=== PATIENT | male | born 1965 | race Caucasian/White ===

== ENCOUNTER 2023-01-24 20:53 | Inpatient (IN) ==
[2023-01-24] MEDS ORDERED: 0.9 % SODIUM CHLORIDE 1,000 ML IV ONE ×2 (21:06→22:03)
--- NOTE | 2023-01-24 21:21 | Emergency Department Note ---
Male Urogenital HPI General Chief complaint: Urogenital-Male Stated complaint: hematuria Time Seen by Provider: 01/24/23 21:04 Source: patient and family Mode of arrival: wheelchair Limitations: no limitations History of Present Illness HPI Narrative: Narrative: Patient is a 57-year-old male who came into the emergency department today with complaint of penile swelling and urinary retention. Patient indicates that the symptoms started 2 days ago. He thought he may have a urinary tract infection so he took [id number] Azo to help with potential UTI. He has noticed small amount of blood on the ventral side of penis today. He reports this is very small amount of blood. He has not noticed hematuria. He has abdominal aching sensation over his bladder and feels that he needs to urinate. He has been having some mild low back pain. He denies having any fevers but has felt chilled at times. He denies any melena or hematochezia. He reports having loose brown to occasional villatoro-colored stool. He has not had any cough, chest pain, shortness of breath, or difficulty breathing. Review of Systems ROS ROS Narrative: Narrative: All systems ED: reviewed and negative except as stated. [facility] Narrative Patient History Narrative: Narrative: Medical/Surgical/Family History All Active Problems (Updated 01/24/23 @ 22:00 by Geraldo Arora DNP) Acute retention of urine (Acute) BRADEN (acute kidney injury) (Acute) Social History Smoking Status: Current every day smoker Exam Narrative Narrative: Narrative: General Limitations: no limitations General appearance: Present alert and in no apparent distress Eye Eye: Present normal appearance; Absent scleral icterus ENT ENT: Present mucous membranes moist Neck Neck: Present full ROM; Absent lymphadenopathy Chest Chest: Present symmetric chest wall rise Respiratory Respiratory: Present normal lung sounds bilaterally; Absent respiratory distress, rales/crackles, wheezes or accessory muscle use Cardiovascular Cardiovascular: Present normal rhythm and tachycardia Adbominal Abdominal: Present soft and tenderness (Mild suprapubic tenderness with palpation.); Absent distention, mass or hernia : Present normal testicular lie and circumcised; Absent scrotal swelling Expanded : Present other (Very minimal penile swelling of shaft of penis. On the ventral side of penis near the meatus is a small crack in the skin with scant serous discharge.) Extremities Extremities: Present normal inspection, full ROM and normal capillary refill; Absent pedal edema, pretibial edema or cyanosis Back Back: Present normal inspection and full ROM; Absent CVA tenderness (R) or CVA tenderness (L) Neurological Neurological: Present alert and oriented X3 Psychiatric Psychiatric: Present normal affect and normal mood Skin Skin: Present warm (WNL), dry and normal color Course Vital Signs Vital signs: Vital Signs Temperature 97.5 F 01/24/23 20:56 Pulse Rate 126 H 01/24/23 20:56 Respiratory Rate 14 01/24/23 20:56 Blood Pressure 90/63 01/24/23 20:56 Pulse Oximetry (%) 98 01/24/23 20:56 Oxygen Delivery Method Room Air 01/24/23 20:56 Temperature 97.5 F 01/24/23 20:56 Pulse Rate 116 H 01/24/23 21:45 Respiratory Rate 14 01/24/23 20:56 Blood Pressure 102/77 01/24/23 21:45 Pulse Oximetry (%) 98 01/24/23 21:45 Oxygen Delivery Method Room Air 01/24/23 20:56 [facility] Narrative Medical decision making narrative: Narrative: Patient is a 57-year-old male who came into the emergency department today reporting urinary retention, penile swelling, and mild amount of blood noted at the ventral side of his penis. On examination patient has a small area that resembles an abrasion on the ventral side of penis near the meatus. Patient had mild nausea today and proceeded with 4 mg of IV ondansetron. Patient had a pulse of 126 and a blood pressure of 90/63. Proceed with 1 L of IV normal saline for hydration. Bladder scan amount was greater than 300 mL and patient unable to void. Ordered Duff catheter to be placed. 24 Maori Duff catheter was placed today. Patient had moderate amount of hematuria. Patient's [id number] Chem-8 panel shows hematocrit 48.0, creatinine 3.3 with BUN of 46. Patient currently receiving 1 L of IV normal saline for hydration and will order second liter of NS for hydration. Patient's [id number] INR 2.1. He does not take any anticoagulants and reports that he rarely takes acetaminophen. He denies any NSAID use. Ordered renal ultrasound for further evaluation of patient's acute kidney injury and hematuria. Due to shift change at 2200 Dr. Walsh will assume care. Patient still patient in the emergency department at this time. Blood pressure 102/77, pulse 116, oxygen saturation 98% on room air. Patient was ordered 0.5 mg of Dilaudid IV for pain management today. Lab Data 01/24/23 21:24 Labs: Lab Results 01/24/23 01/24/23 Range/Units 21:19 21:31 POC Hct 48.0 (41-55) POC PT 24.0 H (11.9-14.5) POC INR 2.1 H (0.8-1.2) POC Sodium 139 (133-145) POC Potassium 3.8 (3.3-5.1) POC Chloride 107 (96-108) POC Total CO2 16.0 L (22-30) POC BUN 46 H (6-20) POC Creatinine 3.3 H (0.6-1.2) POC Glucose 108 H (70-105) POC WB Ioniz Calcium 1.12 L (1.16-1.32) Discharge Plan Patient/Caregiver Discharge Instructions Pt seen by LINE CONSTRUCTION ENGINEER/PA only: No Clinical Impression: Acute retention of urine, BRADEN (acute kidney injury) Patient Disposition: Still a Patient Condition: Serious Follow up with: Chace Gonzalez ARNP [Primary Care Provider] -
[2023-01-24] MEDS ORDERED: ONDANSETRON 4 MG/2 ML VIAL IV ONE (21:22)
[2023-01-24 21:25] LABS: POC Calcium, Ionized 1.12 (1.16-1.32); POC Creatinine 3.3 (0.6-1.2); POC Potassium 3.8 (3.3-5.1)
[2023-01-24 21:36] LABS: POC INR 2.1 (0.8-1.2)
[2023-01-24] MEDS ORDERED: HYDROmorphone 0.5 MG/0.5 ML SYRINGE IV PRN (21:57)
[2023-01-24 22:27] LABS: ALT/SGPT 33 U/L (<40); AST/SGOT 51 U/L (<40); Albumin 3.7 gm/dL (3.2-5.2); Alkaline Phosphatase 65 U/L (39-117); Basophils # (Auto) 0.14 K/mcL (0.00-0.30); Basophils % (Auto) 0.4 % (0.0-2.0); Bilirubin,Direct 1.1 mg/dL (<0.3); Bilirubin,Total 2.1 mg/dL (0.1-1.0); Eosinophils # (Auto) 0.01 K/mcL (0.00-0.70); Eosinophils % (Auto) 0 % (0.0-7.0); Globulin 2.5 gm/dL (2.2-3.7); Hematocrit 47.1 % (40.1-51.0); Hemoglobin 16.1 g/dL (13.7-17.5); Lymphocytes % (Auto) 1.9 % (15.5-49.0); Mean Cell Volume 84.7 fL (80.0-100.0); Mean Corpuscular HGB Conc 34.2 g/dL (31.0-36.0); Mean Platelet Volume 11.5 fL (8.8-12.5); Monocytes # (Auto) 1.46 K/mcL (0.10-0.90); Monocytes % (Auto) 4.1 % (1.0-12.0); Neutrophils % (Auto) 89.2 % (38.0-78.0); Platelet Count 114 K/mcL (140-440); RBC 5.56 M/mcL (4.63-6.08); Red Cell Distribution Width 14.7 % (11.5-14.5); WBC 35.9 K/mcL (4.5-11.0)
[2023-01-24] MEDS ORDERED: LIDOCAINE 2% URO-JET 10 ML JEL.PF.APP UR ONE (22:55)
[2023-01-24] MEDS ORDERED: cefTRIAXone 2 GM in DEXTROSE 5% IN WATER 50 ML IV ONE (23:06)
[2023-01-24 23:15] LABS: Appearance,Urine Turbid (Clear); Bacteria,Urine 0 /hpf (0); Bilirubin,Urine Negative (Negative); Color,Urine Red; Culture Indicated,Urine yes; Glucose,Urine (UA) 100(Trace) mg/dL (Negative); Ketones,Urine 5(Trace) mg/dL (Negative); Leukocyte Esterase,Urine 2+(Moderate) /uL (Negative); Nitrate,Urine Positive (Negative); PH,Urine 7.5 (5.0-9.0); Protein,Urine >=300 mg/dL (Negative); Specific Gravity,Urine 1.015 (1.000-1.035); Urine Blood 3+(Large) ery/mcL (Negative); Urine RBC > 182 /hpf (0-1); Urine Squamous Epithelial Cell 0 /hpf (0-4); Urine WBC 15 /hpf (0-4)
[2023-01-25] MEDS ORDERED: ONDANSETRON 4 MG/2 ML VIAL IV ONE (00:35)
[2023-01-25] MEDS ORDERED: ONDANSETRON 4 MG/2 ML VIAL ONE (00:37)
--- NOTE | 2023-01-25 00:44 | Urology Consult Note ---
HPI Date of Consult Consult Date: 01/25/23 Requesting physician: Ta Walsh Primary Care Provider: JOHN Wilkins Consult Narrative Patient Information: Note initiated : 01/25/23 at 12:43 am Service Date, if different from initiated Date: [] Patient: Ventura Corral 57 y/o M admitted on for hematuria. Chief Complaint: Ventura is a 57-year-old male who presented to the emergency department earlier this evening with complaints of difficulty with urinating for the past several days. He reports for the past couple of years he has had increasing difficulty with urination with episodes that would last for several minutes to several hours after which she would be able to urinate again. Today he saw small amount of blood on his penis. He did not notice blood in his urine. He and his reports that the urine was an redd color. He has had chills, nausea and emesis for the past couple of days. Attempts at placing a Duff catheter in the emergency room were unsuccessful. A 24 Comoran catheter was placed and the balloon was inflated in the prostate. This was confirmed on ultrasound. That catheter was removed and urology consultation was obtained. CT scan in the ER was obtained and showed no evidence of hydronephrosis or stones. The bladder was moderately distended. There was some haziness in the perinephric fat bilaterally. The prostate is seen to be moderately enlarged. The patient's white blood cell count is 36. BUN and creatinine are elevated at 46 and 3.3 respectively. Chief complaint: Urinary retention, possible urosepsis Reason for consult: Urinary retention inability to place Duff cath cc:: CC: Review of Systems All systems: reviewed and no additional remarkable complaints except as stated Constitutional Constitutional: Present lethargy and weakness Gastrointestinal Gastrointestinal: Present bloating, nausea and vomiting Genitourinary Genitourinary: as per HPI, hematuria, post void dribbling, urinary frequency, urinary hesitancy and urinary urgency PFSH PFSH All Active Problems (Updated 01/25/23 @ 00:59 by Juarez Griffin MD) Urethral stricture (Acute) Acute retention of urine (Acute) BRADEN (acute kidney injury) (Acute) Sepsis (Acute) Acute pyelonephritis (Acute) Acute UTI (Acute) Social History smoking status: Current every day smoker Physical Examination Vital Signs Vital signs: Temp Pulse Resp BP Pulse Ox O2 Del Method 97.5 F 118 H 14 104/70 97 Room Air 01/24/23 20:56 01/24/23 23:45 01/24/23 20:56 01/24/23 23:45 01/24/23 23:45 01/24/23 20:56 General physical appearance General physical exam: well developed, well nourished and moderate pain ENT ENT exam: no hearing loss Head Head exam IM: Present atraumatic, normal inspection and normocephalic Neck Neck exam: trachea midline Cardiovascular Cardiovascular exam IM: Present normal rate and rhythm Respiratory Respiratory exam: normal respiratory effort and clear to auscultation Abdomen Abdomen: Present soft, tender and distended Genitourinary Genitourinary (Male): Present normal penis with no external lesions Neurologic Neurologic: Present normal sensation Psychiatric Psychiatric: Present oriented to time, oriented to person, oriented to place, speech is normal and memory intact Results Labs 01/24/23 21:24 Labs: Abnormal lab results 01/24/23 01/24/23 01/24/23 Range/Units 21:19 21:24 21:24 WBC 35.9 H* (4.5-11.0) K/mcL RDW 14.7 H (11.5-14.5) % Plt Count 114 L (140-440) K/mcL Immature Gran % (Auto) 4.4 H (0.0-0.5) % Neut % (Auto) 89.2 H (38.0-78.0) % Lymph % (Auto) 1.9 L (15.5-49.0) % Lymph # (Auto) 0.70 L (1.50-4.80) K/mcL Donley # (Auto) 1.46 H (0.10-0.90) K/mcL Immature Gran # 1.58 H (0.00-0.05) K/mcl Absolute Neutrophils 32.05 H (1.80-8.00) K/mcL POC PT (11.9-14.5) POC INR (0.8-1.2) POC VBG pCO2 at Temp (41-51) POC VBG pO2 (25-40) POC VBG HCO3 (24-28) POC VBG Total CO2 (25-29) POC Venous O2 Sat (40-70) POC VBG Base Excess (-2-2) VBG Lactic Acid (0.5-2) POC Total CO2 16.0 L (22-30) POC BUN 46 H (6-20) POC Creatinine 3.3 H (0.6-1.2) POC Glucose 108 H (70-105) POC WB Ioniz Calcium 1.12 L (1.16-1.32) Total Bilirubin 2.1 H (0.1-1.0) mg/dL Direct Bilirubin 1.1 H (<0.3) mg/dL AST 51 H (<40) U/L Procalcitonin ng/mL Urine Appearance (Clear) Urine Protein (Negative) mg/dL Urine Glucose (UA) (Negative) mg/dL Urine Ketones (Negative) mg/dL Urine Occult Blood (Negative) kalyan/mcL Urine Nitrate (Negative) Urine Urobilinogen mg/dL Ur Leukocyte Esterase (Negative) /uL Urine RBC (0-1) /hpf Urine WBC (0-4) /hpf 01/24/23 01/24/23 01/24/23 Range/Units 21:31 22:32 22:34 WBC (4.5-11.0) K/mcL RDW (11.5-14.5) % Plt Count (140-440) K/mcL Immature Gran % (Auto) (0.0-0.5) % Neut % (Auto) (38.0-78.0) % Lymph % (Auto) (15.5-49.0) % Lymph # (Auto) (1.50-4.80) K/mcL Donley # (Auto) (0.10-0.90) K/mcL Immature Gran # (0.00-0.05) K/mcl Absolute Neutrophils (1.80-8.00) K/mcL POC PT 24.0 H (11.9-14.5) POC INR 2.1 H (0.8-1.2) POC VBG pCO2 at Temp (41-51) POC VBG pO2 (25-40) POC VBG HCO3 (24-28) POC VBG Total CO2 (25-29) POC Venous O2 Sat (40-70) POC VBG Base Excess (-2-2) VBG Lactic Acid (0.5-2) POC Total CO2 (22-30) POC BUN (6-20) POC Creatinine (0.6-1.2) POC Glucose (70-105) POC WB Ioniz Calcium (1.16-1.32) Total Bilirubin (0.1-1.0) mg/dL Direct Bilirubin (<0.3) mg/dL AST (<40) U/L Procalcitonin > 100 H ng/mL Urine Appearance Turbid A (Clear) Urine Protein >=300 A (Negative) mg/dL Urine Glucose (UA) 100(trace) A (Negative) mg/dL Urine Ketones 5(trace) A (Negative) mg/dL Urine Occult Blood 3+(large) A (Negative) kalyan/mcL Urine Nitrate Positive A (Negative) Urine Urobilinogen 2.0 A mg/dL Ur Leukocyte Esterase 2+(moderate) A (Negative) /uL Urine RBC > 182 H (0-1) /hpf Urine WBC 15 H (0-4) /hpf 01/24/23 Range/Units 22:57 WBC (4.5-11.0) K/mcL RDW (11.5-14.5) % Plt Count (140-440) K/mcL Immature Gran % (Auto) (0.0-0.5) % Neut % (Auto) (38.0-78.0) % Lymph % (Auto) (15.5-49.0) % Lymph # (Auto) (1.50-4.80) K/mcL Donley # (Auto) (0.10-0.90) K/mcL Immature Gran # (0.00-0.05) K/mcl Absolute Neutrophils (1.80-8.00) K/mcL POC PT (11.9-14.5) POC INR (0.8-1.2) POC VBG pCO2 at Temp 30.8 L (41-51) POC VBG pO2 42 H (25-40) POC VBG HCO3 18.1 L (24-28) POC VBG Total CO2 19.0 L (25-29) POC Venous O2 Sat 77.0 H (40-70) POC VBG Base Excess -7.0 L (-2-2) VBG Lactic Acid 3.3 H (0.5-2) POC Total CO2 (22-30) POC BUN (6-20) POC Creatinine (0.6-1.2) POC Glucose (70-105) POC WB Ioniz Calcium (1.16-1.32) Total Bilirubin (0.1-1.0) mg/dL Direct Bilirubin (<0.3) mg/dL AST (<40) U/L Procalcitonin ng/mL Urine Appearance (Clear) Urine Protein (Negative) mg/dL Urine Glucose (UA) (Negative) mg/dL Urine Ketones (Negative) mg/dL Urine Occult Blood (Negative) kalyan/mcL Urine Nitrate (Negative) Urine Urobilinogen mg/dL Ur Leukocyte Esterase (Negative) /uL Urine RBC (0-1) /hpf Urine WBC (0-4) /hpf Diabetes panel 01/24/23 Range/Units 21:24 AST 51 H (<40) U/L ALT 33 (<40) U/L Alkaline Phosphatase 65 (39-117) U/L Total Protein 6.2 (5.9-8.4) gm/dL Albumin 3.7 (3.2-5.2) gm/dL Calcium panel 01/24/23 Range/Units 21:24 Albumin 3.7 (3.2-5.2) gm/dL Adrenal panel 01/24/23 Range/Units 21:24 Total Bilirubin 2.1 H (0.1-1.0) mg/dL AST 51 H (<40) U/L ALT 33 (<40) U/L Alkaline Phosphatase 65 (39-117) U/L Total Protein 6.2 (5.9-8.4) gm/dL Albumin 3.7 (3.2-5.2) gm/dL All other labs normal. Imaging CT scan - abdomen: image reviewed CT scan - pelvis: image reviewed A/P Assessment and plan (1) Acute retention of urine: Status: Acute (2) Sepsis: Status: Acute Qualifiers: Acute renal failure type: unspecified Sepsis acute organ dysfunction status: with acute organ dysfunction Sepsis type: sepsis due to unspecified organism Severe sepsis acute organ dysfunction type: acute renal failure Severe sepsis shock status: without septic shock Qualified Code(s): A41.9 - Sepsis, unspecified organism; R65.20 - Severe sepsis without septic shock; N17.9 - Acute kidney failure, unspecified (3) Urethral stricture: Status: Acute Plan Ventura is a 57-year-old male who presents to the emergency department today with what is likely a history of urethral stricture of unknown etiology and moderate urinary retention. It appears that he also may have a urinary tract infection with urosepsis. It appears that he is septic from some source and the urine appears to be the most likely source although not the only possible source. He has been having significant nausea and emesis. Urology consultation was obtained and at the bedside flexible cystoscopy was performed that revealed a large posterior false passage with a small true lumen anteriorly. A 0.38 Comoran sensor wire was passed through the true lumen and into the bladder. This was then dilated using S-curve dilators to 20 Com[place]. An 18 Comoran koi tip catheter was then passed over the wire and into the bladder. The wire was removed and the balloon was inflated with 10 mL. The catheter was then drained and drained approximately 300 mL of redd-colored urine. With the Duff catheter in place the patient will be admitted to the hospitalist service for further evaluation and treatment. The catheter should remain in for the length of his stay for least 1 week. I will remove the catheter in the office and determine further work-up. Time Spent With Patient Time: Total time spent is greater than 50% in coordination of care (as documented) at patient's floor/unit and/or counseling patient: Cystoscopy Details: At the bedside lidocaine jelly was placed in the urethra. Once the lidocaine had adequate time to sit the penile clamp was removed. The flexible, disposable cystoscope was then easily passed per urethra to the bulbar urethra. There was a large posterior false passage identified. A 0.38 Comoran sensor wire was passed through a tiny true lumen anteriorly. The cystoscope was removed. The urethra was then dilated using S-curve dilators to 20 Comoran. A 18 Comoran koi tip catheter was then passed over the wire and into the bladder. The wire was removed. The balloon was inflated with 10 mL. It drained clear redd urine with a strong odor. The catheter was placed to gravity drainage. He tolerated the procedure well with minimal discomfort. Informed consent given: Yes Sterilizing agent: betadine Type of anesthesia: local Type of scope: flexible Urethra appearance: strictures present Pain tolerated with: well Complications: No Visual taken: No
--- NOTE | 2023-01-25 00:55 | Emergency Department Note ---
Course Course Course Narrative: I assumed care of patient at 2200 pending remaining labs and ultrasound report. A Duff catheter was placed and balloon inflated and jim blood was returned. Renal ultrasound was obtained due to patient's acute kidney injury to assess for any obstruction. Ultrasound did not show any obstruction but it did not show that the Duff catheter was in the bladder. Balloon was deflated and Duff catheter removed. We attempted to place another smaller catheter without any success. Urology was consulted at that point and Dr. Griffin was able to successfully place a Duff catheter. He request that the Duff catheter maintain in place until patient follows up in the outpatient clinic. We were not able to obtain a UA until after Dr. Griffin placed a Duff catheter at about 00 30. Due to patient's labs revealing that his leukocytosis was severe greater than 30 his lactic acid was 3.3 and his procalcitonin was severely elevated a CTA chest abdomen pelvis without contrast was obtained and show that patient had pyelonephritis which fits the clinical picture as his UA dip showed that he had a UTI and he also has some nausea and vomiting. Blood cultures were obtained and patient was given IV Rocephin. Patient does meet sepsis criteria with tachycardia, leukocytosis and source of infection. Recommend that patient be admitted to the hospitalist service for sepsis secondary to pyelonephritis. Patient's blood pressure has also been soft at times he is hypotensive. He received IV fluids. Consultations Consultation #1: Case was discussed with urologist, Dr. Griffin, who came and evaluated patient at bedside. He was able to place a Duff catheter in the patient. He recommends the patient maintain Duff catheter until he follows up in the outpatient clinic. Time: 00:30 Consultation #2: Case discussed with hospitalist, Dr. Taylor, who has agreed to admit the patient Time: 01:45 Vital Signs Vital signs: Vital Signs Temperature 97.5 F 01/24/23 20:56 Pulse Rate 126 H 01/24/23 20:56 Respiratory Rate 14 01/24/23 20:56 Blood Pressure 90/63 01/24/23 20:56 Pulse Oximetry (%) 98 01/24/23 20:56 Oxygen Delivery Method Room Air 01/24/23 20:56 Temperature 97.5 F 01/24/23 20:56 Pulse Rate 117 H 01/25/23 00:55 Respiratory Rate 14 01/24/23 20:56 Blood Pressure 82/62 01/25/23 00:55 Pulse Oximetry (%) 95 01/25/23 00:55 Oxygen Delivery Method Room Air 01/24/23 20:56 MDM MDM Narrative Medical decision making narrative: Narrative: Sepsis Sepsis Identified: Yes Date Sepsis Identified: 01/25/23 Time Sepsis Identified: 00:40 Comments: uti sepsis Differential Diagnosis Differential Diagnosis: UTI, sepsis, pyelonephritis, urinary retention Medical Records Medical records reviewed: Yes I reviewed the patient's medical records. Lab Data Lab results reviewed: Yes I reviewed the patient's lab results. 01/24/23 21:24 Labs: Lab Results 01/24/23 01/24/23 01/24/23 Range/Units 21:19 21:24 21:24 WBC 35.9 H* (4.5-11.0) K/mcL RBC 5.56 (4.63-6.08) M/mcL Hgb 16.1 (13.7-17.5) g/dL Hct 47.1 (40.1-51.0) % POC Hct 48.0 (41-55) MCV 84.7 (80.0-100.0) fL MCH 29.0 (26.0-34.0) pg MCHC 34.2 (31.0-36.0) g/dL RDW 14.7 H (11.5-14.5) % Plt Count 114 L (140-440) K/mcL MPV 11.5 (8.8-12.5) fL Immature Gran % (Auto) 4.4 H (0.0-0.5) % Neut % (Auto) 89.2 H (38.0-78.0) % Lymph % (Auto) 1.9 L (15.5-49.0) % Nance % (Auto) 4.1 (1.0-12.0) % Eos % (Auto) 0 (0.0-7.0) % Baso % (Auto) 0.4 (0.0-2.0) % Lymph # (Auto) 0.70 L (1.50-4.80) K/mcL Nance # (Auto) 1.46 H (0.10-0.90) K/mcL Eos # (Auto) 0.01 (0.00-0.70) K/mcL Baso # (Auto) 0.14 (0.00-0.30) K/mcL Immature Gran # 1.58 H (0.00-0.05) K/mcl Absolute Neutrophils 32.05 H (1.80-8.00) K/mcL Differential Comment POC PT (11.9-14.5) POC INR (0.8-1.2) POC VBG pH (7.32-7.42) POC VBG pCO2 at Temp (41-51) POC VBG pO2 (25-40) POC VBG HCO3 (24-28) POC VBG Total CO2 (25-29) POC Venous O2 Sat (40-70) POC VBG Base Excess (-2-2) VBG Lactic Acid (0.5-2) POC Sodium 139 (133-145) POC Potassium 3.8 (3.3-5.1) POC Chloride 107 (96-108) POC Total CO2 16.0 L (22-30) POC BUN 46 H (6-20) POC Creatinine 3.3 H (0.6-1.2) POC Glucose 108 H (70-105) POC WB Ioniz Calcium 1.12 L (1.16-1.32) Total Bilirubin 2.1 H (0.1-1.0) mg/dL Direct Bilirubin 1.1 H (<0.3) mg/dL AST 51 H (<40) U/L ALT 33 (<40) U/L Alkaline Phosphatase 65 (39-117) U/L Total Protein 6.2 (5.9-8.4) gm/dL Albumin 3.7 (3.2-5.2) gm/dL Globulin 2.5 (2.2-3.7) gm/dL Procalcitonin ng/mL Urine Color Urine Appearance (Clear) Urine pH (5.0-9.0) Ur Specific [place] (1.000-1.035) Urine Protein (Negative) mg/dL Urine Glucose (UA) (Negative) mg/dL Urine Ketones (Negative) mg/dL Urine Occult Blood (Negative) kalyan/mcL Urine Nitrate (Negative) Urine Bilirubin (Negative) mg/dL Urine Urobilinogen mg/dL Ur Leukocyte Esterase (Negative) /uL Urine RBC (0-1) /hpf Urine WBC (0-4) /hpf Ur Squamous Epith Cells (0-4) /hpf Urine Bacteria (0) /hpf Ur Culture Indicated? 01/24/23 01/24/23 01/24/23 Range/Units 21:31 22:32 22:34 WBC (4.5-11.0) K/mcL RBC (4.63-6.08) M/mcL Hgb (13.7-17.5) g/dL Hct (40.1-51.0) % POC Hct (41-55) MCV (80.0-100.0) fL MCH (26.0-34.0) pg MCHC (31.0-36.0) g/dL RDW (11.5-14.5) % Plt Count (140-440) K/mcL MPV (8.8-12.5) fL Immature Gran % (Auto) (0.0-0.5) % Neut % (Auto) (38.0-78.0) % Lymph % (Auto) (15.5-49.0) % Nance % (Auto) (1.0-12.0) % Eos % (Auto) (0.0-7.0) % Baso % (Auto) (0.0-2.0) % Lymph # (Auto) (1.50-4.80) K/mcL Nance # (Auto) (0.10-0.90) K/mcL Eos # (Auto) (0.00-0.70) K/mcL Baso # (Auto) (0.00-0.30) K/mcL Immature Gran # (0.00-0.05) K/mcl Absolute Neutrophils (1.80-8.00) K/mcL Differential Comment POC PT 24.0 H (11.9-14.5) POC INR 2.1 H (0.8-1.2) POC VBG pH (7.32-7.42) POC VBG pCO2 at Temp (41-51) POC VBG pO2 (25-40) POC VBG HCO3 (24-28) POC VBG Total CO2 (25-29) POC Venous O2 Sat (40-70) POC VBG Base Excess (-2-2) VBG Lactic Acid (0.5-2) POC Sodium (133-145) POC Potassium (3.3-5.1) POC Chloride (96-108) POC Total CO2 (22-30) POC BUN (6-20) POC Creatinine (0.6-1.2) POC Glucose (70-105) POC WB Ioniz Calcium (1.16-1.32) Total Bilirubin (0.1-1.0) mg/dL Direct Bilirubin (<0.3) mg/dL AST (<40) U/L ALT (<40) U/L Alkaline Phosphatase (39-117) U/L Total Protein (5.9-8.4) gm/dL Albumin (3.2-5.2) gm/dL Globulin (2.2-3.7) gm/dL Procalcitonin > 100 H ng/mL Urine Color Red Urine Appearance Turbid A (Clear) Urine pH 7.5 (5.0-9.0) Ur Specific [place] 1.015 (1.000-1.035) Urine Protein >=300 A (Negative) mg/dL Urine Glucose (UA) 100(trace) A (Negative) mg/dL Urine Ketones 5(trace) A (Negative) mg/dL Urine Occult Blood 3+(large) A (Negative) kalyan/mcL Urine Nitrate Positive A (Negative) Urine Bilirubin Negative (Negative) mg/dL Urine Urobilinogen 2.0 A mg/dL Ur Leukocyte Esterase 2+(moderate) A (Negative) /uL Urine RBC > 182 H (0-1) /hpf Urine WBC 15 H (0-4) /hpf Ur Squamous Epith Cells 0 (0-4) /hpf Urine Bacteria 0 (0) /hpf Ur Culture Indicated? yes 01/24/23 01/25/23 01/25/23 Range/Units 22:57 01:30 01:30 WBC (4.5-11.0) K/mcL RBC (4.63-6.08) M/mcL Hgb (13.7-17.5) g/dL Hct (40.1-51.0) % POC Hct 42.0 (41-55) MCV (80.0-100.0) fL MCH (26.0-34.0) pg MCHC (31.0-36.0) g/dL RDW (11.5-14.5) % Plt Count (140-440) K/mcL MPV (8.8-12.5) fL Immature Gran % (Auto) (0.0-0.5) % Neut % (Auto) (38.0-78.0) % Lymph % (Auto) (15.5-49.0) % Nance % (Auto) (1.0-12.0) % Eos % (Auto) (0.0-7.0) % Baso % (Auto) (0.0-2.0) % Lymph # (Auto) (1.50-4.80) K/mcL Nance # (Auto) (0.10-0.90) K/mcL Eos # (Auto) (0.00-0.70) K/mcL Baso # (Auto) (0.00-0.30) K/mcL Immature Gran # (0.00-0.05) K/mcl Absolute Neutrophils (1.80-8.00) K/mcL Differential Comment POC PT (11.9-14.5) POC INR (0.8-1.2) POC VBG pH 7.38 7.43 H (7.32-7.42) POC VBG pCO2 at Temp 30.8 L 27.2 L (41-51) POC VBG pO2 42 H 57 H (25-40) POC VBG HCO3 18.1 L 17.9 L (24-28) POC VBG Total CO2 19.0 L 19.0 L (25-29) POC Venous O2 Sat 77.0 H 91.0 H (40-70) POC VBG Base Excess -7.0 L -6.0 L (-2-2) VBG Lactic Acid 3.3 H 3.0 H (0.5-2) POC Sodium 140 (133-145) POC Potassium 3.8 (3.3-5.1) POC Chloride 108 (96-108) POC Total CO2 18.0 L (22-30) POC BUN 49 H (6-20) POC Creatinine 3.1 H (0.6-1.2) POC Glucose 105 (70-105) POC WB Ioniz Calcium 1.02 L (1.16-1.32) Total Bilirubin (0.1-1.0) mg/dL Direct Bilirubin (<0.3) mg/dL AST (<40) U/L ALT (<40) U/L Alkaline Phosphatase (39-117) U/L Total Protein (5.9-8.4) gm/dL Albumin (3.2-5.2) gm/dL Globulin (2.2-3.7) gm/dL Procalcitonin ng/mL Urine Color Urine Appearance (Clear) Urine pH (5.0-9.0) Ur Specific [place] (1.000-1.035) Urine Protein (Negative) mg/dL Urine Glucose (UA) (Negative) mg/dL Urine Ketones (Negative) mg/dL Urine Occult Blood (Negative) kalyan/mcL Urine Nitrate (Negative) Urine Bilirubin (Negative) mg/dL Urine Urobilinogen mg/dL Ur Leukocyte Esterase (Negative) /uL Urine RBC (0-1) /hpf Urine WBC (0-4) /hpf Ur Squamous Epith Cells (0-4) /hpf Urine Bacteria (0) /hpf Ur Culture Indicated? Radiology Data Radiology results reviewed: Yes I reviewed the patient's radiology results. Radiology results narrative: Renal ultrasound obtained with unremarkable findings with no obstruction CT chest abdomen pelvis obtained with image reviewed myself concerning for pyelonephritis with no other acute intra-abdominal findings Core Measures AMI Core Measures Followed: Yes Discharge Plan Patient/Caregiver Discharge Instructions Pt seen by COMMERCIAL COORDINATOR/PA only: No Clinical Impression: Sepsis, Acute retention of urine, BRADEN (acute kidney injury), Acute pyelonephritis, Acute UTI Patient Disposition: Xfer As Inpt ([facility]) Condition: Fair Follow up with: Chace Gonzalez ARNP [Primary Care Provider] - Prescriptions: No Action No Known Home Meds
[2023-01-25] MEDS ORDERED: 0.9 % SODIUM CHLORIDE 1,000 ML IV SCH ×2 (01:00→01:30)
[2023-01-25 01:35] LABS: POC Calcium, Ionized 1.02 (1.16-1.32); POC Creatinine 3.1 (0.6-1.2); POC Potassium 3.8 (3.3-5.1)
[2023-01-25] MEDS ORDERED: 0.9 % SODIUM CHLORIDE 500 ML IV ONE (01:50)
--- NOTE | 2023-01-25 02:06 | Internal Med History&Physical ---
HPI History of Present Illness Patient information: Note initiated : 01/25/23 at 2:00 am Service Date, if different from initiated Date: [] Patient: Ventura Corral 57 y/o M admitted on for hematuria. Chief Complaint: [] History of present illness: Mr. Corral is a 57 year old male with no significant past medical history except elevated blood pressure for which she is currently not on antihypertensives presented to the emergency department for difficulty urinating and generally not feeling well. The patient was concerned that he might have a urinary tract infection. In the ED the patient was found to be septic, a Duff catheter was attempted but not successful therefore urology consulted and placed a Duff catheter. Patient was given IV fluid and ceftriaxone, he was hypotensive in the ED with initial lactic acid of 3.4. Additionally, the patient had a elevated creatinine likely reflecting an acute kidney injury, elevated INR and bilirubin likely reflecting liver injury secondary to sepsis. Hospital medicine was consulted for admission. Review of systems Constitutional: Positive for chills, fever, fatigue Eyes: no vision changes or pain Cardiovascular: no chest pain, no palpitations Respiratory: no cough or dyspnea Gastrointestinal: Positive for epigastric and right upper quadrant abdominal pain, positive for nausea, positive for vomiting Genitourinary: Positive for difficulty urinating. Musculoskeletal: no arthralgia or myalgia Integumentary: no skin lesion or wound Neurological: no focal weakness or numbness Psychiatric: no anxiety or depression Physical exam Head: Atraumatic, normal inspection. Eyes: normal appearance, no scleral icterus. Neck: full ROM Respiratory: no respiratory distress. Cardiovascular: normal rate and rhythm, S1, S2. GI/Abdominal: soft, mild right upper quadrant tenderness, mild epigastric tenderness, no guarding. : Indwelling Duff catheter with dark urine Extremities: full range of motion, nontender. Neurological: CN II-XII intact, intact motor, intact sensation. Psychiatric: normal mood. Skin: warm, normal color PFSH PFSH All Active Problems (Updated 01/25/23 @ 01:52 by Ta Walsh DO) Acute retention of urine (Acute) BRADEN (acute kidney injury) (Acute) Sepsis (Acute) Acute pyelonephritis (Acute) Acute UTI (Acute) Urethral stricture (Acute) Social History smoking status: Former smoker MEDS/ALLERGIES Home Medications and Allergies Home Medications Medication Instructions Recorded Confirmed Type No Known Home Meds 01/25/23 01/25/23 History Allergies Allergy/AdvReac Type Severity Reaction Status Date / Time No Known Drug Allergies Allergy Unverified 01/25/23 01:43 EXAM Constitutional Vitals: Temp Pulse Resp BP Pulse Ox O2 Del Method 97.5 F 117 H 14 82/62 95 Room Air 01/24/23 20:56 01/25/23 00:55 01/24/23 20:56 01/25/23 00:55 01/25/23 00:55 01/24/23 20:56 DATA Data Completed and Pending Labs: Labs from last 24 hours 01/25/23 01/25/23 01/25/23 01:30 01:30 01:29 WBC RBC Hgb Hct POC Hct 42.0 MCV MCH MCHC RDW Plt Count MPV Immature Gran % (Auto) Neut % (Auto) Lymph % (Auto) [place] % (Auto) Eos % (Auto) Baso % (Auto) Lymph # (Auto) [place] # (Auto) Eos # (Auto) Baso # (Auto) Immature Gran # Absolute Neutrophils Differential Comment POC PT POC INR POC VBG pH 7.43 H POC VBG pCO2 at Temp 27.2 L POC VBG pO2 57 H POC VBG HCO3 17.9 L POC VBG Total CO2 19.0 L POC Venous O2 Sat 91.0 H POC VBG Base Excess -6.0 L VBG Lactic Acid 3.0 H POC Sodium 140 POC Potassium 3.8 POC Chloride 108 POC Total CO2 18.0 L POC BUN 49 H POC Creatinine 3.1 H POC Glucose 105 POC WB Ioniz Calcium 1.02 L Total Bilirubin Direct Bilirubin AST ALT Alkaline Phosphatase Total Protein Albumin Globulin Procalcitonin Urine Color Pending Urine Appearance Pending Urine pH Pending Ur Specific [place] Pending Urine Protein Pending Urine Glucose (UA) Pending Urine Ketones Pending Urine Occult Blood Pending Urine Nitrate Pending Urine Bilirubin Pending Urine Urobilinogen Pending Ur Leukocyte Esterase Pending Urine RBC Urine WBC Ur Squamous Epith Cells Urine Bacteria Ur Culture Indicated? 01/24/23 01/24/23 01/24/23 22:57 22:34 22:32 WBC RBC Hgb Hct POC Hct MCV MCH MCHC RDW Plt Count MPV Immature Gran % (Auto) Neut % (Auto) Lymph % (Auto) [place] % (Auto) Eos % (Auto) Baso % (Auto) Lymph # (Auto) [place] # (Auto) Eos # (Auto) Baso # (Auto) Immature Gran # Absolute Neutrophils Differential Comment POC PT POC INR POC VBG pH 7.38 POC VBG pCO2 at Temp 30.8 L POC VBG pO2 42 H POC VBG HCO3 18.1 L POC VBG Total CO2 19.0 L POC Venous O2 Sat 77.0 H POC VBG Base Excess -7.0 L VBG Lactic Acid 3.3 H POC Sodium POC Potassium POC Chloride POC Total CO2 POC BUN POC Creatinine POC Glucose POC WB Ioniz Calcium Total Bilirubin Direct Bilirubin AST ALT Alkaline Phosphatase Total Protein Albumin Globulin Procalcitonin > 100 H Urine Color Red Urine Appearance Turbid A Urine pH 7.5 Ur Specific [place] 1.015 Urine Protein >=300 A Urine Glucose (UA) 100(trace) A Urine Ketones 5(trace) A Urine Occult Blood 3+(large) A Urine Nitrate Positive A Urine Bilirubin Negative Urine Urobilinogen 2.0 A Ur Leukocyte Esterase 2+(moderate) A Urine RBC > 182 H Urine WBC 15 H Ur Squamous Epith Cells 0 Urine Bacteria 0 Ur Culture Indicated? yes 01/24/23 01/24/23 01/24/23 21:31 21:24 21:24 WBC 35.9 H* RBC 5.56 Hgb 16.1 Hct 47.1 POC Hct MCV 84.7 MCH 29.0 MCHC 34.2 RDW 14.7 H Plt Count 114 L MPV 11.5 Immature Gran % (Auto) 4.4 H Neut % (Auto) 89.2 H Lymph % (Auto) 1.9 L [place] % (Auto) 4.1 Eos % (Auto) 0 Baso % (Auto) 0.4 Lymph # (Auto) 0.70 L [place] # (Auto) 1.46 H Eos # (Auto) 0.01 Baso # (Auto) 0.14 Immature Gran # 1.58 H Absolute Neutrophils 32.05 H Differential Comment POC PT 24.0 H POC INR 2.1 H POC VBG pH POC VBG pCO2 at Temp POC VBG pO2 POC VBG HCO3 POC VBG Total CO2 POC Venous O2 Sat POC VBG Base Excess VBG Lactic Acid POC Sodium POC Potassium POC Chloride POC Total CO2 POC BUN POC Creatinine POC Glucose POC WB Ioniz Calcium Total Bilirubin 2.1 H Direct Bilirubin 1.1 H AST 51 H ALT 33 Alkaline Phosphatase 65 Total Protein 6.2 Albumin 3.7 Globulin 2.5 Procalcitonin Urine Color Urine Appearance Urine pH Ur Specific [place] Urine Protein Urine Glucose (UA) Urine Ketones Urine Occult Blood Urine Nitrate Urine Bilirubin Urine Urobilinogen Ur Leukocyte Esterase Urine RBC Urine WBC Ur Squamous Epith Cells Urine Bacteria Ur Culture Indicated? 01/24/23 21:19 WBC RBC Hgb Hct POC Hct 48.0 MCV MCH MCHC RDW Plt Count MPV Immature Gran % (Auto) Neut % (Auto) Lymph % (Auto) [place] % (Auto) Eos % (Auto) Baso % (Auto) Lymph # (Auto) [place] # (Auto) Eos # (Auto) Baso # (Auto) Immature Gran # Absolute Neutrophils Differential Comment POC PT POC INR POC VBG pH POC VBG pCO2 at Temp POC VBG pO2 POC VBG HCO3 POC VBG Total CO2 POC Venous O2 Sat POC VBG Base Excess VBG Lactic Acid POC Sodium 139 POC Potassium 3.8 POC Chloride 107 POC Total CO2 16.0 L POC BUN 46 H POC Creatinine 3.3 H POC Glucose 108 H POC WB Ioniz Calcium 1.12 L Total Bilirubin Direct Bilirubin AST ALT Alkaline Phosphatase Total Protein Albumin Globulin Procalcitonin Urine Color Urine Appearance Urine pH Ur Specific [place] Urine Protein Urine Glucose (UA) Urine Ketones Urine Occult Blood Urine Nitrate Urine Bilirubin Urine Urobilinogen Ur Leukocyte Esterase Urine RBC Urine WBC Ur Squamous Epith Cells Urine Bacteria Ur Culture Indicated? A/P Narrative A/P Narrative: Assessment: 57 year old male admitted for septic shock likely secondary to pyelonephritis complicated by acute kidney injury and liver injury evidenced by hyperbilirubinemia and coagulopathy. The patient had urinary retention in the ED requiring a urology consult for a Duff catheter placement. The cause of urinary retention is a ureteral stricture. #Septic shock, likely secondary to pyelonephritis #Pyelonephritis #Acute kidney injury secondary to sepsis #Coagulopathy likely secondary to sepsis #Hyperbilirubinemia likely secondary to sepsis #Thrombocytopenia likely secondary to sepsis #Hematuria #Urinary retention secondary to ureteral stricture #History of elevated blood pressure Plan -Zosyn 4.5 mg IV Q6 hrs for now. -IV NS per sepsis protocol. -Levophed as needed to keep SBP>90. -Follow urine and blood cultures. -Follow lactic acid. -Check direct and indirect bilirubin levels. -Follow renal function and urine output. -Follow INR and bilirubin. -Follow pending CT chest/abdomen/pelvis report. -Keep Duff catheter until urology follow up. -Analgesics as needed, no NSAID. -Urology consulted in ED. -Regular diet. -DVT prophylaxis: Heparin SQ. -CODE STATUS: Full -Disposition: Inpatient PCU status until sepsis physiology resolves. Discharge disposition will likely be home when the patient is medically stable with urology follow-up. Time Spent With Patient Time: Total time spent is greater than 50% in coordination of care (as documented) at patient's floor/unit and/or counseling patient: QUALITY Stroke Symptom Onset Unknown: No
[2023-01-25 02:37] LABS: Appearance,Urine CLOUDY (Clear); Bacteria,Urine FEW /hpf (0); Bilirubin,Urine Negative (Negative); Color,Urine AMBER; Culture Indicated,Urine yes; Glucose,Urine (UA) Negative (Negative); Ketones,Urine 5 mg/dL (Negative); Leukocyte Esterase,Urine 75 /uL (Negative); Nitrate,Urine Negative (Negative); Protein,Urine 100 mg/dL (Negative); Specific Gravity,Urine 1.014 (1.000-1.035); Sperm,Urine PRESENT /hpf (Absent); Urine Amorphous Crystals MANY /hpf; Urine RBC > 182 /hpf (0-1); Urine Squamous Epithelial Cell 0 /hpf (0-4); Urine Transitional Epi Cells 1 /hpf (0-2); Urine WBC 75 /hpf (0-4)
[2023-01-25] MEDS ORDERED: PIPERACILLIN SODIUM/TAZOBACTAM 4.5 GM in DEXTROSE 5% IN WATER 50 ML IV SCH (02:51)
[2023-01-25] MEDS ORDERED: HYDROmorphone 0.5 MG/0.5 ML SYRINGE IV PRN (02:51)
[2023-01-25] MEDS ORDERED: LACTULOSE 20 GM/30 ML ORAL.SOL PO PRN (02:51)
[2023-01-25] MEDS ORDERED: SENNOSIDES 1 TABLET PO PRN (02:51)
[2023-01-25] MEDS ORDERED: 0.9 % SODIUM CHLORIDE 250 ML IV PRN (02:51)
[2023-01-25] MEDS: 0.9 % SODIUM CHLORIDE 1,000 ML IV SCH ×3 (03:09→17:13)
[2023-01-25] MEDS: ONDANSETRON 4 MG/2 ML VIAL IV PRN ×3 (04:45→21:15)
[2023-01-25] MEDS ORDERED: NOREPINEPHRINE BITARTRATE 4 MG/4 ML VIAL IV ONE (05:21)
[2023-01-25] MEDS: NOREPINEPHRINE BITARTRATE 16 MG in 0.9 % SODIUM CHLORIDE 234 ML IV SCH (05:24)
[2023-01-25] MEDS: 0.9 % SODIUM CHLORIDE 250 ML IV SCH ×2 (05:54→15:38)
[2023-01-25 06:50] LABS: ALT/SGPT 28 U/L (<40); AST/SGOT 38 U/L (<40); Albumin 2.9 gm/dL (3.2-5.2); Albumin/Globulin Ratio 1.3 (1.0-2.3); Alkaline Phosphatase 55 U/L (39-117); Bilirubin,Direct 1.4 mg/dL (<0.3); Bilirubin,Indirect 0.6 mg/dL (0.2-0.8); Blood Urea Nitrogen 54 mg/dL (6-20); Calcium 7.5 mg/dL (8.6-10.4); Carbon Dioxide 16 mmol/L (22-30); Chloride 109 mmol/L (96-108); Globulin 2.2 gm/dL (2.2-3.7); Glomerular Filtration Rate 29; Glucose 119 mg/dL (70-105); Lactate Dehydrogenase 241 U/L (135-225); Phosphorous 4.9 mg/dL (2.5-4.5); Triglycerides 141 mg/dL (<150); Uric Acid 8.3 mg/dL (2.5-8.0)
[2023-01-25] MEDS ORDERED: MAGNESIUM SULFATE 2 GM/50 ML BAG IV ONE (06:53)
[2023-01-25] MEDS: 0.9 % SODIUM CHLORIDE 10 ML SYRINGE IV SCH ×3 (06:58→20:58)
[2023-01-25 07:03] LABS: Basophils # (Auto) 0.01 K/mcL (0.00-0.30); Basophils % (Auto) 0 % (0.0-2.0); Eosinophils # (Auto) 0 K/mcL (0.00-0.70); Eosinophils % (Auto) 0 % (0.0-7.0); Hematocrit 41.2 % (40.1-51.0); Hemoglobin 13.7 g/dL (13.7-17.5); Lymphocytes # (Auto) 0.67 K/mcL (1.50-4.80); Lymphocytes % (Auto) 2.1 % (15.5-49.0); Mean Cell Volume 88.4 fL (80.0-100.0); Mean Corpuscular HGB Conc 33.3 g/dL (31.0-36.0); Mean Platelet Volume 12.2 fL (8.8-12.5); Monocytes # (Auto) 1.08 K/mcL (0.10-0.90); Monocytes % (Auto) 3.4 % (1.0-12.0); Platelet Count 84 K/mcL (140-440); RBC 4.66 M/mcL (4.63-6.08); WBC 31.3 K/mcL (4.5-11.0)
[2023-01-25] MEDS: PIPERACILLIN SODIUM/TAZOBACTAM 3.375 GM in DEXTROSE 5% IN WATER 50 ML IV SCH ×3 (08:04→17:13)
[2023-01-25] MEDS: DOCUSATE SODIUM 100 MG CAPSULE PO SCH ×3 (08:33→21:20)
[2023-01-25] MEDS: OMEPRAZOLE 20 MG CAPSULE PO SCH ×2 (08:33→15:38)
[2023-01-25] MEDS: CALCIUM CARBONATE 500 MG TAB.CHEW CHEWED PRN ×2 (08:33→15:43)
[2023-01-25] MEDS: HEPARIN 5,000 UNIT/ML VIAL SQ SCH ×3 (08:34→21:20)
[2023-01-25 09:41] LABS: Neutrophils % (Auto) 87.2 % (38.0-78.0)
[2023-01-25] MEDS: ACETAMINOPHEN 325 MG TABLET PO PRN ×2 (12:40→23:59)
--- NOTE | 2023-01-25 12:48 | Cat Scan Report ---
CLINICAL INFORMATION: Sepsis with abdomen and pelvic pain. Also penile swelling hematuria. COMPARISON: None. TECHNIQUE: Enteric contrast was utilized. 80 cc of Isovue-370 were injected intravenously, and 50 seconds later, 0.625 mm helical slices were obtained from the lung apices through the subtrochanteric regions of the femurs. Following reconstruction, 2.5 mm sagittal, coronal and axial reformatted images were processed and reviewed at multiple windows and levels. 7 mm MIP reconstructions were obtained through the lungs to optimize nodule detection.The exam was performed using radiation dose optimization techniques including, but not limited to, automated exposure control, adjustment of the mA and/or kV according to patient size and use of iterative reconstruction technique. FINDINGS: Pulmonary parenchymal windows show minimal patchy groundglass airspace disease in the periphery of both lower lobes, right middle lobe and lingula. This is likely a combination of atelectasis and fibrosis. Developing infiltrates are not excluded. A 4 mm well-circumscribed nodule in the lingular region on image 81 is adjacent to an accessory fissure and is compatible with benign subpulmonic lymph node.. Pleural spaces are unremarkable-no effusions. Mediastinal windows show the heart is grossly normal in size and configuration. The pulmonary arteries are normal diameter well-opacified without evidence of embolus. Thoracic aorta is also normal diameter and well-opacified. There is no adenopathy in the mediastinal, hilar or axillary regions. Mild concentric wall thickening of the distal esophagus with mild esophageal dilatation likely represents peptic disease.. The thyroid is unremarkable. Abdominal images show the gallbladder and bile ducts, liver, adrenal glands, spleen, pancreas and aorta, including aortic branches, are normal in size, configuration and attenuation without focal lesion. There is no free air, free fluid or adenopathy. Both kidneys show slight symmetric enlargement: The right is 12.2 cm and the left is 12.8 cm. There is moderate perinephric stranding slight inhomogeneity in renal attenuation. There are two cysts in the right kidney: 15 mm in the superior pole and 14 mm the medial right mid region. There are no stones or hydronephrosis. Upper collecting systems and ureters are normal. Pelvic images through the bladder is mildly distended with moderate asymmetric wall thickening of the urinary bladder base. This suggests cystitis or other infiltrative process. A 2.3 cm diverticulum projects from the right urinary bladder base adjacent to the UVJ. The lesion There is a 2 cm diverticulum projecting from the left bladder dome region. Prostate and seminal vesicles are normal. Multiple sigmoid diverticula appreciated, but no evidence of diverticulitis. The remaining large bowel, retrocecal appendix, small bowel and stomach are grossly normal. Bone windows show no osseous abnormality throughout the chest, abdomen or pelvis. IMPRESSION: 1. Mild bilateral renal enlargement with perinephric stranding which may indicate glomerulonephritis or other diffuse bilateral renal process. 2. Moderate asymmetric wall thickening of urinary bladder base suggesting cystitis or other infiltrative process. 3. 2.3 cm diverticula projecting from the right urinary bladder base adjacent to the ureter possibly representing [place] diverticulum. 2 cm diverticulum projecting from the left urinary bladder dome. 4. Minimal patchy groundglass airspace disease in the periphery of both lower lobes, right middle lobe and lingula. This is most compatible with scattered fibrosis and atelectasis. Developing infiltrates are not excluded. If there are respiratory symptoms suggest plain film follow-up. 5. Mild concentric wall thickening the distal esophagus suggesting peptic disease. 6. Mild diffuse subcutaneous soft tissue swelling in the penile region likely represents either edema or cellulitis venous likely either edema or inflammation Interpreted and Authenticated by: Newton Zapata 01/25/23
--- NOTE | 2023-01-25 12:49 | Ultrasound Report ---
CLINICAL INFORMATION: Acute renal disease COMPARISON: None. FINDINGS: Both kidneys are normal and symmetric in size, position, configuration and echotexture: The right is 12.1 x 5.8 cm and the left is 12.1 x 5.5 cm. 1.1 cm cyst is present in the superior pole the right kidney There are no solid lesions, stones or hydronephrosis. The arterial blood flow is grossly normal to both kidneys on color Doppler. Urinary bladder volume is 248 cc with no postvoid residual residual. No focal bladder lesions. Prostate volume is mildly elevated 36 cc. IMPRESSION: 1.1 simple cyst superior pole right kidney. No significant renal abnormality. Mild prostate enlargement Interpreted and Authenticated by: Newton Zapata 01/25/23
[2023-01-25 14:26] LABS: INR 1.7 (0.9-1.1); Prothrombin Time 20.3 sec (11.9-14.5)
--- NOTE | 2023-01-25 15:27 | Urology Progress Note ---
SUBJECTIVE Subjective Patient information: Note initiated : 01/25/23 at 3:24 pm Service Date, if different from initiated Date: [] Patient: Ventura Corral 57 y/o M admitted on 01/25/23 for hematuria. Chief Complaint: [Urinary retention, traumatic Duff catheter placement] Principal diagnosis: Urinary retention, traumatic Duff catheter placement Interval history: Ventura is a 57-year-old male with what appears to be urosepsis. He is hospital day #1 status post admission through the ER with what appeared to be urinary retention. A 24 American three-way Duff catheter was passed creating a false passage. The balloon was inflated in the prostate. This was then removed. Another attempt was made to place a catheter and then urology consultation was obtained. I performed cystoscopy with placement of a wire at the bedside. A Duff catheter was placed over the wire. His urine remains clear dark yellow today. He continues to have blood around the catheter. Constitutional Vitals: Vital Signs Temp Pulse Resp BP Pulse Ox O2 Del Method O2 Flow Rate 98.0 F 95 H 27 H 107/74 94 Room Air 1 01/25/23 08:01 01/25/23 15:01 01/25/23 15:01 01/25/23 15:01 01/25/23 15:01 01/25/23 13:31 01/25/23 10:31 Period Temp Pulse Resp BP Sys/Garcia Pulse Ox O2 Del Method O2 Flow Rate Last 24 Hr 97.5 F-98.6 F 82-126 14-34 74-119/42-94 89-98 Nasal Cannula- Room Air 1-3 Intake and Output 01/25/23 01/25/23 01/25/23 03:59 11:59 19:59 Intake Total 2049 2372 217 Output Total 800 1016 530 Balance 1250 1357 -313 Weight 93.213 kg Intake & Output: Intake & Output 01/25/23 01/25/23 01/25/23 03:59 11:59 19:59 Intake Total 2049 2372 217 Output Total 800 1016 530 Balance 1250 1357 -313 Weight 93.213 kg Intake: IV 2049 2372 217 Sodium Chloride 0.9% 1,000 ml @ 2000 1678 150 mls/hr IV .Q6H40M [facility] Rx#: [id number] Sodium Chloride 0.9% 250 ml @ 160 20 mls/hr IV .[id number] [facility] Rx#: [id number] Sodium Chloride 0.9% 500 ml @ 500 Wide Open IV [facility] Rx#: [id number] Levophed 16 mg In Sodium 45 7 Chloride 0.9% 234 ml @ 10 MCG/ MIN 9.375 mls/hr IV Q24H [facility] Rx #:[id number] Zosyn 3.375 gm In Dextrose 5% 50 50 in Water 50 ml @ 100 mls/hr IV Q6H [facility] Rx#:[id number] Zosyn 4.5 gm In Dextrose 5% in 50 Water 50 ml @ 100 mls/hr IV Q6H [facility] Rx#:[id number] Rocephin 2 gm In Dextrose 5% in 50 Water 50 ml @ 100 mls/hr IV ONCE ONE Rx#:[id number] Output: Urine Catheter Amount 616 530 Void Amount 800 400 Other: Urine Appearance Hematuria Hematuria Clear Uretheral (Duff) Hematuria Sediment Urine Color Dark Ne Dark Yellow Dark Ne Uretheral (Duff) Dark Ne Dark Yellow Urine Odor Foul Foul General appearance: average body habitus, cooperative and no acute distress Expanded Exam Urine Appearance: Clear Urine Color: Dark Yellow A/P Assessment and plan (1) Urethral stricture: Status: Acute (2) Acute retention of urine: Status: Acute (3) Sepsis: Status: Acute Qualifiers: Acute renal failure type: unspecified Sepsis acute organ dysfunction status: with acute organ dysfunction Sepsis type: sepsis due to unspecified organism Severe sepsis acute organ dysfunction type: acute renal failure Severe sepsis shock status: with septic shock Qualified Code(s): A41.9 - Sepsis, unspecified organism; R65.21 - Severe sepsis with septic shock; N17.9 - Acute kidney failure, unspecified Plan Ventura is a 57-year-old male who is status post a traumatic Duff catheter placement. I placed a Duff catheter over wire via cystoscopy in the ER yesterday. This catheter should remain in place a minimum of 1 week. He will likely be discharged with the catheter in place. I will follow-up with him as an outpatient for voiding trial. He will likely continue clot around the catheter for least several days if not longer. This will resolve. Time Spent With Patient Time: Total time spent is greater than 50% in coordination of care (as documented) at patient's floor/unit and/or counseling patient:
[2023-01-26] MEDS: 0.9 % SODIUM CHLORIDE 1,000 ML IV SCH ×3 (00:01→14:49)
[2023-01-26] MEDS: 0.9 % SODIUM CHLORIDE 250 ML IV SCH (05:10)
[2023-01-26] MEDS: PIPERACILLIN SODIUM/TAZOBACTAM 3.375 GM in DEXTROSE 5% IN WATER 50 ML IV SCH ×4 (06:01→17:21)
[2023-01-26] MEDS: OMEPRAZOLE 20 MG CAPSULE PO SCH (06:17)
[2023-01-26] MEDS: ACETAMINOPHEN 325 MG TABLET PO PRN ×2 (06:17→23:25)
[2023-01-26] MEDS: 0.9 % SODIUM CHLORIDE 10 ML SYRINGE IV SCH ×3 (06:18→20:58)
[2023-01-26] MEDS: NOREPINEPHRINE BITARTRATE 16 MG in 0.9 % SODIUM CHLORIDE 234 ML IV SCH (06:18)
[2023-01-26] MEDS: ONDANSETRON 4 MG/2 ML VIAL IV PRN ×2 (06:19→19:56)
[2023-01-26] MEDS: DOCUSATE SODIUM 100 MG CAPSULE PO SCH ×2 (07:58→20:57)
[2023-01-26 08:00] LABS: INR 1.3 (0.9-1.1); Prothrombin Time 16.7 sec (11.9-14.5)
[2023-01-26 08:08] LABS: Basophils # (Auto) 0.06 K/mcL (0.00-0.30); Basophils % (Auto) 0.3 % (0.0-2.0); Eosinophils # (Auto) 0.01 K/mcL (0.00-0.70); Eosinophils % (Auto) 0.1 % (0.0-7.0); Hematocrit 36.2 % (40.1-51.0); Hemoglobin 12.2 g/dL (13.7-17.5); Lymphocytes # (Auto) 0.96 K/mcL (1.50-4.80); Lymphocytes % (Auto) 4.9 % (15.5-49.0); Mean Cell Volume 85.2 fL (80.0-100.0); Mean Corpuscular HGB Conc 33.7 g/dL (31.0-36.0); Monocytes # (Auto) 0.41 K/mcL (0.10-0.90); Monocytes % (Auto) 2.1 % (1.0-12.0); Platelet Count 71 K/mcL (140-440); RBC 4.25 M/mcL (4.63-6.08); Red Cell Distribution Width 14.9 % (11.5-14.5); WBC 19.6 K/mcL (4.5-11.0)
[2023-01-26 08:20] LABS: ALT/SGPT 61 U/L (<40); AST/SGOT 68 U/L (<40); Albumin 2.7 gm/dL (3.2-5.2); Alkaline Phosphatase 103 U/L (39-117); Bilirubin,Direct 1.7 mg/dL (<0.3); Bilirubin,Total 2.3 mg/dL (0.1-1.0); Blood Urea Nitrogen 44 mg/dL (6-20); Calcium 7.9 mg/dL (8.6-10.4); Carbon Dioxide 18 mmol/L (22-30); Chloride 113 mmol/L (96-108); Globulin 2.6 gm/dL (2.2-3.7); Glomerular Filtration Rate 61; Glucose 107 mg/dL (70-105); Lactate Dehydrogenase 233 U/L (135-225); Phosphorous 2.3 mg/dL (2.5-4.5); Triglycerides 249 mg/dL (<150); Uric Acid 4.3 mg/dL (2.5-8.0)
[2023-01-26 09:10] LABS: Neutrophils % (Auto) 75.7 % (38.0-78.0)
[2023-01-26] MEDS: HEPARIN 5,000 UNIT/ML VIAL SQ SCH ×2 (09:19→20:57)
[2023-01-26] MEDS: CALCIUM CARBONATE 500 MG TAB.CHEW CHEWED PRN ×2 (09:28→17:23)
--- NOTE | 2023-01-26 12:03 | XRay Report ---
CLINICAL INFORMATION: R/O Ileus COMPARISON: Abdomen and pelvic CT 01/24/2022 FINDINGS: The stool gas pattern is unremarkable. Rectal catheter in place. There is no free air, soft tissue mass, organomegaly or pathologic calcification. IMPRESSION: Normal abdomen. Interval resolution of ileus Interpreted and Authenticated by: Newton Zapata 01/26/23
--- NOTE | 2023-01-26 18:29 | Internal Med Progress Note ---
SUBJECTIVE Subjective Patient information: Note initiated : 01/26/23 at 6:27 pm Service Date, if different from initiated Date: [] Patient: Ventura Corral 57 y/o M admitted on 01/25/23 for hematuria. Chief Complaint: [] Principal diagnosis: Urinary retention, traumatic Duff catheter placement Interval history: Mr. Corral is a 57 year old male with no significant past medical history except elevated blood pressure for which she is currently not on antihypertensives presented to the emergency department for difficulty urinating and generally not feeling well. The patient was concerned that he might have a urinary tract infection. In the ED the patient was found to be septic, a Duff catheter was attempted but not successful therefore urology consulted and placed a Duff catheter. Patient was given IV fluid and ceftriaxone, he was hypotensive in the ED with initial lactic acid of 3.4. Additionally, the patient had a elevated creatinine likely reflecting an acute kidney injury, elevated INR and bilirubin likely reflecting liver injury secondary to sepsis. Hospital medicine was consulted for admission. 01/26 Patient was weaned off Levophed yesterday afternoon. Leukocytosis improving, renal function improving, LFTs mildly elevated. Urine growing Aerococcus urinae, culture sensitivities pending. Blood culture showing no growth to date. Patient had abdominal pain this morning, x-ray obtained which showed normal abdomen. Abdominal pain letter improved. Discontinued Zosyn, started ceftriaxone. Discontinued IV fluid. Physical exam Head: Atraumatic, normal inspection. Eyes: normal appearance, no scleral icterus. Neck: full ROM Respiratory: no respiratory distress. Cardiovascular: normal rate and rhythm, S1, S2. GI/Abdominal: soft, mild epigastric tenderness, no guarding. : Indwelling Duff catheter with dark urine Extremities: full range of motion, nontender. Neurological: CN II-XII intact, intact motor, intact sensation. Psychiatric: normal mood. Skin: warm, normal color Constitutional Vitals: Vital Signs Temp Pulse Resp BP Pulse Ox O2 Del Method O2 Flow Rate 97.2 F 83 17 140/111 96 Room Air 1 01/26/23 16:02 01/26/23 18:02 01/26/23 18:02 01/26/23 18:02 01/26/23 18:02 01/26/23 18:02 01/25/23 10:31 Period Temp Pulse Resp BP Sys/Garcia Pulse Ox O2 Del Method O2 Flow Rate Last 24 Hr 97.2 F-98.4 F 75-99 14-35 101-140/73-111 90-99 Room Air-Room Air Intake and Output 01/26/23 01/26/23 01/26/23 03:59 11:59 19:59 Intake Total 1050 1050 1280 Output Total 920 506 605 Balance 130 544 675 Weight 96.479 kg 96.479 kg Patient Weight 01/27/23 03:59 Weight 96.479 kg Intake & Output: Intake & Output 01/26/23 01/26/23 01/26/23 03:59 11:59 19:59 Intake Total 1050 1050 1280 Output Total 920 506 605 Balance 130 544 675 Weight 96.479 kg 96.479 kg Intake: Nourishment/Supplement quantity 180 (ml) IV 1050 1050 1100 Sodium Chloride 0.9% 1,000 ml @ 1000 1000 1000 150 mls/hr IV .Q6H40M [facility] Rx#: [id number] Zosyn 3.375 gm In Dextrose 5% 50 50 100 in Water 50 ml @ 100 mls/hr IV Q6H [facility] Rx#:[id number] Output: Urine Catheter Amount 920 506 605 Other: Meal Nourishment/Supplement Percent of Meal Consumed 50% Nourishment/Supplement name ensure Urine Appearance Clear Clear Clear Sediment Urine Color Dark Ne Dark Ne Dark Ne Uretheral (Duff) Dark Ne Stool Size Small Small Stool Color Brown Brown Green Stool Consistency Formed Soft Liquid Liquid # of times incontinent of 1 1 Bowels OBJ DATA Labs 01/26/23 06:52 01/26/23 06:52 Labs: Abnormal Lab Results 01/26/23 01/26/23 01/26/23 06:52 06:52 06:52 WBC 19.6 H RBC 4.25 L Hgb 12.2 L Hct 36.2 L RDW 14.9 H Plt Count 71 L MPV 13.0 H Immature Gran % (Auto) 16.9 H Neut % (Auto) Lymph % (Auto) 4.9 L Lymph # (Auto) 0.96 L [place] # (Auto) Immature Gran # 3.31 H Absolute Neutrophils 14.88 H POC PT PT 16.7 H POC INR INR 1.3 H POC VBG pH POC VBG pCO2 at Temp POC VBG pO2 POC VBG HCO3 POC VBG Total CO2 POC Venous O2 Sat POC VBG Base Excess VBG Lactic Acid Chloride 113 H Carbon Dioxide 18 L POC Total CO2 POC BUN BUN 44 H Creatinine 1.3 H POC Creatinine Glucose 107 H POC Glucose Uric Acid Calcium 7.9 L POC WB Ioniz Calcium Phosphorus 2.3 L Magnesium Total Bilirubin 2.3 H Direct Bilirubin 1.7 H GGT 90 H AST 68 H ALT 61 H Lactate Dehydrogenase 233 H Total Protein 5.3 L Albumin 2.7 L Triglycerides 249 H Procalcitonin Urine Appearance Urine Protein Urine Glucose (UA) Urine Ketones Urine Occult Blood Urine Nitrate Urine Urobilinogen Ur Leukocyte Esterase Urine RBC Urine WBC Amorphous Crystals Urine Bacteria Urine Sperm 01/25/23 01/25/23 01/25/23 08:44 05:14 05:14 WBC RBC Hgb Hct RDW Plt Count MPV Immature Gran % (Auto) Neut % (Auto) Lymph % (Auto) Lymph # (Auto) [place] # (Auto) Immature Gran # Absolute Neutrophils POC PT PT 20.3 H POC INR INR 1.7 H POC VBG pH POC VBG pCO2 at Temp POC VBG pO2 POC VBG HCO3 POC VBG Total CO2 POC Venous O2 Sat POC VBG Base Excess VBG Lactic Acid 2.6 H 2.8 H Chloride 109 H Carbon Dioxide 16 L POC Total CO2 POC BUN BUN 54 H Creatinine 2.4 H POC Creatinine Glucose 119 H POC Glucose Uric Acid 8.3 H Calcium 7.5 L POC WB Ioniz Calcium Phosphorus 4.9 H Magnesium 1.4 L Total Bilirubin 2.0 H Direct Bilirubin 1.4 H GGT AST ALT Lactate Dehydrogenase 241 H Total Protein 5.1 L Albumin 2.9 L Triglycerides Procalcitonin Urine Appearance Urine Protein Urine Glucose (UA) Urine Ketones Urine Occult Blood Urine Nitrate Urine Urobilinogen Ur Leukocyte Esterase Urine RBC Urine WBC Amorphous Crystals Urine Bacteria Urine Sperm 01/25/23 01/25/23 01/25/23 05:14 01:30 01:30 WBC 31.3 H* RBC Hgb Hct RDW 15.0 H Plt Count 84 L MPV Immature Gran % (Auto) 7.3 H Neut % (Auto) 87.2 H Lymph % (Auto) 2.1 L Lymph # (Auto) 0.67 L [place] # (Auto) 1.08 H Immature Gran # 2.28 H Absolute Neutrophils 27.28 H POC PT PT POC INR INR POC VBG pH 7.43 H POC VBG pCO2 at Temp 27.2 L POC VBG pO2 57 H POC VBG HCO3 17.9 L POC VBG Total CO2 19.0 L POC Venous O2 Sat 91.0 H POC VBG Base Excess -6.0 L VBG Lactic Acid 3.0 H Chloride Carbon Dioxide POC Total CO2 18.0 L POC BUN 49 H BUN Creatinine POC Creatinine 3.1 H Glucose POC Glucose Uric Acid Calcium POC WB Ioniz Calcium 1.02 L Phosphorus Magnesium Total Bilirubin Direct Bilirubin GGT AST ALT Lactate Dehydrogenase Total Protein Albumin Triglycerides Procalcitonin Urine Appearance Urine Protein Urine Glucose (UA) Urine Ketones Urine Occult Blood Urine Nitrate Urine Urobilinogen Ur Leukocyte Esterase Urine RBC Urine WBC Amorphous Crystals Urine Bacteria Urine Sperm 01/25/23 01/24/23 01/24/23 01:29 22:57 22:34 WBC RBC Hgb Hct RDW Plt Count MPV Immature Gran % (Auto) Neut % (Auto) Lymph % (Auto) Lymph # (Auto) [place] # (Auto) Immature Gran # Absolute Neutrophils POC PT PT POC INR INR POC VBG pH POC VBG pCO2 at Temp 30.8 L POC VBG pO2 42 H POC VBG HCO3 18.1 L POC VBG Total CO2 19.0 L POC Venous O2 Sat 77.0 H POC VBG Base Excess -7.0 L VBG Lactic Acid 3.3 H Chloride Carbon Dioxide POC Total CO2 POC BUN BUN Creatinine POC Creatinine Glucose POC Glucose Uric Acid Calcium POC WB Ioniz Calcium Phosphorus Magnesium Total Bilirubin Direct Bilirubin GGT AST ALT Lactate Dehydrogenase Total Protein Albumin Triglycerides Procalcitonin > 100 H Urine Appearance Cloudy A Urine Protein 100 A Urine Glucose (UA) Urine Ketones 5 A Urine Occult Blood Urine Nitrate Urine Urobilinogen 2.0 A Ur Leukocyte Esterase 75 A Urine RBC > 182 H Urine WBC 75 H Amorphous Crystals Many A Urine Bacteria Few A Urine Sperm Present A 01/24/23 01/24/23 01/24/23 22:32 21:31 21:24 WBC RBC Hgb Hct RDW Plt Count MPV Immature Gran % (Auto) Neut % (Auto) Lymph % (Auto) Lymph # (Auto) [place] # (Auto) Immature Gran # Absolute Neutrophils POC PT 24.0 H PT POC INR 2.1 H INR POC VBG pH POC VBG pCO2 at Temp POC VBG pO2 POC VBG HCO3 POC VBG Total CO2 POC Venous O2 Sat POC VBG Base Excess VBG Lactic Acid Chloride Carbon Dioxide POC Total CO2 POC BUN BUN Creatinine POC Creatinine Glucose POC Glucose Uric Acid Calcium POC WB Ioniz Calcium Phosphorus Magnesium Total Bilirubin 2.1 H Direct Bilirubin 1.1 H GGT AST 51 H ALT Lactate Dehydrogenase Total Protein Albumin Triglycerides Procalcitonin Urine Appearance Turbid A Urine Protein >=300 A Urine Glucose (UA) 100(trace) A Urine Ketones 5(trace) A Urine Occult Blood 3+(large) A Urine Nitrate Positive A Urine Urobilinogen 2.0 A Ur Leukocyte Esterase 2+(moderate) A Urine RBC > 182 H Urine WBC 15 H Amorphous Crystals Urine Bacteria Urine Sperm 01/24/23 01/24/23 21:24 21:19 WBC 35.9 H* RBC Hgb Hct RDW 14.7 H Plt Count 114 L MPV Immature Gran % (Auto) 4.4 H Neut % (Auto) 89.2 H Lymph % (Auto) 1.9 L Lymph # (Auto) 0.70 L [place] # (Auto) 1.46 H Immature Gran # 1.58 H Absolute Neutrophils 32.05 H POC PT PT POC INR INR POC VBG pH POC VBG pCO2 at Temp POC VBG pO2 POC VBG HCO3 POC VBG Total CO2 POC Venous O2 Sat POC VBG Base Excess VBG Lactic Acid Chloride Carbon Dioxide POC Total CO2 16.0 L POC BUN 46 H BUN Creatinine POC Creatinine 3.3 H Glucose POC Glucose 108 H Uric Acid Calcium POC WB Ioniz Calcium 1.12 L Phosphorus Magnesium Total Bilirubin Direct Bilirubin GGT AST ALT Lactate Dehydrogenase Total Protein Albumin Triglycerides Procalcitonin Urine Appearance Urine Protein Urine Glucose (UA) Urine Ketones Urine Occult Blood Urine Nitrate Urine Urobilinogen Ur Leukocyte Esterase Urine RBC Urine WBC Amorphous Crystals Urine Bacteria Urine Sperm Meds: Medications Acetaminophen (Acetaminophen 325 Mg Tablet) 650 mg PO Q6HP PRN; Protocol PRN Reason: Per Pain Protocol/Fever > 101 Last Admin: 01/26/23 06:17 Dose: 650 mg Hydrocodone Bitart/Acetaminophen (Hydrocodone/Apap 5/325mg Tablet) 1 tab PO Q4HP PRN; Protocol PRN Reason: Per Pain Protocol Calcium Carbonate/Glycine (Calcium Carbonate 500 Mg Tab.Chew) 500 mg CHEWED Q4HP PRN PRN Reason: Dyspepsia Last Admin: 01/26/23 17:23 Dose: 500 mg Docusate Sodium (Docusate Sodium 100 Mg Capsule) 100 mg PO BID [facility] Last Admin: 01/26/23 07:58 Dose: Not Given Heparin Sodium (Porcine) (Heparin 5,000 Unit/Ml Vial) 5,000 unit SQ Q12 [facility] Last Admin: 01/26/23 09:19 Dose: 5,000 unit Hydromorphone HCl (Hydromorphone 0.5 Mg/0.5 Ml Syringe) 0.5 mg IV Q2HP PRN; Protocol PRN Reason: Per Pain Protocol Norepinephrine Bitartrate 16 (mg/ Sodium Chloride) 250 mls @ 9.375 mls/hr IV Q24H [facility]; Protocol Last Admin: 01/26/23 06:18 Dose: Not Given Piperacillin Sod/Tazobactam (Sod 3.375 gm/ Dextrose) 50 mls @ 100 mls/hr IV Q6H [facility] Last Infusion: 01/26/23 17:53 Dose: Infused Lactulose (Lactulose 20 Gm/30 Ml Oral.Gwen) 10 gm PO DAILYP PRN PRN Reason: Constipation Omeprazole (Omeprazole 20 Mg Capsule) 40 mg PO ACB [facility] Last Admin: 01/26/23 06:17 Dose: 40 mg Ondansetron HCl (Ondansetron 4 Mg/2 Ml Vial) 4 mg IV Q4HP PRN; Protocol PRN Reason: Nausea And Vomiting Last Admin: 01/26/23 06:19 Dose: 4 mg Senna (Sennosides 1 Tablet) 2 tab PO HSP PRN PRN Reason: Constipation Sodium Chloride (0.9 % Sodium Chloride 10 Ml Syringe) 10 ml IV Q8 [facility] Last Admin: 01/26/23 14:49 Dose: Not Given A/P Narrative A/P Narrative: Assessment: 57 year old male admitted for septic shock likely secondary to pyelonephritis complicated by acute kidney injury and liver injury evidenced by hyperbilirubinemia and coagulopathy. The patient had urinary retention in the ED requiring a urology consult for a Duff catheter placement. The cause of urinary retention is a ureteral stricture. Urine culture grew Aerococcus urinate. #Resolved septic shock secondary to pyelonephritis secondary to Aerococcus urinary #Improving acute kidney injury secondary to sepsis #Improving coagulopathy secondary to sepsis #Transaminitis and hyperbilirubinemia likely secondary to sepsis #Thrombocytopenia likely secondary to sepsis #Urinary retention secondary to ureteral stricture requiring Duff catheter #Resolved hematuria #History of elevated blood pressure Plan -Start ceftriaxone, discontinue Zosyn. -Discontinue IV fluid. -Discontinue Levophed as needed to keep SBP>90. -Follow urine and blood cultures. -Follow renal function and urine output. -Follow LFTs and bilirubin. -Keep Duff catheter until urology follow up. -Analgesics as needed, no NSAID. -Urology consulted in ED. -Regular diet. -DVT prophylaxis: Heparin SQ. -CODE STATUS: Full -Disposition: Inpatient PCU status. Anticipate discharge to home in 1 to 2 days on oral antibiotics with indwelling Duff catheter,, follow-up with urology. Time Spent With Patient Time: Total time spent is greater than 50% in coordination of care (as documented) at patient's floor/unit and/or counseling patient: QUALITY Stroke Symptom Onset Unknown: No VTE Deep Vein Thrombosis/Pulmonary Embolism Present on Admission: No
[2023-01-26] MEDS ORDERED: CALCIUM CARBONATE 500 MG TAB.CHEW CHEWED PRN (18:44)
[2023-01-26] MEDS ORDERED: cefTRIAXone 2 GM in DEXTROSE 5% IN WATER 50 ML IV SCH (20:00)
[2023-01-26] MEDS ORDERED: cefTRIAXone 2 GM VIAL ONE (20:46)
[2023-01-27] MEDS: HYDROcodone/APAP 5/325MG TABLET PO PRN (00:01)
[2023-01-27 06:09] LABS: Basophils # (Auto) 0.04 K/mcL (0.00-0.30); Basophils % (Auto) 0.2 % (0.0-2.0); Eosinophils # (Auto) 0.03 K/mcL (0.00-0.70); Eosinophils % (Auto) 0.2 % (0.0-7.0); Hematocrit 35.3 % (40.1-51.0); Hemoglobin 12.1 g/dL (13.7-17.5); Lymphocytes # (Auto) 1.57 K/mcL (1.50-4.80); Lymphocytes % (Auto) 9.2 % (15.5-49.0); Mean Cell Volume 84.7 fL (80.0-100.0); Mean Corpuscular HGB Conc 34.3 g/dL (31.0-36.0); Mean Platelet Volume 12.7 fL (8.8-12.5); Monocytes # (Auto) 0.51 K/mcL (0.10-0.90); Neutrophils % (Auto) 87.2 % (38.0-78.0); Platelet Count 90 K/mcL (140-440); RBC 4.17 M/mcL (4.63-6.08)
[2023-01-27] MEDS: 0.9 % SODIUM CHLORIDE 10 ML SYRINGE IV SCH ×3 (06:18→20:33)
[2023-01-27] MEDS: DOCUSATE SODIUM 100 MG CAPSULE PO SCH ×2 (07:33→20:32)
[2023-01-27] MEDS: OMEPRAZOLE 20 MG CAPSULE PO SCH (07:33)
[2023-01-27 07:40] LABS: ALT/SGPT 76 U/L (<40); AST/SGOT 71 U/L (<40); Albumin 2.6 gm/dL (3.2-5.2); Albumin/Globulin Ratio 0.9 (1.0-2.3); Alkaline Phosphatase 141 U/L (39-117); Bilirubin,Total 1.5 mg/dL (0.1-1.0); Blood Urea Nitrogen 34 mg/dL (6-20); Calcium 7.9 mg/dL (8.6-10.4); Carbon Dioxide 19 mmol/L (22-30); Chloride 111 mmol/L (96-108); Globulin 2.8 gm/dL (2.2-3.7); Glomerular Filtration Rate 83; Glucose 93 mg/dL (70-105); Lactate Dehydrogenase 230 U/L (135-225); Phosphorous 2.5 mg/dL (2.5-4.5); Triglycerides 166 mg/dL (<150); Uric Acid 4.1 mg/dL (2.5-8.0)
[2023-01-27] MEDS: HEPARIN 5,000 UNIT/ML VIAL SQ SCH ×2 (08:42→20:32)
[2023-01-27] MEDS: amLODIPine 5 MG TABLET PO SCH (08:43)
--- NOTE | 2023-01-27 10:13 | Internal Med Progress Note ---
SUBJECTIVE Subjective Patient information: Note initiated : 01/27/23 at 10:10 am Service Date, if different from initiated Date: [] Patient: Ventura Corral 57 y/o M admitted on 01/25/23 for hematuria. Chief Complaint: [] Principal diagnosis: Urinary retention, traumatic Duff catheter placement Interval history: Mr. Corral is a 57 year old male with no significant past medical history except elevated blood pressure for which she is currently not on antihypertensives presented to the emergency department for difficulty urinating and generally not feeling well. The patient was concerned that he might have a urinary tract infection. In the ED the patient was found to be septic, a Duff catheter was attempted but not successful therefore urology consulted and placed a Duff catheter. Patient was given IV fluid and ceftriaxone, he was hypotensive in the ED with initial lactic acid of 3.4. Additionally, the patient had a elevated creatinine likely reflecting an acute kidney injury, elevated INR and bilirubin likely reflecting liver injury secondary to sepsis. Hospital medicine was consulted for admission. 01/26 Patient was weaned off Levophed yesterday afternoon. Leukocytosis improving, renal function improving, LFTs mildly elevated. Urine growing Aerococcus urinae, culture sensitivities pending. Blood culture showing no growth to date. Patient had abdominal pain this morning, x-ray obtained which showed normal abdomen. Abdominal pain letter improved. Discontinued Zosyn, started ceftriaxone. Discontinued IV fluid. 5 Vital stable overnight except requiring 2 L minute nasal cannula likely secondary to some pulmonary edema from IV fluids. Chest x-ray ordered. Leukocytosis improving. Discussed antibiotics with pharmacy, concerned that cephalosporins may not cover Aerococcus urinary therefore discontinued ceftriaxone and started Augmentin. Patient has scrotal edema likely secondary to IV fluids received for septic shock. We will give Lasix 20 mg IV twice today, monitor for effectiveness. Transfer to [facility] status. Physical exam Head: Atraumatic, normal inspection. Eyes: normal appearance, no scleral icterus. Neck: full ROM Respiratory: Nasal cannula oxygen supplementation, does not appear to be in any respiratory distress. Cardiovascular: normal rate and rhythm, S1, S2. GI/Abdominal: soft, mild epigastric tenderness, no guarding. : Indwelling Duff catheter redd urine. Mild nontender scrotal edema. Extremities: full range of motion, nontender, mild bilateral pitting edema. Neurological: CN II-XII intact, intact motor, intact sensation. Psychiatric: normal mood. Skin: warm, normal color Constitutional Vitals: Vital Signs Temp Pulse Resp BP Pulse Ox O2 Del Method O2 Flow Rate 98.1 F 66 22 127/88 90 Nasal Cannula 2 01/27/23 08:01 01/27/23 08:01 01/27/23 08:01 01/27/23 08:01 01/27/23 08:01 01/27/23 08:01 01/27/23 08:01 Period Temp Pulse Resp BP Sys/Garcia Pulse Ox O2 Del Method O2 Flow Rate Last 24 Hr 97.2 F-98.4 F 66-83 11-26 103-140/84-111 90-97 Nasal Cannula- Room Air 2 Intake and Output 01/26/23 01/27/23 01/27/23 19:59 03:59 11:59 Intake Total 1280 650 Output Total 605 690 565 Balance 675 -690 85 Weight 96.479 kg 97.205 kg Intake & Output: Intake & Output 01/26/23 01/27/23 01/27/23 19:59 03:59 11:59 Intake Total 1280 650 Output Total 605 690 565 Balance 675 -690 85 Weight 96.479 kg 97.205 kg Intake: Nourishment/Supplement quantity 180 (ml) IV 1100 50 Sodium Chloride 0.9% 1,000 ml @ 1000 150 mls/hr IV .[id number] KAITLYNN Rx#: [id number] Zosyn 3.375 gm In Dextrose 5% 100 in Water 50 ml @ 100 mls/hr IV Q6H KAITLYNN Rx#:[id number] Rocephin 2 gm In Dextrose 5% in 50 Water 50 ml @ 100 mls/hr IV Q24H KAITLYNN Rx#:[id number] Oral 600 Output: Urine Catheter Amount 605 690 565 Other: Meal Nourishment/Supplement Percent of Meal Consumed 50% Nourishment/Supplement name ensure Urine Appearance Clear Clear Clear Sediment Urine Color Dark Redd Dark Redd Dark Redd Blood Tinged Stool Size Small Stool Color Brown Green Stool Consistency Soft Liquid # of times incontinent of 1 Bowels OBJ DATA Labs 01/27/23 05:10 01/27/23 05:10 Labs: Abnormal Lab Results 01/27/23 01/27/23 01/26/23 05:10 05:10 06:52 WBC 17.0 H RBC 4.17 L Hgb 12.1 L Hct 35.3 L RDW 15.0 H Plt Count 90 L MPV 12.7 H Immature Gran % (Auto) Neut % (Auto) 87.2 H Lymph % (Auto) 9.2 L Lymph # (Auto) [place] # (Auto) Immature Gran # Absolute Neutrophils 14.80 H POC PT PT POC INR INR POC VBG pH POC VBG pCO2 at Temp POC VBG pO2 POC VBG HCO3 POC VBG Total CO2 POC Venous O2 Sat POC VBG Base Excess VBG Lactic Acid Chloride 111 H 113 H Carbon Dioxide 19 L 18 L POC Total CO2 POC BUN BUN 34 H 44 H Creatinine 1.3 H POC Creatinine Glucose 107 H POC Glucose Uric Acid Calcium 7.9 L 7.9 L POC WB Ioniz Calcium Phosphorus 2.3 L Magnesium Total Bilirubin 1.5 H 2.3 H Direct Bilirubin 1.0 H 1.7 H GGT 151 H 90 H AST 71 H 68 H ALT 76 H 61 H Alkaline Phosphatase 141 H Lactate Dehydrogenase 230 H 233 H Total Protein 5.4 L 5.3 L Albumin 2.6 L 2.7 L Albumin/Globulin Ratio 0.9 L Triglycerides 166 H 249 H Procalcitonin Urine Appearance Urine Protein Urine Glucose (UA) Urine Ketones Urine Occult Blood Urine Nitrate Urine Urobilinogen Ur Leukocyte Esterase Urine RBC Urine WBC Amorphous Crystals Urine Bacteria Urine Sperm 01/26/23 01/26/23 01/25/23 06:52 06:52 08:44 WBC 19.6 H RBC 4.25 L Hgb 12.2 L Hct 36.2 L RDW 14.9 H Plt Count 71 L MPV 13.0 H Immature Gran % (Auto) 16.9 H Neut % (Auto) Lymph % (Auto) 4.9 L Lymph # (Auto) 0.96 L [place] # (Auto) Immature Gran # 3.31 H Absolute Neutrophils 14.88 H POC PT PT 16.7 H POC INR INR 1.3 H POC VBG pH POC VBG pCO2 at Temp POC VBG pO2 POC VBG HCO3 POC VBG Total CO2 POC Venous O2 Sat POC VBG Base Excess VBG Lactic Acid 2.6 H Chloride Carbon Dioxide POC Total CO2 POC BUN BUN Creatinine POC Creatinine Glucose POC Glucose Uric Acid Calcium POC WB Ioniz Calcium Phosphorus Magnesium Total Bilirubin Direct Bilirubin GGT AST ALT Alkaline Phosphatase Lactate Dehydrogenase Total Protein Albumin Albumin/Globulin Ratio Triglycerides Procalcitonin Urine Appearance Urine Protein Urine Glucose (UA) Urine Ketones Urine Occult Blood Urine Nitrate Urine Urobilinogen Ur Leukocyte Esterase Urine RBC Urine WBC Amorphous Crystals Urine Bacteria Urine Sperm 01/25/23 01/25/23 01/25/23 05:14 05:14 05:14 WBC 31.3 H* RBC Hgb Hct RDW 15.0 H Plt Count 84 L MPV Immature Gran % (Auto) 7.3 H Neut % (Auto) 87.2 H Lymph % (Auto) 2.1 L Lymph # (Auto) 0.67 L [place] # (Auto) 1.08 H Immature Gran # 2.28 H Absolute Neutrophils 27.28 H POC PT PT 20.3 H POC INR INR 1.7 H POC VBG pH POC VBG pCO2 at Temp POC VBG pO2 POC VBG HCO3 POC VBG Total CO2 POC Venous O2 Sat POC VBG Base Excess VBG Lactic Acid 2.8 H Chloride 109 H Carbon Dioxide 16 L POC Total CO2 POC BUN BUN 54 H Creatinine 2.4 H POC Creatinine Glucose 119 H POC Glucose Uric Acid 8.3 H Calcium 7.5 L POC WB Ioniz Calcium Phosphorus 4.9 H Magnesium 1.4 L Total Bilirubin 2.0 H Direct Bilirubin 1.4 H GGT AST ALT Alkaline Phosphatase Lactate Dehydrogenase 241 H Total Protein 5.1 L Albumin 2.9 L Albumin/Globulin Ratio Triglycerides Procalcitonin Urine Appearance Urine Protein Urine Glucose (UA) Urine Ketones Urine Occult Blood Urine Nitrate Urine Urobilinogen Ur Leukocyte Esterase Urine RBC Urine WBC Amorphous Crystals Urine Bacteria Urine Sperm 01/25/23 01/25/23 01/25/23 01:30 01:30 01:29 WBC RBC Hgb Hct RDW Plt Count MPV Immature Gran % (Auto) Neut % (Auto) Lymph % (Auto) Lymph # (Auto) [place] # (Auto) Immature Gran # Absolute Neutrophils POC PT PT POC INR INR POC VBG pH 7.43 H POC VBG pCO2 at Temp 27.2 L POC VBG pO2 57 H POC VBG HCO3 17.9 L POC VBG Total CO2 19.0 L POC Venous O2 Sat 91.0 H POC VBG Base Excess -6.0 L VBG Lactic Acid 3.0 H Chloride Carbon Dioxide POC Total CO2 18.0 L POC BUN 49 H BUN Creatinine POC Creatinine 3.1 H Glucose POC Glucose Uric Acid Calcium POC WB Ioniz Calcium 1.02 L Phosphorus Magnesium Total Bilirubin Direct Bilirubin GGT AST ALT Alkaline Phosphatase Lactate Dehydrogenase Total Protein Albumin Albumin/Globulin Ratio Triglycerides Procalcitonin Urine Appearance Cloudy A Urine Protein 100 A Urine Glucose (UA) Urine Ketones 5 A Urine Occult Blood Urine Nitrate Urine Urobilinogen 2.0 A Ur Leukocyte Esterase 75 A Urine RBC > 182 H Urine WBC 75 H Amorphous Crystals Many A Urine Bacteria Few A Urine Sperm Present A 01/24/23 01/24/23 01/24/23 22:57 22:34 22:32 WBC RBC Hgb Hct RDW Plt Count MPV Immature Gran % (Auto) Neut % (Auto) Lymph % (Auto) Lymph # (Auto) [place] # (Auto) Immature Gran # Absolute Neutrophils POC PT PT POC INR INR POC VBG pH POC VBG pCO2 at Temp 30.8 L POC VBG pO2 42 H POC VBG HCO3 18.1 L POC VBG Total CO2 19.0 L POC Venous O2 Sat 77.0 H POC VBG Base Excess -7.0 L VBG Lactic Acid 3.3 H Chloride Carbon Dioxide POC Total CO2 POC BUN BUN Creatinine POC Creatinine Glucose POC Glucose Uric Acid Calcium POC WB Ioniz Calcium Phosphorus Magnesium Total Bilirubin Direct Bilirubin GGT AST ALT Alkaline Phosphatase Lactate Dehydrogenase Total Protein Albumin Albumin/Globulin Ratio Triglycerides Procalcitonin > 100 H Urine Appearance Turbid A Urine Protein >=300 A Urine Glucose (UA) 100(trace) A Urine Ketones 5(trace) A Urine Occult Blood 3+(large) A Urine Nitrate Positive A Urine Urobilinogen 2.0 A Ur Leukocyte Esterase 2+(moderate) A Urine RBC > 182 H Urine WBC 15 H Amorphous Crystals Urine Bacteria Urine Sperm 01/24/23 01/24/23 01/24/23 21:31 21:24 21:24 WBC 35.9 H* RBC Hgb Hct RDW 14.7 H Plt Count 114 L MPV Immature Gran % (Auto) 4.4 H Neut % (Auto) 89.2 H Lymph % (Auto) 1.9 L Lymph # (Auto) 0.70 L [place] # (Auto) 1.46 H Immature Gran # 1.58 H Absolute Neutrophils 32.05 H POC PT 24.0 H PT POC INR 2.1 H INR POC VBG pH POC VBG pCO2 at Temp POC VBG pO2 POC VBG HCO3 POC VBG Total CO2 POC Venous O2 Sat POC VBG Base Excess VBG Lactic Acid Chloride Carbon Dioxide POC Total CO2 POC BUN BUN Creatinine POC Creatinine Glucose POC Glucose Uric Acid Calcium POC WB Ioniz Calcium Phosphorus Magnesium Total Bilirubin 2.1 H Direct Bilirubin 1.1 H GGT AST 51 H ALT Alkaline Phosphatase Lactate Dehydrogenase Total Protein Albumin Albumin/Globulin Ratio Triglycerides Procalcitonin Urine Appearance Urine Protein Urine Glucose (UA) Urine Ketones Urine Occult Blood Urine Nitrate Urine Urobilinogen Ur Leukocyte Esterase Urine RBC Urine WBC Amorphous Crystals Urine Bacteria Urine Sperm 01/24/23 21:19 WBC RBC Hgb Hct RDW Plt Count MPV Immature Gran % (Auto) Neut % (Auto) Lymph % (Auto) Lymph # (Auto) [place] # (Auto) Immature Gran # Absolute Neutrophils POC PT PT POC INR INR POC VBG pH POC VBG pCO2 at Temp POC VBG pO2 POC VBG HCO3 POC VBG Total CO2 POC Venous O2 Sat POC VBG Base Excess VBG Lactic Acid Chloride Carbon Dioxide POC Total CO2 16.0 L POC BUN 46 H BUN Creatinine POC Creatinine 3.3 H Glucose POC Glucose 108 H Uric Acid Calcium POC WB Ioniz Calcium 1.12 L Phosphorus Magnesium Total Bilirubin Direct Bilirubin GGT AST ALT Alkaline Phosphatase Lactate Dehydrogenase Total Protein Albumin Albumin/Globulin Ratio Triglycerides Procalcitonin Urine Appearance Urine Protein Urine Glucose (UA) Urine Ketones Urine Occult Blood Urine Nitrate Urine Urobilinogen Ur Leukocyte Esterase Urine RBC Urine WBC Amorphous Crystals Urine Bacteria Urine Sperm Meds: Medications Acetaminophen (Acetaminophen 325 Mg Tablet) 650 mg PO Q6HP PRN; Protocol PRN Reason: Per Pain Protocol/Fever > 101 Last Admin: 01/26/23 23:25 Dose: 650 mg Hydrocodone Bitart/Acetaminophen (Hydrocodone/Apap 5/325mg Tablet) 1 tab PO Q4HP PRN; Protocol PRN Reason: Per Pain Protocol Last Admin: 01/27/23 00:01 Dose: 1 tab Amlodipine Besylate (Amlodipine 5 Mg Tablet) 5 mg PO DAILY KAITLYNN Last Admin: 01/27/23 08:43 Dose: 5 mg Amoxicillin/Clavulanate Potassium (Amoxicillin/Potassium Clav 875 Mg Tablet) 875 mg PO BIDCC KAITLYNN; Protocol Calcium Carbonate/Glycine (Calcium Carbonate 500 Mg Tab.Chew) 500 mg CHEWED Q4HP PRN PRN Reason: Dyspepsia Last Admin: 01/26/23 17:23 Dose: 500 mg Docusate Sodium (Docusate Sodium 100 Mg Capsule) 100 mg PO BID [facility] Last Admin: 01/27/23 07:33 Dose: Not Given Furosemide (Furosemide 20 Mg/2 Ml Vial) 20 mg IV BIDD [facility] Stop: 01/28/23 08:01 Heparin Sodium (Porcine) (Heparin 5,000 Unit/Ml Vial) 5,000 unit SQ Q12 [facility] Last Admin: 01/27/23 08:42 Dose: 5,000 unit Hydromorphone HCl (Hydromorphone 0.5 Mg/0.5 Ml Syringe) 0.5 mg IV Q2HP PRN; Protocol PRN Reason: Per Pain Protocol Lactulose (Lactulose 20 Gm/30 Ml Oral.Gwen) 10 gm PO DAILYP PRN PRN Reason: Constipation Omeprazole (Omeprazole 20 Mg Capsule) 40 mg PO ACB [facility] Last Admin: 01/27/23 07:33 Dose: 40 mg Ondansetron HCl (Ondansetron 4 Mg/2 Ml Vial) 4 mg IV Q4HP PRN; Protocol PRN Reason: Nausea And Vomiting Last Admin: 01/26/23 19:56 Dose: 4 mg Senna (Sennosides 1 Tablet) 2 tab PO HSP PRN PRN Reason: Constipation Sodium Chloride (0.9 % Sodium Chloride 10 Ml Syringe) 10 ml IV Q8 [facility] Last Admin: 01/27/23 06:18 Dose: 10 ml A/P Narrative A/P Narrative: Assessment: 57 year old male admitted for septic shock secondary to pyelonephritis secondary to Aerococcus urinary complicated by acute kidney injury and liver injury evidenced by hyperbilirubinemia and coagulopathy. The patient had urinary retention in the ED requiring a urology consult for a Duff catheter placement. The cause of urinary retention is a ureteral stricture. The patient received Zosyn, IV fluid and required Levophed for about 48 hours. Septic shock has resolved, now on oral antibiotics. The patient does have an oxygen requirement and scrotal edema likely secondary to fluid overload secondary to IV fluid received for septic shock. #Hypoxia likely secondary to volume overload from IV fluids received for septic shock #Resolved septic shock secondary to pyelonephritis secondary to Aerococcus urinae #Resolved acute kidney injury secondary to sepsis #Improving coagulopathy secondary to sepsis #Transaminitis and hyperbilirubinemia likely secondary to sepsis #Thrombocytopenia likely secondary to sepsis #Urinary retention secondary to ureteral stricture requiring Duff catheter #Scrotal edema likely secondary to volume overload #Resolved hematuria #History of elevated blood pressure Plan -Chest x-ray PA and lateral today. -Oxygen supplementation as needed. -Start Augmentin twice daily, discontinue ceftriaxone. -Lasix 20 mg IV twice daily today, reassess volume status tomorrow and continue diuretics if necessary. -Follow urine and blood cultures. -Follow renal function and urine output. -Follow LFTs and bilirubin. -Keep Duff catheter until urology follow up. -Monitor of scrotal edema. -Analgesics as needed, no NSAID. -Urology following. -Regular diet. -DVT prophylaxis: Heparin SQ. -CODE STATUS: Full -Disposition: Transfer to [facility]. Anticipate discharge to home in 1 to 2 days on oral antibiotics with indwelling Duff catheter, follow-up with urology. Time Spent With Patient Time: Total time spent is greater than 50% in coordination of care (as documented) at patient's floor/unit and/or counseling patient: QUALITY Stroke Symptom Onset Unknown: No VTE Deep Vein Thrombosis/Pulmonary Embolism Present on Admission: No
[2023-01-27] MEDS: AMOXICILLIN/POTASSIUM CLAV 875 MG TABLET PO SCH ×2 (10:31→17:07)
[2023-01-27] MEDS: FUROSEMIDE 20 MG/2 ML VIAL IV SCH (16:14)
--- NOTE | 2023-01-27 21:51 | Internal Med Progress Note ---
SUBJECTIVE Subjective Patient information: Note initiated : 01/27/23 at 9:48 pm Service Date, if different from initiated Date: [] Patient: Ventura Corral 57 y/o M admitted on 01/25/23 for hematuria. Chief Complaint: [] Principal diagnosis: Urinary retention, traumatic Duff catheter placement Additional PMFSH (Level 3 Only): Principal diagnosis: Urinary retention, traumatic Duff catheter placement Interval history: Mr. Corral is a 57 year old male with no significant past medical history except elevated blood pressure for which he is currently not on antihypertensives presented to the emergency department for difficulty urinating and generally not feeling well. The patient was concerned that he might have a urinary tract infection. In the ED the patient was found to be septic, a Duff catheter was attempted but not successful therefore urology consulted and placed a Duff catheter. Patient was given IV fluid and ceftriaxone, he was hypotensive in the ED with initial lactic acid of 3.4. Additionally, the patient had a elevated creatinine likely reflecting an acute kidney injury, elevated INR and bilirubin likely reflecting liver injury secondary to sepsis. Hospital medicine was consulted for admission. 01/26 Patient was weaned off Levophed yesterday afternoon. Leukocytosis improving, renal function improving, LFTs mildly elevated. Urine growing Aerococcus urinae, culture sensitivities pending. Blood culture showing no growth to date. Patient had abdominal pain this morning, x-ray obtained which showed normal abdomen. Abdominal pain improved. Discontinued Zosyn, started ceftriaxone. Discontinued IV fluid. 01/27 Vital stable overnight except requiring 2 L minute nasal cannula likely secondary to some pulmonary edema from IV fluids. Chest x-ray ordered. Leukocytosis improving. Discussed antibiotics with pharmacy, concerned that cephalosporins may not cover Aerococcus urinary therefore discontinued ceftriaxone and started Augmentin. Patient has scrotal edema likely secondary to IV fluids received for septic shock. We will give Lasix 20 mg IV twice today, monitor for effectiveness. Transfer to [facility] status. 01/28 patient seen and examined. Patient had a low-grade fever of 100.7 last night and 99.1 this morning, leukocytosis slowly trending down but still presen t, potassium is low at 3.3 and will be replaced, BRADEN has resolved and serum creatinine is 1.0. LFTs overall stable. Chest x-ray from this morning reviewed, minimal interstitial disease in both lungs, findings suggestive of mild chronic bronchitis or asthma. Urine culture with Aerococcus urinae, it is usually sensitive to many antibiotics including penicillin, patient is on Augmentin which will be changed to ceftriaxone today. Discussed with patient needs to be fever free for 24 hours before he could be transition to oral antibiotic and considered for discharge Physical exam Head: Atraumatic, normal inspection. Eyes: normal appearance, no scleral icterus. Neck: full ROM Respiratory: Chest is clear bilaterally, not on supplemental oxygen Cardiovascular: normal rate and rhythm, S1, S2. GI/Abdominal: soft, mild epigastric tenderness, no guarding. : Indwelling Duff catheter redd urine. Scrotal edema is resolving Extremities: full range of motion, nontender, mild bilateral pitting edema. Neurological: CN II-XII intact, intact motor, intact sensation. Psychiatric: normal mood. Skin: warm, normal color A/P Narrative: Assessment: 57 year old male admitted for septic shock secondary to pyelonephritis secondary to Aerococcus urinary complicated by acute kidney injury and liver injury evidenced by hyperbilirubinemia and coagulopathy. The patient had urinary retention in the ED requiring a urology consult for a Duff catheter placement. The cause of urinary retention is a ureteral stricture. The patient received Zosyn, IV fluid and required Levophed for about 48 hours. Sep tic shock has resolved, now on oral antibiotics. The patient does have an oxygen requirement and scrotal edema likely secondary to fluid overload secondary to IV fluid received for septic shock. #Acute hypoxic respiratory failure likely secondary to volume overload from IV fluids received for septic shock #Resolved septic shock secondary to pyelonephritis secondary to Aerococcus urinae #Resolved acute kidney injury secondary to sepsis #Improving coagulopathy secondary to sepsis #Transaminitis and hyperbilirubinemia likely secondary to sepsis #Thrombocytopenia likely secondary to sepsis #Urinary retention secondary to ureteral stricture requiring Duff catheter #Scrotal edema likely secondary to volume overload #Resolved hematuria #History of elevated blood pressure Plan -Patient with fever overnight and leukocytosis slightly present. Will change to ceftriaxone IV every 24 hours and DC Augmentin until patient is afebrile --Chest x-ray from this morning reviewed, minimal interstitial disease in both lungs, findings suggestive of mild chronic bronchitis or asthma. -Oxygen supplementation as needed. -Lasix 20 mg IV twice daily today, reassess volume status tomorrow and continue diuretics if necessary. -Follow LFTs and bilirubin. -Keep Duff catheter until urology follow up. -Monitor of scrotal edema. -Analgesics as needed, no NSAID. -Urology following. -Regular diet. -DVT prophylaxis: Heparin SQ. -CODE STATUS: Full -Disposition: MedSurg. Anticipate discharge to home in 1 to 2 days on oral antibiotics with indwelling Duff catheter, follow-up with urology. Constitutional Vitals: Vital Signs Temp Pulse Resp BP Pulse Ox O2 Del Method O2 Flow Rate 98.5 F 82 20 114/84 96 Room Air 2 01/27/23 19:22 01/27/23 19:22 01/27/23 19:22 01/27/23 19:22 01/27/23 19:22 01/27/23 19:22 01/27/23 08:01 Period Temp Pulse Resp BP Sys/Garcia Pulse Ox O2 Del Method O2 Flow Rate Last 24 Hr 98.1 F-99.2 F 66-82 11-26 114-143/84-103 90-98 Nasal Cannula- Room Air 2 Intake and Output 01/27/23 01/27/23 01/28/23 11:59 19:59 03:59 Intake Total 660 450 Output Total 565 2650 Balance 95 -2200 Weight 89.539 kg Patient Weight 01/28/23 03:59 Weight 89.539 kg Intake & Output: Intake & Output 01/27/23 01/27/23 01/28/23 11:59 19:59 03:59 Intake Total 660 450 Output Total 565 2650 Balance 95 -2200 Weight 89.539 kg Intake: Nourishment/Supplement quantity 10 (ml) IV 50 Rocephin 2 gm In Dextrose 5% in 50 Water 50 ml @ 100 mls/hr IV Q24H [facility] Rx#:[id number] Oral 600 450 Output: Urine Catheter Amount 565 2650 Other: Meal Breakfast Lunch Percent of Meal Consumed 25% 50% Feeding Ability Independent Independent Nourishment/Supplement name house carb Urine Appearance Clear Clear Uretheral (Duff) Sediment Urine Color Dark Redd Yellow Blood Tinged Uretheral (Duff) Yellow Stool Size Small Stool Color Brown Blood Tinged Stool Consistency Liquid Loose # Bowel Movements 1 OBJ DATA Labs 01/28/23 05:10 01/28/23 05:10 Labs: Abnormal Lab Results 01/27/23 01/27/23 01/26/23 05:10 05:10 06:52 WBC 17.0 H RBC 4.17 L Hgb 12.1 L Hct 35.3 L RDW 15.0 H Plt Count 90 L MPV 12.7 H Immature Gran % (Auto) Neut % (Auto) 87.2 H Lymph % (Auto) 9.2 L Lymph # (Auto) Letcher # (Auto) Immature Gran # Absolute Neutrophils 14.80 H PT INR POC VBG pH POC VBG pCO2 at Temp POC VBG pO2 POC VBG HCO3 POC VBG Total CO2 POC Venous O2 Sat POC VBG Base Excess VBG Lactic Acid Chloride 111 H 113 H Carbon Dioxide 19 L 18 L POC Total CO2 POC BUN BUN 34 H 44 H Creatinine 1.3 H POC Creatinine Glucose 107 H Uric Acid Calcium 7.9 L 7.9 L POC WB Ioniz Calcium Phosphorus 2.3 L Magnesium Total Bilirubin 1.5 H 2.3 H Direct Bilirubin 1.0 H 1.7 H GGT 151 H 90 H AST 71 H 68 H ALT 76 H 61 H Alkaline Phosphatase 141 H Lactate Dehydrogenase 230 H 233 H Total Protein 5.4 L 5.3 L Albumin 2.6 L 2.7 L Albumin/Globulin Ratio 0.9 L Triglycerides 166 H 249 H Procalcitonin Urine Appearance Urine Protein Urine Glucose (UA) Urine Ketones Urine Occult Blood Urine Nitrate Urine Urobilinogen Ur Leukocyte Esterase Urine RBC Urine WBC Amorphous Crystals Urine Bacteria Urine Sperm 01/26/23 01/26/23 01/25/23 06:52 06:52 08:44 WBC 19.6 H RBC 4.25 L Hgb 12.2 L Hct 36.2 L RDW 14.9 H Plt Count 71 L MPV 13.0 H Immature Gran % (Auto) 16.9 H Neut % (Auto) Lymph % (Auto) 4.9 L Lymph # (Auto) 0.96 L Letcher # (Auto) Immature Gran # 3.31 H Absolute Neutrophils 14.88 H PT 16.7 H INR 1.3 H POC VBG pH POC VBG pCO2 at Temp POC VBG pO2 POC VBG HCO3 POC VBG Total CO2 POC Venous O2 Sat POC VBG Base Excess VBG Lactic Acid 2.6 H Chloride Carbon Dioxide POC Total CO2 POC BUN BUN Creatinine POC Creatinine Glucose Uric Acid Calcium POC WB Ioniz Calcium Phosphorus Magnesium Total Bilirubin Direct Bilirubin GGT AST ALT Alkaline Phosphatase Lactate Dehydrogenase Total Protein Albumin Albumin/Globulin Ratio Triglycerides Procalcitonin Urine Appearance Urine Protein Urine Glucose (UA) Urine Ketones Urine Occult Blood Urine Nitrate Urine Urobilinogen Ur Leukocyte Esterase Urine RBC Urine WBC Amorphous Crystals Urine Bacteria Urine Sperm 01/25/23 01/25/23 01/25/23 05:14 05:14 05:14 WBC 31.3 H* RBC Hgb Hct RDW 15.0 H Plt Count 84 L MPV Immature Gran % (Auto) 7.3 H Neut % (Auto) 87.2 H Lymph % (Auto) 2.1 L Lymph # (Auto) 0.67 L Letcher # (Auto) 1.08 H Immature Gran # 2.28 H Absolute Neutrophils 27.28 H PT 20.3 H INR 1.7 H POC VBG pH POC VBG pCO2 at Temp POC VBG pO2 POC VBG HCO3 POC VBG Total CO2 POC Venous O2 Sat POC VBG Base Excess VBG Lactic Acid 2.8 H Chloride 109 H Carbon Dioxide 16 L POC Total CO2 POC BUN BUN 54 H Creatinine 2.4 H POC Creatinine Glucose 119 H Uric Acid 8.3 H Calcium 7.5 L POC WB Ioniz Calcium Phosphorus 4.9 H Magnesium 1.4 L Total Bilirubin 2.0 H Direct Bilirubin 1.4 H GGT AST ALT Alkaline Phosphatase Lactate Dehydrogenase 241 H Total Protein 5.1 L Albumin 2.9 L Albumin/Globulin Ratio Triglycerides Procalcitonin Urine Appearance Urine Protein Urine Glucose (UA) Urine Ketones Urine Occult Blood Urine Nitrate Urine Urobilinogen Ur Leukocyte Esterase Urine RBC Urine WBC Amorphous Crystals Urine Bacteria Urine Sperm 01/25/23 01/25/23 01/25/23 01:30 01:30 01:29 WBC RBC Hgb Hct RDW Plt Count MPV Immature Gran % (Auto) Neut % (Auto) Lymph % (Auto) Lymph # (Auto) Letcher # (Auto) Immature Gran # Absolute Neutrophils PT INR POC VBG pH 7.43 H POC VBG pCO2 at Temp 27.2 L POC VBG pO2 57 H POC VBG HCO3 17.9 L POC VBG Total CO2 19.0 L POC Venous O2 Sat 91.0 H POC VBG Base Excess -6.0 L VBG Lactic Acid 3.0 H Chloride Carbon Dioxide POC Total CO2 18.0 L POC BUN 49 H BUN Creatinine POC Creatinine 3.1 H Glucose Uric Acid Calcium POC WB Ioniz Calcium 1.02 L Phosphorus Magnesium Total Bilirubin Direct Bilirubin GGT AST ALT Alkaline Phosphatase Lactate Dehydrogenase Total Protein Albumin Albumin/Globulin Ratio Triglycerides Procalcitonin Urine Appearance Cloudy A Urine Protein 100 A Urine Glucose (UA) Urine Ketones 5 A Urine Occult Blood Urine Nitrate Urine Urobilinogen 2.0 A Ur Leukocyte Esterase 75 A Urine RBC > 182 H Urine WBC 75 H Amorphous Crystals Many A Urine Bacteria Few A Urine Sperm Present A 01/24/23 01/24/23 01/24/23 22:57 22:34 22:32 WBC RBC Hgb Hct RDW Plt Count MPV Immature Gran % (Auto) Neut % (Auto) Lymph % (Auto) Lymph # (Auto) Letcher # (Auto) Immature Gran # Absolute Neutrophils PT INR POC VBG pH POC VBG pCO2 at Temp 30.8 L POC VBG pO2 42 H POC VBG HCO3 18.1 L POC VBG Total CO2 19.0 L POC Venous O2 Sat 77.0 H POC VBG Base Excess -7.0 L VBG Lactic Acid 3.3 H Chloride Carbon Dioxide POC Total CO2 POC BUN BUN Creatinine POC Creatinine Glucose Uric Acid Calcium POC WB Ioniz Calcium Phosphorus Magnesium Total Bilirubin Direct Bilirubin GGT AST ALT Alkaline Phosphatase Lactate Dehydrogenase Total Protein Albumin Albumin/Globulin Ratio Triglycerides Procalcitonin > 100 H Urine Appearance Turbid A Urine Protein >=300 A Urine Glucose (UA) 100(trace) A Urine Ketones 5(trace) A Urine Occult Blood 3+(large) A Urine Nitrate Positive A Urine Urobilinogen 2.0 A Ur Leukocyte Esterase 2+(moderate) A Urine RBC > 182 H Urine WBC 15 H Amorphous Crystals Urine Bacteria Urine Sperm 01/24/23 01/24/23 21:24 21:24 WBC 35.9 H* RBC Hgb Hct RDW 14.7 H Plt Count 114 L MPV Immature Gran % (Auto) 4.4 H Neut % (Auto) 89.2 H Lymph % (Auto) 1.9 L Lymph # (Auto) 0.70 L Letcher # (Auto) 1.46 H Immature Gran # 1.58 H Absolute Neutrophils 32.05 H PT INR POC VBG pH POC VBG pCO2 at Temp POC VBG pO2 POC VBG HCO3 POC VBG Total CO2 POC Venous O2 Sat POC VBG Base Excess VBG Lactic Acid Chloride Carbon Dioxide POC Total CO2 POC BUN BUN Creatinine POC Creatinine Glucose Uric Acid Calcium POC WB Ioniz Calcium Phosphorus Magnesium Total Bilirubin 2.1 H Direct Bilirubin 1.1 H GGT AST 51 H ALT Alkaline Phosphatase Lactate Dehydrogenase Total Protein Albumin Albumin/Globulin Ratio Triglycerides Procalcitonin Urine Appearance Urine Protein Urine Glucose (UA) Urine Ketones Urine Occult Blood Urine Nitrate Urine Urobilinogen Ur Leukocyte Esterase Urine RBC Urine WBC Amorphous Crystals Urine Bacteria Urine Sperm Meds: Medications Acetaminophen (Acetaminophen 325 Mg Tablet) 650 mg PO Q6HP PRN; Protocol PRN Reason: Per Pain Protocol/Fever > 101 Last Admin: 01/26/23 23:25 Dose: 650 mg Hydrocodone Bitart/Acetaminophen (Hydrocodone/Apap 5/325mg Tablet) 1 tab PO Q4HP PRN; Protocol PRN Reason: Per Pain Protocol Last Admin: 01/27/23 00:01 Dose: 1 tab Amlodipine Besylate (Amlodipine 5 Mg Tablet) 5 mg PO DAILY [facility] Last Admin: 01/27/23 08:43 Dose: 5 mg Amoxicillin/Clavulanate Potassium (Amoxicillin/Potassium Clav 875 Mg Tablet) 875 mg PO BIDCC [facility]; Protocol Last Admin: 01/27/23 17:07 Dose: 875 mg Calcium Carbonate/Glycine (Calcium Carbonate 500 Mg Tab.Chew) 500 mg CHEWED Q4HP PRN PRN Reason: Dyspepsia Last Admin: 01/26/23 17:23 Dose: 500 mg Docusate Sodium (Docusate Sodium 100 Mg Capsule) 100 mg PO BID [facility] Last Admin: 01/27/23 20:32 Dose: 100 mg Furosemide (Furosemide 20 Mg/2 Ml Vial) 20 mg IV BIDD [facility] Stop: 01/28/23 08:01 Last Admin: 01/27/23 16:14 Dose: 20 mg Heparin Sodium (Porcine) (Heparin 5,000 Unit/Ml Vial) 5,000 unit SQ Q12 [facility] Last Admin: 01/27/23 20:32 Dose: 5,000 unit Hydromorphone HCl (Hydromorphone 0.5 Mg/0.5 Ml Syringe) 0.5 mg IV Q2HP PRN; Protocol PRN Reason: Per Pain Protocol Lactulose (Lactulose 20 Gm/30 Ml Oral.Gwen) 10 gm PO DAILYP PRN PRN Reason: Constipation Omeprazole (Omeprazole 20 Mg Capsule) 40 mg PO ACB [facility] Last Admin: 01/27/23 07:33 Dose: 40 mg Ondansetron HCl (Ondansetron 4 Mg/2 Ml Vial) 4 mg IV Q4HP PRN; Protocol PRN Reason: Nausea And Vomiting Last Admin: 01/26/23 19:56 Dose: 4 mg Senna (Sennosides 1 Tablet) 2 tab PO HSP PRN PRN Reason: Constipation Sodium Chloride (0.9 % Sodium Chloride 10 Ml Syringe) 10 ml IV Q8 [email or web address] Last Admin: 01/27/23 20:33 Dose: 10 ml A/P Time Spent With Patient Time: Total time spent is greater than 50% in coordination of care (as documented) at patient's floor/unit and/or counseling patient: QUALITY Stroke Symptom Onset Unknown: No VTE Deep Vein Thrombosis/Pulmonary Embolism Present on Admission: No
[2023-01-27] MEDS: ACETAMINOPHEN 325 MG TABLET PO PRN (23:05)
[2023-01-28] MEDS: 0.9 % SODIUM CHLORIDE 10 ML SYRINGE IV SCH ×3 (05:40→20:24)
[2023-01-28 06:20] LABS: Basophils # (Auto) 0.02 K/mcL (0.00-0.30); Basophils % (Auto) 0.2 % (0.0-2.0); Eosinophils # (Auto) 0.06 K/mcL (0.00-0.70); Eosinophils % (Auto) 0.5 % (0.0-7.0); Hematocrit 37.6 % (40.1-51.0); Hemoglobin 12.6 g/dL (13.7-17.5); Lymphocytes # (Auto) 1.83 K/mcL (1.50-4.80); Lymphocytes % (Auto) 15.6 % (15.5-49.0); Mean Cell Volume 83.7 fL (80.0-100.0); Mean Corpuscular HGB Conc 33.5 g/dL (31.0-36.0); Mean Platelet Volume 12.6 fL (8.8-12.5); Monocytes # (Auto) 0.97 K/mcL (0.10-0.90); Monocytes % (Auto) 8.3 % (1.0-12.0); Neutrophils % (Auto) 74.8 % (38.0-78.0); Platelet Count 106 K/mcL (140-440); RBC 4.49 M/mcL (4.63-6.08); Red Cell Distribution Width 14.5 % (11.5-14.5); WBC 11.7 K/mcL (4.5-11.0)
[2023-01-28 06:47] LABS: ALT/SGPT 66 U/L (<40); AST/SGOT 49 U/L (<40); Albumin 2.7 gm/dL (3.2-5.2); Alkaline Phosphatase 161 U/L (39-117); Bilirubin,Direct 0.6 mg/dL (<0.3); Bilirubin,Total 1.3 mg/dL (0.1-1.0); Blood Urea Nitrogen 25 mg/dL (6-20); Calcium 8.3 mg/dL (8.6-10.4); Carbon Dioxide 22 mmol/L (22-30); Chloride 109 mmol/L (96-108); Globulin 2.7 gm/dL (2.2-3.7); Glomerular Filtration Rate 83; Glucose 94 mg/dL (70-105); Lactate Dehydrogenase 220 U/L (135-225); Phosphorous 2.7 mg/dL (2.5-4.5); Triglycerides 224 mg/dL (<150); Uric Acid 5.5 mg/dL (2.5-8.0)
[2023-01-28] MEDS: OMEPRAZOLE 20 MG CAPSULE PO SCH (06:57)
[2023-01-28 07:05] LABS: INR 1.2 (0.9-1.1); Prothrombin Time 15.3 sec (11.9-14.5)
[2023-01-28] MEDS: ACETAMINOPHEN 325 MG TABLET PO PRN ×2 (07:11→18:21)
[2023-01-28] MEDS: AMOXICILLIN/POTASSIUM CLAV 875 MG TABLET PO SCH (08:11)
[2023-01-28] MEDS: amLODIPine 5 MG TABLET PO SCH (08:11)
[2023-01-28] MEDS: DOCUSATE SODIUM 100 MG CAPSULE PO SCH ×2 (08:12→20:23)
[2023-01-28] MEDS: FUROSEMIDE 20 MG/2 ML VIAL IV SCH (08:13)
[2023-01-28] MEDS: HEPARIN 5,000 UNIT/ML VIAL SQ SCH ×2 (08:13→20:23)
--- NOTE | 2023-01-28 12:52 | XRay Report ---
CLINICAL INFORMATION: Hypoxia COMPARISON: None. TECHNIQUE: PA and Lateral views FINDINGS: The heart size, mediastinum and pulmonary vessels are unremarkable. The lung volumes are elevated and there is minimal wall thickening and central bronchi suggesting chronic bronchitis. Minimal interstitial disease in both lungs appreciated is uncertain chronicity and etiology.. There are no effusions. The bones and soft tissues are within normal limits. IMPRESSION: Findings suggestive of mild chronic bronchitis or asthma. Mild interstitial disease throughout both lungs may represent mild interstitial fibrosis if chronic. Of acute, it may represent inflammation or edema. Interpreted and Authenticated by: Newton Zapata 01/28/23
[2023-01-28] MEDS: cefTRIAXone 1 GM VIAL IV SCH (14:53)
[2023-01-29] MEDS: ACETAMINOPHEN 325 MG TABLET PO PRN ×2 (03:55→17:35)
[2023-01-29] MEDS: 0.9 % SODIUM CHLORIDE 10 ML SYRINGE IV SCH ×3 (04:00→20:25)
--- NOTE | 2023-01-29 07:22 | Internal Med Progress Note ---
SUBJECTIVE Subjective Patient information: Note initiated : 01/29/23 at 7:22 am Service Date, if different from initiated Date: [] Patient: Ventura Corral 57 y/o M admitted on 01/25/23 for hematuria. Chief Complaint: [] Principal diagnosis: Urinary retention, traumatic Duff catheter placement Additional PMFSH (Level 3 Only): Principal diagnosis: Urinary retention, traumatic Duff catheter placement Additional PMFSH (Level 3 Only): Principal diagnosis: Urinary retention, traumatic Duff catheter placement Interval history: Mr. Corral is a 57 year old male with no significant past medical history except elevated blood pressure for which he is currently not on antihypertensives presented to the emergency department for difficulty urinating and generally not feeling well. The patient was concerned that he might have a urinary tract infection. In the ED the patient was found to be septic, a Duff catheter was attempted but not successful therefore urology consulted and placed a Duff catheter. Patient was given IV fluid and ceftriaxone, he was hypotensive in the ED with initial lactic acid of 3.4. Additionally, the patient had a elevated creatinine likely reflecting an acute kidney injury, elevated INR and bilirubin likely reflecting liver injury secondary to sepsis. Hospital medicine was consulted for admission. 01/26 Patient was weaned off Levophed yesterday afternoon. Leukocytosis improving, renal function improving, LFTs mildly elevated. Urine growing Aerococcus urinae, culture sensitivities pending. Blood culture showing no growth to date. Patient had abdominal pain this morning, x-ray obtained which showed normal abdomen. Abdominal pain improved. Discontinued Zosyn, started ce ftriaxone. Discontinued IV fluid. 01/27 Vital stable overnight except requiring 2 L minute nasal cannula likely secondary to some pulmonary edema from IV fluids. Chest x-ray ordered. Leukocytosis improving. Discussed antibiotics with pharmacy, concerned that cephalosporins may not cover Aerococcus urinary therefore discontinued ceftriaxone and started Augmentin. Patient has scrotal edema likely secondary to IV fluids received for septic shock. We will give Lasix 20 mg IV twice today, monitor for effectiveness. Transfer to [facility]. 01/28 patient seen and examined. Patient had a low-grade fever of 100.7 last night and 99.1 this morning, leukocytosis slowly trending down but still present, potassium is low at 3.3 and will be replaced, BRADEN has resolved and serum creatinine is 1.0. LFTs overall stable. Chest x-ray from this morning reviewed, minimal interstitial disease in both lungs, findings suggestive of mild chronic bronchitis or asthma. Urine culture with Aerococcus urinae, it is usually sensitive to many antibiotics including penicillin, patient is on Augmentin which will be changed to ceftriaxone today. Discussed with patient needs to be fever free for 24 hours before he could be transition to oral antibiotic and considered for discharge Physical exam Head: Atraumatic, normal inspection. Eyes: normal appearance, no scleral icterus. Neck: full ROM Respiratory: Chest is clear bilaterally, not on supplemental oxygen Cardiovascular: normal rate and rhythm, S1, S2. GI/Abdominal: soft, mild epigastric tenderness, no guarding. : Indwelling Duff catheter redd urine. Scrotal edema is resolving Extremities: full range of motion, nontender, mild bilateral pitting edema. Neurological: CN II-XII intact, intact motor, intact sensation. Psychiatric: normal mood. Skin: warm, normal color A/P Narrative: Assessment: 57 year old male admitted for septic shock secondary to pyelonephritis secondary to Aerococcus urinary complicated by acute kidney injury and liver injury evidenced by hyperbilirubinemia and coagulopathy. The patient had urinary retention in the ED requiring a urology consult for a Duff catheter placement. The cause of urinary retention is a ureteral stricture. The patient received Zosyn, IV fluid and required Levophed for about 48 hours. Septic shock has resolved, now on oral antibiotics. The patient does have an oxygen requirement and scrotal edema likely secondary to fluid overload secondary to IV fluid received for septic shock. #Acute hypoxic respiratory failure likely secondary to volume overload from IV fluids received for septic shock #Resolved septic shock secondary to pyelonephritis secondary to Aerococcus urinae #Resolved acute kidney injury secondary to sepsis #Improving coagulopathy secondary to sepsis #Transaminitis and hyperbilirubinemia likely secondary to sepsis #Thrombocytopenia likely secondary to sepsis #Urinary retention secondary to ureteral stricture requiring Duff catheter #Scrotal edema likely secondary to volume overload #Resolved hematuria #History of elevated blood pressure Plan -Patient with fever overnight and leukocytosis slightly present. Will change to ceftriaxone IV every 24 hours and DC Augmentin until patient is afebrile --Chest x-ray from this morning reviewed, minimal interstitial disease in both lungs, findings suggestive of mild chronic bronchitis or asthma. -Oxygen supplementation as needed. -Lasix 20 mg IV twice daily today, reassess volume status tomorrow and continue diuretics if necessary. -Follow LFTs and bilirubin. -Keep Duff catheter until urology follow up. -Monitor of scrotal edema. -Analgesics as needed, no NSAID. -Urology following. -Regular diet. -DVT prophylaxis: Heparin SQ. -CODE STATUS: Full -Disposition: MedSurg. Anticipate discharge to home in 1 to 2 days on oral antibiotics with indwelling Duff catheter, follow-up with urology. Constitutional Vitals: Vital Signs Temp Pulse Resp BP Pulse Ox O2 Del Method O2 Flow Rate 99.9 F H 68 20 139/101 95 Room Air 2 01/29/23 04:00 01/29/23 04:00 01/29/23 04:00 01/29/23 04:00 01/29/23 04:00 01/29/23 04:00 01/27/23 08:01 Period Temp Pulse Resp BP Sys/Garcia Pulse Ox O2 Del Method O2 Flow Rate Last 24 Hr 98.9 F-99.9 F 68-81 16-20 125-153/86-103 94-98 Room Air-Room Air Intake and Output 01/28/23 01/29/23 01/29/23 19:59 03:59 11:59 Intake Total 1260 1000 Output Total 2400 1100 Balance -1140 -100 Weight 91.989 kg Intake & Output: Intake & Output 01/28/23 01/29/23 01/29/23 19:59 03:59 11:59 Intake Total 1260 1000 Output Total 2400 1100 Balance -1140 -100 Weight 91.989 kg Intake: Oral 1260 1000 Output: Urine Catheter Amount 2400 1100 Other: Meal Dinner Percent of Meal Consumed 80% Feeding Ability Independent Urine Appearance Clear Urine Color Light Redd Uretheral (Duff) Light Redd OBJ DATA Labs 01/28/23 05:10 01/28/23 05:10 Labs: Abnormal Lab Results 01/28/23 01/28/23 01/28/23 05:10 05:10 05:09 WBC 11.7 H RBC 4.49 L Hgb 12.6 L Hct 37.6 L RDW Plt Count 106 L MPV 12.6 H Immature Gran % (Auto) 0.6 H Neut % (Auto) Lymph % (Auto) Lymph # (Auto) [place] # (Auto) 0.97 H Immature Gran # 0.07 H Absolute Neutrophils 8.76 H PT 15.3 H INR 1.2 H Chloride 109 H Carbon Dioxide BUN 25 H Creatinine Glucose Calcium 8.3 L Phosphorus Total Bilirubin 1.3 H Direct Bilirubin 0.6 H GGT 153 H AST 49 H ALT 66 H Alkaline Phosphatase 161 H Lactate Dehydrogenase Total Protein 5.4 L Albumin 2.7 L Albumin/Globulin Ratio Triglycerides 224 H 01/27/23 01/27/23 01/26/23 05:10 05:10 06:52 WBC 17.0 H RBC 4.17 L Hgb 12.1 L Hct 35.3 L RDW 15.0 H Plt Count 90 L MPV 12.7 H Immature Gran % (Auto) Neut % (Auto) 87.2 H Lymph % (Auto) 9.2 L Lymph # (Auto) [place] # (Auto) Immature Gran # Absolute Neutrophils 14.80 H PT INR Chloride 111 H 113 H Carbon Dioxide 19 L 18 L BUN 34 H 44 H Creatinine 1.3 H Glucose 107 H Calcium 7.9 L 7.9 L Phosphorus 2.3 L Total Bilirubin 1.5 H 2.3 H Direct Bilirubin 1.0 H 1.7 H GGT 151 H 90 H AST 71 H 68 H ALT 76 H 61 H Alkaline Phosphatase 141 H Lactate Dehydrogenase 230 H 233 H Total Protein 5.4 L 5.3 L Albumin 2.6 L 2.7 L Albumin/Globulin Ratio 0.9 L Triglycerides 166 H 249 H 01/26/23 01/26/23 06:52 06:52 WBC 19.6 H RBC 4.25 L Hgb 12.2 L Hct 36.2 L RDW 14.9 H Plt Count 71 L MPV 13.0 H Immature Gran % (Auto) 16.9 H Neut % (Auto) Lymph % (Auto) 4.9 L Lymph # (Auto) 0.96 L [place] # (Auto) Immature Gran # 3.31 H Absolute Neutrophils 14.88 H PT 16.7 H INR 1.3 H Chloride Carbon Dioxide BUN Creatinine Glucose Calcium Phosphorus Total Bilirubin Direct Bilirubin GGT AST ALT Alkaline Phosphatase Lactate Dehydrogenase Total Protein Albumin Albumin/Globulin Ratio Triglycerides Meds: Medications Acetaminophen (Acetaminophen 325 Mg Tablet) 650 mg PO Q6HP PRN; Protocol PRN Reason: Per Pain Protocol/Fever > 101 Last Admin: 01/29/23 03:55 Dose: 650 mg Hydrocodone Bitart/Acetaminophen (Hydrocodone/Apap 5/325mg Tablet) 1 tab PO Q4HP PRN; Protocol PRN Reason: Per Pain Protocol Last Admin: 01/27/23 00:01 Dose: 1 tab Amlodipine Besylate (Amlodipine 5 Mg Tablet) 5 mg PO DAILY [facility] [place] Last Admin: 01/28/23 08:11 Dose: 5 mg Calcium Carbonate/Glycine (Calcium Carbonate 500 Mg Tab.Chew) 500 mg CHEWED Q4HP PRN PRN Reason: Dyspepsia Last Admin: 01/26/23 17:23 Dose: 500 mg Ceftriaxone Sodium (Ceftriaxone 1 Gm Vial) 1 gm IV Q24H [facility] [place]; Protocol Last Admin: 01/28/23 14:53 Dose: 1 gm Docusate Sodium (Docusate Sodium 100 Mg Capsule) 100 mg PO BID [facility] Last Admin: 01/28/23 20:23 Dose: Not Given Heparin Sodium (Porcine) (Heparin 5,000 Unit/Ml Vial) 5,000 unit SQ Q12 [facility] Last Admin: 01/28/23 20:23 Dose: Not Given Hydromorphone HCl (Hydromorphone 0.5 Mg/0.5 Ml Syringe) 0.5 mg IV Q2HP PRN; Protocol PRN Reason: Per Pain Protocol Lactulose (Lactulose 20 Gm/30 Ml Oral.Gwen) 10 gm PO DAILYP PRN PRN Reason: Constipation Omeprazole (Omeprazole 20 Mg Capsule) 40 mg PO ACB [facility] [place] Last Admin: 01/28/23 06:57 Dose: 40 mg Ondansetron HCl (Ondansetron 4 Mg/2 Ml Vial) 4 mg IV Q4HP PRN; Protocol PRN Reason: Nausea And Vomiting Last Admin: 01/26/23 19:56 Dose: 4 mg Senna (Sennosides 1 Tablet) 2 tab PO HSP PRN PRN Reason: Constipation Sodium Chloride (0.9 % Sodium Chloride 10 Ml Syringe) 10 ml IV Q8 [facility] Last Admin: 01/29/23 04:00 Dose: 10 ml A/P Time Spent With Patient Time: Total time spent is greater than 50% in coordination of care (as documented) at patient's floor/unit and/or counseling patient: QUALITY Stroke Symptom Onset Unknown: No VTE Deep Vein Thrombosis/Pulmonary Embolism Present on Admission: No
[2023-01-29] MEDS: OMEPRAZOLE 20 MG CAPSULE PO SCH (07:59)
[2023-01-29 08:01] LABS: Basophils # (Auto) 0.03 K/mcL (0.00-0.30); Basophils % (Auto) 0.2 % (0.0-2.0); Eosinophils # (Auto) 0.03 K/mcL (0.00-0.70); Eosinophils % (Auto) 0.2 % (0.0-7.0); Hematocrit 40.5 % (40.1-51.0); Hemoglobin 13.6 g/dL (13.7-17.5); Lymphocytes # (Auto) 2.25 K/mcL (1.50-4.80); Lymphocytes % (Auto) 16.2 % (15.5-49.0); Mean Cell Volume 83.9 fL (80.0-100.0); Mean Corpuscular HGB Conc 33.6 g/dL (31.0-36.0); Monocytes # (Auto) 1.43 K/mcL (0.10-0.90); Monocytes % (Auto) 10.3 % (1.0-12.0); Platelet Count 176 K/mcL (140-440); RBC 4.83 M/mcL (4.63-6.08); Red Cell Distribution Width 14.2 % (11.5-14.5)
[2023-01-29] MEDS: amLODIPine 5 MG TABLET PO SCH (08:06)
[2023-01-29] MEDS: DOCUSATE SODIUM 100 MG CAPSULE PO SCH ×2 (08:06→20:21)
[2023-01-29] MEDS: HEPARIN 5,000 UNIT/ML VIAL SQ SCH ×2 (08:06→20:21)
[2023-01-29 08:34] LABS: ALT/SGPT 56 U/L (<40); AST/SGOT 29 U/L (<40); Albumin 2.9 gm/dL (3.2-5.2); Albumin/Globulin Ratio 0.9 (1.0-2.3); Alkaline Phosphatase 161 U/L (39-117); Bilirubin,Total 1.1 mg/dL (0.1-1.0); Blood Urea Nitrogen 18 mg/dL (6-20); Calcium 8.7 mg/dL (8.6-10.4); Carbon Dioxide 22 mmol/L (22-30); Chloride 106 mmol/L (96-108); Globulin 3.1 gm/dL (2.2-3.7); Glomerular Filtration Rate 105; Glucose 116 mg/dL (70-105)
[2023-01-29 08:51] LABS: WBC 13.9 K/mcL (4.5-11.0)
[2023-01-29] MEDS: cefTRIAXone 1 GM VIAL IV SCH (10:20)
--- NOTE | 2023-01-29 18:00 | Internal Med Progress Note ---
SUBJECTIVE Subjective Patient information: Note initiated : 01/29/23 at 5:54 pm Service Date, if different from initiated Date: [] Patient: Ventura Corral 57 y/o M admitted on 01/25/23 for hematuria. Chief Complaint: [] Principal diagnosis: Urinary retention, traumatic Duff catheter placement Additional PMFSH (Level 3 Only): Interval history: Mr. Corral is a 57 year old male with no significant past medical history except elevated blood pressure for which he is currently not on antihypertensives presented to the emergency department for difficulty urinating and generally not feeling well. The patient was concerned that he might have a urinary tract infection. In the ED the patient was found to be septic, a Duff catheter was attempted but not successful therefore urology consulted and placed a Duff catheter. Patient was given IV fluid and ceftriaxone, he was hypotensive in the ED with initial lactic acid of 3.4. Additionally, the patient had a elevated creatinine likely reflecting an acute kidney injury, elevated INR and bilirubin likely reflecting liver injury secondary to sepsis. Hospital medicine was consulted for admission. 01/26 Patient was weaned off Levophed yesterday afternoon. Leukocytosis improving, renal function improving, LFTs mildly elevated. Urine growing Aerococcus urinae, culture sensitivities pending. Blood culture showing no growth to date. Patient had abdominal pain this morning, x-ray obtained which showed normal abdomen. Abdominal pain improved. Discontinued Zosyn, started ceftriaxone. Discontinued IV fluid. 01/27 Vital stable overnight except requiring 2 L minute nasal cannula likely secondary to some pulmonary edema from IV fluids. Chest x-ray ordered. Leukocytosis improving. Discussed antibiotics with pharmacy, concerned that cephalosporins may not cover Aerococcus urinary therefore discontinued ceftriaxone and started Augmentin. Patient has scrotal edema likely secondary to IV fluids received for septic shock. We will give Lasix 20 mg IV twice today, monitor for effectiveness. Transfer to [facility] status. 01/28 patient seen and examined. Patient had a low-grade fever of 100.7 last night and 99.1 this morning, leukocytosis slowly trending down but still present, potassium is low at 3.3 and will be replaced, BRADEN has resolved and serum creatinine is 1.0. LFTs overall stable. Chest x-ray from this morning reviewed, minimal interstitial disease in both lungs, findings suggestive of mild chronic bronchitis or asthma. Urine culture with Aerococcus urinae, it is usually sensitive to many antibiotics including penicillin, patient is on Augmentin which will be changed to ceftriaxone today. Discussed with patient needs to be fever free for 24 hours before he could be transition to oral antibiotic and considered for discharge. 01/29.Patient continued to have low-grade fever of 99.9 F overnight. CBC obtained showed worsening of leukocytosis to 13.9 from 11 yesterday. Chemistries remained stable. Discussed with patient it is concerning that he continues to have fever, will continue with IV antibiotics patient in agreement. Review of system Reports low-grade fever, malaise No headache, no visual disturbance No nausea, vomiting or diarrhea No dysuria, no hematuria No excessive thirst No skin rashes No joint pain or swelling Denies any focal weakness Physical exam Head: Atraumatic, normal inspection. Eyes: normal appearance, no scleral icterus. Neck: full ROM Respiratory: Chest is clear bilaterally, not on supplemental oxygen Cardiovascular: normal rate and rhythm, S1, S2. GI/Abdominal: soft, mild epigastric tenderness, no guarding. : Indwelling Duff catheter redd urine. Scrotal edema is resolving Extremities: full range of motion, nontender, mild bilateral pitting edema. Neurological: CN II-XII intact, intact motor, intact sensation. Psychiatric: normal mood. Skin: warm, normal color A/P Narrative: Assessment: 57 year old male admitted for septic shock secondary to pyelonephritis secondary to Aerococcus urinary complicated by acute kidney injury and liver injury evidenced by hyperbilirubinemia and coagulopathy. The patient had urinary retention in the ED requiring a urology consult for a Duff catheter placement. The cause of urinary retention is a ureteral stricture. The patient received Zosyn, IV fluid and required Levophed for about 48 hours. Septic shock has resolved, now on oral antibiotics. The patient does have an oxygen requirement and scrotal edema likely secondary to fluid overload secondary to IV fluid received for septic shock. #Acute hypoxic respiratory failure likely secondary to volume overload from IV fluids received for septic shock #Resolved septic shock secondary to pyelonephritis secondary to Aerococcus urinae #Resolved acute kidney injury secondary to sepsis #Improving coagulopathy secondary to sepsis #Transaminitis and hyperbilirubinemia likely secondary to sepsis #Thrombocytopenia likely secondary to sepsis #Urinary retention secondary to ureteral stricture requiring Duff catheter #Scrotal edema likely secondary to volume overload #Resolved hematuria #History of elevated blood pressure Plan -Patient continues to have low-grade fever and now with worsening leukocytosis to 13,000. Will continue with IV ceftriaxone. Patient needs to be afebrile for repeated of 24 hours before he could be transition to oral antibiotics. --Chest x-ray 01/28, minimal interstitial disease in both lungs, findings suggestive of mild chronic bronchitis or asthma. Patient diuresed and now coming of supplemental oxygen. -Lasix 20 mg IV twice daily today, reassess volume status tomorrow and continue diuretics if necessary. -Follow LFTs and bilirubin. -Keep Duff catheter until urology follow up. -Monitor of scrotal edema. -Analgesics as needed, no NSAID. -Urology following. -Regular diet. -DVT prophylaxis: Heparin SQ. -CODE STATUS: Full -Disposition: MedSurg. Anticipate discharge to home in 1 to 2 days on oral antibiotics with indwelling Duff catheter, follow-up with urology. Total time taken 55 minutes Constitutional Vitals: Vital Signs Temp Pulse Resp BP Pulse Ox O2 Del Method O2 Flow Rate 98.8 F 86 16 128/88 100 Room Air 2 01/29/23 16:00 01/29/23 16:00 01/29/23 16:00 01/29/23 16:00 01/29/23 16:00 01/29/23 16:00 01/27/23 08:01 Period Temp Pulse Resp BP Sys/Garcia Pulse Ox O2 Del Method O2 Flow Rate Last 24 Hr 98.8 F-99.9 F 68-86 16-20 128-147/86-101 94-100 Room Air-Room Air Intake and Output 01/29/23 01/29/23 01/29/23 03:59 11:59 19:59 Intake Total 1000 480 Output Total 1100 1400 Balance -100 -920 Weight 91.989 kg 91.989 kg Patient Weight 01/30/23 03:59 Weight 91.989 kg Intake & Output: Intake & Output 01/29/23 01/29/23 01/29/23 03:59 11:59 19:59 Intake Total 1000 480 Output Total 1100 1400 Balance -100 -920 Weight 91.989 kg 91.989 kg Intake: Oral 1000 480 Output: Urine Catheter Amount 1100 1400 Other: Meal Dinner Percent of Meal Consumed 100% Feeding Ability Independent Urine Appearance Clear Clear Uretheral (Duff) Clear Urine Color Light Redd Light Redd Uretheral (Duff) Yellow OBJ DATA Labs 01/29/23 07:34 01/29/23 07:34 Labs: Abnormal Lab Results 01/29/23 01/29/23 01/28/23 07:34 07:34 05:10 WBC 13.9 H RBC Hgb 13.6 L Hct RDW Plt Count MPV Immature Gran % (Auto) 1.1 H Neut % (Auto) Lymph % (Auto) [place] # (Auto) 1.43 H Immature Gran # 0.15 H Absolute Neutrophils 10.01 H PT INR Chloride 109 H Carbon Dioxide BUN 25 H Glucose 116 H Calcium 8.3 L Total Bilirubin 1.1 H 1.3 H Direct Bilirubin 0.6 H GGT 153 H AST 49 H ALT 56 H 66 H Alkaline Phosphatase 161 H 161 H Lactate Dehydrogenase Total Protein 5.4 L Albumin 2.9 L 2.7 L Albumin/Globulin Ratio 0.9 L Triglycerides 224 H 01/28/23 01/28/23 01/27/23 05:10 05:09 05:10 WBC 11.7 H RBC 4.49 L Hgb 12.6 L Hct 37.6 L RDW Plt Count 106 L MPV 12.6 H Immature Gran % (Auto) 0.6 H Neut % (Auto) Lymph % (Auto) [place] # (Auto) 0.97 H Immature Gran # 0.07 H Absolute Neutrophils 8.76 H PT 15.3 H INR 1.2 H Chloride 111 H Carbon Dioxide 19 L BUN 34 H Glucose Calcium 7.9 L Total Bilirubin 1.5 H Direct Bilirubin 1.0 H GGT 151 H AST 71 H ALT 76 H Alkaline Phosphatase 141 H Lactate Dehydrogenase 230 H Total Protein 5.4 L Albumin 2.6 L Albumin/Globulin Ratio 0.9 L Triglycerides 166 H 01/27/23 05:10 WBC 17.0 H RBC 4.17 L Hgb 12.1 L Hct 35.3 L RDW 15.0 H Plt Count 90 L MPV 12.7 H Immature Gran % (Auto) Neut % (Auto) 87.2 H Lymph % (Auto) 9.2 L [place] # (Auto) Immature Gran # Absolute Neutrophils 14.80 H PT INR Chloride Carbon Dioxide BUN Glucose Calcium Total Bilirubin Direct Bilirubin GGT AST ALT Alkaline Phosphatase Lactate Dehydrogenase Total Protein Albumin Albumin/Globulin Ratio Triglycerides Meds: Medications Acetaminophen (Acetaminophen 325 Mg Tablet) 650 mg PO Q6HP PRN; Protocol PRN Reason: Per Pain Protocol/Fever > 101 Last Admin: 01/29/23 17:35 Dose: 650 mg Hydrocodone Bitart/Acetaminophen (Hydrocodone/Apap 5/325mg Tablet) 1 tab PO Q4HP PRN; Protocol PRN Reason: Per Pain Protocol Last Admin: 01/27/23 00:01 Dose: 1 tab Amlodipine Besylate (Amlodipine 5 Mg Tablet) 5 mg PO DAILY [facility] Last Admin: 01/29/23 08:06 Dose: 5 mg Calcium Carbonate/Glycine (Calcium Carbonate 500 Mg Tab.Chew) 500 mg CHEWED Q4HP PRN PRN Reason: Dyspepsia Last Admin: 01/26/23 17:23 Dose: 500 mg Ceftriaxone Sodium (Ceftriaxone 1 Gm Vial) 1 gm IV Q24H [facility]; Protocol Last Admin: 01/29/23 10:20 Dose: 1 gm Docusate Sodium (Docusate Sodium 100 Mg Capsule) 100 mg PO BID [facility] Last Admin: 01/29/23 08:06 Dose: 100 mg Heparin Sodium (Porcine) (Heparin 5,000 Unit/Ml Vial) 5,000 unit SQ Q12 [facility] Last Admin: 01/29/23 08:06 Dose: 5,000 unit Hydromorphone HCl (Hydromorphone 0.5 Mg/0.5 Ml Syringe) 0.5 mg IV Q2HP PRN; Protocol PRN Reason: Per Pain Protocol Lactulose (Lactulose 20 Gm/30 Ml Oral.Gwen) 10 gm PO DAILYP PRN PRN Reason: Constipation Omeprazole (Omeprazole 20 Mg Capsule) 40 mg PO ACB [facility] Last Admin: 01/29/23 07:59 Dose: 40 mg Ondansetron HCl (Ondansetron 4 Mg/2 Ml Vial) 4 mg IV Q4HP PRN; Protocol PRN Reason: Nausea And Vomiting Last Admin: 01/26/23 19:56 Dose: 4 mg Senna (Sennosides 1 Tablet) 2 tab PO HSP PRN PRN Reason: Constipation Sodium Chloride (0.9 % Sodium Chloride 10 Ml Syringe) 10 ml IV Q8 [facility] Last Admin: 01/29/23 13:49 Dose: 10 ml A/P Time Spent With Patient Time: Total time spent is greater than 50% in coordination of care (as documented) at patient's floor/unit and/or counseling patient: QUALITY Stroke Symptom Onset Unknown: No VTE Deep Vein Thrombosis/Pulmonary Embolism Present on Admission: No
[2023-01-30] MEDS: ACETAMINOPHEN 325 MG TABLET PO PRN ×2 (03:54→18:13)
[2023-01-30] MEDS: 0.9 % SODIUM CHLORIDE 10 ML SYRINGE IV SCH ×3 (04:01→21:31)
[2023-01-30] MEDS: OMEPRAZOLE 20 MG CAPSULE PO SCH (07:36)
[2023-01-30 08:36] LABS: Basophils # (Auto) 0.03 K/mcL (0.00-0.30); Basophils % (Auto) 0.2 % (0.0-2.0); Eosinophils % (Auto) 0.7 % (0.0-7.0); Hematocrit 40.9 % (40.1-51.0); Hemoglobin 13.6 g/dL (13.7-17.5); Lymphocytes # (Auto) 2.38 K/mcL (1.50-4.80); Mean Corpuscular HGB Conc 33.3 g/dL (31.0-36.0); Mean Platelet Volume 11.7 fL (8.8-12.5); Monocytes % (Auto) 8.1 % (1.0-12.0); Neutrophils % (Auto) 73.8 % (38.0-78.0); Platelet Count 246 K/mcL (140-440); RBC 4.87 M/mcL (4.63-6.08); Red Cell Distribution Width 14.3 % (11.5-14.5)
[2023-01-30 08:52] LABS: ALT/SGPT 47 U/L (<40); AST/SGOT 23 U/L (<40); Albumin 2.9 gm/dL (3.2-5.2); Albumin/Globulin Ratio 0.9 (1.0-2.3); Alkaline Phosphatase 147 U/L (39-117); Bilirubin,Total 0.9 mg/dL (0.1-1.0); Blood Urea Nitrogen 16 mg/dL (6-20); Calcium 8.5 mg/dL (8.6-10.4); Carbon Dioxide 21 mmol/L (22-30); Chloride 104 mmol/L (96-108); Globulin 3.2 gm/dL (2.2-3.7); Glomerular Filtration Rate 105; Glucose 113 mg/dL (70-105)
[2023-01-30] MEDS: cefTRIAXone 1 GM VIAL IV SCH (08:52)
[2023-01-30] MEDS: HEPARIN 5,000 UNIT/ML VIAL SQ SCH ×2 (08:53→20:53)
[2023-01-30] MEDS: DOCUSATE SODIUM 100 MG CAPSULE PO SCH ×2 (08:53→20:52)
[2023-01-30] MEDS: amLODIPine 5 MG TABLET PO SCH (08:53)
[2023-01-30 08:58] LABS: WBC 14.9 K/mcL (4.5-11.0)
[2023-01-30] MEDS ORDERED: FUROSEMIDE 20 MG/2 ML VIAL IV ONE (12:45)
--- NOTE | 2023-01-30 12:45 | Internal Med Progress Note ---
SUBJECTIVE Subjective Patient information: Note initiated : 01/30/23 at 12:42 pm Service Date, if different from initiated Date: [] Patient: Ventura Corral a 57 y/o M admitted on 01/25/23 for hematuria. Chief Complaint: [] Principal diagnosis: Urinary retention, traumatic Duff catheter placement Additional PMFSH (Level 3 Only): Interval history: Mr. Corral is a 57 year old male with no significant past medical history except elevated blood pressure for which he is currently not on antihypertensives presented to the emergency department for difficulty urinating and generally not feeling well. The patient was concerned that he might have a urinary tract infection. In the ED the patient was found to be septic, a Duff catheter was attempted but not successful therefore urology consulted and placed a Duff catheter. Patient was given IV fluid and ceftriaxone, he was hypotensive in the ED with initial lactic acid of 3.4. Additionally, the patient had a elevated creatinine likely reflecting an acute kidney injury, elevated INR and bilirubin likely reflecting liver injury secondary to sepsis. Hospital medicine was consulted for admission. 01/26 Patient was weaned off Levophed yesterday afternoon. Leukocytosis improving, renal function improving, LFTs mildly elevated. Urine growing Aerococcus urinae, culture sensitivities pending. Blood culture showing no growth to date. Patient had abdominal pain this morning, x-ray obtained which showed normal abdomen. Abdominal pain improved. Discontinued Zosyn, started ceftriaxone. Discontinued IV fluid. 01/27 Vital stable overnight except requiring 2 L minute nasal cannula likely secondary to some pulmonary edema from IV fluids. Chest x-ray ordered. Leukocytosis improving. Discussed antibiotics with pharmacy, concerned that cephalosporins may not cover Aerococcus urinary therefore discontinued ceftriaxone and started Augmentin. Patient has scrotal edema likely secondary to IV fluids received for septic shock. We will give Lasix 20 mg IV twice today, monitor for effectiveness. Transfer to [facility] status. 01/28 patient seen and examined. Patient had a low-grade fever of 100.7 last night and 99.1 this morning, leukocytosis slowly trending down but still present, potassium is low at 3.3 and will be replaced, BRADEN has resolved and seru m creatinine is 1.0. LFTs overall stable. Chest x-ray from this morning reviewed, minimal interstitial disease in both lungs, findings suggestive of mild chronic bronchitis or asthma. Urine culture with Aerococcus urinae, it is usually sensitive to many antibiotics including penicillin, patient is on Augmentin which will be changed to ceftriaxone today. Discussed with patient needs to be fever free for 24 hours before he could be transition to oral antibiotic and considered for discharge. 01/29.Patient continued to have low-grade fever of 99.9 F overnight. CBC obtained showed worsening of leukocytosis to 13.9 from 11 yesterday. Chemistries remained stable. Discussed with patient it is concerning that he continues to have fever, will continue with IV antibiotics patient in agreement. 01/30 patient continues to have fever of 100.2 F overnight, his leukocytosis is also worsened to 14,000 from 13,000 yesterday. Will discontinue ceftriaxone and start patient on Zosyn. Will obtain procalcitonin and CRP and will follow. Patient reports scrotal edema is giving him discomfort and he cannot sit in the chair for longer. Of time. Discussed we will give IV Lasix Review of system Reports low-grade fever, malaise No headache, no visual disturbance No nausea, vomiting or diarrhea No dysuria, no hematuria No excessive thirst No skin rashes No joint pain or swelling Denies any focal weakness Physical exam Gen: Alert and awake, no acute distress Head: Atraumatic, normal inspection. Eyes: normal appearance, no scleral icterus. Neck: full ROM Respiratory: Chest is clear bilaterally, not on supplemental oxygen Cardiovascular: normal rate and rhythm, S1, S2. GI/Abdominal: soft, mild epigastric tenderness, no guarding. : Indwelling Duff catheter redd urine. Significant scrotal edema noted, no open sores or erythema Extremities: full range of motion, nontender, mild bilateral pitting edema. Neurological: CN II-XII intact, intact motor, intact sensation. Psychiatric: normal mood. Skin: warm, normal color A/P Narrative: Assessment: 57 year old male admitted for septic shock secondary to pyelonephritis secondary to Aerococcus urinary complicated by acute kidney injury and liver injury evidenced by hyperbilirubinemia and coagulopathy. The patient had urinary retention in the ED requiring a urology consult for a Duff catheter placement. The cause of urinary retention is a ureteral stricture. The patient received Zosyn, IV fluid and required Levophed for about 48 hours. Septic shock has resolved, #Acute hypoxic respiratory failure likely secondary to volume overload from IV fluids received for septic shock, resolving #Resolved septic shock secondary to pyelonephritis secondary to Aerococcus urinae #Resolved acute kidney injury secondary to sepsis #Improving coagulopathy secondary to sepsis #Transaminitis and hyperbilirubinemia likely secondary to sepsis #Thrombocytopenia likely secondary to sepsis #Urinary retention secondary to ureteral stricture requiring Duff catheter #Scrotal edema likely secondary to volume overload #Resolved hematuria #History of elevated blood pressure Plan -It is concerning that patient continues to have low-grade fever and now with worsening leukocytosis, will change to Zosyn and discontinue ceftriaxone. Will obtain CRP and procalcitonin Will give IV Lasix 20 mg x 1 for scrotal edema. Patient now satting well on room air and hypoxia has resolved -Follow LFTs and bilirubin. -Keep Duff catheter until urology follow up. -Monitor of scrotal edema. -Analgesics as needed, no NSAID. -Urology following. -Regular diet. -DVT prophylaxis: Heparin SQ. -CODE STATUS: Full -Disposition: MedSur. Anticipate discharge to home in 1 to 2 days on oral antibiotics with indwelling Duff catheter, follow-up with urology. Total time taken 55 minutes Constitutional Vitals: Vital Signs Temp Pulse Resp BP Pulse Ox O2 Del Method O2 Flow Rate 98.2 F 102 H 18 165/99 97 Room Air 2 01/30/23 12:00 01/30/23 12:00 01/30/23 12:00 01/30/23 12:00 01/30/23 12:00 01/30/23 12:00 01/27/23 08:01 Period Temp Pulse Resp BP Sys/Garcia Pulse Ox O2 Del Method O2 Flow Rate Last 24 Hr 97.1 F-100.2 F 80-102 16-20 128-165/88-107 95-100 Room Air- Room Air Intake and Output 01/30/23 01/30/23 01/30/23 03:59 11:59 19:59 Intake Total 625 240 Output Total 950 750 Balance -325 -510 Weight 88.768 kg Intake & Output: Intake & Output 01/30/23 01/30/23 01/30/23 03:59 11:59 19:59 Intake Total 625 240 Output Total 950 750 Balance -325 -510 Weight 88.768 kg Intake: Oral 625 240 Output: Urine Catheter Amount 950 750 Other: Meal 15oz can of peaches Breakfast Percent of Meal Consumed 50% 50% Feeding Ability Independent Independent Urine Appearance Clear Clear Clear Uretheral (Duff) Clear Urine Color Light Redd Yellow Yellow Uretheral (Duff) Yellow Urine Odor Normal OBJ DATA Labs 01/30/23 07:40 01/30/23 07:40 Labs: Abnormal Lab Results 01/30/23 01/30/23 01/29/23 07:40 07:40 07:34 WBC 14.9 H RBC Hgb 13.6 L Hct Plt Count MPV Immature Gran % (Auto) 1.2 H [place] # (Auto) 1.20 H Immature Gran # 0.18 H Absolute Neutrophils 10.99 H PT INR Chloride Carbon Dioxide 21 L BUN Glucose 113 H 116 H Calcium 8.5 L Total Bilirubin 1.1 H Direct Bilirubin GGT AST ALT 47 H 56 H Alkaline Phosphatase 147 H 161 H Total Protein Albumin 2.9 L 2.9 L Albumin/Globulin Ratio 0.9 L 0.9 L Triglycerides 01/29/23 01/28/23 01/28/23 07:34 05:10 05:10 WBC 13.9 H 11.7 H RBC 4.49 L Hgb 13.6 L 12.6 L Hct 37.6 L Plt Count 106 L MPV 12.6 H Immature Gran % (Auto) 1.1 H 0.6 H [place] # (Auto) 1.43 H 0.97 H Immature Gran # 0.15 H 0.07 H Absolute Neutrophils 10.01 H 8.76 H PT INR Chloride 109 H Carbon Dioxide BUN 25 H Glucose Calcium 8.3 L Total Bilirubin 1.3 H Direct Bilirubin 0.6 H GGT 153 H AST 49 H ALT 66 H Alkaline Phosphatase 161 H Total Protein 5.4 L Albumin 2.7 L Albumin/Globulin Ratio Triglycerides 224 H 01/28/23 05:09 WBC RBC Hgb Hct Plt Count MPV Immature Gran % (Auto) [place] # (Auto) Immature Gran # Absolute Neutrophils PT 15.3 H INR 1.2 H Chloride Carbon Dioxide BUN Glucose Calcium Total Bilirubin Direct Bilirubin GGT AST ALT Alkaline Phosphatase Total Protein Albumin Albumin/Globulin Ratio Triglycerides Meds: Medications Acetaminophen (Acetaminophen 325 Mg Tablet) 650 mg PO Q6HP PRN; Protocol PRN Reason: Per Pain Protocol/Fever > 101 Last Admin: 01/30/23 03:54 Dose: 650 mg Hydrocodone Bitart/Acetaminophen (Hydrocodone/Apap 5/325mg Tablet) 1 tab PO Q4HP PRN; Protocol PRN Reason: Per Pain Protocol Last Admin: 01/27/23 00:01 Dose: 1 tab Amlodipine Besylate (Amlodipine 5 Mg Tablet) 5 mg PO DAILY [facility] Last Admin: 01/30/23 08:53 Dose: 5 mg Calcium Carbonate/Glycine (Calcium Carbonate 500 Mg Tab.Chew) 500 mg CHEWED Q4HP PRN PRN Reason: Dyspepsia Last Admin: 01/26/23 17:23 Dose: 500 mg Docusate Sodium (Docusate Sodium 100 Mg Capsule) 100 mg PO BID [facility] Last Admin: 01/30/23 08:53 Dose: 100 mg Heparin Sodium (Porcine) (Heparin 5,000 Unit/Ml Vial) 5,000 unit SQ Q12 [facility] Last Admin: 01/30/23 08:53 Dose: Not Given Hydromorphone HCl (Hydromorphone 0.5 Mg/0.5 Ml Syringe) 0.5 mg IV Q2HP PRN; Protocol PRN Reason: Per Pain Protocol Piperacillin Sod/Tazobactam (Sod 3.375 gm/ Dextrose) 50 mls @ 100 mls/hr IV Q8H [facility]; Protocol Lactulose (Lactulose 20 Gm/30 Ml Oral.Gwen) 10 gm PO DAILYP PRN PRN Reason: Constipation Omeprazole (Omeprazole 20 Mg Capsule) 40 mg PO ACB [facility] Last Admin: 01/30/23 07:36 Dose: 40 mg Ondansetron HCl (Ondansetron 4 Mg/2 Ml Vial) 4 mg IV Q4HP PRN; Protocol PRN Reason: Nausea And Vomiting Last Admin: 01/26/23 19:56 Dose: 4 mg Senna (Sennosides 1 Tablet) 2 tab PO HSP PRN PRN Reason: Constipation Sodium Chloride (0.9 % Sodium Chloride 10 Ml Syringe) 10 ml IV Q8 [facility] Last Admin: 01/30/23 04:01 Dose: 10 ml A/P Time Spent With Patient Time: Total time spent is greater than 50% in coordination of care (as documented) at patient's floor/unit and/or counseling patient: QUALITY Stroke Symptom Onset Unknown: No VTE Deep Vein Thrombosis/Pulmonary Embolism Present on Admission: No
[2023-01-30] MEDS: PIPERACILLIN SODIUM/TAZOBACTAM 3.375 GM in DEXTROSE 5% IN WATER 50 ML IV SCH ×2 (13:33→21:31)
[2023-01-31] MEDS: HYDROcodone/APAP 5/325MG TABLET PO PRN ×2 (03:44→10:15)
[2023-01-31] MEDS: 0.9 % SODIUM CHLORIDE 10 ML SYRINGE IV SCH ×3 (05:30→20:48)
[2023-01-31] MEDS: PIPERACILLIN SODIUM/TAZOBACTAM 3.375 GM in DEXTROSE 5% IN WATER 50 ML IV SCH ×3 (05:31→21:35)
[2023-01-31] MEDS: OMEPRAZOLE 20 MG CAPSULE PO SCH (08:17)
[2023-01-31] MEDS: DOCUSATE SODIUM 100 MG CAPSULE PO SCH ×2 (08:17→20:53)
[2023-01-31] MEDS: amLODIPine 5 MG TABLET PO SCH (08:17)
[2023-01-31] MEDS: HEPARIN 5,000 UNIT/ML VIAL SQ SCH (08:18)
[2023-01-31 09:13] LABS: Basophils # (Auto) 0.03 K/mcL (0.00-0.30); Basophils % (Auto) 0.2 % (0.0-2.0); Eosinophils % (Auto) 0.6 % (0.0-7.0); Hematocrit 42.4 % (40.1-51.0); Hemoglobin 14.2 g/dL (13.7-17.5); Lymphocytes % (Auto) 11.6 % (15.5-49.0); Mean Cell Volume 84.3 fL (80.0-100.0); Mean Corpuscular HGB Conc 33.5 g/dL (31.0-36.0); Mean Platelet Volume 11.2 fL (8.8-12.5); Monocytes % (Auto) 7.3 % (1.0-12.0); Neutrophils % (Auto) 79.5 % (38.0-78.0); Platelet Count 330 K/mcL (140-440); RBC 5.03 M/mcL (4.63-6.08); Red Cell Distribution Width 14.3 % (11.5-14.5)
[2023-01-31 09:30] LABS: Blood Urea Nitrogen 19 mg/dL (6-20); Calcium 8.7 mg/dL (8.6-10.4); Carbon Dioxide 23 mmol/L (22-30); Chloride 103 mmol/L (96-108); Glomerular Filtration Rate 100; Glucose 114 mg/dL (70-105)
[2023-01-31 09:41] LABS: WBC 16.4 K/mcL (4.5-11.0)
[2023-01-31] MEDS: ACETAMINOPHEN 325 MG TABLET PO PRN (19:31)
--- NOTE | 2023-01-31 19:43 | Internal Med Progress Note ---
SUBJECTIVE Subjective Patient information: Note initiated : 01/31/23 at 7:39 pm Service Date, if different from initiated Date: [] Patient: Ventura Corral 57 y/o M admitted on 01/25/23 for hematuria. Chief Complaint: [] Principal diagnosis: Urinary retention, traumatic Duff catheter placement Additional PMFSH (Level 3 Only): Interval history: Mr. Corrla is a 57 year old male with no significant past medical history except elevated blood pressure for which he is currently not on antihypertensives presented to the emergency department for difficulty urinating and generally not feeling well. The patient was concerned that he might have a urinary tract infection. In the ED the patient was found to be septic, a Duff catheter was attempted but not successful therefore urology consulted and placed a Duff catheter. Patient was given IV fluid and ceftriaxone, he was hypotensive in the ED with initial lactic acid of 3.4. Additionally, the patient had a elevated creatinine likely reflecting an acute kidney injury, elevated INR and bilirubin likely reflecting liver injury secondary to sepsis. Hospital medicine was consulted for admission. 01/26 Patient was weaned off Levophed yesterday afternoon. Leukocytosis improving, renal function improving, LFTs mildly elevated. Urine growing Aerococcus urinae, culture sensitivities pending. Blood culture showing no growth to date. Patient had abdominal pain this morning, x-ray obtained which showed normal abdomen. Abdominal pain improved. Discontinued Zosyn, started ceftriaxone. Discontinued IV fluid. 01/27 Vital stable overnight except requiring 2 L minute nasal cannula likely secondary to some pulmonary edema from IV fluids. Chest x-ray ordered. Leukocytosis improving. Discussed antibiotics with pharmacy, concerned that cephalosporins may not cover Aerococcus urinary therefore discontinued ceftriaxone and started Augmentin. Patient has scrotal edema likely secondary to IV fluids received for septic shock. We will give Lasix 20 mg IV twice today, monitor for effectiveness. Transfer to [facility] status. 01/28 patient seen and examined. Patient had a low-grade fever of 100.7 last night and 99.1 this morning, leukocytosis slowly trending down but still present, potassium is low at 3.3 and will be replaced, BRADEN has resolved and serum creatinine is 1.0. LFTs overall stable. Chest x-ray from this morning reviewed, minimal interstitial disease in both lungs, findings suggestive of mild chronic bronchitis or asthma. Urine culture with Aerococcus urinae, it is usually sensitive to many antibiotics including penicillin, patient is on Augmentin which will be changed to ceftriaxone today. Discussed with patient needs to be fever free for 24 hours before he could be transition to oral antibiotic and considered for discharge. 01/29.Patient continued to have low-grade fever of 99.9 F overnight. CBC obtained showed worsening of leukocytosis to 13.9 from 11 yesterday. Chemistries remained stable. Discussed with patient it is concerning that he continues to have fever, will continue with IV antibiotics patient in agreement. 01/30 patient continues to have fever of 100.2 F overnight, his leukocytosis is also worsened to 14,000 from 13,000 yesterday. Will discontinue ceftriaxone and start patient on Zosyn. Will obtain procalcitonin and CRP and will follow. Patient reports scrotal edema is giving him discomfort and he cannot sit in the chair for longer. Of time. Discussed we will give IV Lasix 01/31 Tmax 100.6 overnight. Leukocytosis worsened to 16.4 from 14.9. Procalcitonin 3.15 down from over 300. Patient reports he felt hot last night, reports his scrotal edema is improving on Lasix. Discussed, will repeat CT scan, blood cultures and follow inflammatory markers. Review of system Reports low-grade fever, malaise No headache, no visual disturbance No nausea, vomiting or diarrhea No dysuria, no hematuria No excessive thirst No skin rashes No joint pain or swelling Denies any focal weakness Physical exam Gen: Alert and awake, no acute distress Head: Atraumatic, normal inspection. Eyes: normal appearance, no scleral icterus. Neck: full ROM Respiratory: Chest is clear bilaterally, not on supplemental oxygen Cardiovascular: normal rate and rhythm, S1, S2. GI/Abdominal: soft, mild epigastric tenderness, no guarding. : Indwelling Duff catheter redd urine. Scrotal edema slightly improved, dri ed blood on the diaper, but no blood noted in the urinary bag Extremities: full range of motion, nontender, trace edema Neurological: CN II-XII intact, intact motor, intact sensation. Psychiatric: normal mood. Skin: warm, normal color A/P Narrative: Assessment: 57 year old male admitted for septic shock secondary to pyelonephritis secondary to Aerococcus urinary complicated by acute kidney injury and liver injury evidenced by hyperbilirubinemia and coagulopathy. The patient had urinary retention in the ED requiring a urology consult for a Duff catheter placement. The cause of urinary retention is a ureteral stricture. The patient received Zosyn, IV fluid and required Levophed for about 48 hours. Septic shock has resolved #Acute hypoxic respiratory failure likely secondary to volume overload from IV fluids received for septic shock, resolving #Resolved septic shock secondary to pyelonephritis secondary to Aerococcus urinae #Resolved acute kidney injury secondary to sepsis #Improving coagulopathy secondary to sepsis #Transaminitis and hyperbilirubinemia likely secondary to sepsis #Thrombocytopenia likely secondary to sepsis #Urinary retention secondary to ureteral stricture requiring Duff catheter #Scrotal edema likely secondary to volume overload #Resolved hematuria #History of elevated blood pressure Plan -It is concerning that patient continues to have low-grade fever and now with worsening leukocytosis, continue Zosyn. CRP is over 300 and procalcitonin is coming down. Will repeat CT abdomen and pelvis tomorrow morning. Follow-up on CRP and ESR IV Lasix 20 mg twice daily for 3 doses Patient now satting well on room air and hypoxia has resolved -Follow LFTs and bilirubin. -Keep Duff catheter until urology follow up. -Monitor of scrotal edema. -Analgesics as needed, no NSAID. -Urology following. -Regular diet. -DVT prophylaxis: SCDs due to hematuria -CODE STATUS: Full -Disposition: MedSurg. Anticipate discharge to home in 1 to 2 days on oral antibiotics with indwelling Duff catheter, follow-up with urology. Total time taken 55 minutes Constitutional Vitals: Vital Signs Temp Pulse Resp BP Pulse Ox O2 Del Method O2 Flow Rate 100.8 F H 92 H 16 143/90 96 Room Air 2 01/31/23 19:31 01/31/23 15:24 01/31/23 15:24 01/31/23 15:24 01/31/23 15:24 01/31/23 15:24 01/27/23 08:01 Period Temp Pulse Resp BP Sys/Garcia Pulse Ox O2 Del Method O2 Flow Rate Last 24 Hr 98 F-100.8 F 82-95 16-20 131-151/82-100 96-98 Room Air-Room Air Intake and Output 01/31/23 01/31/23 01/31/23 03:59 11:59 19:59 Intake Total 175 50 50 Output Total 1150 900 Balance -975 50 -850 Intake & Output: Intake & Output 01/31/23 01/31/23 01/31/23 03:59 11:59 19:59 Intake Total 175 50 50 Output Total 1150 900 Balance -976 50 -850 Intake: IV 50 50 50 Zosyn 3.375 gm In Dextrose 5% 50 50 50 in Water 50 ml @ 100 mls/hr IV Q8H [facility] Rx#:[id number] Oral 125 Output: Urine Catheter Amount 1150 900 Other: Meal Ice cream x1 Percent of Meal Consumed 100% Feeding Ability Independent Urine Appearance Clear Clear Clear Uretheral (Duff) Clear Urine Color Yellow Yellow Dark Yellow Uretheral (Duff) Yellow Urine Odor Normal OBJ DATA Labs 01/31/23 08:48 01/31/23 08:48 Labs: Abnormal Lab Results 01/31/23 01/31/23 01/30/23 08:48 08:48 07:40 WBC 16.4 H Hgb Immature Gran % (Auto) 0.8 H Neut % (Auto) 79.5 H Lymph % (Auto) 11.6 L [place] # (Auto) 1.20 H Immature Gran # 0.13 H Absolute Neutrophils 13.07 H Carbon Dioxide Glucose 114 H Calcium Total Bilirubin ALT Alkaline Phosphatase C-React Prot High Sens Albumin Albumin/Globulin Ratio Procalcitonin 3.15 H 01/30/23 01/30/23 01/30/23 07:40 07:40 07:40 WBC 14.9 H Hgb 13.6 L Immature Gran % (Auto) 1.2 H Neut % (Auto) Lymph % (Auto) [place] # (Auto) 1.20 H Immature Gran # 0.18 H Absolute Neutrophils 10.99 H Carbon Dioxide 21 L Glucose 113 H Calcium 8.5 L Total Bilirubin ALT 47 H Alkaline Phosphatase 147 H C-React Prot High Sens > 300 H Albumin 2.9 L Albumin/Globulin Ratio 0.9 L Procalcitonin 01/29/23 01/29/23 07:34 07:34 WBC 13.9 H Hgb 13.6 L Immature Gran % (Auto) 1.1 H Neut % (Auto) Lymph % (Auto) [place] # (Auto) 1.43 H Immature Gran # 0.15 H Absolute Neutrophils 10.01 H Carbon Dioxide Glucose 116 H Calcium Total Bilirubin 1.1 H ALT 56 H Alkaline Phosphatase 161 H C-React Prot High Sens Albumin 2.9 L Albumin/Globulin Ratio 0.9 L Procalcitonin Meds: Medications Acetaminophen (Acetaminophen 325 Mg Tablet) 650 mg PO Q6HP PRN; Protocol PRN Reason: Per Pain Protocol/Fever > 101 Last Admin: 01/31/23 19:31 Dose: 650 mg Hydrocodone Bitart/Acetaminophen (Hydrocodone/Apap 5/325mg Tablet) 1 tab PO Q4HP PRN; Protocol PRN Reason: Per Pain Protocol Last Admin: 01/31/23 10:15 Dose: 1 tab Amlodipine Besylate (Amlodipine 5 Mg Tablet) 5 mg PO DAILY [facility] Last Admin: 01/31/23 08:17 Dose: 5 mg Calcium Carbonate/Glycine (Calcium Carbonate 500 Mg Tab.Chew) 500 mg CHEWED Q4HP PRN PRN Reason: Dyspepsia Last Admin: 01/26/23 17:23 Dose: 500 mg Docusate Sodium (Docusate Sodium 100 Mg Capsule) 100 mg PO BID [facility] Last Admin: 01/31/23 08:17 Dose: Not Given Heparin Sodium (Porcine) (Heparin 5,000 Unit/Ml Vial) 5,000 unit SQ Q12 [facility] Last Admin: 01/31/23 08:18 Dose: Not Given Hydromorphone HCl (Hydromorphone 0.5 Mg/0.5 Ml Syringe) 0.5 mg IV Q2HP PRN; Protocol PRN Reason: Per Pain Protocol Piperacillin Sod/Tazobactam (Sod 3.375 gm/ Dextrose) 50 mls @ 100 mls/hr IV Q8H [facility]; Protocol Last Infusion: 01/31/23 15:05 Dose: Infused Lactulose (Lactulose 20 Gm/30 Ml Oral.Gwen) 10 gm PO DAILYP PRN PRN Reason: Constipation Omeprazole (Omeprazole 20 Mg Capsule) 40 mg PO ACB [facility] Last Admin: 01/31/23 08:17 Dose: 40 mg Ondansetron HCl (Ondansetron 4 Mg/2 Ml Vial) 4 mg IV Q4HP PRN; Protocol PRN Reason: Nausea And Vomiting Last Admin: 01/26/23 19:56 Dose: 4 mg Senna (Sennosides 1 Tablet) 2 tab PO HSP PRN PRN Reason: Constipation Sodium Chloride (0.9 % Sodium Chloride 10 Ml Syringe) 10 ml IV Q8 [facility] Last Admin: 05/14/23 14:19 Dose: 10 ml A/P Time Spent With Patient Time: Total time spent is greater than 50% in coordination of care (as documented) at patient's floor/unit and/or counseling patient: QUALITY Stroke Symptom Onset Unknown: No VTE Deep Vein Thrombosis/Pulmonary Embolism Present on Admission: No
[2023-01-31] MEDS: FUROSEMIDE 20 MG/2 ML VIAL IV SCH (20:48)
[2023-02-01] MEDS: HYDROcodone/APAP 5/325MG TABLET PO PRN ×2 (03:59→09:15)
[2023-02-01] MEDS: PIPERACILLIN SODIUM/TAZOBACTAM 3.375 GM in DEXTROSE 5% IN WATER 50 ML IV SCH ×3 (05:21→21:28)
[2023-02-01] MEDS: 0.9 % SODIUM CHLORIDE 10 ML SYRINGE IV SCH ×3 (05:21→21:28)
[2023-02-01] MEDS: FUROSEMIDE 20 MG/2 ML VIAL IV SCH ×2 (07:27→15:50)
[2023-02-01] MEDS: OMEPRAZOLE 20 MG CAPSULE PO SCH (07:27)
[2023-02-01 07:32] LABS: CRP,High Sensitivity 174.2 mg/L (1.0-3.0)
[2023-02-01] MEDS: DOCUSATE SODIUM 100 MG CAPSULE PO SCH ×2 (08:38→20:16)
[2023-02-01] MEDS ORDERED: IOPAMIDOL 100 ML BOTTLE IV ONE (08:52)
[2023-02-01] MEDS: amLODIPine 5 MG TABLET PO SCH (08:57)
--- NOTE | 2023-02-01 09:20 | Cat Scan Report ---
History: Hematuria, fever, abdominal pain TECHNIQUE: Patient was first imaged during the portal venous phase following injection of intravenous nonionic contrast. Delayed excretory phase images were obtained. Sagittal and coronal reformats were created. The radiation exposure was limited using dose reduction technology. FINDINGS: The lung bases are clear. The liver is normal in size. There are four small hepatic cysts. The largest is located inferiorly in segment 4B of the left lobe. It measures 1.5 x 1.8 cm. There is also focal fatty infiltration in the left lobe adjacent to the falciform ligament. The liver is otherwise normal. The gallbladder appears normal with no stones or thickening the wall. The bile ducts are nondilated. The spleen is normal in size and homogeneous. No mass or inflammation are present in the pancreas. The adrenals are normal and symmetric. There are two simple cysts in the right kidney. One is located medially in the middle third and measures 1.5 cm and the other is located laterally in the middle third and measures 1.5 cm. There is a 3 x 4 mm cyst in left kidney. No solid mass, stone or hydronephrosis are present in either kidney. There is no evidence of pyelonephritis. Contrast passes through both ureters into the bladder. Patient has a Duff catheter. Unfortunately, the catheter had not been clamped before the injection. Therefore the bladder did not fill. There are collapsed mucosal folds. There are small bladder diverticula on each side. The one on the right measures 1.7 cm and the one on the left is 1.3 cm in diameter. The rivers of these diverticula are somewhat thickened and have indistinct margins. This raises the possibility of cystitis. There is a large fluid collection in the penis surrounding the Duff catheter. This is in the corpus spongiosum. It measures 2.7 x 2.8 cm in transverse dimension and 11.3 cm in length. Corpus cavernosum is normal. The prostate is relatively small and heterogeneous. No abscess is identified. Seminal vesicles are normal symmetric. There are multiple diverticula in the descending and sigmoid colon but without evidence of acute diverticulitis. The appendix is noninflamed. The stomach and small intestine are normal. There is small fat-containing left inguinal hernia. IMPRESSION: Large fluid collection in the penis in the region of the corpus spongiosum. Although this might be a severely dilated urethra, this could also be an infection. Bladder diverticula with somewhat thickened shaggy rivers the diverticula suggesting cystitis. Simple cysts in the liver and kidneys. Diverticulosis, without diverticulitis Interpreted and Authenticated by: Hiren Rosales 02/01/23
--- NOTE | 2023-02-01 09:22 | Internal Med Progress Note ---
SUBJECTIVE Subjective Patient information: Note initiated : 02/01/23 at 9:19 am Service Date, if different from initiated Date: [] Patient: Ventura Corral 57 y/o M admitted on 01/25/23 for hematuria. Chief Complaint: [] Principal diagnosis: Urinary retention, traumatic Duff catheter placement Additional PMFSH (Level 3 Only): Interval history: Mr. Corral is a 57 year old male with no significant past medical history except elevated blood pressure for which he is currently not on antihypertensives presented to the emergency department for difficulty urinating and generally not feeling well. The patient was concerned that he might have a urinary tract infection. In the ED the patient was found to be septic, a Duff catheter was attempted but not successful therefore urology consulted and placed a Duff catheter. Patient was given IV fluid and ceftriaxone, he was hypotensive in the ED with initial lactic acid of 3.4. Additionally, the patient had a elevated creatinine likely reflecting an acute kidney injury, elevated INR and bilirubin likely reflecting liver injury secondary to sepsis. Hospital medicine was consulted for admission. 01/26 Patient was weaned off Levophed yesterday afternoon. Leukocytosis improving, renal function improving, LFTs mildly elevated. Urine growing Aerococcus urinae, culture sensitivities pending. Blood culture showing no growth to date. Patient had abdominal pain this morning, x-ray obtained which showed normal abdomen. Abdominal pain improved. Discontinued Zosyn, started ceftriaxone. Discontinued IV fluid. 01/27 Vital stable overnight except requiring 2 L minute nasal cannula likely secondary to some pulmonary edema from IV fluids. Chest x-ray ordered. Leukocytosis improving. Discussed antibiotics with pharmacy, concerned that cephalosporins may not cover Aerococcus urinary therefore discontinued ceftriaxone and started Augmentin. Patient has scrotal edema likely secondary to IV fluids received for septic shock. We will give Lasix 20 mg IV twice today, monitor for effectiveness. Transfer to [facility] status. 01/28 patient seen and examined. Patient had a low-grade fever of 100.7 last night and 99.1 this morning, leukocytosis slowly trending down but still present, potassium is low at 3.3 and will be replaced, BRADEN has resolved and serum creatinine is 1.0. LFTs overall stable. Chest x-ray from this morning reviewed, minimal interstitial disease in both lungs, findings suggestive of mild chronic bronchitis or asthma. Urine culture with Aerococcus urinae, it is usually sensitive to many antibiotics including penicillin, patient is on Augmentin which will be changed to ceftriaxone today. Discussed with patient needs to be fever free for 24 hours before he could be transition to oral antibiotic and considered for discharge. 01/29.Patient continued to have low-grade fever of 99.9 F overnight. CBC obtained showed worsening of leukocytosis to 13.9 from 11 yesterday. Chemistries remained stable. Discussed with patient it is concerning that he continues to have fever, will continue with IV antibiotics patient in agreement. 01/30 patient continues to have fever of 100.2 F overnight, his leukocytosis is also worsened to 14,000 from 13,000 yesterday. Will discontinue ceftriaxone and start patient on Zosyn. Will obtain procalcitonin and CRP and will follow. Patient reports scrotal edema is giving him discomfort and he cannot sit in the chair for longer. Of time. Discussed we will give IV Lasix 01/31 Tmax 100.6 overnight. Leukocytosis worsened to 16.4 from 14.9. Procalcitonin 3.15 down from over 300. Patient reports he felt hot last night, reports his scrotal edema is improving on Lasix. Discussed, will repeat CT scan, blood cultures and follow inflammatory markers. 02/01 patient reports scrotal swelling is improving on Lasix. Overnight Tmax 100.8. CBC is not available from this morning, CRP however has trended down to 174 from 300 and procalcitonin down to 1.3. CT abdomen and pelvis was obtained which showed some fluid collection in the penis surrounding the Duff catheter in the corpus spongiosum 2.7 x 2.8 cm which could be severely dilated urethra or could be an infection. Will discuss with urology Review of system Reports low-grade fever, malaise No headache, no visual disturbance No nausea, vomiting or diarrhea No dysuria, no hematuria No excessive thirst No skin rashes No joint pain or swelling Denies any focal weakness Physical exam Gen: Alert and awake, no acute distress Head: Atraumatic, normal inspection. Eyes: normal appearance, no scleral icterus. Neck: full ROM Respiratory: Chest is clear bilaterally, not on supplemental oxygen Cardiovascular: normal rate and rhythm, S1, S2. GI/Abdominal: soft, mild epigastric tenderness, no guarding. : Indwelling Duff catheter redd urine. Scrotal edema slightly improved, dried blood on the diaper, but no blood noted in the urinary bag Extremities: full range of motion, nontender, trace edema Neurological: CN II-XII intact, intact motor, intact sensation. Psychiatric: normal mood. Skin: warm, normal color A/P Narrative: Assessment: 57 year old male admitted for septic shock secondary to pyelonephritis secondary to Aerococcus urinary complicated by acute kidney injury and liver injury evidenced by hyperbilirubinemia and coagulopathy. The patient had urinary retention in the ED requiring a urology consult for a Duff catheter placement. The cause of urinary retention is a ureteral stricture. The patient received Zosyn, IV fluid and required Levophed for about 48 hours. Septic shock has resolved #Acute hypoxic respiratory failure likely secondary to volume overload from IV fluids received for septic shock, resolved #Resolved septic shock secondary to pyelonephritis secondary to Aerococcus urinae #Resolved acute kidney injury secondary to sepsis #Improving coagulopathy secondary to sepsis #Transaminitis and hyperbilirubinemia likely secondary to sepsis #Thrombocytopenia likely secondary to sepsis #Urinary retention secondary to ureteral stricture requiring Duff catheter #Scrotal edema likely secondary to volume overload #Resolved hematuria #History of elevated blood pressure Plan -It is concerning that patient continues to have low-grade fever and now with worsening leukocytosis, however inflammatory markers including CRP and procalcitonin trending down. Repeat CT abdomen and pelvis showing some fluid collection in corpora spongiosum 2.7 x 2.8 cm which could be severely dilated urethra or could be an infection. Will discuss with urologygiosum IV Lasix 20 mg twice daily for 3 doses Patient now satting well on room air and hypoxia has resolved -Follow LFTs and bilirubin. -Keep Duff catheter until urology follow up. -Monitor of scrotal edema. -Analgesics as needed, no NSAID. -Urology following. -Regular diet. -DVT prophylaxis: SCDs due to hematuria -CODE STATUS: Full -Disposition: MedSurg. Anticipate discharge to home in 1 to 2 days on oral antibiotics with indwelling Duff catheter, follow-up with urology. Total time taken 55 minutes Constitutional Vitals: Vital Signs Temp Pulse Resp BP Pulse Ox O2 Del Method O2 Flow Rate 100.1 F H 87 16 142/95 98 Room Air 2 02/01/23 04:00 02/01/23 07:52 02/01/23 07:52 02/01/23 04:00 02/01/23 07:52 02/01/23 07:52 01/27/23 08:01 Period Temp Pulse Resp BP Sys/Garcia Pulse Ox O2 Del Method O2 Flow Rate Last 24 Hr 98.6 F-100.8 F 83-95 16-20 107-151/90-100 92-99 Room Air-Room Air Intake and Output 01/31/23 02/01/23 02/01/23 19:59 03:59 11:59 Intake Total 50 50 880 Output Total 900 1400 Balance -850 50 -520 Weight 86.954 kg Intake & Output: Intake & Output 01/31/23 02/01/23 02/01/23 19:59 03:59 11:59 Intake Total 50 50 880 Output Total 900 1400 Balance -850 50 -520 Weight 86.954 kg Intake: IV 50 50 50 Zosyn 3.375 gm In Dextrose 5% 50 50 50 in Water 50 ml @ 100 mls/hr IV Q8H [facility] Rx#:[id number] Oral 830 Output: Urine Catheter Amount 900 1400 Other: Urine Appearance Clear Clear Uretheral (Duff) Clear Sediment Urine Color Dark Yellow Dark Yellow Uretheral (Duff) Yellow Dark Yellow Urine Odor Normal OBJ DATA Labs 01/31/23 08:48 01/31/23 08:48 Labs: Abnormal Lab Results 02/01/23 02/01/23 01/31/23 05:19 05:19 08:48 WBC Hgb Immature Gran % (Auto) Neut % (Auto) Lymph % (Auto) Laurel # (Auto) Immature Gran # Absolute Neutrophils Carbon Dioxide Glucose 114 H Calcium ALT Alkaline Phosphatase C-React Prot High Sens 174.2 H Albumin Albumin/Globulin Ratio Procalcitonin 1.30 H 01/31/23 01/30/23 01/30/23 08:48 07:40 07:40 WBC 16.4 H Hgb Immature Gran % (Auto) 0.8 H Neut % (Auto) 79.5 H Lymph % (Auto) 11.6 L Laurel # (Auto) 1.20 H Immature Gran # 0.13 H Absolute Neutrophils 13.07 H Carbon Dioxide Glucose Calcium ALT Alkaline Phosphatase C-React Prot High Sens > 300 H Albumin Albumin/Globulin Ratio Procalcitonin 3.15 H 01/30/23 01/30/23 07:40 07:40 WBC 14.9 H Hgb 13.6 L Immature Gran % (Auto) 1.2 H Neut % (Auto) Lymph % (Auto) Laurel # (Auto) 1.20 H Immature Gran # 0.18 H Absolute Neutrophils 10.99 H Carbon Dioxide 21 L Glucose 113 H Calcium 8.5 L ALT 47 H Alkaline Phosphatase 147 H C-React Prot High Sens Albumin 2.9 L Albumin/Globulin Ratio 0.9 L Procalcitonin Meds: Medications Acetaminophen (Acetaminophen 325 Mg Tablet) 650 mg PO Q6HP PRN; Protocol PRN Reason: Per Pain Protocol/Fever > 101 Last Admin: 01/31/23 19:31 Dose: 650 mg Hydrocodone Bitart/Acetaminophen (Hydrocodone/Apap 5/325mg Tablet) 1 tab PO Q4HP PRN; Protocol PRN Reason: Per Pain Protocol Last Admin: 02/01/23 09:15 Dose: 1 tab Amlodipine Besylate (Amlodipine 5 Mg Tablet) 5 mg PO DAILY [facility] Last Admin: 02/01/23 08:57 Dose: 5 mg Calcium Carbonate/Glycine (Calcium Carbonate 500 Mg Tab.Chew) 500 mg CHEWED Q4HP PRN PRN Reason: Dyspepsia Last Admin: 01/26/23 17:23 Dose: 500 mg Docusate Sodium (Docusate Sodium 100 Mg Capsule) 100 mg PO BID [facility] Last Admin: 02/01/23 08:38 Dose: Not Given Furosemide (Furosemide 20 Mg/2 Ml Vial) 20 mg IV BIDD [facility] Stop: 02/01/23 16:01 Last Admin: 02/01/23 07:27 Dose: 20 mg Hydromorphone HCl (Hydromorphone 0.5 Mg/0.5 Ml Syringe) 0.5 mg IV Q2HP PRN; Protocol PRN Reason: Per Pain Protocol Piperacillin Sod/Tazobactam (Sod 3.375 gm/ Dextrose) 50 mls @ 100 mls/hr IV Q8H [facility]; Protocol Last Infusion: 02/01/23 05:59 Dose: Infused Lactulose (Lactulose 20 Gm/30 Ml Oral.Gwen) 10 gm PO DAILYP PRN PRN Reason: Constipation Omeprazole (Omeprazole 20 Mg Capsule) 40 mg PO ACB [facility] Last Admin: 02/01/23 07:27 Dose: 40 mg Ondansetron HCl (Ondansetron 4 Mg/2 Ml Vial) 4 mg IV Q4HP PRN; Protocol PRN Reason: Nausea And Vomiting Last Admin: 01/26/23 19:56 Dose: 4 mg Senna (Sennosides 1 Tablet) 2 tab PO HSP PRN PRN Reason: Constipation Sodium Chloride (0.9 % Sodium Chloride 10 Ml Syringe) 10 ml IV Q8 [id number] Last Admin: 02/01/23 05:21 Dose: 10 ml A/P Time Spent With Patient Time: Total time spent is greater than 50% in coordination of care (as documented) at patient's floor/unit and/or counseling patient: QUALITY Stroke Symptom Onset Unknown: No VTE Deep Vein Thrombosis/Pulmonary Embolism Present on Admission: No
[2023-02-01 10:33] LABS: Basophils # (Auto) 0.04 K/mcL (0.00-0.30); Basophils % (Auto) 0.3 % (0.0-2.0); Eosinophils % (Auto) 0.6 % (0.0-7.0); Hemoglobin 14.4 g/dL (13.7-17.5); Lymphocytes # (Auto) 1.22 K/mcL (1.50-4.80); Lymphocytes % (Auto) 7.8 % (15.5-49.0); Mean Corpuscular HGB Conc 33.5 g/dL (31.0-36.0); Mean Platelet Volume 10.8 fL (8.8-12.5); Monocytes # (Auto) 0.94 K/mcL (0.10-0.90); Neutrophils % (Auto) 84.4 % (38.0-78.0); Platelet Count 416 K/mcL (140-440); RBC 5.12 M/mcL (4.63-6.08); Red Cell Distribution Width 14.1 % (11.5-14.5); WBC 15.6 K/mcL (4.5-11.0)
[2023-02-01 10:48] LABS: ALT/SGPT 36 U/L (<40); AST/SGOT 21 U/L (<40); Albumin 2.9 gm/dL (3.2-5.2); Albumin/Globulin Ratio 0.7 (1.0-2.3); Alkaline Phosphatase 145 U/L (39-117); Blood Urea Nitrogen 16 mg/dL (6-20); Calcium 8.6 mg/dL (8.6-10.4); Carbon Dioxide 19 mmol/L (22-30); Chloride 101 mmol/L (96-108); Globulin 4.2 gm/dL (2.2-3.7); Glomerular Filtration Rate 100; Glucose 132 mg/dL (70-105)
--- NOTE | 2023-02-01 11:39 | Infectious Disease Consult ---
Telemedicine Intake Consent for assessment and treatment to occur via virtual technology obtained from: Patient Location of Provider: Home Patient location: Med/Surg Unit Details: Patient was seen via video telemedicine platform in the presence of nursing staff. Patient verbally gave consent HPI Date of Consult Consult Date: 02/01/23 Primary Care Provider: JOHN Wilkins Consult Narrative Patient Information: Note initiated : 02/01/23 at 11:36 am Service Date, if different from initiated Date: [] Patient: Ventura Corral 57 y/o M admitted on 01/25/23 for hematuria. Chief Complaint: [] HPI: 57-year-old male with history of hypertension presented to the emergency room on 01/25 with complaint of hematuria, pelvic pain, dysuria, fever followed by inability to urinate for 2 days. In the ED, he was found to be hypotensive requiring fluid resuscitation and pressor support. UA was positive. CT showed cystitis. Patient initially was started on ceftriaxone. Nursing staff placed a catheter and the balloon was inflated within the prostate. Urology was consulted. He underwent a cystoscopy which showed duplicating a false passage a nd a Duff catheter was placed. Patient improved over the next 24 hours and was weaned off pressor support. Urine culture was positive for Aerococcus urinae. His WBC continues to improve. However starting 01/28 he began to have fever along with worsening of leukocytosis. ID is consulted for this reason. Patient had another CT today which showed deflated bladder and fluid collection within the penis. He is complaining of pelvic pain and penile pain which he attributes to the Duff catheter Antibiotic history: Ceftriaxone 01/24 - 01/25 Zosyn 01/25 - 01/26. Ceftriaxone 01/26 - 01/27 Augmentin 01/27 - 01/28 Ceftriaxone 01/28 - 01/30 Zosyn 01/30. Chief complaint: Hematuria Reason for consult: Persistent fever cc:: CC: Carl Taylor MD Review of Systems All systems: reviewed and no additional remarkable complaints except as stated PFSH PFSH All Active Problems (Updated 01/25/23 @ 01:52 by Ta Walsh DO) Acute retention of urine (Acute) BRADEN (acute kidney injury) (Acute) Sepsis (Acute) Acute pyelonephritis (Acute) Acute UTI (Acute) Urethral stricture (Acute) Social History smoking status: Former smoker MEDS/ALLERGIES Home Medications and Allergies Home Medications Medication Instructions Recorded Confirmed Type No Known Home Meds 01/25/23 01/25/23 History Allergies Allergy/AdvReac Type Severity Reaction Status Date / Time No Known Drug Allergies Allergy Unverified 01/25/23 01:43 Physical Examination Vital Signs Vital signs: Temp Pulse Resp BP Pulse Ox O2 Del Method O2 Flow Rate 100.1 F H 87 16 142/95 98 Room Air 2 02/01/23 04:00 02/01/23 07:52 02/01/23 07:52 02/01/23 04:00 02/01/23 07:52 02/01/23 07:52 01/27/23 08:01 Constitutional General appearance: no acute distress and alert EENT Eyes pulmonary: nonicteric Respiratory Effort: normal Cardiovascular Cardiovascular: regular rate and rhythm Gastrointestinal Gastrointestinal: normoactive bowel sounds Extremities Extremities: no cyanosis and no edema Additional Exam Additional exam: Urological: Duff catheter in place. The penis is without any erythema. Scrotal edema and erythema, tenderness Results Laboratory Findings 02/01/23 09:39 02/01/23 09:39 ABG, PT/INR, D-dimer: PT/INR, D-dimer PT 15.3 sec (11.9-14.5) H 01/28/23 05:09 INR 1.2 (0.9-1.1) H 01/28/23 05:09 Abnormal lab findings: Abnormal Labs 01/24/23 01/24/23 01/24/23 21:19 21:24 21:24 WBC 35.9 H* RBC Hgb Hct RDW 14.7 H Plt Count 114 L MPV Immature Gran % (Auto) 4.4 H Neut % (Auto) 89.2 H Lymph % (Auto) 1.9 L Lymph # (Auto) 0.70 L [place] # (Auto) 1.46 H Immature Gran # 1.58 H Absolute Neutrophils 32.05 H POC PT PT POC INR INR POC VBG pH POC VBG pCO2 at Temp POC VBG pO2 POC VBG HCO3 POC VBG Total CO2 POC Venous O2 Sat POC VBG Base Excess VBG Lactic Acid Chloride Carbon Dioxide POC Total CO2 16.0 L POC BUN 46 H BUN Creatinine POC Creatinine 3.3 H Glucose POC Glucose 108 H Uric Acid Calcium POC WB Ioniz Calcium 1.12 L Phosphorus Magnesium Total Bilirubin 2.1 H Direct Bilirubin 1.1 H GGT AST 51 H ALT Alkaline Phosphatase Lactate Dehydrogenase C-React Prot High Sens Total Protein Albumin Globulin Albumin/Globulin Ratio Triglycerides Procalcitonin Urine Appearance Urine Protein Urine Glucose (UA) Urine Ketones Urine Occult Blood Urine Nitrate Urine Urobilinogen Ur Leukocyte Esterase Urine RBC Urine WBC Amorphous Crystals Urine Bacteria Urine Sperm 01/24/23 01/24/23 01/24/23 21:31 22:32 22:34 WBC RBC Hgb Hct RDW Plt Count MPV Immature Gran % (Auto) Neut % (Auto) Lymph % (Auto) Lymph # (Auto) [place] # (Auto) Immature Gran # Absolute Neutrophils POC PT 24.0 H PT POC INR 2.1 H INR POC VBG pH POC VBG pCO2 at Temp POC VBG pO2 POC VBG HCO3 POC VBG Total CO2 POC Venous O2 Sat POC VBG Base Excess VBG Lactic Acid Chloride Carbon Dioxide POC Total CO2 POC BUN BUN Creatinine POC Creatinine Glucose POC Glucose Uric Acid Calcium POC WB Ioniz Calcium Phosphorus Magnesium Total Bilirubin Direct Bilirubin GGT AST ALT Alkaline Phosphatase Lactate Dehydrogenase C-React Prot High Sens Total Protein Albumin Globulin Albumin/Globulin Ratio Triglycerides Procalcitonin > 100 H Urine Appearance Turbid A Urine Protein >=300 A Urine Glucose (UA) 100(trace) A Urine Ketones 5(trace) A Urine Occult Blood 3+(large) A Urine Nitrate Positive A Urine Urobilinogen 2.0 A Ur Leukocyte Esterase 2+(moderate) A Urine RBC > 182 H Urine WBC 15 H Amorphous Crystals Urine Bacteria Urine Sperm 01/24/23 01/25/23 01/25/23 22:57 01:29 01:30 WBC RBC Hgb Hct RDW Plt Count MPV Immature Gran % (Auto) Neut % (Auto) Lymph % (Auto) Lymph # (Auto) [place] # (Auto) Immature Gran # Absolute Neutrophils POC PT PT POC INR INR POC VBG pH POC VBG pCO2 at Temp 30.8 L POC VBG pO2 42 H POC VBG HCO3 18.1 L POC VBG Total CO2 19.0 L POC Venous O2 Sat 77.0 H POC VBG Base Excess -7.0 L VBG Lactic Acid 3.3 H Chloride Carbon Dioxide POC Total CO2 18.0 L POC BUN 49 H BUN Creatinine POC Creatinine 3.1 H Glucose POC Glucose Uric Acid Calcium POC WB Ioniz Calcium 1.02 L Phosphorus Magnesium Total Bilirubin Direct Bilirubin GGT AST ALT Alkaline Phosphatase Lactate Dehydrogenase C-React Prot High Sens Total Protein Albumin Globulin Albumin/Globulin Ratio Triglycerides Procalcitonin Urine Appearance Cloudy A Urine Protein 100 A Urine Glucose (UA) Urine Ketones 5 A Urine Occult Blood Urine Nitrate Urine Urobilinogen 2.0 A Ur Leukocyte Esterase 75 A Urine RBC > 182 H Urine WBC 75 H Amorphous Crystals Many A Urine Bacteria Few A Urine Sperm Present A 01/25/23 01/25/23 01/25/23 01:30 05:14 05:14 WBC 31.3 H* RBC Hgb Hct RDW 15.0 H Plt Count 84 L MPV Immature Gran % (Auto) 7.3 H Neut % (Auto) 87.2 H Lymph % (Auto) 2.1 L Lymph # (Auto) 0.67 L [place] # (Auto) 1.08 H Immature Gran # 2.28 H Absolute Neutrophils 27.28 H POC PT PT 20.3 H POC INR INR 1.7 H POC VBG pH 7.43 H POC VBG pCO2 at Temp 27.2 L POC VBG pO2 57 H POC VBG HCO3 17.9 L POC VBG Total CO2 19.0 L POC Venous O2 Sat 91.0 H POC VBG Base Excess -6.0 L VBG Lactic Acid 3.0 H Chloride Carbon Dioxide POC Total CO2 POC BUN BUN Creatinine POC Creatinine Glucose POC Glucose Uric Acid Calcium POC WB Ioniz Calcium Phosphorus Magnesium Total Bilirubin Direct Bilirubin GGT AST ALT Alkaline Phosphatase Lactate Dehydrogenase C-React Prot High Sens Total Protein Albumin Globulin Albumin/Globulin Ratio Triglycerides Procalcitonin Urine Appearance Urine Protein Urine Glucose (UA) Urine Ketones Urine Occult Blood Urine Nitrate Urine Urobilinogen Ur Leukocyte Esterase Urine RBC Urine WBC Amorphous Crystals Urine Bacteria Urine Sperm 01/25/23 01/25/23 01/26/23 05:14 08:44 06:52 WBC 19.6 H RBC 4.25 L Hgb 12.2 L Hct 36.2 L RDW 14.9 H Plt Count 71 L MPV 13.0 H Immature Gran % (Auto) 16.9 H Neut % (Auto) Lymph % (Auto) 4.9 L Lymph # (Auto) 0.96 L [place] # (Auto) Immature Gran # 3.31 H Absolute Neutrophils 14.88 H POC PT PT POC INR INR POC VBG pH POC VBG pCO2 at Temp POC VBG pO2 POC VBG HCO3 POC VBG Total CO2 POC Venous O2 Sat POC VBG Base Excess VBG Lactic Acid 2.8 H 2.6 H Chloride 109 H Carbon Dioxide 16 L POC Total CO2 POC BUN BUN 54 H Creatinine 2.4 H POC Creatinine Glucose 119 H POC Glucose Uric Acid 8.3 H Calcium 7.5 L POC WB Ioniz Calcium Phosphorus 4.9 H Magnesium 1.4 L Total Bilirubin 2.0 H Direct Bilirubin 1.4 H GGT AST ALT Alkaline Phosphatase Lactate Dehydrogenase 241 H C-React Prot High Sens Total Protein 5.1 L Albumin 2.9 L Globulin Albumin/Globulin Ratio Triglycerides Procalcitonin Urine Appearance Urine Protein Urine Glucose (UA) Urine Ketones Urine Occult Blood Urine Nitrate Urine Urobilinogen Ur Leukocyte Esterase Urine RBC Urine WBC Amorphous Crystals Urine Bacteria Urine Sperm 01/26/23 01/26/23 01/27/23 06:52 06:52 05:10 WBC 17.0 H RBC 4.17 L Hgb 12.1 L Hct 35.3 L RDW 15.0 H Plt Count 90 L MPV 12.7 H Immature Gran % (Auto) Neut % (Auto) 87.2 H Lymph % (Auto) 9.2 L Lymph # (Auto) [place] # (Auto) Immature Gran # Absolute Neutrophils 14.80 H POC PT PT 16.7 H POC INR INR 1.3 H POC VBG pH POC VBG pCO2 at Temp POC VBG pO2 POC VBG HCO3 POC VBG Total CO2 POC Venous O2 Sat POC VBG Base Excess VBG Lactic Acid Chloride 113 H Carbon Dioxide 18 L POC Total CO2 POC BUN BUN 44 H Creatinine 1.3 H POC Creatinine Glucose 107 H POC Glucose Uric Acid Calcium 7.9 L POC WB Ioniz Calcium Phosphorus 2.3 L Magnesium Total Bilirubin 2.3 H Direct Bilirubin 1.7 H GGT 90 H AST 68 H ALT 61 H Alkaline Phosphatase Lactate Dehydrogenase 233 H C-React Prot High Sens Total Protein 5.3 L Albumin 2.7 L Globulin Albumin/Globulin Ratio Triglycerides 249 H Procalcitonin Urine Appearance Urine Protein Urine Glucose (UA) Urine Ketones Urine Occult Blood Urine Nitrate Urine Urobilinogen Ur Leukocyte Esterase Urine RBC Urine WBC Amorphous Crystals Urine Bacteria Urine Sperm 01/27/23 01/28/23 01/28/23 05:10 05:09 05:10 WBC 11.7 H RBC 4.49 L Hgb 12.6 L Hct 37.6 L RDW Plt Count 106 L MPV 12.6 H Immature Gran % (Auto) 0.6 H Neut % (Auto) Lymph % (Auto) Lymph # (Auto) [place] # (Auto) 0.97 H Immature Gran # 0.07 H Absolute Neutrophils 8.76 H POC PT PT 15.3 H POC INR INR 1.2 H POC VBG pH POC VBG pCO2 at Temp POC VBG pO2 POC VBG HCO3 POC VBG Total CO2 POC Venous O2 Sat POC VBG Base Excess VBG Lactic Acid Chloride 111 H Carbon Dioxide 19 L POC Total CO2 POC BUN BUN 34 H Creatinine POC Creatinine Glucose POC Glucose Uric Acid Calcium 7.9 L POC WB Ioniz Calcium Phosphorus Magnesium Total Bilirubin 1.5 H Direct Bilirubin 1.0 H GGT 151 H AST 71 H ALT 76 H Alkaline Phosphatase 141 H Lactate Dehydrogenase 230 H C-React Prot High Sens Total Protein 5.4 L Albumin 2.6 L Globulin Albumin/Globulin Ratio 0.9 L Triglycerides 166 H Procalcitonin Urine Appearance Urine Protein Urine Glucose (UA) Urine Ketones Urine Occult Blood Urine Nitrate Urine Urobilinogen Ur Leukocyte Esterase Urine RBC Urine WBC Amorphous Crystals Urine Bacteria Urine Sperm 01/28/23 01/29/23 01/29/23 05:10 07:34 07:34 WBC 13.9 H RBC Hgb 13.6 L Hct RDW Plt Count MPV Immature Gran % (Auto) 1.1 H Neut % (Auto) Lymph % (Auto) Lymph # (Auto) [place] # (Auto) 1.43 H Immature Gran # 0.15 H Absolute Neutrophils 10.01 H POC PT PT POC INR INR POC VBG pH POC VBG pCO2 at Temp POC VBG pO2 POC VBG HCO3 POC VBG Total CO2 POC Venous O2 Sat POC VBG Base Excess VBG Lactic Acid Chloride 109 H Carbon Dioxide POC Total CO2 POC BUN BUN 25 H Creatinine POC Creatinine Glucose 116 H POC Glucose Uric Acid Calcium 8.3 L POC WB Ioniz Calcium Phosphorus Magnesium Total Bilirubin 1.3 H 1.1 H Direct Bilirubin 0.6 H GGT 153 H AST 49 H ALT 66 H 56 H Alkaline Phosphatase 161 H 161 H Lactate Dehydrogenase C-React Prot High Sens Total Protein 5.4 L Albumin 2.7 L 2.9 L Globulin Albumin/Globulin Ratio 0.9 L Triglycerides 224 H Procalcitonin Urine Appearance Urine Protein Urine Glucose (UA) Urine Ketones Urine Occult Blood Urine Nitrate Urine Urobilinogen Ur Leukocyte Esterase Urine RBC Urine WBC Amorphous Crystals Urine Bacteria Urine Sperm 01/30/23 01/30/23 01/30/23 07:40 07:40 07:40 WBC 14.9 H RBC Hgb 13.6 L Hct RDW Plt Count MPV Immature Gran % (Auto) 1.2 H Neut % (Auto) Lymph % (Auto) Lymph # (Auto) [place] # (Auto) 1.20 H Immature Gran # 0.18 H Absolute Neutrophils 10.99 H POC PT PT POC INR INR POC VBG pH POC VBG pCO2 at Temp POC VBG pO2 POC VBG HCO3 POC VBG Total CO2 POC Venous O2 Sat POC VBG Base Excess VBG Lactic Acid Chloride Carbon Dioxide 21 L POC Total CO2 POC BUN BUN Creatinine POC Creatinine Glucose 113 H POC Glucose Uric Acid Calcium 8.5 L POC WB Ioniz Calcium Phosphorus Magnesium Total Bilirubin Direct Bilirubin GGT AST ALT 47 H Alkaline Phosphatase 147 H Lactate Dehydrogenase C-React Prot High Sens > 300 H Total Protein Albumin 2.9 L Globulin Albumin/Globulin Ratio 0.9 L Triglycerides Procalcitonin Urine Appearance Urine Protein Urine Glucose (UA) Urine Ketones Urine Occult Blood Urine Nitrate Urine Urobilinogen Ur Leukocyte Esterase Urine RBC Urine WBC Amorphous Crystals Urine Bacteria Urine Sperm 01/30/23 01/31/23 01/31/23 07:40 08:48 08:48 WBC 16.4 H RBC Hgb Hct RDW Plt Count MPV Immature Gran % (Auto) 0.8 H Neut % (Auto) 79.5 H Lymph % (Auto) 11.6 L Lymph # (Auto) [place] # (Auto) 1.20 H Immature Gran # 0.13 H Absolute Neutrophils 13.07 H POC PT PT POC INR INR POC VBG pH POC VBG pCO2 at Temp POC VBG pO2 POC VBG HCO3 POC VBG Total CO2 POC Venous O2 Sat POC VBG Base Excess VBG Lactic Acid Chloride Carbon Dioxide POC Total CO2 POC BUN BUN Creatinine POC Creatinine Glucose 114 H POC Glucose Uric Acid Calcium POC WB Ioniz Calcium Phosphorus Magnesium Total Bilirubin Direct Bilirubin GGT AST ALT Alkaline Phosphatase Lactate Dehydrogenase C-React Prot High Sens Total Protein Albumin Globulin Albumin/Globulin Ratio Triglycerides Procalcitonin 3.15 H Urine Appearance Urine Protein Urine Glucose (UA) Urine Ketones Urine Occult Blood Urine Nitrate Urine Urobilinogen Ur Leukocyte Esterase Urine RBC Urine WBC Amorphous Crystals Urine Bacteria Urine Sperm 02/01/23 02/01/23 02/01/23 05:19 05:19 09:39 WBC 15.6 H RBC Hgb Hct RDW Plt Count MPV Immature Gran % (Auto) 0.9 H Neut % (Auto) 84.4 H Lymph % (Auto) 7.8 L Lymph # (Auto) 1.22 L [place] # (Auto) 0.94 H Immature Gran # 0.14 H Absolute Neutrophils 13.16 H POC PT PT POC INR INR POC VBG pH POC VBG pCO2 at Temp POC VBG pO2 POC VBG HCO3 POC VBG Total CO2 POC Venous O2 Sat POC VBG Base Excess VBG Lactic Acid Chloride Carbon Dioxide POC Total CO2 POC BUN BUN Creatinine POC Creatinine Glucose POC Glucose Uric Acid Calcium POC WB Ioniz Calcium Phosphorus Magnesium Total Bilirubin Direct Bilirubin GGT AST ALT Alkaline Phosphatase Lactate Dehydrogenase C-React Prot High Sens 174.2 H Total Protein Albumin Globulin Albumin/Globulin Ratio Triglycerides Procalcitonin 1.30 H Urine Appearance Urine Protein Urine Glucose (UA) Urine Ketones Urine Occult Blood Urine Nitrate Urine Urobilinogen Ur Leukocyte Esterase Urine RBC Urine WBC Amorphous Crystals Urine Bacteria Urine Sperm 02/01/23 09:39 WBC RBC Hgb Hct RDW Plt Count MPV Immature Gran % (Auto) Neut % (Auto) Lymph % (Auto) Lymph # (Auto) [place] # (Auto) Immature Gran # Absolute Neutrophils POC PT PT POC INR INR POC VBG pH POC VBG pCO2 at Temp POC VBG pO2 POC VBG HCO3 POC VBG Total CO2 POC Venous O2 Sat POC VBG Base Excess VBG Lactic Acid Chloride Carbon Dioxide 19 L POC Total CO2 POC BUN BUN Creatinine POC Creatinine Glucose 132 H POC Glucose Uric Acid Calcium POC WB Ioniz Calcium Phosphorus Magnesium Total Bilirubin Direct Bilirubin GGT AST ALT Alkaline Phosphatase 145 H Lactate Dehydrogenase C-React Prot High Sens Total Protein Albumin 2.9 L Globulin 4.2 H Albumin/Globulin Ratio 0.7 L Triglycerides Procalcitonin Urine Appearance Urine Protein Urine Glucose (UA) Urine Ketones Urine Occult Blood Urine Nitrate Urine Urobilinogen Ur Leukocyte Esterase Urine RBC Urine WBC Amorphous Crystals Urine Bacteria Urine Sperm Microbiology: Microbiology 01/25/23 00:05 Blood Blood Culture - Final 01/25/23 00:09 Blood Blood Culture - Final 01/24/23 22:32 Urine - Duff Urine Culture - Final Aerococcus urinae 01/25/23 01:29 Urine - Duff Urine Culture - Final Aerococcus urinae A/P Narrative A/P Narrative: 57-year-old presented with complicated UTI with sepsis and urinary retention, status post failed attempt Duff catheter and placement by urology now with ongoing fever and leukocytosis. CT did show a fluid collection within the penis which may explain the leukocytosis and fever. Urine culture has been growing out Aerococcus urinae. This organism is generally susceptible to the beta- lactam. Suspect the fluid collection is the source of his fever and leukocytosis, possible abscess. Recommend continue the patient on Zosyn for now and consult urology. ID will continue to follow Time Spent With Patient Time: Total time spent is greater than 50% in coordination of care (as documented) at patient's floor/unit and/or counseling patient:
[2023-02-01] MEDS: ACETAMINOPHEN 325 MG TABLET PO PRN ×2 (15:57→23:57)
--- NOTE | 2023-02-01 16:19 | Urology Progress Note ---
SUBJECTIVE Subjective Patient information: Note initiated : 02/01/23 at 4:16 pm Service Date, if different from initiated Date: [] Patient: Ventura Corral 57 y/o M admitted on 01/25/23 for hematuria. Chief Complaint: [History of urinary retention, urethral trauma and] Principal diagnosis: Urinary retention, traumatic Duff catheter placement Interval history: I was asked see the patient due to due to findings on CT showing a fluid collection around the urethra. The patient continues to have fevers. Constitutional Vitals: Vital Signs Temp Pulse Resp BP Pulse Ox O2 Del Method O2 Flow Rate 101.0 F H 98 H 18 138/94 98 Room Air 2 02/01/23 16:00 02/01/23 16:00 02/01/23 16:00 02/01/23 16:00 02/01/23 16:00 02/01/23 16:00 01/27/23 08:01 Period Temp Pulse Resp BP Sys/Garcia Pulse Ox O2 Del Method O2 Flow Rate Last 24 Hr 99.6 F-101.0 F 83-100 16-18 107-148/91-97 92-99 Room Air-Room Air Intake and Output 02/01/23 02/01/23 02/01/23 03:59 11:59 19:59 Intake Total 50 880 450 Output Total 1400 Balance 50 -520 450 Intake & Output: Intake & Output 02/01/23 02/01/23 02/01/23 03:59 11:59 19:59 Intake Total 50 880 450 Output Total 1400 Balance 50 -520 450 Intake: IV 50 50 50 Zosyn 3.375 gm In Dextrose 5% 50 50 50 in Water 50 ml @ 100 mls/hr IV Q8H [facility] Rx#:[id number] Oral 830 GI Tube Flush 400 Output: Urine Catheter Amount 1400 Other: Meal Lunch Percent of Meal Consumed 50% Feeding Ability Independent Urine Appearance Clear Uretheral (Duff) Clear Sediment Urine Color Dark Yellow Uretheral (Duff) Yellow Dark Yellow General appearance: average body habitus, cooperative and no acute distress exam: Present scrotal swelling External exam: Present swelling Additional comments: There is significant swelling around the urethra near the base of the penis. I do not feel this infection. I feel that this is likely inflammation and fluid collection due to the trauma sustained to the urethra. Expanded Exam Urine Appearance: Clear Urine Color: Yellow A/P Assessment and plan (1) Urethral stricture: Status: Acute (2) Urethral trauma: Status: Acute (3) Sepsis: Status: Acute Qualifiers: Acute renal failure type: unspecified Sepsis acute organ dysfunction status: with acute organ dysfunction Sepsis type: sepsis due to unspecified organism Severe sepsis acute organ dysfunction type: acute renal failure Severe sepsis shock status: with septic shock Qualified Code(s): A41.9 - Sepsi s, unspecified organism; R65.21 - Severe sepsis with septic shock; N17.9 - Acute kidney failure, unspecified Plan At the current time I do not feel that there is any further intervention required. He should be treated with antibiotics and watch expectantly. I would like to leave the Duff catheter in place and not exchange it until I see him back in the office as an outpatient. I will continue to follow him from time to time while inpatient. Time Spent With Patient Time: Total time spent is greater than 50% in coordination of care (as documented) at patient's floor/unit and/or counseling patient:
[2023-02-02] MEDS: PIPERACILLIN SODIUM/TAZOBACTAM 3.375 GM in DEXTROSE 5% IN WATER 50 ML IV SCH ×2 (05:32→13:46)
[2023-02-02] MEDS: 0.9 % SODIUM CHLORIDE 10 ML SYRINGE IV SCH (05:33)
[2023-02-02] MEDS: amLODIPine 5 MG TABLET PO SCH (07:52)
[2023-02-02] MEDS: HYDROcodone/APAP 5/325MG TABLET PO PRN ×2 (07:53→17:00)
[2023-02-02] MEDS: OMEPRAZOLE 20 MG CAPSULE PO SCH (08:02)
[2023-02-02] MEDS: DOCUSATE SODIUM 100 MG CAPSULE PO SCH (08:02)
[2023-02-02 08:11] LABS: Basophils # (Auto) 0.04 K/mcL (0.00-0.30); Basophils % (Auto) 0.3 % (0.0-2.0); Eosinophils # (Auto) 0.15 K/mcL (0.00-0.70); Hematocrit 41.7 % (40.1-51.0); Hemoglobin 14.2 g/dL (13.7-17.5); Lymphocytes # (Auto) 1.23 K/mcL (1.50-4.80); Lymphocytes % (Auto) 8.1 % (15.5-49.0); Mean Cell Volume 81.6 fL (80.0-100.0); Mean Corpuscular HGB Conc 34.1 g/dL (31.0-36.0); Mean Platelet Volume 10.6 fL (8.8-12.5); Monocytes # (Auto) 1.15 K/mcL (0.10-0.90); Monocytes % (Auto) 7.5 % (1.0-12.0); Neutrophils % (Auto) 82.4 % (38.0-78.0); Platelet Count 487 K/mcL (140-440); RBC 5.11 M/mcL (4.63-6.08); Red Cell Distribution Width 13.8 % (11.5-14.5); WBC 15.3 K/mcL (4.5-11.0)
[2023-02-02 08:25] LABS: ALT/SGPT 30 U/L (<40); AST/SGOT 16 U/L (<40); Albumin 3.4 gm/dL (3.2-5.2); Albumin/Globulin Ratio 0.9 (1.0-2.3); Alkaline Phosphatase 150 U/L (39-117); Bilirubin,Total 1.1 mg/dL (0.1-1.0); Blood Urea Nitrogen 17 mg/dL (6-20); Calcium 8.6 mg/dL (8.6-10.4); Carbon Dioxide 22 mmol/L (22-30); Chloride 100 mmol/L (96-108); Globulin 3.8 gm/dL (2.2-3.7); Glomerular Filtration Rate 95; Glucose 115 mg/dL (70-105)
[2023-02-02 08:46] LABS: CRP,High Sensitivity 199.3 mg/L (1.0-3.0)
--- NOTE | 2023-02-02 12:13 | Discharge Summary ---
Discharge Provider Provider IMPORTANT FOLLOW-UP INFORMATION FOR PCP: Patient information: Note initiated : 02/02/23 at 12:07 pm Service Date, if different from initiated Date: [] Patient: Ventura Corral 57 y/o M admitted on 01/25/23 for hematuria. Chief Complaint: [] Date of admission: 01/25/23 02:36 Discharge date: 02/02/23 Primary care physician: JOHN Wilkins Consults: 01/25/23 Consult to Physician [CONS] Stat Comment: Consulting Provider: Juarez Griffin Reason For Exam: Physician to Consult Consult to Physician [CONS] Stat Comment: Consulting Provider: Carl Taylor Reason For Exam: Physician to Consult 02/01/23 10:26 Consult to Physician [CONS] Routine Comment: Consulting Provider: Derrick HERNADEZ Reason For Exam: Physician to Consult COURSE Hospital Course Hospital course: Mr. Corral is a 57 year old male with no significant past medical history except elevated blood pressure for which he is currently not on antihypertensi ves presented to the emergency department for difficulty urinating and generally not feeling well. The patient was concerned that he might have a urinary tract infection. In the ED the patient was found to be septic, a Goff catheter was attempted but not successful therefore urology consulted and placed a Goff catheter. Patient was given IV fluid and ceftriaxone, he was hypotensive in the ED with initial lactic acid of 3.4. Additionally, the patient had a elevated creatinine likely reflecting an acute kidney injury, elevated INR and bilirubin likely reflecting liver injury secondary to sepsis. Hospital medicine was consulted for admission. 01/26 Patient was weaned off Levophed yesterday afternoon. Leukocytosis improving, renal function improving, LFTs mildly elevated. Urine growing Aerococcus urinae, culture sensitivities pending. Blood culture showing no growth to date. Patient had abdominal pain this morning, x-ray obtained which showed normal abdomen. Abdominal pain improved. Discontinued Zosyn, started ceftriaxone. Discontinued IV fluid. 01/27 Vital stable overnight except requiring 2 L minute nasal cannula likely secondary to some pulmonary edema from IV fluids. Chest x-ray ordered. Leukocytosis improving. Discussed antibiotics with pharmacy, concerned that cephalosporins may not cover Aerococcus urinary therefore discontinued ceftriaxone and started Augmentin. Patient has scrotal edema likely secondary to IV fluids received for septic shock. We will give Lasix 20 mg IV twice today, monitor for effectiveness. Transfer to [facility] status. 01/28 patient seen and examined. Patient had a low-grade fever of 100.7 last night and 99.1 this morning, leukocytosis slowly trending down but still present, potassium is low at 3.3 and will be replaced, BRADEN has resolved and serum creatinine is 1.0. LFTs overall stable. Chest x-ray from this morning reviewed, minimal interstitial disease in both lungs, findings suggestive of mild chronic bronchitis or asthma. Urine culture with Aerococcus urinae, it is usually sensitive to many antibiotics including penicillin, patient is on Augmentin which will be changed to ceftriaxone today. Discussed with patient needs to be fever free for 24 hours before he could be transition to oral antibiotic and considered for discharge. 01/29.Patient continued to have low-grade fever of 99.9 F overnight. CBC obtained showed worsening of leukocytosis to 13.9 from 11 yesterday. Chemistries remained stable. Discussed with patient it is concerning that he continues to have fever, will continue with IV antibiotics patient in agreement. 01/30 patient continues to have fever of 100.2 F overnight, his leukocytosis is also worsened to 14,000 from 13,000 yesterday. Will discontinue ceftriaxone and start patient on Zosyn. Will obtain procalcitonin and CRP and will follow. Patient reports scrotal edema is giving him discomfort and he cannot sit in the chair for longer. Of time. Discussed we will give IV Lasix 01/31 Tmax 100.6 overnight. Leukocytosis worsened to 16.4 from 14.9. Procalcitonin 3.15 down from over 300. Patient reports he felt hot last night, reports his scrotal edema is improving on Lasix. Discussed, will repeat CT scan, blood cultures and follow inflammatory markers. 02/01 patient reports scrotal swelling is improving on Lasix. Overnight Tmax 100.8. CBC is not available from this morning, CRP however has trended down to 174 from 300 and procalcitonin down to 1.3. CT abdomen and pelvis was obtained which showed some fluid collection in the penis surrounding the Goff catheter in the corpus spongiosum 2.7 x 2.8 cm which could be severely dilated urethra or could be an infection. Will discuss with urology 02/02 Patient reports scrotal edema is significantly improved, he is now able to sit in a chair for longer duration. He has been ambulating. He feels back to baseline and wanting to go home. Dr Griffin reviewed patient regarding collection and penis on imaging. He did not feel there is any further intervention needed. He felt the findings were secondary to trauma patient had during initial attempts of unsuccessful Goff catheter placement. He recommended to continue with antibiotics and watch expectantly. He recommended to leave the Goff catheter in place and not exchanged until patient is seen in urology office as outpatient. Patient still has some leukocytosis and low-grade temp, CRP has trended down from 300 to 199 and procal down to 1 from >100. ID has seen patient in consultation, discussed in detail. Recommended 2 weeks of Augmentin twice daily. Weekly CBC and CMP. Follow-up as an outpatient with urology and PCP. Patient has been advised to monitor blood pressure twice daily and keep a record of it and follow-up with primary care provider, he has been discharged on amlodipine 10 mg daily. Discharge Diagnoses Septic shock secondary to pyelonephritis secondary to Aerococcus urinae Urinary retention secondary to ureteral stricture requiring Goff catheter Acute kidney injury in the setting of sepsis Acute hypoxic respiratory failure likely secondary to volume overload from IV fluids received for septic shock Shock liver, Thrombocytopenia likely secondary to sepsis Scrotal edema likely secondary to volume overload Hematuria Hypertension, new diagnosis Physical exam Gen: Alert and awake, no acute distress Head: Atraumatic, normal inspection. Eyes: normal appearance, no scleral icterus. Neck: full ROM Respiratory: Chest is clear bilaterally, not on supplemental oxygen Cardiovascular: normal rate and rhythm, S1, S2. GI/Abdominal: soft, mild epigastric tenderness, no guarding. : Indwelling Goff catheter redd urine. Scrotal edema improved significantly, dried blood on the diaper, but no blood noted in the urinary bag Extremities: full range of motion, nontender, trace edema Neurological: Alert and oriented, no focal deficits Psychiatric: normal mood. Skin: warm, normal color Total time taken 55 minutes Discharge diagnosis: Septic shock, pyelonephritis, urinary retention Time Spent with Patient Time attestation: Total time spent providing and/or coordinating discharge services: Time spent: Greater than 30 minutes EXAM Constitutional Vitals: Temp Pulse Resp BP Pulse Ox O2 Del Method O2 Flow Rate 99.1 F H 101 H 20 131/89 97 Room Air 2 02/02/23 07:08 02/02/23 07:08 02/02/23 03:41 02/02/23 07:08 02/02/23 07:08 02/02/23 07:08 01/27/23 08:01 Discharge Data Data Completed and Pending Labs on day of discharge: Labs from last 24 hours 02/02/23 02/02/23 02/02/23 07:19 07:19 07:19 WBC RBC Hgb Hct MCV MCH MCHC RDW Plt Count MPV Immature Gran % (Auto) Neut % (Auto) Lymph % (Auto) [place] % (Auto) Eos % (Auto) Baso % (Auto) Lymph # (Auto) [place] # (Auto) Eos # (Auto) Baso # (Auto) Immature Gran # Absolute Neutrophils Sodium 134 Potassium 3.8 Chloride 100 Carbon Dioxide 22 Anion Gap 12.0 BUN 17 Creatinine 0.9 GFR Calculation 95 Glucose 115 H Calcium 8.6 Total Bilirubin 1.1 H AST 16 ALT 30 Alkaline Phosphatase 150 H C-React Prot High Sens 199.3 H Total Protein 7.2 Albumin 3.4 Globulin 3.8 H Albumin/Globulin Ratio 0.9 L Procalcitonin 1.04 H 02/02/23 07:19 WBC 15.3 H RBC 5.11 Hgb 14.2 Hct 41.7 MCV 81.6 MCH 27.8 MCHC 34.1 RDW 13.8 Plt Count 487 H MPV 10.6 Immature Gran % (Auto) 0.7 H Neut % (Auto) 82.4 H Lymph % (Auto) 8.1 L [place] % (Auto) 7.5 Eos % (Auto) 1.0 Baso % (Auto) 0.3 Lymph # (Auto) 1.23 L [place] # (Auto) 1.15 H Eos # (Auto) 0.15 Baso # (Auto) 0.04 Immature Gran # 0.11 H Absolute Neutrophils 12.58 H Sodium Potassium Chloride Carbon Dioxide Anion Gap BUN Creatinine GFR Calculation Glucose Calcium Total Bilirubin AST ALT Alkaline Phosphatase C-React Prot High Sens Total Protein Albumin Globulin Albumin/Globulin Ratio Procalcitonin Preliminary micro results at discharge 01/31/23 21:38 Blood Culture - Preliminary Blood 01/31/23 21:28 Blood Culture - Preliminary Blood Discharge Plan Patient/Caregiver Discharge Instructions Activity: increase activity as tolerated Diet: Cardiac Instructions: Urinary Tract Infection in Men (DC) Prescriptions: New amlodipine 10 mg tablet 10 mg PO QDAY Qty: 30 0RF amoxicillin-pot clavulanate 875-125 mg tablet 1 tab PO BID Qty: 28 0RF Culturelle 10 billion cell capsule 1 cap PO QDAY Qty: 30 0RF Other Ambulatory Orders: Complete Blood Count (WEEKLY) Timeframe: [id number] Facility: [facility] - Location: Laboratory Ordered By: Daniel Lerner Complete Blood Count (WEEKLY) Timeframe: [id number] Facility: [facility] - Location: Laboratory Ordered By: Daniel Lerner Comprehensive Metabolic Panel (WEEKLY) Timeframe: 20230209 Facility: [facility] - Location: Laboratory Ordered By: Daniel Lerner Comprehensive Metabolic Panel (WEEKLY) Timeframe: [id number] Facility: [facility] - Location: Laboratory Ordered By: Daniel Lerner Follow Up Plan Follow up with: Juarez Griffin MD [Physician] - (Follow up in 1 week Leave goff in place at discharge) Chace Gonzalez ARNP [Primary Care Provider] - Patient Disposition: Home, Self-Care Prognosis: Fair Overall status at discharge: patient is progressing back to baseline Discharge Orders: Discharge Order (Routine); Ordered 02/02/23 Ordered By: Daniel Lerner QUALITY VTE Deep Vein Thrombosis/Pulmonary Embolism Present on Admission: No
[2023-02-02] MEDS: ACETAMINOPHEN 325 MG TABLET PO PRN (13:45)
--- NOTE | 2023-02-08 14:05 | Infectious Disease Consult ---
HPI Date of Consult Consult Date: 02/08/23 Primary Care Provider: JOHN Wilkins Consult Narrative Patient Information: Note initiated : 02/08/23 at 2:04 pm Service Date, if different from initiated Date: [] Patient: Ventura Corral 57 y/o M admitted on 01/25/23 for hematuria. Chief Complaint: [] cc:: CC: Daniel Lerner MD [facility] All Active Problems Acute retention of urine (Acute) BRADEN (acute kidney injury) (Acute) Sepsis (Acute) Acute pyelonephritis (Acute) Acute UTI (Acute) Urethral stricture (Acute) Urethral trauma (Acute) Abscess of penis (Acute) Medical History Acute pyelonephritis Social History smoking status: Never smoker MEDS/ALLERGIES Home Medications and Allergies Home Medications Medication Instructions Recorded Confirmed Type Lactobacillus rhamnosus GG 10 1 cap PO QDAY #30 caps 02/02/23 02/07/23 Rx billion cell capsule (Culturelle) amlodipine 10 mg tablet 10 mg PO QDAY #30 tabs 02/02/23 02/06/23 Rx amoxicillin 875 mg-potassium 1 tab PO BID #28 tabs 02/02/23 02/06/23 Rx clavulanate 125 mg tablet Allergies Allergy/AdvReac Type Severity Reaction Status Date / Time No Known Drug Allergies Allergy Unverified 01/25/23 01:43 Physical Examination Vital Signs Vital signs: Temp Pulse Resp BP Pulse Ox O2 Del Method O2 Flow Rate 99.4 F H 99 H 18 144/88 99 Room Air 2 02/02/23 18:35 02/02/23 18:35 02/02/23 18:35 02/02/23 18:35 02/02/23 18:35 02/02/23 18:35 01/27/23 08:01 Results Laboratory Findings 02/02/23 07:19 02/02/23 07:19 ABG, PT/INR, D-dimer: PT/INR, D-dimer PT 15.3 sec (11.9-14.5) H 01/28/23 05:09 INR 1.2 (0.9-1.1) H 01/28/23 05:09 Abnormal lab findings: Abnormal Labs 01/24/23 01/24/23 01/24/23 21:19 21:24 21:24 WBC 35.9 H* RBC Hgb Hct RDW 14.7 H Plt Count 114 L MPV Immature Gran % (Auto) 4.4 H Neut % (Auto) 89.2 H Lymph % (Auto) 1.9 L Lymph # (Auto) 0.70 L [place] # (Auto) 1.46 H Immature Gran # 1.58 H Absolute Neutrophils 32.05 H POC PT PT POC INR INR POC VBG pH POC VBG pCO2 at Temp POC VBG pO2 POC VBG HCO3 POC VBG Total CO2 POC Venous O2 Sat POC VBG Base Excess VBG Lactic Acid Chloride Carbon Dioxide POC Total CO2 16.0 L POC BUN 46 H BUN Creatinine POC Creatinine 3.3 H Glucose POC Glucose 108 H Uric Acid Calcium POC WB Ioniz Calcium 1.12 L Phosphorus Magnesium Total Bilirubin 2.1 H Direct Bilirubin 1.1 H GGT AST 51 H ALT Alkaline Phosphatase Lactate Dehydrogenase C-React Prot High Sens Total Protein Albumin Globulin Albumin/Globulin Ratio Triglycerides Procalcitonin Urine Appearance Urine Protein Urine Glucose (UA) Urine Ketones Urine Occult Blood Urine Nitrate Urine Urobilinogen Ur Leukocyte Esterase Urine RBC Urine WBC Amorphous Crystals Urine Bacteria Urine Sperm 01/24/23 01/24/23 01/24/23 21:31 22:32 22:34 WBC RBC Hgb Hct RDW Plt Count MPV Immature Gran % (Auto) Neut % (Auto) Lymph % (Auto) Lymph # (Auto) [place] # (Auto) Immature Gran # Absolute Neutrophils POC PT 24.0 H PT POC INR 2.1 H INR POC VBG pH POC VBG pCO2 at Temp POC VBG pO2 POC VBG HCO3 POC VBG Total CO2 POC Venous O2 Sat POC VBG Base Excess VBG Lactic Acid Chloride Carbon Dioxide POC Total CO2 POC BUN BUN Creatinine POC Creatinine Glucose POC Glucose Uric Acid Calcium POC WB Ioniz Calcium Phosphorus Magnesium Total Bilirubin Direct Bilirubin GGT AST ALT Alkaline Phosphatase Lactate Dehydrogenase C-React Prot High Sens Total Protein Albumin Globulin Albumin/Globulin Ratio Triglycerides Procalcitonin > 100 H Urine Appearance Turbid A Urine Protein >=300 A Urine Glucose (UA) 100(trace) A Urine Ketones 5(trace) A Urine Occult Blood 3+(large) A Urine Nitrate Positive A Urine Urobilinogen 2.0 A Ur Leukocyte Esterase 2+(moderate) A Urine RBC > 182 H Urine WBC 15 H Amorphous Crystals Urine Bacteria Urine Sperm 01/24/23 01/25/23 01/25/23 22:57 01:29 01:30 WBC RBC Hgb Hct RDW Plt Count MPV Immature Gran % (Auto) Neut % (Auto) Lymph % (Auto) Lymph # (Auto) [place] # (Auto) Immature Gran # Absolute Neutrophils POC PT PT POC INR INR POC VBG pH POC VBG pCO2 at Temp 30.8 L POC VBG pO2 42 H POC VBG HCO3 18.1 L POC VBG Total CO2 19.0 L POC Venous O2 Sat 77.0 H POC VBG Base Excess -7.0 L VBG Lactic Acid 3.3 H Chloride Carbon Dioxide POC Total CO2 18.0 L POC BUN 49 H BUN Creatinine POC Creatinine 3.1 H Glucose POC Glucose Uric Acid Calcium POC WB Ioniz Calcium 1.02 L Phosphorus Magnesium Total Bilirubin Direct Bilirubin GGT AST ALT Alkaline Phosphatase Lactate Dehydrogenase C-React Prot High Sens Total Protein Albumin Globulin Albumin/Globulin Ratio Triglycerides Procalcitonin Urine Appearance Cloudy A Urine Protein 100 A Urine Glucose (UA) Urine Ketones 5 A Urine Occult Blood Urine Nitrate Urine Urobilinogen 2.0 A Ur Leukocyte Esterase 75 A Urine RBC > 182 H Urine WBC 75 H Amorphous Crystals Many A Urine Bacteria Few A Urine Sperm Present A 01/25/23 01/25/23 01/25/23 01:30 05:14 05:14 WBC 31.3 H* RBC Hgb Hct RDW 15.0 H Plt Count 84 L MPV Immature Gran % (Auto) 7.3 H Neut % (Auto) 87.2 H Lymph % (Auto) 2.1 L Lymph # (Auto) 0.67 L [place] # (Auto) 1.08 H Immature Gran # 2.28 H Absolute Neutrophils 27.28 H POC PT PT 20.3 H POC INR INR 1.7 H POC VBG pH 7.43 H POC VBG pCO2 at Temp 27.2 L POC VBG pO2 57 H POC VBG HCO3 17.9 L POC VBG Total CO2 19.0 L POC Venous O2 Sat 91.0 H POC VBG Base Excess -6.0 L VBG Lactic Acid 3.0 H Chloride Carbon Dioxide POC Total CO2 POC BUN BUN Creatinine POC Creatinine Glucose POC Glucose Uric Acid Calcium POC WB Ioniz Calcium Phosphorus Magnesium Total Bilirubin Direct Bilirubin GGT AST ALT Alkaline Phosphatase Lactate Dehydrogenase C-React Prot High Sens Total Protein Albumin Globulin Albumin/Globulin Ratio Triglycerides Procalcitonin Urine Appearance Urine Protein Urine Glucose (UA) Urine Ketones Urine Occult Blood Urine Nitrate Urine Urobilinogen Ur Leukocyte Esterase Urine RBC Urine WBC Amorphous Crystals Urine Bacteria Urine Sperm 01/25/23 01/25/23 01/26/23 05:14 08:44 06:52 WBC 19.6 H RBC 4.25 L Hgb 12.2 L Hct 36.2 L RDW 14.9 H Plt Count 71 L MPV 13.0 H Immature Gran % (Auto) 16.9 H Neut % (Auto) Lymph % (Auto) 4.9 L Lymph # (Auto) 0.96 L [place] # (Auto) Immature Gran # 3.31 H Absolute Neutrophils 14.88 H POC PT PT POC INR INR POC VBG pH POC VBG pCO2 at Temp POC VBG pO2 POC VBG HCO3 POC VBG Total CO2 POC Venous O2 Sat POC VBG Base Excess VBG Lactic Acid 2.8 H 2.6 H Chloride 109 H Carbon Dioxide 16 L POC Total CO2 POC BUN BUN 54 H Creatinine 2.4 H POC Creatinine Glucose 119 H POC Glucose Uric Acid 8.3 H Calcium 7.5 L POC WB Ioniz Calcium Phosphorus 4.9 H Magnesium 1.4 L Total Bilirubin 2.0 H Direct Bilirubin 1.4 H GGT AST ALT Alkaline Phosphatase Lactate Dehydrogenase 241 H C-React Prot High Sens Total Protein 5.1 L Albumin 2.9 L Globulin Albumin/Globulin Ratio Triglycerides Procalcitonin Urine Appearance Urine Protein Urine Glucose (UA) Urine Ketones Urine Occult Blood Urine Nitrate Urine Urobilinogen Ur Leukocyte Esterase Urine RBC Urine WBC Amorphous Crystals Urine Bacteria Urine Sperm 01/26/23 01/26/23 01/27/23 06:52 06:52 05:10 WBC 17.0 H RBC 4.17 L Hgb 12.1 L Hct 35.3 L RDW 15.0 H Plt Count 90 L MPV 12.7 H Immature Gran % (Auto) Neut % (Auto) 87.2 H Lymph % (Auto) 9.2 L Lymph # (Auto) [place] # (Auto) Immature Gran # Absolute Neutrophils 14.80 H POC PT PT 16.7 H POC INR INR 1.3 H POC VBG pH POC VBG pCO2 at Temp POC VBG pO2 POC VBG HCO3 POC VBG Total CO2 POC Venous O2 Sat POC VBG Base Excess VBG Lactic Acid Chloride 113 H Carbon Dioxide 18 L POC Total CO2 POC BUN BUN 44 H Creatinine 1.3 H POC Creatinine Glucose 107 H POC Glucose Uric Acid Calcium 7.9 L POC WB Ioniz Calcium Phosphorus 2.3 L Magnesium Total Bilirubin 2.3 H Direct Bilirubin 1.7 H GGT 90 H AST 68 H ALT 61 H Alkaline Phosphatase Lactate Dehydrogenase 233 H C-React Prot High Sens Total Protein 5.3 L Albumin 2.7 L Globulin Albumin/Globulin Ratio Triglycerides 249 H Procalcitonin Urine Appearance Urine Protein Urine Glucose (UA) Urine Ketones Urine Occult Blood Urine Nitrate Urine Urobilinogen Ur Leukocyte Esterase Urine RBC Urine WBC Amorphous Crystals Urine Bacteria Urine Sperm 01/27/23 01/28/23 01/28/23 05:10 05:09 05:10 WBC 11.7 H RBC 4.49 L Hgb 12.6 L Hct 37.6 L RDW Plt Count 106 L MPV 12.6 H Immature Gran % (Auto) 0.6 H Neut % (Auto) Lymph % (Auto) Lymph # (Auto) [place] # (Auto) 0.97 H Immature Gran # 0.07 H Absolute Neutrophils 8.76 H POC PT PT 15.3 H POC INR INR 1.2 H POC VBG pH POC VBG pCO2 at Temp POC VBG pO2 POC VBG HCO3 POC VBG Total CO2 POC Venous O2 Sat POC VBG Base Excess VBG Lactic Acid Chloride 111 H Carbon Dioxide 19 L POC Total CO2 POC BUN BUN 34 H Creatinine POC Creatinine Glucose POC Glucose Uric Acid Calcium 7.9 L POC WB Ioniz Calcium Phosphorus Magnesium Total Bilirubin 1.5 H Direct Bilirubin 1.0 H GGT 151 H AST 71 H ALT 76 H Alkaline Phosphatase 141 H Lactate Dehydrogenase 230 H C-React Prot High Sens Total Protein 5.4 L Albumin 2.6 L Globulin Albumin/Globulin Ratio 0.9 L Triglycerides 166 H Procalcitonin Urine Appearance Urine Protein Urine Glucose (UA) Urine Ketones Urine Occult Blood Urine Nitrate Urine Urobilinogen Ur Leukocyte Esterase Urine RBC Urine WBC Amorphous Crystals Urine Bacteria Urine Sperm 01/28/23 01/29/23 01/29/23 05:10 07:34 07:34 WBC 13.9 H RBC Hgb 13.6 L Hct RDW Plt Count MPV Immature Gran % (Auto) 1.1 H Neut % (Auto) Lymph % (Auto) Lymph # (Auto) [place] # (Auto) 1.43 H Immature Gran # 0.15 H Absolute Neutrophils 10.01 H POC PT PT POC INR INR POC VBG pH POC VBG pCO2 at Temp POC VBG pO2 POC VBG HCO3 POC VBG Total CO2 POC Venous O2 Sat POC VBG Base Excess VBG Lactic Acid Chloride 109 H Carbon Dioxide POC Total CO2 POC BUN BUN 25 H Creatinine POC Creatinine Glucose 116 H POC Glucose Uric Acid Calcium 8.3 L POC WB Ioniz Calcium Phosphorus Magnesium Total Bilirubin 1.3 H 1.1 H Direct Bilirubin 0.6 H GGT 153 H AST 49 H ALT 66 H 56 H Alkaline Phosphatase 161 H 161 H Lactate Dehydrogenase C-React Prot High Sens Total Protein 5.4 L Albumin 2.7 L 2.9 L Globulin Albumin/Globulin Ratio 0.9 L Triglycerides 224 H Procalcitonin Urine Appearance Urine Protein Urine Glucose (UA) Urine Ketones Urine Occult Blood Urine Nitrate Urine Urobilinogen Ur Leukocyte Esterase Urine RBC Urine WBC Amorphous Crystals Urine Bacteria Urine Sperm 01/30/23 01/30/23 01/30/23 07:40 07:40 07:40 WBC 14.9 H RBC Hgb 13.6 L Hct RDW Plt Count MPV Immature Gran % (Auto) 1.2 H Neut % (Auto) Lymph % (Auto) Lymph # (Auto) [place] # (Auto) 1.20 H Immature Gran # 0.18 H Absolute Neutrophils 10.99 H POC PT PT POC INR INR POC VBG pH POC VBG pCO2 at Temp POC VBG pO2 POC VBG HCO3 POC VBG Total CO2 POC Venous O2 Sat POC VBG Base Excess VBG Lactic Acid Chloride Carbon Dioxide 21 L POC Total CO2 POC BUN BUN Creatinine POC Creatinine Glucose 113 H POC Glucose Uric Acid Calcium 8.5 L POC WB Ioniz Calcium Phosphorus Magnesium Total Bilirubin Direct Bilirubin GGT AST ALT 47 H Alkaline Phosphatase 147 H Lactate Dehydrogenase C-React Prot High Sens > 300 H Total Protein Albumin 2.9 L Globulin Albumin/Globulin Ratio 0.9 L Triglycerides Procalcitonin Urine Appearance Urine Protein Urine Glucose (UA) Urine Ketones Urine Occult Blood Urine Nitrate Urine Urobilinogen Ur Leukocyte Esterase Urine RBC Urine WBC Amorphous Crystals Urine Bacteria Urine Sperm 01/30/23 01/31/23 01/31/23 07:40 08:48 08:48 WBC 16.4 H RBC Hgb Hct RDW Plt Count MPV Immature Gran % (Auto) 0.8 H Neut % (Auto) 79.5 H Lymph % (Auto) 11.6 L Lymph # (Auto) [place] # (Auto) 1.20 H Immature Gran # 0.13 H Absolute Neutrophils 13.07 H POC PT PT POC INR INR POC VBG pH POC VBG pCO2 at Temp POC VBG pO2 POC VBG HCO3 POC VBG Total CO2 POC Venous O2 Sat POC VBG Base Excess VBG Lactic Acid Chloride Carbon Dioxide POC Total CO2 POC BUN BUN Creatinine POC Creatinine Glucose 114 H POC Glucose Uric Acid Calcium POC WB Ioniz Calcium Phosphorus Magnesium Total Bilirubin Direct Bilirubin GGT AST ALT Alkaline Phosphatase Lactate Dehydrogenase C-React Prot High Sens Total Protein Albumin Globulin Albumin/Globulin Ratio Triglycerides Procalcitonin 3.15 H Urine Appearance Urine Protein Urine Glucose (UA) Urine Ketones Urine Occult Blood Urine Nitrate Urine Urobilinogen Ur Leukocyte Esterase Urine RBC Urine WBC Amorphous Crystals Urine Bacteria Urine Sperm 02/01/23 02/01/23 02/01/23 05:19 05:19 09:39 WBC 15.6 H RBC Hgb Hct RDW Plt Count MPV Immature Gran % (Auto) 0.9 H Neut % (Auto) 84.4 H Lymph % (Auto) 7.8 L Lymph # (Auto) 1.22 L [place] # (Auto) 0.94 H Immature Gran # 0.14 H Absolute Neutrophils 13.16 H POC PT PT POC INR INR POC VBG pH POC VBG pCO2 at Temp POC VBG pO2 POC VBG HCO3 POC VBG Total CO2 POC Venous O2 Sat POC VBG Base Excess VBG Lactic Acid Chloride Carbon Dioxide POC Total CO2 POC BUN BUN Creatinine POC Creatinine Glucose POC Glucose Uric Acid Calcium POC WB Ioniz Calcium Phosphorus Magnesium Total Bilirubin Direct Bilirubin GGT AST ALT Alkaline Phosphatase Lactate Dehydrogenase C-React Prot High Sens 174.2 H Total Protein Albumin Globulin Albumin/Globulin Ratio Triglycerides Procalcitonin 1.30 H Urine Appearance Urine Protein Urine Glucose (UA) Urine Ketones Urine Occult Blood Urine Nitrate Urine Urobilinogen Ur Leukocyte Esterase Urine RBC Urine WBC Amorphous Crystals Urine Bacteria Urine Sperm 02/01/23 02/02/23 02/02/23 09:39 07:19 07:19 WBC 15.3 H RBC Hgb Hct RDW Plt Count 487 H MPV Immature Gran % (Auto) 0.7 H Neut % (Auto) 82.4 H Lymph % (Auto) 8.1 L Lymph # (Auto) 1.23 L [place] # (Auto) 1.15 H Immature Gran # 0.11 H Absolute Neutrophils 12.58 H POC PT PT POC INR INR POC VBG pH POC VBG pCO2 at Temp POC VBG pO2 POC VBG HCO3 POC VBG Total CO2 POC Venous O2 Sat POC VBG Base Excess VBG Lactic Acid Chloride Carbon Dioxide 19 L POC Total CO2 POC BUN BUN Creatinine POC Creatinine Glucose 132 H 115 H POC Glucose Uric Acid Calcium POC WB Ioniz Calcium Phosphorus Magnesium Total Bilirubin 1.1 H Direct Bilirubin GGT AST ALT Alkaline Phosphatase 145 H 150 H Lactate Dehydrogenase C-React Prot High Sens Total Protein Albumin 2.9 L Globulin 4.2 H 3.8 H Albumin/Globulin Ratio 0.7 L 0.9 L Triglycerides Procalcitonin Urine Appearance Urine Protein Urine Glucose (UA) Urine Ketones Urine Occult Blood Urine Nitrate Urine Urobilinogen Ur Leukocyte Esterase Urine RBC Urine WBC Amorphous Crystals Urine Bacteria Urine Sperm 02/02/23 02/02/23 07:19 07:19 WBC RBC Hgb Hct RDW Plt Count MPV Immature Gran % (Auto) Neut % (Auto) Lymph % (Auto) Lymph # (Auto) [place] # (Auto) Immature Gran # Absolute Neutrophils POC PT PT POC INR INR POC VBG pH POC VBG pCO2 at Temp POC VBG pO2 POC VBG HCO3 POC VBG Total CO2 POC Venous O2 Sat POC VBG Base Excess VBG Lactic Acid Chloride Carbon Dioxide POC Total CO2 POC BUN BUN Creatinine POC Creatinine Glucose POC Glucose Uric Acid Calcium POC WB Ioniz Calcium Phosphorus Magnesium Total Bilirubin Direct Bilirubin GGT AST ALT Alkaline Phosphatase Lactate Dehydrogenase C-React Prot High Sens 199.3 H Total Protein Albumin Globulin Albumin/Globulin Ratio Triglycerides Procalcitonin 1.04 H Urine Appearance Urine Protein Urine Glucose (UA) Urine Ketones Urine Occult Blood Urine Nitrate Urine Urobilinogen Ur Leukocyte Esterase Urine RBC Urine WBC Amorphous Crystals Urine Bacteria Urine Sperm Microbiology: Microbiology 01/31/23 21:38 Blood Blood Culture - Final 01/31/23 21:28 Blood Blood Culture - Final 01/25/23 00:05 Blood Blood Culture - Final 01/25/23 00:09 Blood Blood Culture - Final 01/24/23 22:32 Urine - Duff Urine Culture - Final Aerococcus urinae 01/25/23 01:29 Urine - Duff Urine Culture - Final Aerococcus urinae A/P Time Spent With Patient Time: Total time spent is greater than 50% in coordination of care (as documented) at patient's floor/unit and/or counseling patient:
== END 2023-02-02 18:30 | disposition home or self-care (01) | DRG 871 ==
LOC: ED 20:53 → ICU 01-25 02:36 → MEDSUR 01-27 13:38
PROVIDERS: ADMIT Internal Medicine; ATTEND Internal Medicine

== ENCOUNTER 2023-02-06 11:08 | Inpatient (IN) ==
[2023-02-06] MEDS ORDERED: IOPAMIDOL 100 ML BOTTLE IV ONE (11:09)
--- NOTE | 2023-02-06 11:43 | Emergency Department Note ---
HPI General Chief complaint: Urogenital-Male Stated complaint: groin problem Time Seen by Provider: 02/06/23 11:34 Source: patient Mode of arrival: wheelchair Limitations: no limitations History of Present Illness HPI Narrative: Narrative: This 57-year-old male presents complaining of recent hospitalization for urosepsis with bilateral pyelonephritis starting on the sixth. He was admitted on the seventh with what he states was sepsis and catheter insertion proved to be very difficult. His states that there was some evidence of a hole in his urethra due to the catheterization. The patient went home on Augmentin and states that he was feeling better but became much worse since this morning, as his penis and scrotal sac swelled up dramatically in the last 9 hours, with bright redness and he feels sweaty and chills despite the Augmentin. He states that his catheter is still draining without any signs of blood or pus. He denies any vomiting, and has been taking hydrocodone for the pain. Related Data Previous Rx's Medication Instructions Recorded Lactobacillus rhamnosus GG 10 1 cap PO QDAY #30 caps 02/02/23 billion cell capsule (Culturelle) amlodipine 10 mg tablet 10 mg PO QDAY #30 tabs 02/02/23 amoxicillin 875 mg-potassium 1 tab PO BID #28 tabs 02/02/23 clavulanate 125 mg tablet Allergies Allergy/AdvReac Type Severity Reaction Status Date / Time No Known Drug Allergies Allergy Unverified 01/25/23 01:43 Review of Systems ROS ROS Narrative: Narrative: All systems ED: reviewed and negative except as stated. [facility] Narrative Patient History Narrative: Narrative: Medical/Surgical/Family History All Active Problems Acute retention of urine (Acute) BRADEN (acute kidney injury) (Acute) Sepsis (Acute) Acute pyelonephritis (Acute) Acute UTI (Acute) Urethral stricture (Acute) Urethral trauma (Acute) Abscess of penis (Acute) Medical History Acute pyelonephritis Social History Smoking Status: Former smoker Exam Narrative Narrative: Narrative: General: No acute distress, slightly pale skin, diaphoretic, no acute distress, alert and oriented x3, answers questions cogently. Urogenital: Patient's penis and scrotum are swollen to 2-3 times normal size, and bright red throughout; there is malodorous drainage from his urethral meatus, although his catheter is draining well. He is tender throughout his scrotum and penis. There is no femoral lymphadenopathy; abdomen is soft and nontender. General Limitations: no limitations Course Course Course Narrative: Patient had a elevated white count with a left shift as well as positive pyuria and bacteriuria and leukocyte esterase. Patient's vitals are stable he is afebrile but his ultrasound showed a 4.2 x 5.6 x 8.6 cm abscess in the corpus spongiosum via ultrasound. Dr. Griffin was contacted and is coming to see the patient in the meantime the patient was treated with IV clindamycin vancomycin and Zosyn. Attempts were made to call the hospitalist but have not been able to get through to him as yet. Vital Signs Vital signs: Vital Signs Temperature 98.3 F 02/06/23 11:11 Pulse Rate 115 H 02/06/23 11:11 Respiratory Rate 18 02/06/23 11:11 Blood Pressure 136/86 02/06/23 11:11 Pulse Oximetry (%) 96 02/06/23 11:11 Oxygen Delivery Method Room Air 02/06/23 11:11 Temperature 97.8 F 02/07/23 02:45 Pulse Rate 98 H 02/07/23 02:45 Respiratory Rate 16 02/07/23 02:45 Blood Pressure 116/78 02/07/23 02:45 Pulse Oximetry (%) 96 02/07/23 02:45 Oxygen Delivery Method Nasal Cannula 02/07/23 02:45 Oxygen Flow Rate (L/min) 2 02/07/23 02:45 [facility] MDM Narrative Medical decision making narrative: Narrative: Lab Data 02/07/23 05:21 02/07/23 05:21 Labs: Lab Results 02/06/23 02/06/23 02/06/23 Range/Units 11:48 12:04 12:05 WBC 15.2 H (4.5-11.0) K/mcL RBC 4.79 (4.63-6.08) M/mcL Hgb 13.3 L (13.7-17.5) g/dL Hct 39.5 L (40.1-51.0) % MCV 82.5 (80.0-100.0) fL MCH 27.8 (26.0-34.0) pg MCHC 33.7 (31.0-36.0) g/dL RDW 14.1 (11.5-14.5) % Plt Count 613 H (140-440) K/mcL MPV 10.5 (8.8-12.5) fL Immature Gran % (Auto) 0.7 H (0.0-0.5) % Neut % (Auto) 75.0 (38.0-78.0) % Lymph % (Auto) 10.2 L (15.5-49.0) % [place] % (Auto) 13.0 H (1.0-12.0) % Eos % (Auto) 0.8 (0.0-7.0) % Baso % (Auto) 0.3 (0.0-2.0) % Lymph # (Auto) 1.55 (1.50-4.80) K/mcL [place] # (Auto) 1.98 H (0.10-0.90) K/mcL Eos # (Auto) 0.12 (0.00-0.70) K/mcL Baso # (Auto) 0.05 (0.00-0.30) K/mcL Immature Gran # 0.10 H (0.00-0.05) K/mcl Absolute Neutrophils 11.41 H (1.80-8.00) K/mcL PT (11.9-14.5) sec INR (0.9-1.1) POC VBG pH 7.50 H (7.32-7.42) POC VBG pCO2 at Temp 29.7 L (41-51) POC VBG pO2 54 H (25-40) POC VBG HCO3 23.1 L (24-28) POC VBG Total CO2 24.0 L (25-29) POC Venous O2 Sat 91.0 H (40-70) POC VBG Base Excess 0 (-2-2) VBG Lactic Acid 1.4 (0.5-2) Sodium (133-145) mmol/L Potassium (3.3-5.1) mmol/L Chloride (96-108) mmol/L Carbon Dioxide (22-30) mmol/L Anion Gap (8.0-16.0) BUN (6-20) mg/dL Creatinine (0.7-1.2) mg/dL GFR Calculation BUN/Creatinine Ratio Glucose (70-105) mg/dL Calcium (8.6-10.4) mg/dL Total Bilirubin (0.1-1.0) mg/dL AST (<40) U/L ALT (<40) U/L Alkaline Phosphatase (39-117) U/L C-Reactive Protein (0.03-0.80) mg/dL Total Protein (5.9-8.4) gm/dL Albumin (3.2-5.2) gm/dL Globulin (2.2-3.7) gm/dL Albumin/Globulin Ratio (1.0-2.3) Urine Color Yellow Urine Appearance Hazy A (Clear) Urine pH 6.0 (5.0-9.0) Ur Specific Plain 1.009 (1.000-1.035) Urine Protein Negative (Negative) mg/dL Urine Glucose (UA) Negative (Negative) mg/dL Urine Ketones Negative (Negative) mg/dL Urine Occult Blood Negative (Negative) mg/dL Urine Nitrate Negative (Negative) Urine Bilirubin Negative (Negative) mg/dL Urine Urobilinogen 2.0 A mg/dL Ur Leukocyte Esterase 250 A (Negative) /uL Urine RBC 3 (0-3) /hpf Urine WBC 47 H (0-4) /hpf Ur Squamous Epith Cells 0 (0-4) /hpf Urine Bacteria Mod A (0) /hpf Urine Mucus Few A (None) /hpf Ur Culture Indicated? yes 02/06/23 02/06/23 02/06/23 Range/Units 12:06 14:44 14:44 WBC (4.5-11.0) K/mcL RBC (4.63-6.08) M/mcL Hgb (13.7-17.5) g/dL Hct (40.1-51.0) % MCV (80.0-100.0) fL MCH (26.0-34.0) pg MCHC (31.0-36.0) g/dL RDW (11.5-14.5) % Plt Count (140-440) K/mcL MPV (8.8-12.5) fL Immature Gran % (Auto) (0.0-0.5) % Neut % (Auto) (38.0-78.0) % Lymph % (Auto) (15.5-49.0) % [place] % (Auto) (1.0-12.0) % Eos % (Auto) (0.0-7.0) % Baso % (Auto) (0.0-2.0) % Lymph # (Auto) (1.50-4.80) K/mcL [place] # (Auto) (0.10-0.90) K/mcL Eos # (Auto) (0.00-0.70) K/mcL Baso # (Auto) (0.00-0.30) K/mcL Immature Gran # (0.00-0.05) K/mcl Absolute Neutrophils (1.80-8.00) K/mcL PT 15.4 H (11.9-14.5) sec INR 1.2 H (0.9-1.1) POC VBG pH (7.32-7.42) POC VBG pCO2 at Temp (41-51) POC VBG pO2 (25-40) POC VBG HCO3 (24-28) POC VBG Total CO2 (25-29) POC Venous O2 Sat (40-70) POC VBG Base Excess (-2-2) VBG Lactic Acid (0.5-2) Sodium 133 Cancelled (133-145) mmol/L Potassium 4.1 Cancelled (3.3-5.1) mmol/L Chloride 100 Cancelled (96-108) mmol/L Carbon Dioxide 22 Cancelled (22-30) mmol/L Anion Gap 11.0 Cancelled (8.0-16.0) BUN 15 Cancelled (6-20) mg/dL Creatinine 0.8 Cancelled (0.7-1.2) mg/dL GFR Calculation 100 Cancelled BUN/Creatinine Ratio Cancelled Glucose 112 H Cancelled (70-105) mg/dL Calcium 8.9 Cancelled (8.6-10.4) mg/dL Total Bilirubin 0.6 Cancelled (0.1-1.0) mg/dL AST 35 Cancelled (<40) U/L ALT 58 H Cancelled (<40) U/L Alkaline Phosphatase 147 H Cancelled (39-117) U/L C-Reactive Protein 18.00 H (0.03-0.80) mg/dL Total Protein 7.5 Cancelled (5.9-8.4) gm/dL Albumin 3.0 L Cancelled (3.2-5.2) gm/dL Globulin 4.5 H Cancelled (2.2-3.7) gm/dL Albumin/Globulin Ratio 0.7 L Cancelled (1.0-2.3) Urine Color Urine Appearance (Clear) Urine pH (5.0-9.0) Ur Specific Plain (1.000-1.035) Urine Protein (Negative) mg/dL Urine Glucose (UA) (Negative) mg/dL Urine Ketones (Negative) mg/dL Urine Occult Blood (Negative) mg/dL Urine Nitrate (Negative) Urine Bilirubin (Negative) mg/dL Urine Urobilinogen mg/dL Ur Leukocyte Esterase (Negative) /uL Urine RBC (0-3) /hpf Urine WBC (0-4) /hpf Ur Squamous Epith Cells (0-4) /hpf Urine Bacteria (0) /hpf Urine Mucus (None) /hpf Ur Culture Indicated? Discharge Plan Patient/Caregiver Discharge Instructions Pt seen by [facility] [facility]/PA only: No Clinical Impression: Abscess of penis Patient Disposition: Xfer As Inpt ([facility]) Discharge Date/Time: 02/06/23 17:00
[2023-02-06 12:54] LABS: Basophils # (Auto) 0.05 K/mcL (0.00-0.30); Basophils % (Auto) 0.3 % (0.0-2.0); Eosinophils # (Auto) 0.12 K/mcL (0.00-0.70); Eosinophils % (Auto) 0.8 % (0.0-7.0); Hematocrit 39.5 % (40.1-51.0); Hemoglobin 13.3 g/dL (13.7-17.5); Lymphocytes # (Auto) 1.55 K/mcL (1.50-4.80); Lymphocytes % (Auto) 10.2 % (15.5-49.0); Mean Cell Volume 82.5 fL (80.0-100.0); Mean Corpuscular HGB Conc 33.7 g/dL (31.0-36.0); Mean Platelet Volume 10.5 fL (8.8-12.5); Monocytes # (Auto) 1.98 K/mcL (0.10-0.90); Platelet Count 613 K/mcL (140-440); RBC 4.79 M/mcL (4.63-6.08); Red Cell Distribution Width 14.1 % (11.5-14.5); WBC 15.2 K/mcL (4.5-11.0)
[2023-02-06 12:56] LABS: Appearance,Urine HAZY (Clear); Bacteria,Urine MOD /hpf (0); Bilirubin,Urine Negative (Negative); Color,Urine YELLOW; Culture Indicated,Urine yes; Glucose,Urine (UA) Negative (Negative); Ketones,Urine Negative (Negative); Leukocyte Esterase,Urine 250 /uL (Negative); Mucus,Urine FEW /hpf; Nitrate,Urine Negative (Negative); Protein,Urine Negative (Negative); Specific Gravity,Urine 1.009 (1.000-1.035); Urine Blood Negative (Negative); Urine RBC 3 /hpf (0-3); Urine Squamous Epithelial Cell 0 /hpf (0-4); Urine WBC 47 /hpf (0-4)
[2023-02-06 13:11] LABS: ALT/SGPT 58 U/L (<40); AST/SGOT 35 U/L (<40); Albumin/Globulin Ratio 0.7 (1.0-2.3); Alkaline Phosphatase 147 U/L (39-117); Bilirubin,Total 0.6 mg/dL (0.1-1.0); Blood Urea Nitrogen 15 mg/dL (6-20); Calcium 8.9 mg/dL (8.6-10.4); Carbon Dioxide 22 mmol/L (22-30); Chloride 100 mmol/L (96-108); Globulin 4.5 gm/dL (2.2-3.7); Glomerular Filtration Rate 100; Glucose 112 mg/dL (70-105)
[2023-02-06] MEDS ORDERED: PIPERACILLIN SODIUM/TAZOBACTAM 4.5 GM in DEXTROSE 5% IN WATER 50 ML IV ONE (13:24)
[2023-02-06] MEDS ORDERED: VANCOMYCIN PER PHARMACY IV ONE (13:24)
[2023-02-06] MEDS ORDERED: CLINDAMYCIN 600 MG/50 ML NS BAG IV ONE (13:24)
[2023-02-06] MEDS ORDERED: CLINDAMYCIN IN 0.9 % SOD CHLOR 600 MG/50 ML BAG IV SCH (13:45)
[2023-02-06] MEDS ORDERED: VANCOMYCIN 1,500 MG in 0.9 % SODIUM CHLORIDE 500 ML IV SCH (14:00)
--- NOTE | 2023-02-06 14:11 | Ultrasound Report ---
History: Swelling and erythema in the penis, recent difficult insertion of a Duff catheter, recent sepsis from UTI FINDINGS: There is a large complex fluid collection in the penis in the corpus spongiosum. This surrounds the Duff catheter. This fluid collection measures 4.2 x 5.6 cm in transverse dimension and 8.6 cm in length. It contains multiple tiny echogenic foci, which did not move. Doppler shows this lesion is avascular and there is low-level blood flow along the periphery. This fluid collection was present on the prior CT done on 02/01/23. At that time the transverse dimension was 2.7 x 2.8 cm. There is thickening of the scrotal wall and hyperemia in the scrotum consistent with cellulitis. The testicles are normal in size and homogeneous. The testicles have normal blood flow and there is no mass or orchitis.. Normal amount of fluid surrounds both testicles. The epididymis is normal bilaterally, without evidence of epididymitis. IMPRESSION: Large complex fluid collection in the penis which has enlarged. This could be hematoma or infection. Dr. Banks was called with the report Interpreted and Authenticated by: Hiren Rosales 02/06/23
--- NOTE | 2023-02-06 14:41 | Urology Consult Note ---
HPI Date of Consult Consult Date: 02/06/23 Requesting physician: Harman Banks Primary Care Provider: JOHN Wilkins Consult Narrative Patient Information: Note initiated : 02/06/23 at 2:41 pm Service Date, if different from initiated Date: [] Patient: Ventura Corral 57 y/o M admitted on for groin problem. Chief Complaint: Ventura is a 57-year-old male who was initially seen in hospital consultation on January 25, 2023. Shortly prior to consultation the patient reportedly had a 24F catheter with a 30 cc balloon placed. the baloon was inflated in the urethra. Blood and no urine was obtained. I was told that an ultrasound was obtained that showed the catheter in the urethra. I cannot find any documentation of this US. Perhaps it was done by the ER themselves and not radiology. After that catheter was removed, there was another reportedly unsuccessful attempt at Duff placement that was unsuccessful although from speaking with the nurse who was involved in the second Duff attempt, this time the balloon was not inflated and was simply removed. I believe it was after this that the CT on the was obtained. I performed bedside cystoscopy at about 1 am on January 25 and was able to place a Duff catheter over a wire with difficulty. there was a large posterior flase passage. The urine I obtained was an redd color, but without jim blood. In further speaking with the patient he denied any recent sexual activity or penile trauma or injury. He reported that he had been feeling ill all week and had increasing difficulty with urination. He has to strain to empty. He felt as if he has a UTI. He then noticed some swelling and curvature of the penis that was new. It was then that he presented to the ER on January 24. On January 25 he was admitted to the Hospitalist service for sepsis presumed to be urosepsis. He remained in the hospital on IV abx although his WBC never returned to normal. On February [address] was obrtained that showed what may be a corpus spong iosum fluid collection measuring 2.7 x 2.8 x 11.3 cm. the corpus cavernosum was within normal limits. This was thought by me to be secondary to the urethral trauma and that it would drain around the Duff and improve with IV abx. He was discharged to home with a WBC of just over 15 on February 02 with oral abx. He reported that he did well and that the penile swelling had resolved until last night when it all of a sudden enlarged again. He noticed erythema and edema of the penis and scrotum and increased discharge around the catheter. He denied an increase in pain. In the ER a penile scrotal US was obtained that was consistent with an enlarging fluid collection that could be hematoma or infection. Chief complaint: Penile/groin abscess versus hematoma after prior traumatic Duff catheteriz Reason for consult: Penile/groin abscess versus hematoma after prior traumatic Duff catheteriz cc:: CC: Review of Systems All systems: reviewed and no additional remarkable complaints except as stated Constitutional Constitutional: Present chills and fever(s) Genitourinary Genitourinary: change in urinary stream, penile discharge and scrotal swelling PFSH PFSH All Active Problems Abscess of penis (Acute) Urethral trauma (Acute) Urethral stricture (Acute) Acute retention of urine (Acute) BRADEN (acute kidney injury) (Acute) Sepsis (Acute) Acute pyelonephritis (Acute) Acute UTI (Acute) Medical History Acute pyelonephritis Social History smoking status: Former smoker MEDS/ALLERGIES Home Medications and Allergies Home Medications Medication Instructions Recorded Confirmed Type Lactobacillus rhamnosus GG 10 1 cap PO QDAY #30 caps 02/02/23 Rx billion cell capsule (Culturelle) amlodipine 10 mg tablet 10 mg PO QDAY #30 tabs 02/02/23 Rx amoxicillin 875 mg-potassium 1 tab PO BID #28 tabs 02/02/23 Rx clavulanate 125 mg tablet Allergies Allergy/AdvReac Type Severity Reaction Status Date / Time No Known Drug Allergies Allergy Unverified 01/25/23 01:43 Physical Examination Vital Signs Vital signs: Temp Pulse Resp BP Pulse Ox O2 Del Method 98.3 F 104 H 18 135/83 98 Room Air 02/06/23 11:11 02/06/23 12:31 02/06/23 11:11 02/06/23 12:31 02/06/23 12:31 02/06/23 11:11 General physical appearance General physical exam: well developed, well nourished and no distress Head Head exam IM: Present atraumatic, normal inspection and normocephalic Neck Neck exam: trachea midline Cardiovascular Cardiovascular exam IM: Present normal rate and rhythm Respiratory Respiratory exam: normal respiratory effort and clear to auscultation Abdomen Abdomen: Present soft and non tender Genitourinary Genitourinary (Male): Present testicles present, testicles non-tender and other (Sigfnificant penile swelling); Absent normal penis with no external lesions Results Labs 02/06/23 12:05 02/06/23 12:06 Labs: Abnormal lab results 02/06/23 02/06/23 02/06/23 Range/Units 11:48 12:04 12:05 WBC 15.2 H (4.5-11.0) K/mcL Hgb 13.3 L (13.7-17.5) g/dL Hct 39.5 L (40.1-51.0) % Plt Count 613 H (140-440) K/mcL Immature Gran % (Auto) 0.7 H (0.0-0.5) % Lymph % (Auto) 10.2 L (15.5-49.0) % [place] % (Auto) 13.0 H (1.0-12.0) % [place] # (Auto) 1.98 H (0.10-0.90) K/mcL Immature Gran # 0.10 H (0.00-0.05) K/mcl Absolute Neutrophils 11.41 H (1.80-8.00) K/mcL POC VBG pH 7.50 H (7.32-7.42) POC VBG pCO2 at Temp 29.7 L (41-51) POC VBG pO2 54 H (25-40) POC VBG HCO3 23.1 L (24-28) POC VBG Total CO2 24.0 L (25-29) POC Venous O2 Sat 91.0 H (40-70) Glucose (70-105) mg/dL ALT (<40) U/L Alkaline Phosphatase (39-117) U/L C-Reactive Protein (0.03-0.80) mg/dL Albumin (3.2-5.2) gm/dL Globulin (2.2-3.7) gm/dL Albumin/Globulin Ratio (1.0-2.3) Urine Appearance Hazy A (Clear) Urine Urobilinogen 2.0 A mg/dL Ur Leukocyte Esterase 250 A (Negative) /uL Urine WBC 47 H (0-4) /hpf Urine Bacteria Mod A (0) /hpf Urine Mucus Few A (None) /hpf 02/06/23 Range/Units 12:06 WBC (4.5-11.0) K/mcL Hgb (13.7-17.5) g/dL Hct (40.1-51.0) % Plt Count (140-440) K/mcL Immature Gran % (Auto) (0.0-0.5) % Lymph % (Auto) (15.5-49.0) % [place] % (Auto) (1.0-12.0) % [place] # (Auto) (0.10-0.90) K/mcL Immature Gran # (0.00-0.05) K/mcl Absolute Neutrophils (1.80-8.00) K/mcL POC VBG pH (7.32-7.42) POC VBG pCO2 at Temp (41-51) POC VBG pO2 (25-40) POC VBG HCO3 (24-28) POC VBG Total CO2 (25-29) POC Venous O2 Sat (40-70) Glucose 112 H (70-105) mg/dL ALT 58 H (<40) U/L Alkaline Phosphatase 147 H (39-117) U/L C-Reactive Protein 18.00 H (0.03-0.80) mg/dL Albumin 3.0 L (3.2-5.2) gm/dL Globulin 4.5 H (2.2-3.7) gm/dL Albumin/Globulin Ratio 0.7 L (1.0-2.3) Urine Appearance (Clear) Urine Urobilinogen mg/dL Ur Leukocyte Esterase (Negative) /uL Urine WBC (0-4) /hpf Urine Bacteria (0) /hpf Urine Mucus (None) /hpf Diabetes panel 02/06/23 Range/Units 12:06 Sodium 133 (133-145) mmol/L Potassium 4.1 (3.3-5.1) mmol/L Chloride 100 (96-108) mmol/L Carbon Dioxide 22 (22-30) mmol/L BUN 15 (6-20) mg/dL Creatinine 0.8 (0.7-1.2) mg/dL Glucose 112 H (70-105) mg/dL Calcium 8.9 (8.6-10.4) mg/dL AST 35 (<40) U/L ALT 58 H (<40) U/L Alkaline Phosphatase 147 H (39-117) U/L Total Protein 7.5 (5.9-8.4) gm/dL Albumin 3.0 L (3.2-5.2) gm/dL Calcium panel 02/06/23 Range/Units 12:06 Calcium 8.9 (8.6-10.4) mg/dL Albumin 3.0 L (3.2-5.2) gm/dL Pituitary panel 02/06/23 Range/Units 12:06 Sodium 133 (133-145) mmol/L Potassium 4.1 (3.3-5.1) mmol/L Chloride 100 (96-108) mmol/L Carbon Dioxide 22 (22-30) mmol/L BUN 15 (6-20) mg/dL Creatinine 0.8 (0.7-1.2) mg/dL Glucose 112 H (70-105) mg/dL Calcium 8.9 (8.6-10.4) mg/dL Adrenal panel 02/06/23 Range/Units 12:06 Sodium 133 (133-145) mmol/L Potassium 4.1 (3.3-5.1) mmol/L Chloride 100 (96-108) mmol/L Carbon Dioxide 22 (22-30) mmol/L BUN 15 (6-20) mg/dL Creatinine 0.8 (0.7-1.2) mg/dL Glucose 112 H (70-105) mg/dL Calcium 8.9 (8.6-10.4) mg/dL Total Bilirubin 0.6 (0.1-1.0) mg/dL AST 35 (<40) U/L ALT 58 H (<40) U/L Alkaline Phosphatase 147 H (39-117) U/L Total Protein 7.5 (5.9-8.4) gm/dL Albumin 3.0 L (3.2-5.2) gm/dL All other labs normal. Imaging CT scan - abdomen: report reviewed and image reviewed CT scan - pelvis: report reviewed and image reviewed A/P Assessment and plan (1) Urethral trauma: Status: Acute (2) Urethral stricture: Status: Acute (3) Sepsis: Status: Acute Qualifiers: Acute renal failure type: unspecified Sepsis acute organ dysfunction status: with acute organ dysfunction Sepsis type: sepsis due to unspecified organism Severe sepsis acute organ dysfunction type: acute renal failure Severe sepsis shock status: with septic shock Qualified Code(s): A41.9 - Sepsis, unspecified organism; R65.21 - Severe sepsis with septic shock; N17.9 - Acute kidney failure, unspecified (4) Abscess of penis: Status: Acute Narrative A/P Narrative: On examination, the patient has swelling and curvature of the penile shaft with some erythema and edema. There is some scrotal edema. The testicles are palpable normal. I obtained a CT with contrast for further evaluation. This was consistent with an enlarging infected hematoma. It could also be a urinoma. We discussed taking him to the OR for cystoscopy, placement of a suprapubic catheter, and aspiration of the fluid collection with possible incision and drainage. We may or may not leave a small bore Duff catheter in place. I explained the procedure to the patient and his . We discussed the urgen nature of the procedure. We discussed risks and benefits. We discussed risks of possible penile damage, erectile issues, urethral stricture and need for further treatment and or surgery. Time Spent With Patient Time: Total time spent is greater than 50% in coordination of care (as documented) at patient's floor/unit and/or counseling patient:
--- NOTE | 2023-02-06 14:56 | Internal Med History&Physical ---
HPI History of Present Illness Patient information: Note initiated : 02/06/23 at 2:49 pm Service Date, if different from initiated Date: [] Patient: Ventura Corral a 57 y/o M admitted on for groin problem. Chief Complaint: [] History of present illness: Mr. Corral is a 57 year old M Presents today for increasingly swollen and painful penis. Patient was recently admitted for sepsis due to pyelonephritis. Patient was also found have a urethral stricture and urinary retention. Urine cultures grew Aerococcus. Patient was discharged on Augmentin. Patient was doing better on discharge although he still had intermittent temperatures of around 100 per spouse. This morning he suddenly became worse stating his penis and scrotum dramatically increased in size and redness. He also Developed penile discharge today. Patient complained of sweats and chills. He was tachycardic and mildly febrile 100.7 in the ED. Urinalysis was consistent with infection. Ultrasound revealed a 4 x 8 cm abscess versus hematoma in the corpus spongiosum. Leukocytosis of 15,000 and elevated CRP at 18. Urologist was consulted who will take the patient for exploration. Broad-spectrum antibiotics started in the ED Review of Systems: Pertinent positives as above. Denies headache/nausea/vomiting/chest or abdominal pain/cough/dyspnea/diarrhea. Remaining 10 point review of system reviewed negative PHYSICAL EXAM General: Alert, Awake, No acute Distress Eyes/N/T: EOMI, no scleral icterus, PERRL, MM Head/Neck: neck supple, full ROM, normocephalic atraumatic CV: RRR, No murmurs, normal s1/s2 Pulm: Clear b/l, no wheezing/rhonchi/rales, no respiratory distress Abd: soft, nontender, +BS x4 : scrotum and penis significantly edematous and erythematous Ext: no clubbing/cyanosis/edema, nontender Neuro: Alert, CN 2-12 grossly intact, no focal deficits, moves all extremities, , sensations intact b/l upper/lower Psychiatric: Skin: warm/dry, normal color PFSH PFSH All Active Problems (Updated 02/06/23 @ 14:26 by Harman Banks MD) Abscess of penis (Acute) Acute pyelonephritis (Acute) Acute retention of urine (Acute) BRADEN (acute kidney injury) (Acute) Sepsis (Acute) Acute UTI (Acute) Urethral stricture (Acute) Urethral trauma (Acute) Medical History (Updated 02/06/23 @ 14:26 by Harman Banks MD) Acute pyelonephritis Social History smoking status: Former smoker MEDS/ALLERGIES Home Medications and Allergies Home Medications Medication Instructions Recorded Confirmed Type Lactobacillus rhamnosus GG 10 1 cap PO QDAY #30 caps 02/02/23 Rx billion cell capsule (Culturelle) amlodipine 10 mg tablet 10 mg PO QDAY #30 tabs 02/02/23 Rx amoxicillin 875 mg-potassium 1 tab PO BID #28 tabs 02/02/23 Rx clavulanate 125 mg tablet Allergies Allergy/AdvReac Type Severity Reaction Status Date / Time No Known Drug Allergies Allergy Unverified 01/25/23 01:43 EXAM Constitutional Vitals: Temp Pulse Resp BP Pulse Ox O2 Del Method 98.3 F 104 H 18 135/83 98 Room Air 02/06/23 11:11 02/06/23 12:31 02/06/23 11:11 02/06/23 12:31 02/06/23 12:31 02/06/23 11:11 DATA Data Completed and Pending Labs: Labs from last 24 hours 02/06/23 02/06/23 02/06/23 14:44 14:44 12:06 WBC RBC Hgb Hct MCV MCH MCHC RDW Plt Count MPV Immature Gran % (Auto) Neut % (Auto) Lymph % (Auto) [place] % (Auto) Eos % (Auto) Baso % (Auto) Lymph # (Auto) [place] # (Auto) Eos # (Auto) Baso # (Auto) Immature Gran # Absolute Neutrophils PT Pending INR Pending POC VBG pH POC VBG pCO2 at Temp POC VBG pO2 POC VBG HCO3 POC VBG Total CO2 POC Venous O2 Sat POC VBG Base Excess VBG Lactic Acid Sodium Pending 133 Potassium Pending 4.1 Chloride Pending 100 Carbon Dioxide Pending 22 Anion Gap Pending 11.0 BUN Pending 15 Creatinine Pending 0.8 GFR Calculation Pending 100 Glucose Pending 112 H Calcium Pending 8.9 Total Bilirubin Pending 0.6 AST Pending 35 ALT Pending 58 H Alkaline Phosphatase Pending 147 H C-Reactive Protein 18.00 H Total Protein Pending 7.5 Albumin Pending 3.0 L Globulin Pending 4.5 H Albumin/Globulin Ratio Pending 0.7 L Urine Color Urine Appearance Urine pH Ur Specific [place] Urine Protein Urine Glucose (UA) Urine Ketones Urine Occult Blood Urine Nitrate Urine Bilirubin Urine Urobilinogen Ur Leukocyte Esterase Urine RBC Urine WBC Ur Squamous Epith Cells Urine Bacteria Urine Mucus Ur Culture Indicated? 02/06/23 02/06/23 02/06/23 12:05 12:04 11:48 WBC 15.2 H RBC 4.79 Hgb 13.3 L Hct 39.5 L MCV 82.5 MCH 27.8 MCHC 33.7 RDW 14.1 Plt Count 613 H MPV 10.5 Immature Gran % (Auto) 0.7 H Neut % (Auto) 75.0 Lymph % (Auto) 10.2 L [place] % (Auto) 13.0 H Eos % (Auto) 0.8 Baso % (Auto) 0.3 Lymph # (Auto) 1.55 [place] # (Auto) 1.98 H Eos # (Auto) 0.12 Baso # (Auto) 0.05 Immature Gran # 0.10 H Absolute Neutrophils 11.41 H PT INR POC VBG pH 7.50 H POC VBG pCO2 at Temp 29.7 L POC VBG pO2 54 H POC VBG HCO3 23.1 L POC VBG Total CO2 24.0 L POC Venous O2 Sat 91.0 H POC VBG Base Excess 0 VBG Lactic Acid 1.4 Sodium Potassium Chloride Carbon Dioxide Anion Gap BUN Creatinine GFR Calculation Glucose Calcium Total Bilirubin AST ALT Alkaline Phosphatase C-Reactive Protein Total Protein Albumin Globulin Albumin/Globulin Ratio Urine Color Yellow Urine Appearance Hazy A Urine pH 6.0 Ur Specific [place] 1.009 Urine Protein Negative Urine Glucose (UA) Negative Urine Ketones Negative Urine Occult Blood Negative Urine Nitrate Negative Urine Bilirubin Negative Urine Urobilinogen 2.0 A Ur Leukocyte Esterase 250 A Urine RBC 3 Urine WBC 47 H Ur Squamous Epith Cells 0 Urine Bacteria Mod A Urine Mucus Few A Ur Culture Indicated? yes A/P Narrative A/P Narrative: A: *Penile abscess: *Sepsis: 2/2 above *HTN: P: -IV antibiotics, pending UC/BC -Urology following pending surgical exploration -Pain control -IVF -Monitor renal function/UOP -Monitor chemistry replace electrolytes as needed -Monitor inflammatory markers -Continue home Norvasc -Home medication reconciliation -PT OT -ppx: Heparin but hold for procedure Time Spent With Patient Time: Total time spent is greater than 50% in coordination of care (as documented) at patient's floor/unit and/or counseling patient: Initial: Total time with patient: 55 - 74 minutes
[2023-02-06 15:08] LABS: INR 1.2 (0.9-1.1); Prothrombin Time 15.4 sec (11.9-14.5)
--- NOTE | 2023-02-06 16:14 | Cat Scan Report ---
History: Painful inflamed penis with large fluid collection in the penis TECHNIQUE: Following injection of intravenous nonionic contrast the patient was imaged during the portal venous phase from above the diaphragm through the symphysis pubis. Delayed excretory phase images of the upper abdomen were obtained. Sagittal and coronal reformats were created. Radiation exposure was limited using dose reduction technology. FINDINGS: The lung bases are clear. The liver is normal in size. There are a few scattered cysts. Spleen is normal in size and homogeneous. The gallbladder and bile ducts are normal. No mass or inflammation are present in the pancreas. The adrenals are normal and symmetric. There are couple simple cysts in the right kidney. There is no renal mass, stone or hydronephrosis or radiographic evidence of pyelonephritis. Both ureters are decompressed and there is normal excretion of contrast into both ureters on the delayed images. There is a Duff catheter within the bladder. The bladder contains a small amount of unopacified urine. There is circumferential thickening of the wall which measures up to 1 cm. There are bladder diverticula on each side. These have not enlarged since prior CT. Duff catheter is well-positioned within the lumen of the bladder. There is a large complex partially loculated fluid collection in the penis which extends from the apex of the prostate to the gland's pain is. This has enlarged since prior CT done on 02/01/23. The prostate appears edematous. The seminal vesicles are normal. No intrapelvic abscess or free fluid are present. There is no adenopathy or hernia. There is diverticulosis, without diverticulitis. There is generalized edema/cellulitis of the scrotum. Testicles are normal in size. IMPRESSION: Enlarging complex fluid collection involving the corpus spongiosum of the penis from the apex of the prostate to the glands. This could be an infected hematoma. Dr. Banks was called with the results Interpreted and Authenticated by: Hiren Rosales 02/06/23
[2023-02-06] MEDS ORDERED: MIDAZOLAM 2 MG/2 ML VIAL ONE (17:09)
[2023-02-06] MEDS ORDERED: DEXAMETHASONE 10 MG/ML VIAL ONE (17:09)
[2023-02-06] MEDS ORDERED: GLYCOPYRROLATE 0.2 MG/ML VIAL IV ONE (17:09)
[2023-02-06] MEDS ORDERED: PROPOFOL 200 MG/20 ML VIAL IV ONE (17:09)
[2023-02-06] MEDS ORDERED: fentaNYL 100 MCG/2 ML VIAL IV ONE (17:09)
[2023-02-06] MEDS ORDERED: KETAMINE 50 MG/ML Syringe (ANEST) IV ONE (17:09)
[2023-02-06] MEDS ORDERED: ONDANSETRON 4 MG/2 ML VIAL ONE (17:09)
[2023-02-06] MEDS ORDERED: HYDROmorphone 1 MG/ML SYRINGE ONE (17:09)
[2023-02-06] MEDS ORDERED: LIDOCAINE HCL/PF 100 MG/5 ML SYRINGE IV ONE (17:09)
[2023-02-06] MEDS ORDERED: HYDROmorphone 0.5 MG/0.5 ML SYRINGE IV PRN (17:57)
[2023-02-06] MEDS ORDERED: METHOCARBAMOL 1,000 MG/10 ML VIAL IV PRN (17:57)
[2023-02-06] MEDS ORDERED: morphine 2 MG/ML VIAL IV PRN (17:57)
[2023-02-06] MEDS ORDERED: fentaNYL 100 MCG/2 ML VIAL IV PRN (17:57)
[2023-02-06] MEDS ORDERED: IPRATROPIUM/ALBUTEROL 3 ML AMPUL.NEB NEB PRN ×2 (17:57→19:56)
[2023-02-06] MEDS ORDERED: MEPERIDINE 25 MG/ML VIAL IV PRN (17:57)
[2023-02-06] MEDS ORDERED: OPIUM/BELLADONNA ALKALOIDS 30 MG SUPP.RECT PR SCH (18:00)
--- NOTE | 2023-02-06 18:20 | Operative Note ---
Brief Operative Note Date of procedure: 02/06/23 Pre-op diagnosis: Penile abscess Post-op diagnosis: same (Same with large pendular urethral defect) Procedure: Cystoscopy, placement of 20 [place] suprapubic catheter, incision and drainage of corpora spongiosum abscess with drain placement. Grafts/Implants: Yes (20 Nigerian suprapubic catheter and quarter-inch urethral Yeimy) Anesthesia: GLMA Findings: Corpus spongiosum abscess extending from the pendulous urethra for the bulbar urethra with urine and pus. 20 Nigerian suprapubic catheter placed. Quarter inch Yiemy placed in the urethral drain to an opening in the proximal urethra Complications: none Surgeon: Juarez [facility] Specialist: Ervin Trevino Estimated blood loss (cc): 20 Specimens Removed/Pathology: other (Cultures sent) Condition: stable Disposition: PACU Operative Note Operative Note: After obtaining informed consent from the patient, he was brought to the operating room was placed upon on the operating table. General anesthesia was provided. He was repositioned in a dorsolithotomy position was prepped and draped in usual sterile fashion. Attention was directed to the patient's Duff catheter. A 0.38 [place] PTFE coated wire was passed through the patient's quinault tip catheter into the bladder. The balloon of the catheter was then deflated and the catheter was removed. A 21 Nigerian cystoscope was then passed per urethra alongside the wire and eventually into the bladder. In the pendulous urethra was a large defect at least 3 cm in diameter with a large posterior false passage. There was significant urethral damage. The cystoscope was passed into the bladder. The bladder was filled. The dome of the bladder was identified. A spot 2 fingerbreadths above the pubic symphysis was identified. A 18-gauge spinal needle was passed into the bladder and the needle was seen to enter the bladder at the dome. The obturator was removed. A 0.35 [place] sensor wire was passed through the needle and the needle was removed. The skin was cut using 11 blade. The wound was dilated using a tonsil. The opening was then sequentially dilated using nephrostomy dilators to 22 Nigerian. I was then able to pass the 20 Nigerian quinault tip catheter over the wire and into the bladder. The catheter was seen to enter the bladder and the balloon was inflated with 10 mL of sterile water. The wire was removed. The catheter was plugged. It was sewn into place using a 2-0 nylon suture. Attention was redirected to the urethra. A large amount of pus was seen to be coming through the urethra. The corporal spongy also abscess/urinoma extended down to the peroneum. With pressure on the peroneum pus was seen to come out of the urethral meatus. The cystoscope was passed per urethra and in the pendular urethra the light was seen. There was a large urethral defect. Using a #15 blade a 1 cm incision was made we cut down to the cystoscope light. A finger was placed in this wound and a large defect was identified with more urine coming from the wound once this opening was made. A tonsil was placed per urethral meatus and out the wound. Quarter inch Yeimy drain was then passed through. The drain was affixed to the penile skin using a 2 oh nylon suture and to the meatus using a 2 oh nylon suture. As much fluid as could be was expr essed from the wounds. The wound now appears to be well drained. The wounds were thoroughly irrigated. The suprapubic catheter was placed to gravity drainage. Fluffs and scrotal support were provided. The patient was then returned to the spine position. He was awake and returned to the recovery room in stable condition.
[2023-02-06] MEDS ORDERED: 0.9 % SODIUM CHLORIDE 1,000 ML IV SCH (19:56)
[2023-02-06] MEDS ORDERED: morphine 4 MG/ML VIAL IV PRN (19:56)
[2023-02-06] MEDS ORDERED: ACETAMINOPHEN 325 MG TABLET PO PRN (19:56)
[2023-02-06] MEDS ORDERED: LABETALOL 5 MG/ML ML IV PRN (19:56)
[2023-02-06] MEDS ORDERED: ONDANSETRON 4 MG/2 ML VIAL IV PRN (19:56)
[2023-02-06] MEDS ORDERED: POTASSIUM CHLORIDE 40 MEQ in DEXTROSE 5% IN WATER 500 ML IV PRN (19:56)
[2023-02-06] MEDS ORDERED: SENNOSIDES 1 TABLET PO PRN (19:56)
[2023-02-06] MEDS ORDERED: POTASSIUM CHLORIDE 20 MEQ TABLET PO PRN ×2 (19:56)
[2023-02-06] MEDS ORDERED: POLYETHYLENE GLYCOL 3350 17 GM PACKET PO PRN (19:56)
[2023-02-06] MEDS ORDERED: MAGNESIUM SULFATE 2 GM/50 ML BAG IV PRN (19:56)
[2023-02-06] MEDS: DOCUSATE SODIUM 100 MG CAPSULE PO SCH (21:36)
[2023-02-06] MEDS: PIPERACILLIN SODIUM/TAZOBACTAM 3.375 GM in DEXTROSE 5% IN WATER 50 ML IV SCH (21:38)
[2023-02-06] MEDS: 0.9 % SODIUM CHLORIDE 10 ML SYRINGE IV SCH (22:07)
[2023-02-07] MEDS: HYDROcodone/APAP 5/325MG TABLET PO PRN ×4 (00:02→23:17)
[2023-02-07] MEDS: 0.9 % SODIUM CHLORIDE 10 ML SYRINGE IV SCH ×5 (00:03→20:43)
[2023-02-07] MEDS: PIPERACILLIN SODIUM/TAZOBACTAM 3.375 GM in DEXTROSE 5% IN WATER 50 ML IV SCH ×4 (03:16→20:42)
[2023-02-07 06:04] LABS: Hemoglobin 12.6 g/dL (13.7-17.5); Mean Cell Volume 83.1 fL (80.0-100.0); Mean Corpuscular HGB Conc 34.1 g/dL (31.0-36.0); Mean Platelet Volume 10.3 fL (8.8-12.5); Platelet Count 623 K/mcL (140-440); RBC 4.45 M/mcL (4.63-6.08); WBC 15.5 K/mcL (4.5-11.0)
[2023-02-07 06:33] LABS: ALT/SGPT 50 U/L (<40); AST/SGOT 24 U/L (<40); Albumin 2.7 gm/dL (3.2-5.2); Albumin/Globulin Ratio 0.7 (1.0-2.3); Alkaline Phosphatase 126 U/L (39-117); Bilirubin,Direct 0.2 mg/dL (<0.3); Bilirubin,Total 0.4 mg/dL (0.1-1.0); Blood Urea Nitrogen 21 mg/dL (6-20); Calcium 8.5 mg/dL (8.6-10.4); Carbon Dioxide 23 mmol/L (22-30); Chloride 103 mmol/L (96-108); Glomerular Filtration Rate 95; Glucose 167 mg/dL (70-105); Lactate Dehydrogenase 141 U/L (135-225); Phosphorous 3.6 mg/dL (2.5-4.5); Triglycerides 80 mg/dL (<150)
[2023-02-07 06:45] LABS: Band Neutrophils % 14 % (0-10); Lymphocytes % 4 % (15-49); Monocytes % (Manual) 5 % (1-12); Platelet Estimate INCREASED (Normal); RBC Morphology NORMAL (Normal); Segmented Neutrophils % 77 % (38-78)
--- NOTE | 2023-02-07 08:25 | Internal Med Progress Note ---
SUBJECTIVE Subjective Patient information: Note initiated : 02/07/23 at 8:22 am Service Date, if different from initiated Date: [] Patient: Ventura Corral a 57 y/o M admitted on 02/06/23 for groin problem- UTI,Sepsis,Penile Abscess. Chief Complaint: [] Interval history: History of present illness: Mr. Corral is a 57 year old M Presents today for increasingly swollen and painful penis. Patient was recently admitted for sepsis due to pyelonephritis. Patient was also found have a urethral stricture and urinary retention. Urine cultures grew Aerococcus. Patient was discharged on Augmentin. Patient was doing better on discharge although he still had intermittent temperatures of around 100 per spouse. This morning he suddenly became worse stating his penis and scrotum dramatically increased in size and redness. He also Developed penile discharge today. Patient complained of sweats and chills. He was tachycardic and mildly febrile 100.7 in the ED. Urinalysis was consistent with infection. Ultrasound revealed a 4 x 8 cm abscess versus hematoma in the corpus spongiosum. Leukocytosis of 15,000 and elevated CRP at 18. Urologist was consulted who will take the patient for exploration. Broad-spectrum antibiotics started in the ED 02/07 Feeling better today. He relates he was quite foggy the other day but mentation much more clear. Persistent leukocytosis today. Afebrile. Pending wound cultures. ID consult. Review of Systems: Pertinent positives as above. Denies headache/nausea/vomiting/chest or abdominal pain/cough/dyspnea/diarrhea. PHYSICAL EXAM General: Alert, Awake, No acute Distress Eyes/N/T: EOMI, no scleral icterus, Head/Neck: neck supple, full ROM, CV: RRR, No murmurs, Pulm: Clear b/l, no wheezing/rhonchi/rales, no respiratory distress Abd: soft, nontender, +BS x4 : dressing intact Ext: no clubbing/cyanosis/edema, nontender Neuro: Alert, no focal deficits, moves all extremities, , sensations intact b/l upper/lower Psychiatric: Skin: warm/dry, normal color Constitutional Vitals: Vital Signs Temp Pulse Resp BP Pulse Ox O2 Del Method O2 Flow Rate 97.8 F 98 H 16 116/78 96 Nasal Cannula 2 02/07/23 02:45 02/07/23 02:45 02/07/23 02:45 02/07/23 02:45 02/07/23 02:45 02/07/23 02:45 02/07/23 02:45 Period Temp Pulse Resp BP Sys/Garcia Pulse Ox O2 Del Method O2 Flow Rate Last 24 Hr 97.2 F-99.4 F 96-115 9-24 112-160/73-103 89-99 Nasal Cannula- Room Air 0-8 Intake and Output 02/06/23 02/07/23 02/07/23 19:59 03:59 11:59 Intake Total 1650 100 480 Output Total 325 1200 Balance 1325 100 -720 Weight 86.183 kg 88.451 kg Intake & Output: Intake & Output 02/06/23 02/07/23 02/07/23 19:59 03:59 11:59 Intake Total 1650 100 480 Output Total 325 1200 Balance 1325 100 -720 Weight 86.183 kg 88.451 kg Intake: IV 550 100 Zosyn 3.375 gm In Dextrose 5% 100 in Water 50 ml @ 100 mls/hr IV Q6H [facility] Rx#:[id number] Zosyn 4.5 gm In Dextrose 5% in 50 Water 50 ml @ 100 mls/hr IV ONCE ONE Rx#:[id number] Vancomycin 1,500 mg In Sodium 500 Chloride 0.9% 500 ml @ 333.3 mls/hr IV Q12H [facility] Rx#: [id number] Oral 480 IV - Manual Only 1100 Output: Urine Catheter Amount 325 1200 Other: Urine Appearance Cloudy Clear Urine Color Bright Yellow Yellow Urine Odor Normal OBJ DATA Labs 02/07/23 05:21 02/07/23 05:21 Labs: Abnormal Lab Results 02/07/23 02/07/23 02/06/23 05:21 05:21 14:44 WBC 15.5 H RBC 4.45 L Hgb 12.6 L Hct 37.0 L Plt Count 623 H Immature Gran % (Auto) Lymph % (Auto) Hand % (Auto) Hand # (Auto) Band Neutrophils % 14 H Lymphocytes % 4 L Immature Gran # Absolute Neutrophils Platelet Estimate Increased A PT 15.4 H INR 1.2 H POC VBG pH POC VBG pCO2 at Temp POC VBG pO2 POC VBG HCO3 POC VBG Total CO2 POC Venous O2 Sat BUN 21 H Glucose 167 H Calcium 8.5 L GGT 103 H ALT 50 H Alkaline Phosphatase 126 H C-Reactive Protein Albumin 2.7 L Globulin 4.0 H Albumin/Globulin Ratio 0.7 L Urine Appearance Urine Urobilinogen Ur Leukocyte Esterase Urine WBC Urine Bacteria Urine Mucus 02/06/23 02/06/23 02/06/23 12:06 12:05 12:04 WBC 15.2 H RBC Hgb 13.3 L Hct 39.5 L Plt Count 613 H Immature Gran % (Auto) 0.7 H Lymph % (Auto) 10.2 L Hand % (Auto) 13.0 H Hand # (Auto) 1.98 H Band Neutrophils % Lymphocytes % Immature Gran # 0.10 H Absolute Neutrophils 11.41 H Platelet Estimate PT INR POC VBG pH POC VBG pCO2 at Temp POC VBG pO2 POC VBG HCO3 POC VBG Total CO2 POC Venous O2 Sat BUN Glucose 112 H Calcium GGT ALT 58 H Alkaline Phosphatase 147 H C-Reactive Protein 18.00 H Albumin 3.0 L Globulin 4.5 H Albumin/Globulin Ratio 0.7 L Urine Appearance Hazy A Urine Urobilinogen 2.0 A Ur Leukocyte Esterase 250 A Urine WBC 47 H Urine Bacteria Mod A Urine Mucus Few A 02/06/23 11:48 WBC RBC Hgb Hct Plt Count Immature Gran % (Auto) Lymph % (Auto) Hand % (Auto) Hand # (Auto) Band Neutrophils % Lymphocytes % Immature Gran # Absolute Neutrophils Platelet Estimate PT INR POC VBG pH 7.50 H POC VBG pCO2 at Temp 29.7 L POC VBG pO2 54 H POC VBG HCO3 23.1 L POC VBG Total CO2 24.0 L POC Venous O2 Sat 91.0 H BUN Glucose Calcium GGT ALT Alkaline Phosphatase C-Reactive Protein Albumin Globulin Albumin/Globulin Ratio Urine Appearance Urine Urobilinogen Ur Leukocyte Esterase Urine WBC Urine Bacteria Urine Mucus Meds: Medications Acetaminophen (Acetaminophen 325 Mg Tablet) 650 mg PO Q6HP PRN; Protocol PRN Reason: Per Pain Protocol/Fever > 101 Hydrocodone Bitart/Acetaminophen (Hydrocodone/Apap 5/325mg Tablet) 1 tab PO Q4HP PRN PRN Reason: PAIN LEVEL 3-6 Last Admin: 02/07/23 00:02 Dose: 1 tab Albuterol/Ipratropium (Ipratropium/Albuterol 3 Ml Ampul.Neb) 3 ml NEB Q4HP PRN PRN Reason: Shortness Of Breath Docusate Sodium (Docusate Sodium 100 Mg Capsule) 100 mg PO BID [facility] Last Admin: 02/06/23 21:36 Dose: 100 mg Heparin Sodium (Porcine) (Heparin 5,000 Unit/Ml Vial) 5,000 unit SQ Q12 [facility] Potassium Chloride 40 meq/ (Dextrose) 520 mls @ 130 mls/hr IV UD PRN PRN Reason: Potassium < 3 Magnesium Sulfate (Magnesium Sulfate) 2 gm in 50 mls @ 50 mls/hr IV UD PRN PRN Reason: Magnesium </= 1.6 Piperacillin Sod/Tazobactam (Sod 3.375 gm/ Dextrose) 50 mls @ 100 mls/hr IV Q6H [facility]; Protocol Last Infusion: 02/07/23 03:50 Dose: Infused Labetalol HCl (Labetalol 5 Mg/Ml Ml) 0 mg IV Q2HP PRN PRN Reason: Hypertension Morphine Sulfate (Morphine 4 Mg/Ml Vial) 0 mg IV Q3HP PRN PRN Reason: Pain Ondansetron HCl (Ondansetron 4 Mg/2 Ml Vial) 4 mg IV Q4HP PRN PRN Reason: Nausea And Vomiting Polyethylene Glycol (Polyethylene Glycol 3350 17 Gm Packet) 17 gm PO DAILYP PRN PRN Reason: Constipation Potassium Chloride (Potassium Chloride 20 Meq Tablet) 40 meq PO UD PRN PRN Reason: Potssium is 3-3.5 Potassium Chloride (Potassium Chloride 20 Meq Tablet) 40 meq PO UD PRN PRN Reason: Potassium < 3 Senna (Sennosides 1 Tablet) 2 tab PO DAILYP PRN PRN Reason: Constipation Sodium Chloride (0.9 % Sodium Chloride 10 Ml Syringe) 10 ml IV Q8 [facility] Last Admin: 02/07/23 05:34 Dose: Not Given A/P Narrative A/P Narrative: A: *Penile abscess: s/p I&D with drain placement and suprapubic cath (02/06) *Sepsis: 2/2 above -leukocytosis *HTN: P: -Urology following -on zosyn, pending UC/BC -ID consult -Pain control -Monitor renal function/UOP -Monitor chemistry replace electrolytes as needed -Monitor inflammatory markers -Continue home Norvasc at reduced dose for now -PT OT -ppx: Heparin Time Spent With Patient Time: Total time spent is greater than 50% in coordination of care (as documented) at patient's floor/unit and/or counseling patient: Subsequent: Total time with patient: 35 - 49 minutes QUALITY VTE Deep Vein Thrombosis/Pulmonary Embolism Present on Admission: No
[2023-02-07] MEDS: amLODIPine 10 MG TABLET PO SCH (09:43)
[2023-02-07] MEDS: DOCUSATE SODIUM 100 MG CAPSULE PO SCH ×2 (09:44→20:42)
[2023-02-07] MEDS: LACTOBACILLUS 1 CAPSULE PO SCH (09:44)
--- NOTE | 2023-02-07 10:07 | Infectious Disease Consult ---
Telemedicine Intake Consent for assessment and treatment to occur via virtual technology obtained from: Patient Location of Provider: Home Patient location: Med/Surg Unit HPI Date of Consult Consult Date: 02/07/23 Primary Care Provider: JOHN Wilkins Consult Narrative Patient Information: Note initiated : 02/07/23 at 10:05 am Service Date, if different from initiated Date: [] Patient: Ventrua Corral 57 y/o M admitted on 02/06/23 for groin problem- UTI,Sepsis,Penile Abscess. 57-year-old male known to me from recent admission readmitted with penile and scrotal infection. He initially presented on 01/25 with urethral obstruction. In the ED, attempt to place a Duff catheter failed and urology had to place a Duff catheter under cystoscopy. Urethral defect was found. Urine culture was positive for Enterococcus. Blood cultures was negative. Patient continued to have low-grade fever along with leukocytosis. Repeat CT showed possible penile fluid collection external to the urethra. However, urology felt that this can be follow-up as an outpatient. Patient did slowly improve antibiotic was changed to Augmentin. After discharge, patient continues to have low-grade fever and no worsening of penile or scrotal swelling. Yesterday, patient began to have fever and increasing swelling and return to the ER. He was found to have enlarging fluid collection on ultrasound and underwent exploration by urology. Intraoperative finding was urethral abscess. He had suprapubic ca theter and penile and scrotal drains placed. he is feeling much better today. Reason for consult: Penile infection cc:: CC: Ritesh Henriquez [facility] [place] All Active Problems Acute retention of urine (Acute) BRADEN (acute kidney injury) (Acute) Sepsis (Acute) Acute pyelonephritis (Acute) Acute UTI (Acute) Urethral stricture (Acute) Urethral trauma (Acute) Abscess of penis (Acute) Medical History Acute pyelonephritis Social History smoking status: Never smoker MEDS/ALLERGIES Home Medications and Allergies Home Medications Medication Instructions Recorded Confirmed Type Lactobacillus rhamnosus GG 10 1 cap PO QDAY #30 caps 02/02/23 02/07/23 Rx billion cell capsule (Culturelle) amlodipine 10 mg tablet 10 mg PO QDAY #30 tabs 02/02/23 02/06/23 Rx amoxicillin 875 mg-potassium 1 tab PO BID #28 tabs 02/02/23 02/06/23 Rx clavulanate 125 mg tablet Allergies Allergy/AdvReac Type Severity Reaction Status Date / Time No Known Drug Allergies Allergy Unverified 01/25/23 01:43 Physical Examination Vital Signs Vital signs: Temp Pulse Resp BP Pulse Ox O2 Del Method O2 Flow Rate 97.8 F 98 H 16 116/78 96 Nasal Cannula 2 02/07/23 02:45 02/07/23 02:45 02/07/23 02:45 02/07/23 02:45 02/07/23 02:45 02/07/23 02:45 02/07/23 02:45 Constitutional General appearance: no acute distress and alert Gastrointestinal Gastrointestinal: other (SP catheter in place. Penile and scrotal swelling improved. Drain in place. serosanguineous drainage on dressings) Results Laboratory Findings 02/07/23 05:21 02/07/23 05:21 ABG, PT/INR, D-dimer: PT/INR, D-dimer PT 15.4 sec (11.9-14.5) H 02/06/23 14:44 INR 1.2 (0.9-1.1) H 02/06/23 14:44 Abnormal lab findings: Abnormal Labs 02/06/23 02/06/23 02/06/23 11:48 12:04 12:05 WBC 15.2 H RBC Hgb 13.3 L Hct 39.5 L Plt Count 613 H Immature Gran % (Auto) 0.7 H Lymph % (Auto) 10.2 L Price % (Auto) 13.0 H Price # (Auto) 1.98 H Band Neutrophils % Lymphocytes % Immature Gran # 0.10 H Absolute Neutrophils 11.41 H Platelet Estimate PT INR POC VBG pH 7.50 H POC VBG pCO2 at Temp 29.7 L POC VBG pO2 54 H POC VBG HCO3 23.1 L POC VBG Total CO2 24.0 L POC Venous O2 Sat 91.0 H BUN Glucose Calcium GGT ALT Alkaline Phosphatase C-Reactive Protein Albumin Globulin Albumin/Globulin Ratio Urine Appearance Hazy A Urine Urobilinogen 2.0 A Ur Leukocyte Esterase 250 A Urine WBC 47 H Urine Bacteria Mod A Urine Mucus Few A 02/06/23 02/06/23 02/07/23 12:06 14:44 05:21 WBC 15.5 H RBC 4.45 L Hgb 12.6 L Hct 37.0 L Plt Count 623 H Immature Gran % (Auto) Lymph % (Auto) Price % (Auto) Price # (Auto) Band Neutrophils % 14 H Lymphocytes % 4 L Immature Gran # Absolute Neutrophils Platelet Estimate Increased A PT 15.4 H INR 1.2 H POC VBG pH POC VBG pCO2 at Temp POC VBG pO2 POC VBG HCO3 POC VBG Total CO2 POC Venous O2 Sat BUN Glucose 112 H Calcium GGT ALT 58 H Alkaline Phosphatase 147 H C-Reactive Protein 18.00 H Albumin 3.0 L Globulin 4.5 H Albumin/Globulin Ratio 0.7 L Urine Appearance Urine Urobilinogen Ur Leukocyte Esterase Urine WBC Urine Bacteria Urine Mucus 02/07/23 05:21 WBC RBC Hgb Hct Plt Count Immature Gran % (Auto) Lymph % (Auto) Price % (Auto) Price # (Auto) Band Neutrophils % Lymphocytes % Immature Gran # Absolute Neutrophils Platelet Estimate PT INR POC VBG pH POC VBG pCO2 at Temp POC VBG pO2 POC VBG HCO3 POC VBG Total CO2 POC Venous O2 Sat BUN 21 H Glucose 167 H Calcium 8.5 L GGT 103 H ALT 50 H Alkaline Phosphatase 126 H C-Reactive Protein Albumin 2.7 L Globulin 4.0 H Albumin/Globulin Ratio 0.7 L Urine Appearance Urine Urobilinogen Ur Leukocyte Esterase Urine WBC Urine Bacteria Urine Mucus Microbiology: Microbiology 02/06/23 14:43 Nose MRSA (PCR) - Final 02/06/23 12:03 Urine - Duff Urine Culture - Final A/P Sepsis Sepsis Identified: No Narrative A/P Narrative: 57-year-old with urethral stricture status post traumatic injury with abscess development. Previous cultures positive aerococcus. Suspect failure is not due to antibiotic but anatomical. Continue with Zosyn pending culture result. ID will continue to follow. Discussed with patient and his . Answered all the questions Time Spent With Patient Time: Total time spent is greater than 50% in coordination of care (as documented) at patient's floor/unit and/or counseling patient:
--- NOTE | 2023-02-07 10:26 | Urology Progress Note ---
SUBJECTIVE Subjective Patient information: Note initiated : 02/07/23 at 10:24 am Service Date, if different from initiated Date: [] Patient: Ventura Corral 57 y/o M admitted on 02/06/23 for groin problem- UTI,Sepsis,Penile Abscess. Chief Complaint: [Penile abscess] Principal diagnosis: Penile abscess Interval history: Ventura is a 57-year-old male who is postoperative day #1 status post cystoscopy, placement of a suprapubic catheter, and incision and drainage with creation of a urethrocutaneous fistula secondary to urethral disruption. This morning he feels better. He has not had fevers overnight. His white count remains the same. Constitutional Vitals: Vital Signs Temp Pulse Resp BP Pulse Ox O2 Del Method O2 Flow Rate 97.8 F 98 H 16 116/78 96 Nasal Cannula 2 02/07/23 02:45 02/07/23 02:45 02/07/23 02:45 02/07/23 02:45 02/07/23 02:45 02/07/23 02:45 02/07/23 02:45 Period Temp Pulse Resp BP Sys/Garcia Pulse Ox O2 Del Method O2 Flow Rate Last 24 Hr 97.2 F-99.4 F 96-115 9-24 112-160/73-103 89-99 Nasal Cannula- Room Air 0-8 Intake and Output 02/06/23 02/07/23 02/07/23 19:59 03:59 11:59 Intake Total 1650 100 480 Output Total 325 1200 Balance 1325 100 -720 Weight 86.183 kg 88.451 kg Intake & Output: Intake & Output 02/06/23 02/07/23 02/07/23 19:59 03:59 11:59 Intake Total 1650 100 480 Output Total 325 1200 Balance 1325 100 -720 Weight 86.183 kg 88.451 kg Intake: IV 550 100 Zosyn 3.375 gm In Dextrose 5% 100 in Water 50 ml @ 100 mls/hr IV Q6H [facility] Rx#:[id number] Zosyn 4.5 gm In Dextrose 5% in 50 Water 50 ml @ 100 mls/hr IV ONCE ONE Rx#:[id number] Vancomycin 1,500 mg In Sodium 500 Chloride 0.9% 500 ml @ 333.3 mls/hr IV Q12H [facility] Rx#: [id number] Oral 480 IV - Manual Only 1100 Output: Urine Catheter Amount 325 1200 Other: Urine Appearance Cloudy Clear Urine Color Bright Yellow Yellow Urine Odor Normal General appearance: average body habitus and no acute distress Additional comments: Decreased swelling and erythema of the scrotum. Drain in place draining well. A/P Assessment and plan (1) Abscess of penis: Status: Acute (2) Urethral trauma: Status: Acute (3) Urethral stricture: Status: Acute Narrative A/P Narrative: Ventura is doing much better today postoperative day #1 status post drainage of the penile/corpus spongiosum abscess. There is a [place] drain in the urethral meatus coming out of a urethrocutaneous opening that we made. The patient also now has a suprapubic catheter. We will continue broad-spectrum antibiotics. I will continue to follow him. He understands he will likely need urethral reconstruction surgery at some point. Time Spent With Patient Time: Total time spent is greater than 50% in coordination of care (as documented) at patient's floor/unit and/or counseling patient:
[2023-02-08] MEDS: PIPERACILLIN SODIUM/TAZOBACTAM 3.375 GM in DEXTROSE 5% IN WATER 50 ML IV SCH ×4 (03:58→20:52)
[2023-02-08] MEDS: HYDROcodone/APAP 5/325MG TABLET PO PRN ×3 (04:09→21:36)
[2023-02-08] MEDS: 0.9 % SODIUM CHLORIDE 10 ML SYRINGE IV SCH ×3 (04:10→20:52)
[2023-02-08 06:30] LABS: Blood Urea Nitrogen 27 mg/dL (6-20); Calcium 8.4 mg/dL (8.6-10.4); Carbon Dioxide 23 mmol/L (22-30); Chloride 106 mmol/L (96-108); Glomerular Filtration Rate 100; Glucose 97 mg/dL (70-105)
[2023-02-08 06:37] LABS: Basophils # (Auto) 0.04 K/mcL (0.00-0.30); Basophils % (Auto) 0.4 % (0.0-2.0); Eosinophils # (Auto) 0.08 K/mcL (0.00-0.70); Eosinophils % (Auto) 0.8 % (0.0-7.0); Hematocrit 35.3 % (40.1-51.0); Hemoglobin 11.9 g/dL (13.7-17.5); Lymphocytes # (Auto) 2.44 K/mcL (1.50-4.80); Lymphocytes % (Auto) 24.5 % (15.5-49.0); Mean Cell Volume 83.5 fL (80.0-100.0); Mean Corpuscular HGB Conc 33.7 g/dL (31.0-36.0); Mean Platelet Volume 9.9 fL (8.8-12.5); Monocytes # (Auto) 0.96 K/mcL (0.10-0.90); Monocytes % (Auto) 9.7 % (1.0-12.0); Neutrophils % (Auto) 63.9 % (38.0-78.0); Platelet Count 699 K/mcL (140-440); RBC 4.23 M/mcL (4.63-6.08); Red Cell Distribution Width 14.1 % (11.5-14.5); WBC 9.9 K/mcL (4.5-11.0)
--- NOTE | 2023-02-08 07:55 | Urology Progress Note ---
SUBJECTIVE Subjective Patient information: Note initiated : 02/08/23 at 7:52 am Service Date, if different from initiated Date: [] Patient: Ventura Corral 57 y/o M admitted on 02/06/23 for groin problem- UTI,Sepsis,Penile Abscess. Chief Complaint: [Penile abscess and urethral disruption] Principal diagnosis: Penile abscess Interval history: Ventura is postoperative day #2 status post cystoscopy, placement of suprapubic catheter, and drainage of penile abscess. He is doing much better. He is ambulating and tolerating a diet. He reports he has not had a bowel movement in 3 days. Constitutional Vitals: Vital Signs Temp Pulse Resp BP Pulse Ox O2 Del Method O2 Flow Rate 98.4 F 88 16 137/92 94 Room Air 2 02/08/23 04:00 02/08/23 04:00 02/08/23 04:00 02/08/23 04:00 02/08/23 04:00 02/08/23 04:00 02/07/23 02:45 Period Temp Pulse Resp BP Sys/Garcia Pulse Ox O2 Del Method O2 Flow Rate Last 24 Hr 98.4 F-98.7 F 71-94 16-18 131-138/78-92 93-98 Room Air-Room Air Intake and Output 02/07/23 02/08/23 02/08/23 19:59 03:59 11:59 Intake Total 854 42 0615 Output Total 750 1125 Balance -300 50 225 Weight 89.131 kg Intake & Output: Intake & Output 02/07/23 02/08/23 02/08/23 19:59 03:59 11:59 Intake Total 920 58 0197 Output Total 750 1125 Balance -300 50 225 Weight 89.131 kg Intake: IV 50 50 50 Zosyn 3.375 gm In Dextrose 5% 50 50 50 in Water 50 ml @ 100 mls/hr IV Q6H [facility] Rx#:[id number] Oral 400 1300 Output: Urine Catheter Amount 750 1125 Other: Meal Dinner Percent of Meal Consumed 100% Urine Color Dark Yellow General appearance: average body habitus, cooperative and no acute distress External exam: Present erythema and swelling Additional comments: There continues to be erythema and edema however is significantly decreased from previous. There is no tenderness to palpation. The drain remains in place. A/P Assessment and plan (1) Abscess of penis: Status: Acute (2) Urethral trauma: Status: Acute (3) Urethral stricture: Status: Acute Narrative A/P Narrative: Ventura continues to do well. He remains on a broad-spectrum antibiotic and today is the first day that his white blood cell count is within normal limits in approximately 3 weeks. He is ambulating and tolerating diet. He has not had a bowel movement in almost 3 days. I feel that he needs to remain in the hospital least a couple more days on IV antibiotics. We will continue to follow the scrotum closely. He should continue to ambulate. Time Spent With Patient Time: Total time spent is greater than 50% in coordination of care (as documented) at patient's floor/unit and/or counseling patient:
--- NOTE | 2023-02-08 07:56 | Internal Med Progress Note ---
SUBJECTIVE Subjective Patient information: Note initiated : 02/08/23 at 7:55 am Service Date, if different from initiated Date: [] Patient: Ventura Corral a 57 y/o M admitted on 02/06/23 for groin problem- UTI,Sepsis,Penile Abscess. Chief Complaint: [] Principal diagnosis: Penile abscess Interval history: History of present illness: Mr. Corral is a 57 year old M Presents today for increasingly swollen and painful penis. Patient was recently admitted for sepsis due to pyelonephritis. Patient was also found have a urethral stricture and urinary retention. Urine cultures grew Aerococcus. Patient was discharged on Augmentin. Patient was doing better on discharge although he still had intermittent temperatures of around 100 per spouse. This morning he suddenly became worse stating his penis and scrotum dramatically increased in size and redness. He also Developed penile discharge today. Patient complained of sweats and chills. He was tachycardic and mildly febrile 100.7 in the ED. Urinalysis was consist ent with infection. Ultrasound revealed a 4 x 8 cm abscess versus hematoma in the corpus spongiosum. Leukocytosis of 15,000 and elevated CRP at 18. Urologist was consulted who will take the patient for exploration. Broad-spectrum antibiotics started in the ED 02/07 Feeling better today. He relates he was quite foggy the other day but mentation much more clear. Persistent leukocytosis today. Afebrile. Pending wound cultures. ID consult. 02/08 Patient feeling better. Like leukocytosis finally resolved. Continue IV antibiotics. Pending surgical cultures. ID following. Review of Systems: Pertinent positives as above. Denies headache/nausea/vomiting/chest or abdominal pain/cough/dyspnea/diarrhea. PHYSICAL EXAM General: Alert, Awake, No acute Distress Eyes/N/T: EOMI, no scleral icterus, Head/Neck: neck supple, full ROM, CV: RRR, No murmurs, Pulm: Clear b/l, no wheezing/rhonchi/rales, no respiratory distress Abd: soft, nontender, +BS x4 : dressing intact Ext: no clubbing/cyanosis/edema, nontender Neuro: Alert, no focal deficits, moves all extremities, , sensations intact b/l upper/lower Psychiatric: Skin: warm/dry, normal color Constitutional Vitals: Vital Signs Temp Pulse Resp BP Pulse Ox O2 Del Method O2 Flow Rate 98.4 F 88 16 137/92 94 Room Air 2 02/08/23 04:00 02/08/23 04:00 02/08/23 04:00 02/08/23 04:00 02/08/23 04:00 02/08/23 04:00 02/07/23 02:45 Period Temp Pulse Resp BP Sys/Garcia Pulse Ox O2 Del Method O2 Flow Rate Last 24 Hr 98.4 F-98.7 F 71-94 16-18 131-138/78-92 93-98 Room Air-Room Air Intake and Output 02/07/23 02/08/23 02/08/23 19:59 03:59 11:59 Intake Total 460 37 0997 Output Total 750 1125 Balance -300 50 225 Weight 89.131 kg Intake & Output: Intake & Output 02/07/23 02/08/23 02/08/23 19:59 03:59 11:59 Intake Total 045 42 3510 Output Total 750 1125 Balance -300 50 225 Weight 89.131 kg Intake: IV 50 50 50 Zosyn 3.375 gm In Dextrose 5% 50 50 50 in Water 50 ml @ 100 mls/hr IV Q6H [facility] Rx#:[id number] Oral 400 1300 Output: Urine Catheter Amount 750 1125 Other: Meal Dinner Percent of Meal Consumed 100% Urine Color Dark Yellow OBJ DATA Labs 02/08/23 05:01 02/08/23 05:01 Labs: Abnormal Lab Results 02/08/23 02/08/23 02/07/23 05:01 05:01 05:21 WBC RBC 4.23 L Hgb 11.9 L Hct 35.3 L Plt Count 699 H Immature Gran % (Auto) 0.7 H Lymph % (Auto) [place] % (Auto) [place] # (Auto) 0.96 H Band Neutrophils % Lymphocytes % Immature Gran # 0.07 H Absolute Neutrophils Platelet Estimate PT INR POC VBG pH POC VBG pCO2 at Temp POC VBG pO2 POC VBG HCO3 POC VBG Total CO2 POC Venous O2 Sat BUN 27 H 21 H Glucose 167 H Calcium 8.4 L 8.5 L GGT 103 H ALT 50 H Alkaline Phosphatase 126 H C-Reactive Protein Albumin 2.7 L Globulin 4.0 H Albumin/Globulin Ratio 0.7 L Urine Appearance Urine Urobilinogen Ur Leukocyte Esterase Urine WBC Urine Bacteria Urine Mucus 02/07/23 02/06/23 02/06/23 05:21 14:44 12:06 WBC 15.5 H RBC 4.45 L Hgb 12.6 L Hct 37.0 L Plt Count 623 H Immature Gran % (Auto) Lymph % (Auto) [place] % (Auto) [place] # (Auto) Band Neutrophils % 14 H Lymphocytes % 4 L Immature Gran # Absolute Neutrophils Platelet Estimate Increased A PT 15.4 H INR 1.2 H POC VBG pH POC VBG pCO2 at Temp POC VBG pO2 POC VBG HCO3 POC VBG Total CO2 POC Venous O2 Sat BUN Glucose 112 H Calcium GGT ALT 58 H Alkaline Phosphatase 147 H C-Reactive Protein 18.00 H Albumin 3.0 L Globulin 4.5 H Albumin/Globulin Ratio 0.7 L Urine Appearance Urine Urobilinogen Ur Leukocyte Esterase Urine WBC Urine Bacteria Urine Mucus 02/06/23 02/06/23 02/06/23 12:05 12:04 11:48 WBC 15.2 H RBC Hgb 13.3 L Hct 39.5 L Plt Count 613 H Immature Gran % (Auto) 0.7 H Lymph % (Auto) 10.2 L [place] % (Auto) 13.0 H [place] # (Auto) 1.98 H Band Neutrophils % Lymphocytes % Immature Gran # 0.10 H Absolute Neutrophils 11.41 H Platelet Estimate PT INR POC VBG pH 7.50 H POC VBG pCO2 at Temp 29.7 L POC VBG pO2 54 H POC VBG HCO3 23.1 L POC VBG Total CO2 24.0 L POC Venous O2 Sat 91.0 H BUN Glucose Calcium GGT ALT Alkaline Phosphatase C-Reactive Protein Albumin Globulin Albumin/Globulin Ratio Urine Appearance Hazy A Urine Urobilinogen 2.0 A Ur Leukocyte Esterase 250 A Urine WBC 47 H Urine Bacteria Mod A Urine Mucus Few A Meds: Medications Acetaminophen (Acetaminophen 325 Mg Tablet) 650 mg PO Q6HP PRN; Protocol PRN Reason: Per Pain Protocol/Fever > 101 Hydrocodone Bitart/Acetaminophen (Hydrocodone/Apap 5/325mg Tablet) 1 tab PO Q4HP PRN PRN Reason: PAIN LEVEL 3-6 Last Admin: 02/08/23 04:09 Dose: 1 tab Albuterol/Ipratropium (Ipratropium/Albuterol 3 Ml Ampul.Neb) 3 ml NEB Q4HP PRN PRN Reason: Shortness Of Breath Amlodipine Besylate (Amlodipine 10 Mg Tablet) 5 mg PO QDAY [facility] Last Admin: 02/07/23 09:43 Dose: 5 mg Docusate Sodium (Docusate Sodium 100 Mg Capsule) 100 mg PO BID [facility] Last Admin: 02/07/23 20:42 Dose: 100 mg Heparin Sodium (Porcine) (Heparin 5,000 Unit/Ml Vial) 5,000 unit SQ Q12 [facility] Potassium Chloride 40 meq/ (Dextrose) 520 mls @ 130 mls/hr IV UD PRN PRN Reason: Potassium < 3 Magnesium Sulfate (Magnesium Sulfate) 2 gm in 50 mls @ 50 mls/hr IV UD PRN PRN Reason: Magnesium </= 1.6 Piperacillin Sod/Tazobactam (Sod 3.375 gm/ Dextrose) 50 mls @ 100 mls/hr IV Q6H [facility]; Protocol Last Infusion: 02/08/23 05:13 Dose: Infused Labetalol HCl (Labetalol 5 Mg/Ml Ml) 0 mg IV Q2HP PRN PRN Reason: Hypertension Lactobacillus Rhamnosus (Lactobacillus 1 Capsule) 1 cap PO QDAY [facility] Last Admin: 02/07/23 09:44 Dose: 1 cap Morphine Sulfate (Morphine 4 Mg/Ml Vial) 0 mg IV Q3HP PRN PRN Reason: Pain Ondansetron HCl (Ondansetron 4 Mg/2 Ml Vial) 4 mg IV Q4HP PRN PRN Reason: Nausea And Vomiting Polyethylene Glycol (Polyethylene Glycol 3350 17 Gm Packet) 17 gm PO DAILYP PRN PRN Reason: Constipation Potassium Chloride (Potassium Chloride 20 Meq Tablet) 40 meq PO UD PRN PRN Reason: Potssium is 3-3.5 Potassium Chloride (Potassium Chloride 20 Meq Tablet) 40 meq PO UD PRN PRN Reason: Potassium < 3 Senna (Sennosides 1 Tablet) 2 tab PO DAILYP PRN PRN Reason: Constipation Sodium Chloride (0.9 % Sodium Chloride 10 Ml Syringe) 10 ml IV Q8 [facility] Last Admin: 02/08/23 04:10 Dose: 10 ml A/P Narrative A/P Narrative: A: *Penile abscess: s/p I&D with drain placement and suprapubic cath (02/06) *Sepsis: 2/2 above -leukocytosis resolved *HTN: P: -Urology following -on zosyn, pending UC/BC -ID consult -Pain control -Monitor renal function/UOP -Monitor chemistry replace electrolytes as needed -Monitor inflammatory markers -Continue home Norvasc at reduced dose, increase as needed -PT OT -ppx: Heparin Time Spent With Patient Time: Total time spent is greater than 50% in coordination of care (as documented) at patient's floor/unit and/or counseling patient: Subsequent: Total time with patient: 35 - 49 minutes QUALITY VTE Deep Vein Thrombosis/Pulmonary Embolism Present on Admission: No
[2023-02-08] MEDS: amLODIPine 10 MG TABLET PO SCH (09:18)
[2023-02-08] MEDS: LACTOBACILLUS 1 CAPSULE PO SCH (09:18)
[2023-02-08] MEDS: DOCUSATE SODIUM 100 MG CAPSULE PO SCH ×2 (09:18→20:52)
[2023-02-08] MEDS ORDERED: MAGNESIUM HYDROXIDE 30 ML ORAL.SUSP PO PRN (15:33)
--- NOTE | 2023-02-08 16:40 | Infectious Disease Prog Note ---
Telemedicine Intake Start Time: 17:00 End Time: 17:30 Consent for assessment and treatment to occur via virtual technology obtained from: Patient Location of Provider: Home Patient location: Med/Surg Unit Any recent travel (within the last 21 days)?: No SUBJECTIVE Subjective Patient information: Note initiated : 02/08/23 at 4:33 pm Service Date, if different from initiated Date: [] Patient: Ventura Corral 57 y/o M admitted on 02/06/23 for groin problem- UTI,Sepsis,Penile Abscess. Chief Complaint: groin pain Principal diagnosis: Penile abscess Interval history: Patient feels much better today. no fevers or chills everyday improving slightly had dressing changed today Pertinent ROS: Per HPI No nausea, vomiting. Passed bowel movement today No cough, SOB, abd pain Constitutional Vitals: Vital Signs Temp Pulse Resp BP Pulse Ox O2 Del Method O2 Flow Rate 98.4 F 91 H 15 144/92 97 Room Air 2 02/08/23 08:00 02/08/23 12:00 02/08/23 12:00 02/08/23 12:00 02/08/23 12:00 02/08/23 12:00 02/07/23 02:45 Period Temp Pulse Resp BP Sys/Garcia Pulse Ox O2 Del Method O2 Flow Rate Last 24 Hr 98.4 F-98.7 F 88-94 15-16 131-159/84-95 93-97 Room Air-Room Air Intake and Output 02/08/23 02/08/23 02/08/23 03:59 11:59 19:59 Intake Total 50 1400 50 Output Total 1825 700 Balance 50 -425 -650 Weight 89.131 kg Patient Weight 02/09/23 03:59 Weight 89.131 kg Intake & Output: Intake & Output 02/08/23 02/08/23 02/08/23 03:59 11:59 19:59 Intake Total 50 1400 50 Output Total 1825 700 Balance 50 -425 -650 Weight 89.131 kg Intake: IV 50 100 50 Zosyn 3.375 gm In Dextrose 5% 50 100 50 in Water 50 ml @ 100 mls/hr IV Q6H [facility] Rx#:[id number] Oral 1300 Output: Drainage 25 penis 25 Urine Catheter Amount 1800 700 Suprapubic 675 Other: Meal Lunch Percent of Meal Consumed 75% Feeding Ability Independent Urine Appearance Clear Suprapubic Clear Sediment Urine Color Yellow Suprapubic Yellow Urine Odor Strong Suprapubic Strong Stool Size Large Stool Color Brown Yellow Stool Consistency Formed General appearance: no no acute distress Head Head exam: Present normocephalic ENT ENT exam: Present mucous membranes moist Respiratory Respiratory exam: Absent respiratory distress GI/Abdominal GI/Abdominal exam: Absent distended or tenderness Additional comments: suprapubic catheter in place External exam: Present erythema (slight scrotal erythema and edema) Neurological Exam Neurological exam: Present alert and oriented X3 A/P Assessment and plan (1) Abscess of penis: Assessment and plan: Overall clinically improving, still has [address] Plan: Continue Zosyn Can likely switch to PO in the next 24-48 hours if continuing to clinically improve Will follow up cultures and avoid Augmentin given allergy for oral abx option Status: Acute Time Spent With Patient Time: Total time spent is greater than 50% in coordination of care (as documented) at patient's floor/unit and/or counseling patient: Subsequent: Total time with patient: Less than 25 minutes MEDS/ALLERGIES Home Medications and Allergies Home Medications Medication Instructions Recorded Confirmed Type Lactobacillus rhamnosus GG 10 1 cap PO QDAY #30 caps 02/02/23 02/07/23 Rx billion cell capsule (Culturelle) amlodipine 10 mg tablet 10 mg PO QDAY #30 tabs 02/02/23 02/06/23 Rx amoxicillin 875 mg-potassium 1 tab PO BID #28 tabs 02/02/23 02/06/23 Rx clavulanate 125 mg tablet Allergies Allergy/AdvReac Type Severity Reaction Status Date / Time No Known Drug Allergies Allergy Unverified 01/25/23 01:43
[2023-02-08] MEDS: HEPARIN 5,000 UNIT/ML VIAL SQ SCH (20:59)
[2023-02-09] MEDS: PIPERACILLIN SODIUM/TAZOBACTAM 3.375 GM in DEXTROSE 5% IN WATER 50 ML IV SCH ×4 (03:27→21:45)
[2023-02-09] MEDS: 0.9 % SODIUM CHLORIDE 10 ML SYRINGE IV SCH ×3 (04:08→21:45)
[2023-02-09] MEDS: HYDROcodone/APAP 5/325MG TABLET PO PRN ×2 (04:08→16:07)
[2023-02-09 07:05] LABS: ALT/SGPT 75 U/L (<40); AST/SGOT 29 U/L (<40); Albumin 2.7 gm/dL (3.2-5.2); Albumin/Globulin Ratio 0.7 (1.0-2.3); Alkaline Phosphatase 102 U/L (39-117); Bilirubin,Total 0.4 mg/dL (0.1-1.0); Blood Urea Nitrogen 22 mg/dL (6-20); Calcium 8.8 mg/dL (8.6-10.4); Carbon Dioxide 24 mmol/L (22-30); Chloride 103 mmol/L (96-108); Globulin 3.7 gm/dL (2.2-3.7); Glomerular Filtration Rate 100; Glucose 96 mg/dL (70-105)
[2023-02-09 07:06] LABS: Basophils # (Auto) 0.07 K/mcL (0.00-0.30); Basophils % (Auto) 0.9 % (0.0-2.0); Eosinophils % (Auto) 1.3 % (0.0-7.0); Hematocrit 37.8 % (40.1-51.0); Hemoglobin 12.7 g/dL (13.7-17.5); Lymphocytes # (Auto) 2.15 K/mcL (1.50-4.80); Lymphocytes % (Auto) 28.2 % (15.5-49.0); Mean Cell Volume 83.1 fL (80.0-100.0); Mean Corpuscular HGB Conc 33.6 g/dL (31.0-36.0); Mean Platelet Volume 9.8 fL (8.8-12.5); Monocytes # (Auto) 0.74 K/mcL (0.10-0.90); Monocytes % (Auto) 9.7 % (1.0-12.0); Platelet Count 710 K/mcL (140-440); RBC 4.55 M/mcL (4.63-6.08); Red Cell Distribution Width 13.7 % (11.5-14.5); WBC 7.6 K/mcL (4.5-11.0)
--- NOTE | 2023-02-09 07:48 | Urology Progress Note ---
SUBJECTIVE Subjective Patient information: Note initiated : 02/09/23 at 7:45 am Service Date, if different from initiated Date: [] Patient: Ventura Corral 57 y/o M admitted on 02/06/23 for groin problem- UTI,Sepsis,Penile Abscess. Chief Complaint: [Penile abscess and urethral disruption] Principal diagnosis: Penile abscess Interval history: Ventura is postoperative day #3 status post cystoscopy, placement of suprapubic catheter, and drainage of penile abscess. He feels much better. He is ambulating and tolerating a diet. Constitutional Vitals: Vital Signs Temp Pulse Resp BP Pulse Ox O2 Del Method O2 Flow Rate 98.6 F 88 16 142/98 95 Room Air 2 02/09/23 03:30 02/09/23 03:30 02/09/23 03:30 02/09/23 03:30 02/09/23 03:30 02/09/23 03:30 02/07/23 02:45 Period Temp Pulse Resp BP Sys/Garcia Pulse Ox O2 Del Method O2 Flow Rate Last 24 Hr 97.7 F-98.6 F 79-93 15-24 131-159/88-98 95-97 Room Air-Room Air Intake and Output 02/08/23 02/09/23 02/09/23 19:59 03:59 11:59 Intake Total 50 900 50 Output Total 1450 975 Balance -1400 -75 50 Weight 89.584 kg Intake & Output: Intake & Output 02/08/23 02/09/23 02/09/23 19:59 03:59 11:59 Intake Total 50 900 50 Output Total 1450 975 Balance -1400 -75 50 Weight 89.584 kg Intake: IV 50 50 50 Zosyn 3.375 gm In Dextrose 5% 50 50 50 in Water 50 ml @ 100 mls/hr IV Q6H [facility] Rx#:[id number] Oral 850 Output: Urine Catheter Amount 1450 975 Other: Meal Lunch Percent of Meal Consumed 75% Feeding Ability Independent Urine Appearance Cloudy Urine Color Yellow Urine Odor Strong Stool Size Large Stool Color Brown Yellow Stool Consistency Formed General appearance: average body habitus, cooperative and no acute distress External exam: Present erythema and swelling Additional comments: The Derwent drain remains in place. The erythema and edema are significantly decreased this morning from yesterday. The suprapubic catheter remains in place and is draining clear urine. A/P Assessment and plan (1) Abscess of penis: Status: Acute (2) Urethral trauma: Status: Acute (3) Urethral stricture: Status: Acute Narrative A/P Narrative: Ventura continues to do well. He remains on a broad-spectrum antibiotic and WBC continues to decrease. He is ambulating and tolerating diet. He remains afebrile. I feel that he needs to remain in the hospital least a couple more days on IV antibiotics. We will continue to follow the scrotum closely. He should continue to ambulate. Time Spent With Patient Time: Total time spent is greater than 50% in coordination of care (as documented) at patient's floor/unit and/or counseling patient:
--- NOTE | 2023-02-09 08:03 | EKG ---
[facility] Test Date: 2023-02-06 Pat Name: Ventura Corral Department: [facility] Room: 129 Gender: Male Mirror Silverer: SS : 1965 Requested By: Barrett De Luna Order Number: [id number] Reading MD: Moshe Malagon Measurements Intervals Hamer Rate: 107 P: 44 [place]: 132 QRS: 4 QRSD: 130 T: -12 QT: 364 QTc: 486 Interpretive Statements Sinus tachycardia Right bundle branch block Electronically Signed On 02-09-2023 8:03:32 PDT by Moshe Malagon /[id number]
[2023-02-09] MEDS: LACTOBACILLUS 1 CAPSULE PO SCH (08:46)
[2023-02-09] MEDS: DOCUSATE SODIUM 100 MG CAPSULE PO SCH ×2 (08:46→20:21)
[2023-02-09] MEDS: amLODIPine 10 MG TABLET PO SCH (08:47)
[2023-02-09] MEDS: HEPARIN 5,000 UNIT/ML VIAL SQ SCH ×3 (08:48→20:21)
--- NOTE | 2023-02-09 10:59 | Internal Med Progress Note ---
SUBJECTIVE Subjective Patient information: Note initiated : 02/09/23 at 10:53 am Service Date, if different from initiated Date: [] Patient: Ventura Corral a 57 y/o M admitted on 02/06/23 for groin problem- UTI,Sepsis,Penile Abscess. Chief Complaint: [] Principal diagnosis: Penile abscess Interval history: Mr. Corral is a 57 year old M Presents today for increasingly swollen and painful penis. Patient was recently admitted for sepsis due to pyelonephritis. Patient was also found have a urethral stricture and urinary retention. Urine cultures grew Aerococcus. Patient was discharged on Augmentin. Patient was doing better on discharge although he still had intermittent temperatures of around 100 per spouse. This morning he suddenly became worse stating his penis and scrotum dramatically increased in size and redness. He also Developed penile discharge today. Patient complained of sweats and chills. He was tachycardic and mildly febrile 100.7 in the ED. Urinalysis was consistent with infection. Ultrasound revealed a 4 x 8 cm abscess versus hematoma in the corpus spongiosum. Leukocytosis of 15,000 and elevated CRP at 18. Urologist was consulted who will take the patient for exploration. Broad-spectrum antibiotics started in the ED 02/07 Feeling better today. He relates he was quite foggy the other day but mentation much more clear. Persistent leukocytosis today. Afebrile. Pending wound cul tures. ID consult. 02/08 Patient feeling better. Like leukocytosis finally resolved. Continue IV antibiotics. Pending surgical cultures. ID following. 02/09: Afebrile overnight. WBC 7.6. Plt 710. Blood culture no growth to date. Urine culture Aerococcus urinae. Patient is coming of mild scrotal/penile pain. He denies any subjective fever, chills, or diaphoresis. Patient's had concern ed about potential heavy metal poisoning. We will check for serum lead, mercury, and thallium levels. We will continue Zosyn for now expecting a few more days. We will work with urologist and infec tious disease specialist. Overall condition guarded. Stay in [facility]. Constitutional Vitals: Vital Signs Temp Pulse Resp BP Pulse Ox O2 Del Method O2 Flow Rate 36.6 C 85 16 149/96 93 Room Air 2 02/09/23 08:00 02/09/23 08:00 02/09/23 08:00 02/09/23 08:00 02/09/23 08:00 02/09/23 08:00 02/07/23 02:45 Period Temp Pulse Resp BP Sys/Garcia Pulse Ox O2 Del Method O2 Flow Rate Last 24 Hr 36.5 C-37.0 C 79-93 15-24 131-149/88-98 93-97 Room Air-Room Air Intake and Output 02/08/23 02/09/23 02/09/23 19:59 03:59 11:59 Intake Total 50 900 470 Output Total 1450 975 Balance -1400 -75 470 Weight 89.584 kg Intake & Output: Intake & Output 02/08/23 02/09/23 02/09/23 19:59 03:59 11:59 Intake Total 50 900 470 Output Total 1450 975 Balance -1400 -75 470 Weight 89.584 kg Intake: IV 50 50 50 Zosyn 3.375 gm In Dextrose 5% 50 50 50 in Water 50 ml @ 100 mls/hr IV Q6H [facility] Rx#:[id number] Oral 850 420 Output: Urine Catheter Amount 1450 975 Other: Meal Lunch Percent of Meal Consumed 75% Feeding Ability Independent Urine Appearance Cloudy Urine Color Yellow Urine Odor Strong Stool Size Large Stool Color Brown Yellow Stool Consistency Formed Head Head exam: Present atraumatic and normal inspection Eye Eye exam: Present normal appearance ENT ENT exam: Present mucous membranes moist, normal exam and normal external ear exam Neck Neck exam: Present normal inspection Respiratory Respiratory exam: Present normal respiratory exam Cardiovascular Cardiovascular exam: Present normal rate and rhythm GI/Abdominal GI/Abdominal exam: Present normal bowel sounds Additional comments: Suprapubic catheter Penile drain Scrotal drain Penile and scrotal erythema and swelling and tenderness to palpation Back Exam Back exam: Present normal inspection Neurological Exam Neurological exam: Present alert and oriented X3 Skin Skin exam: Present intact and warm OBJ DATA Labs 02/09/23 05:15 02/09/23 05:15 Labs: Abnormal Lab Results 02/09/23 02/09/23 02/08/23 05:15 05:15 05:01 WBC RBC 4.55 L Hgb 12.7 L Hct 37.8 L Plt Count 710 H Immature Gran % (Auto) 0.9 H Lymph % (Auto) Frio % (Auto) Frio # (Auto) Band Neutrophils % Lymphocytes % Immature Gran # 0.07 H Absolute Neutrophils Platelet Estimate PT INR POC VBG pH POC VBG pCO2 at Temp POC VBG pO2 POC VBG HCO3 POC VBG Total CO2 POC Venous O2 Sat BUN 22 H 27 H Glucose Calcium 8.4 L GGT ALT 75 H Alkaline Phosphatase C-Reactive Protein Albumin 2.7 L Globulin Albumin/Globulin Ratio 0.7 L Urine Appearance Urine Urobilinogen Ur Leukocyte Esterase Urine WBC Urine Bacteria Urine Mucus 02/08/23 02/07/23 02/07/23 05:01 05:21 05:21 WBC 15.5 H RBC 4.23 L 4.45 L Hgb 11.9 L 12.6 L Hct 35.3 L 37.0 L Plt Count 699 H 623 H Immature Gran % (Auto) 0.7 H Lymph % (Auto) Frio % (Auto) Frio # (Auto) 0.96 H Band Neutrophils % 14 H Lymphocytes % 4 L Immature Gran # 0.07 H Absolute Neutrophils Platelet Estimate Increased A PT INR POC VBG pH POC VBG pCO2 at Temp POC VBG pO2 POC VBG HCO3 POC VBG Total CO2 POC Venous O2 Sat BUN 21 H Glucose 167 H Calcium 8.5 L GGT 103 H ALT 50 H Alkaline Phosphatase 126 H C-Reactive Protein Albumin 2.7 L Globulin 4.0 H Albumin/Globulin Ratio 0.7 L Urine Appearance Urine Urobilinogen Ur Leukocyte Esterase Urine WBC Urine Bacteria Urine Mucus 02/06/23 02/06/23 02/06/23 14:44 12:06 12:05 WBC 15.2 H RBC Hgb 13.3 L Hct 39.5 L Plt Count 613 H Immature Gran % (Auto) 0.7 H Lymph % (Auto) 10.2 L Frio % (Auto) 13.0 H Frio # (Auto) 1.98 H Band Neutrophils % Lymphocytes % Immature Gran # 0.10 H Absolute Neutrophils 11.41 H Platelet Estimate PT 15.4 H INR 1.2 H POC VBG pH POC VBG pCO2 at Temp POC VBG pO2 POC VBG HCO3 POC VBG Total CO2 POC Venous O2 Sat BUN Glucose 112 H Calcium GGT ALT 58 H Alkaline Phosphatase 147 H C-Reactive Protein 18.00 H Albumin 3.0 L Globulin 4.5 H Albumin/Globulin Ratio 0.7 L Urine Appearance Urine Urobilinogen Ur Leukocyte Esterase Urine WBC Urine Bacteria Urine Mucus 02/06/23 02/06/23 12:04 11:48 WBC RBC Hgb Hct Plt Count Immature Gran % (Auto) Lymph % (Auto) Frio % (Auto) Frio # (Auto) Band Neutrophils % Lymphocytes % Immature Gran # Absolute Neutrophils Platelet Estimate PT INR POC VBG pH 7.50 H POC VBG pCO2 at Temp 29.7 L POC VBG pO2 54 H POC VBG HCO3 23.1 L POC VBG Total CO2 24.0 L POC Venous O2 Sat 91.0 H BUN Glucose Calcium GGT ALT Alkaline Phosphatase C-Reactive Protein Albumin Globulin Albumin/Globulin Ratio Urine Appearance Hazy A Urine Urobilinogen 2.0 A Ur Leukocyte Esterase 250 A Urine WBC 47 H Urine Bacteria Mod A Urine Mucus Few A Meds: Medications Acetaminophen (Acetaminophen 325 Mg Tablet) 650 mg PO Q6HP PRN; Protocol PRN Reason: Per Pain Protocol/Fever > 101 Hydrocodone Bitart/Acetaminophen (Hydrocodone/Apap 5/325mg Tablet) 1 tab PO Q4HP PRN PRN Reason: PAIN LEVEL 3-6 Last Admin: 02/09/23 04:08 Dose: 1 tab Albuterol/Ipratropium (Ipratropium/Albuterol 3 Ml Ampul.Neb) 3 ml NEB Q4HP PRN PRN Reason: Shortness Of Breath Amlodipine Besylate (Amlodipine 10 Mg Tablet) 5 mg PO QDAY [facility] Last Admin: 02/09/23 08:47 Dose: 5 mg Docusate Sodium (Docusate Sodium 100 Mg Capsule) 100 mg PO BID [facility] Last Admin: 02/09/23 08:46 Dose: 100 mg Heparin Sodium (Porcine) (Heparin 5,000 Unit/Ml Vial) 5,000 unit SQ Q12 [facility] Last Admin: 02/09/23 08:48 Dose: Not Given Potassium Chloride 40 meq/ (Dextrose) 520 mls @ 130 mls/hr IV UD PRN PRN Reason: Potassium < 3 Magnesium Sulfate (Magnesium Sulfate) 2 gm in 50 mls @ 50 mls/hr IV UD PRN PRN Reason: Magnesium </= 1.6 Piperacillin Sod/Tazobactam (Sod 3.375 gm/ Dextrose) 50 mls @ 100 mls/hr IV Q6H [facility]; Protocol Last Admin: 02/09/23 08:48 Dose: 100 mls/hr Labetalol HCl (Labetalol 5 Mg/Ml Ml) 0 mg IV Q2HP PRN PRN Reason: Hypertension Lactobacillus Rhamnosus (Lactobacillus 1 Capsule) 1 cap PO QDAY [facility] Last Admin: 02/09/23 08:46 Dose: 1 cap Magnesium Hydroxide (Magnesium Hydroxide 30 Ml Oral.Susp) 30 ml PO BIDP PRN PRN Reason: Constipation Morphine Sulfate (Morphine 4 Mg/Ml Vial) 0 mg IV Q3HP PRN PRN Reason: Pain Ondansetron HCl (Ondansetron 4 Mg/2 Ml Vial) 4 mg IV Q4HP PRN PRN Reason: Nausea And Vomiting Polyethylene Glycol (Polyethylene Glycol 3350 17 Gm Packet) 17 gm PO DAILYP PRN PRN Reason: Constipation Potassium Chloride (Potassium Chloride 20 Meq Tablet) 40 meq PO UD PRN PRN Reason: Potssium is 3-3.5 Potassium Chloride (Potassium Chloride 20 Meq Tablet) 40 meq PO UD PRN PRN Reason: Potassium < 3 Senna (Sennosides 1 Tablet) 2 tab PO DAILYP PRN PRN Reason: Constipation Sodium Chloride (0.9 % Sodium Chloride 10 Ml Syringe) 10 ml IV Q8 [facility] Last Admin: 02/09/23 04:08 Dose: 10 ml A/P Assessment and plan (1) BRADEN (acute kidney injury): Status: Acute (2) Acute retention of urine: Status: Acute (3) Acute pyelonephritis: Status: Acute (4) Urethral stricture: Status: Acute (5) Abscess of penis: Status: Acute (6) Essential hypertension: Status: Acute (7) Anemia, normocytic normochromic: Status: Acute Narrative A/P Narrative: Assessment and Plans: 1. Penile abscess: Stays in inpatient med surg Comanagement with Dr. Griffin, recs. appreciated Comanagement with infectious disease specialist, recs. appreciated Continue Zosyn for now for a few more days, likely change to oral antibiotics at hospital discharge Tylenol [facility] Morphine Get serum Thallium, lead, and Mercury as per family request 2. Urethral stricture with resultant acute kidney injury: Treat the underlying process, see above Avoid nephrotoxic agents Saline lock CMP in the morning to trend kidney functions 3. Essential hypertension: Amlodipine 4. Anemia, normocytic normochromic: cbc w/ auto diff in the morning to trend H/H GI ppx: not currently indicated DVT ppx: Heparin Code status: Full Prognosis: guarded Disposition: inpatient med surg Time Spent With Patient Time: Total time spent is greater than 50% in coordination of care (as documented) at patient's floor/unit and/or counseling patient: Subsequent: Total time with patient: 35 - 49 minutes QUALITY VTE Deep Vein Thrombosis/Pulmonary Embolism Present on Admission: No
--- NOTE | 2023-02-09 12:14 | Infectious Disease Prog Note ---
Telemedicine Intake Start Time: 11:55 End Time: 12:10 Consent for assessment and treatment to occur via virtual technology obtained from: Patient Location of Provider: Home Any recent travel (within the last 21 days)?: No SUBJECTIVE Subjective Patient information: Note initiated : 02/09/23 at 12:11 pm Service Date, if different from initiated Date: [] Patient: Ventura Corral 57 y/o M admitted on 02/06/23 for groin problem- UTI,Sepsis,Penile Abscess. Chief Complaint: penile pain Principal diagnosis: Penile abscess Interval history: Feels a lot better today. Suprapubic catheter is draining urine well. Some pain around the site of the suprapubic catheter and scrotal area at the surgical site and drain site. Middlie drain is draining a lot of discharge. Has been eating well. Was sitting in the chair earlier today. Pertinent ROS: No nausea, vomiting, fevers, chills. Constitutional Vitals: Vital Signs Temp Pulse Resp BP Pulse Ox O2 Del Method O2 Flow Rate 97.9 F 85 16 149/96 93 Room Air 2 02/09/23 08:00 02/09/23 08:00 02/09/23 08:00 02/09/23 08:00 02/09/23 08:00 02/09/23 08:00 02/07/23 02:45 Period Temp Pulse Resp BP Sys/Garcia Pulse Ox O2 Del Method O2 Flow Rate Last 24 Hr 97.7 F-98.6 F 79-93 16-24 131-149/88-98 93-97 Room Air-Room Air Intake and Output 02/09/23 02/09/23 02/09/23 03:59 11:59 19:59 Intake Total 900 470 Output Total 975 Balance -75 470 Intake & Output: Intake & Output 02/09/23 02/09/23 02/09/23 03:59 11:59 19:59 Intake Total 900 470 Output Total 975 Balance -75 470 Intake: IV 50 50 Zosyn 3.375 gm In Dextrose 5% 50 50 in Water 50 ml @ 100 mls/hr IV Q6H [facility] Rx#:[id number] Oral 850 420 Output: Urine Catheter Amount 975 Head Head exam: Present atraumatic Eye Eye exam: Present EOMI Neck Neck exam: Present full ROM Respiratory Respiratory exam: Absent respiratory distress GI/Abdominal GI/Abdominal exam: Present soft; Absent distended Additional comments: suprapubic catheter with dressing clean/dry/intact surrounding exam: Present scrotal swelling; Absent urethral discharge External exam: Present erythema (mild) Additional comments: two joel drains in place and dressing overlying drain with serosanguineous strikethrough Psychiatric Psychiatric exam: Present normal affect A/P Assessment and plan (1) Abscess of penis: Assessment and plan: 57 yo M with no significant PMH. He was recently discahrged 02/02 for difficulty urinating, found to have sepsis 2/2 pyelonephritis Treated with Ceftriaxone. Urine cx at the time showed aerococcus urinae. Pt developed a fever and leukocytosis a few days during the hospitalization, had scrotal edema and treated with Lasix. CT abdomen and pelvis was obtained which showed some fluid collection in the penis surrounding the Duff catheter in the corpus spongiosum 2.7 x 2.8 cm which could be severely dilated urethra or could be an infection. Seen by urology at the time, edema improved on discahrge and patient was discharged on Augmentin for 2 weeks. Found to also have a urethral stricture. [facility] e[facility] sudden penile and scrotal worsening in size and redness. Found to have leukocytosis and fever on admission as well. US showed 4x8cm abscess. Started on antibiotics. Now s/p cystoscopy, placement of suprapubic catheter and drainage of penile abscess. Currently improving overall on Zosyn. OR cultures pending Plan: - Continue Zosyn for now - Potential to switch to PO on discharge - Follow up OR cultures - Continue local wound care Status: Acute Time Spent With Patient Time: Total time spent is greater than 50% in coordination of care (as documented) at patient's floor/unit and/or counseling patient: Subsequent: Total time with patient: Less than 25 minutes MEDS/ALLERGIES Home Medications and Allergies Home Medications Medication Instructions Recorded Confirmed Type Lactobacillus rhamnosus GG 10 1 cap PO QDAY #30 caps 02/02/23 02/07/23 Rx billion cell capsule (Culturelle) amlodipine 10 mg tablet 10 mg PO QDAY #30 tabs 02/02/23 02/06/23 Rx amoxicillin 875 mg-potassium 1 tab PO BID #28 tabs 02/02/23 02/06/23 Rx clavulanate 125 mg tablet Allergies Allergy/AdvReac Type Severity Reaction Status Date / Time No Known Drug Allergies Allergy Unverified 01/25/23 01:43
[2023-02-10] MEDS: HYDROcodone/APAP 5/325MG TABLET PO PRN ×4 (03:13→19:51)
[2023-02-10] MEDS: PIPERACILLIN SODIUM/TAZOBACTAM 3.375 GM in DEXTROSE 5% IN WATER 50 ML IV SCH ×4 (03:25→21:38)
[2023-02-10] MEDS: 0.9 % SODIUM CHLORIDE 10 ML SYRINGE IV SCH ×3 (04:07→21:39)
[2023-02-10 06:19] LABS: Basophils # (Auto) 0.08 K/mcL (0.00-0.30); Basophils % (Auto) 0.8 % (0.0-2.0); Eosinophils # (Auto) 0.12 K/mcL (0.00-0.70); Eosinophils % (Auto) 1.3 % (0.0-7.0); Hematocrit 39.6 % (40.1-51.0); Hemoglobin 13.2 g/dL (13.7-17.5); Lymphocytes # (Auto) 2.48 K/mcL (1.50-4.80); Lymphocytes % (Auto) 25.8 % (15.5-49.0); Mean Corpuscular HGB Conc 33.3 g/dL (31.0-36.0); Mean Platelet Volume 9.6 fL (8.8-12.5); Monocytes # (Auto) 0.81 K/mcL (0.10-0.90); Monocytes % (Auto) 8.4 % (1.0-12.0); Neutrophils % (Auto) 62.3 % (38.0-78.0); Platelet Count 742 K/mcL (140-440); RBC 4.77 M/mcL (4.63-6.08); Red Cell Distribution Width 13.5 % (11.5-14.5); WBC 9.6 K/mcL (4.5-11.0)
[2023-02-10 06:49] LABS: ALT/SGPT 59 U/L (<40); AST/SGOT 24 U/L (<40); Albumin 2.9 gm/dL (3.2-5.2); Albumin/Globulin Ratio 0.8 (1.0-2.3); Alkaline Phosphatase 106 U/L (39-117); Bilirubin,Total 0.5 mg/dL (0.1-1.0); Blood Urea Nitrogen 21 mg/dL (6-20); Calcium 8.9 mg/dL (8.6-10.4); Carbon Dioxide 23 mmol/L (22-30); Chloride 104 mmol/L (96-108); Globulin 3.8 gm/dL (2.2-3.7); Glomerular Filtration Rate 95; Glucose 107 mg/dL (70-105)
[2023-02-10] MEDS: HEPARIN 5,000 UNIT/ML VIAL SQ SCH ×2 (09:33→21:38)
[2023-02-10] MEDS: LACTOBACILLUS 1 CAPSULE PO SCH (09:33)
[2023-02-10] MEDS: amLODIPine 10 MG TABLET PO SCH (09:34)
[2023-02-10] MEDS: DOCUSATE SODIUM 100 MG CAPSULE PO SCH ×2 (09:36→21:38)
--- NOTE | 2023-02-10 10:49 | Infectious Disease Prog Note ---
Telemedicine Intake Start Time: 10:25 End Time: 10:40 Consent for assessment and treatment to occur via virtual technology obtained from: Patient Location of Provider: Home SUBJECTIVE Subjective Patient information: Note initiated : 02/10/23 at 10:40 am Service Date, if different from initiated Date: [] Patient: Ventura Corral 57 y/o M admitted on 02/06/23 for groin problem- UTI,Sepsis,Penile Abscess. Chief Complaint: [] Principal diagnosis: Penile abscess Interval history: Feeling better each day. With his at bedside. No fevers or chills. Still having drainage through the drains. Pain around the abdomen has improved now. Still has urine in the suprapubic catheter that's yellow draining well. Pertinent ROS: No nausea, vomiting, fevers or chills. Constitutional Vitals: Vital Signs Temp Pulse Resp BP Pulse Ox O2 Del Method O2 Flow Rate 98.2 F 88 14 136/94 95 Room Air 2 02/10/23 07:00 02/10/23 07:00 02/10/23 07:00 02/10/23 07:00 02/10/23 07:00 02/10/23 07:00 02/07/23 02:45 Period Temp Pulse Resp BP Sys/Garcia Pulse Ox O2 Del Method O2 Flow Rate Last 24 Hr 97.5 F-98.9 F 83-107 14-18 136-156/94-101 94-96 Room Air-Room Air Intake and Output 02/09/23 02/10/23 02/10/23 19:59 03:59 11:59 Intake Total 1530 400 240 Output Total 1200 875 Balance 330 -475 240 Weight 85.842 kg Intake & Output: Intake & Output 02/09/23 02/10/23 02/10/23 19:59 03:59 11:59 Intake Total 1530 400 240 Output Total 1200 875 Balance 330 -475 240 Weight 85.842 kg Intake: IV 50 100 Zosyn 3.375 gm In Dextrose 5% 50 100 in Water 50 ml @ 100 mls/hr IV Q6H [facility] Rx#:[id number] Oral 1480 300 240 Output: Urine Catheter Amount 1200 875 Other: Meal Lunch Breakfast Percent of Meal Consumed 100% 75% Feeding Ability Independent Independent Urine Appearance Small Blood Clots Clear Suprapubic Clear Clear Urine Color Yellow Yellow Suprapubic Yellow Yellow Stool Size Small Stool Color Brown Stool Consistency Loose # Bowel Movements 1 Head Head exam: Present normocephalic Neck Additional comments: supple Respiratory Respiratory exam: Absent respiratory distress GI/Abdominal Additional comments: suprapubic catheter exam: Present scrotal swelling External exam: Present erythema (mild) Additional comments: Drains in place, serosanguineous strikethrough on dressing. Neurological Exam Neurological exam: Present alert A/P Assessment and plan (1) Abscess of penis: Assessment and plan: Overall continuing to clinically improve and tolerating Zosyn. Plan: - continue Zosyn - when clinically ready for discharge, can plan to switch to Augmentin - appreciate urology follow up Status: Acute Time Spent With Patient Time: Total time spent is greater than 50% in coordination of care (as documented) at patient's floor/unit and/or counseling patient: Subsequent: Total time with patient: Less than 25 minutes MEDS/ALLERGIES Home Medications and Allergies Home Medications Medication Instructions Recorded Confirmed Type Lactobacillus rhamnosus GG 10 1 cap PO QDAY #30 caps 02/02/23 02/07/23 Rx billion cell capsule (Culturelle) amlodipine 10 mg tablet 10 mg PO QDAY #30 tabs 02/02/23 02/06/23 Rx amoxicillin 875 mg-potassium 1 tab PO BID #28 tabs 02/02/23 02/06/23 Rx clavulanate 125 mg tablet Allergies Allergy/AdvReac Type Severity Reaction Status Date / Time No Known Drug Allergies Allergy Unverified 01/25/23 01:43
--- NOTE | 2023-02-10 11:19 | Urology Progress Note ---
SUBJECTIVE Subjective Patient information: Note initiated : 02/10/23 at 11:15 am Service Date, if different from initiated Date: [] Patient: Ventura Corral 57 y/o M admitted on 02/06/23 for groin problem- UTI,Sepsis,Penile Abscess. Chief Complaint: [Penile abscess and urethral disruption] Principal diagnosis: Penile abscess Interval history: Ventura is postoperative day #4 status post cystoscopy, placement of suprapubic catheter, and drainage of penile abscess. He he continues to improve. He is ambulating and tolerating a diet. Constitutional Vitals: Vital Signs Temp Pulse Resp BP Pulse Ox O2 Del Method O2 Flow Rate 98.2 F 88 14 136/94 95 Room Air 2 02/10/23 07:00 02/10/23 07:00 02/10/23 07:00 02/10/23 07:00 02/10/23 07:00 02/10/23 07:00 02/07/23 02:45 Period Temp Pulse Resp BP Sys/Garcia Pulse Ox O2 Del Method O2 Flow Rate Last 24 Hr 97.5 F-98.9 F 83-107 14-18 136-156/94-101 94-96 Room Air-Room Air Intake and Output 02/09/23 02/10/23 02/10/23 19:59 03:59 11:59 Intake Total 1530 400 240 Output Total 1200 875 Balance 330 -475 240 Weight 85.842 kg Intake & Output: Intake & Output 02/09/23 02/10/23 02/10/23 19:59 03:59 11:59 Intake Total 1530 400 240 Output Total 1200 875 Balance 330 -475 240 Weight 85.842 kg Intake: IV 50 100 Zosyn 3.375 gm In Dextrose 5% 50 100 in Water 50 ml @ 100 mls/hr IV Q6H [facility] Rx#:[id number] Oral 1480 300 240 Output: Urine Catheter Amount 1200 875 Other: Meal Lunch Breakfast Percent of Meal Consumed 100% 75% Feeding Ability Independent Independent Urine Appearance Small Blood Clots Clear Suprapubic Clear Clear Urine Color Yellow Yellow Suprapubic Yellow Yellow Stool Size Small Stool Color Brown Stool Consistency Loose # Bowel Movements 1 General appearance: average body habitus, cooperative and no acute distress GI/Abdominal Additional comments: The suprapubic catheter remains in place and is draining well. exam: Present circumcision and scrotal swelling External exam: Present erythema Additional comments: The scrotal edema and erythema are significantly improved today over yesterday. The drain remains in place. He continues to drain. Expanded Exam Urine Appearance: Clear Urine Color: Yellow A/P Assessment and plan (1) Abscess of penis: Status: Acute (2) Urethral trauma: Status: Acute (3) Urethral stricture: Status: Acute Narrative A/P Narrative: Ventura continues to do well. He remains on a broad-spectrum antibiotic. His WBC remains within normal limits. His scrotal erythema and edema is decreasing daily. The drain needs to remain in place. I feel that he should be able to go home if ID can find a broad-spectrum antibiotic to send him home on which she will likely need to be on for at least 3 to 4 weeks. He is ambulating and tolerating diet. He remains afebrile. We will continue to follow the scrotum closely. He should continue to ambulate. There is no acute concerns give me him a second Left to look at to have spells in a Time Spent With Patient Time: Total time spent is greater than 50% in coordination of care (as documented) at patient's floor/unit and/or counseling patient:
--- NOTE | 2023-02-10 13:03 | Internal Med Progress Note ---
SUBJECTIVE Subjective Patient information: Note initiated : 02/10/23 at 12:59 pm Service Date, if different from initiated Date: [] Patient: Ventura Corral a 57 y/o M admitted on 02/06/23 for groin problem- UTI,Sepsis,Penile Abscess. Chief Complaint: [] Principal diagnosis: Penile abscess Interval history: Mr. Corral is a 57 year old M Presents today for increasingly swollen and painful penis. Patient was recently admitted for sepsis due to pyelonephritis. Patient was also found have a urethral stricture and urinary retention. Urine cultures grew Aerococcus. Patient was discharged on Augmentin. Patient was doing better on discharge although he still had intermittent temperatures of around 100 per spouse. This morning he suddenly became worse stating his penis and scrotum dramatically increased in size and redness. He also Developed penile discharge today. Patient complained of sweats and chills. He was tachycardic and mildly febrile 100.7 in the ED. Urinalysis was consistent with infection. Ultrasound revealed a 4 x 8 cm abscess versus hematoma in the corpus spongiosum. Leukocytosis of 15,000 and elevated CRP at 18. Urologist was consulted who will take the patient for exploration. Broad-spectrum antibiotics started in the ED 02/07 Feeling better today. He relates he was quite foggy the other day but mentation much more clear. Persistent leukocytosis today. Afebrile. Pending wound cul tures. ID consult. 02/08 Patient feeling better. Like leukocytosis finally resolved. Continue IV antibiotics. Pending surgical cultures. ID following. 02/09: Afebrile overnight. WBC 7.6. Plt 710. Blood culture no growth to date. Urine culture Aerococcus urinae. Patient is complaining of mild scrotal/penile pain. He denies any subjective fever, chills, or diaphoresis. Patient's had co ncerned about potential heavy metal poisoning. We will check for serum lead, mercury, and thallium levels. We will continue Zosyn for now expecting a few more days. We will work with urologist and infectious disease specialist. Overall condition guarded. Stay in [facility]. 02/10: Afebrile overnight. WBC 9.6. Plt 742. Blood culture no growth to date. Urine culture Aerococcus urinae. He denies any scrotal/penile pain. He denies any subjective fever, chills, or diaphoresis. We will continue Zosyn for now expecting a few more days, will switch to oral antibiotics for 2-3 weeks. We will work with urologist and infectious disease specialist. Overall condition guarded. Stay in [facility]. Will make sure he follow up with Dr. Griffin in 1 week upon hospital discharge. Constitutional Vitals: Vital Signs Temp Pulse Resp BP Pulse Ox O2 Del Method O2 Flow Rate 37.0 C 92 H 16 136/97 94 Room Air 2 02/10/23 11:50 02/10/23 11:50 02/10/23 11:50 02/10/23 11:50 02/10/23 11:50 02/10/23 11:50 02/07/23 02:45 Period Temp Pulse Resp BP Sys/Garcia Pulse Ox O2 Del Method O2 Flow Rate Last 24 Hr 36.4 C-37.2 C 83-107 14-18 136-156/94-101 94-96 Room Air-Room Air Intake and Output 02/10/23 02/10/23 02/10/23 03:59 11:59 19:59 Intake Total 400 240 Output Total 875 Balance -475 240 Intake & Output: Intake & Output 02/10/23 02/10/23 02/10/23 03:59 11:59 19:59 Intake Total 400 240 Output Total 875 Balance -475 240 Intake: IV 100 Zosyn 3.375 gm In Dextrose 5% 100 in Water 50 ml @ 100 mls/hr IV Q6H [facility] Rx#:[id number] Oral 300 240 Output: Urine Catheter Amount 875 Other: Meal Breakfast Percent of Meal Consumed 75% Feeding Ability Independent Urine Appearance Clear Clear Suprapubic Clear Urine Color Yellow Yellow Suprapubic Yellow Head Head exam: Present atraumatic and normal inspection Eye Eye exam: Present normal appearance ENT ENT exam: Present mucous membranes moist, normal exam and normal external ear exam Neck Neck exam: Present normal inspection Respiratory Respiratory exam: Present normal respiratory exam Cardiovascular Cardiovascular exam: Present normal rate and rhythm GI/Abdominal GI/Abdominal exam: Present normal bowel sounds Additional comments: Suprapubic urinary catheter in place 2 additional drains, penile and scrotal, in place Back Exam Back exam: Present normal inspection Neurological Exam Neurological exam: Present alert and oriented X3 Skin Skin exam: Present intact and warm OBJ DATA Labs 02/10/23 05:04 02/10/23 05:04 Labs: Abnormal Lab Results 02/10/23 02/10/23 02/09/23 05:04 05:04 05:15 RBC Hgb 13.2 L Hct 39.6 L Plt Count 742 H Immature Gran % (Auto) 1.4 H Iron # (Auto) Immature Gran # 0.13 H BUN 21 H 22 H Glucose 107 H Calcium ALT 59 H 75 H Albumin 2.9 L 2.7 L Globulin 3.8 H Albumin/Globulin Ratio 0.8 L 0.7 L 02/09/23 02/08/23 02/08/23 05:15 05:01 05:01 RBC 4.55 L 4.23 L Hgb 12.7 L 11.9 L Hct 37.8 L 35.3 L Plt Count 710 H 699 H Immature Gran % (Auto) 0.9 H 0.7 H Iron # (Auto) 0.96 H Immature Gran # 0.07 H 0.07 H BUN 27 H Glucose Calcium 8.4 L ALT Albumin Globulin Albumin/Globulin Ratio Meds: Medications Acetaminophen (Acetaminophen 325 Mg Tablet) 650 mg PO Q6HP PRN; Protocol PRN Reason: Per Pain Protocol/Fever > 101 Hydrocodone Bitart/Acetaminophen (Hydrocodone/Apap 5/325mg Tablet) 1 tab PO Q4HP PRN PRN Reason: PAIN LEVEL 3-6 Last Admin: 02/10/23 09:34 Dose: 1 tab Albuterol/Ipratropium (Ipratropium/Albuterol 3 Ml Ampul.Neb) 3 ml NEB Q4HP PRN PRN Reason: Shortness Of Breath Amlodipine Besylate (Amlodipine 10 Mg Tablet) 5 mg PO QDAY [facility] Last Admin: 02/10/23 09:34 Dose: 5 mg Docusate Sodium (Docusate Sodium 100 Mg Capsule) 100 mg PO BID [facility] Last Admin: 02/10/23 09:36 Dose: 100 mg Heparin Sodium (Porcine) (Heparin 5,000 Unit/Ml Vial) 5,000 unit SQ Q12 [facility] Last Admin: 02/10/23 09:33 Dose: 5,000 unit Potassium Chloride 40 meq/ (Dextrose) 520 mls @ 130 mls/hr IV UD PRN PRN Reason: Potassium < 3 Magnesium Sulfate (Magnesium Sulfate) 2 gm in 50 mls @ 50 mls/hr IV UD PRN PRN Reason: Magnesium </= 1.6 Piperacillin Sod/Tazobactam (Sod 3.375 gm/ Dextrose) 50 mls @ 100 mls/hr IV Q6H [facility]; Protocol Last Admin: 02/10/23 10:50 Dose: 100 mls/hr Labetalol HCl (Labetalol 5 Mg/Ml Ml) 0 mg IV Q2HP PRN PRN Reason: Hypertension Lactobacillus Rhamnosus (Lactobacillus 1 Capsule) 1 cap PO QDAY [facility] Last Admin: 02/10/23 09:33 Dose: 1 cap Magnesium Hydroxide (Magnesium Hydroxide 30 Ml Oral.Susp) 30 ml PO BIDP PRN PRN Reason: Constipation Morphine Sulfate (Morphine 4 Mg/Ml Vial) 0 mg IV Q3HP PRN PRN Reason: Pain Ondansetron HCl (Ondansetron 4 Mg/2 Ml Vial) 4 mg IV Q4HP PRN PRN Reason: Nausea And Vomiting Polyethylene Glycol (Polyethylene Glycol 3350 17 Gm Packet) 17 gm PO DAILYP PRN PRN Reason: Constipation Potassium Chloride (Potassium Chloride 20 Meq Tablet) 40 meq PO UD PRN PRN Reason: Potssium is 3-3.5 Potassium Chloride (Potassium Chloride 20 Meq Tablet) 40 meq PO UD PRN PRN Reason: Potassium < 3 Senna (Sennosides 1 Tablet) 2 tab PO DAILYP PRN PRN Reason: Constipation Sodium Chloride (0.9 % Sodium Chloride 10 Ml Syringe) 10 ml IV Q8 [facility] Last Admin: 02/10/23 04:07 Dose: 10 ml A/P Assessment and plan (1) BRADEN (acute kidney injury): Status: Acute (2) Acute retention of urine: Status: Acute (3) Acute pyelonephritis: Status: Acute (4) Urethral stricture: Status: Acute (5) Abscess of penis: Status: Acute (6) Essential hypertension: Status: Acute (7) Anemia, normocytic normochromic: Status: Acute Narrative A/P Narrative: Assessment and Plans: 1. Penile abscess: Stays in inpatient med surg Comanagement with Dr. Griffin, recs. appreciated Comanagement with infectious disease specialist, recs. appreciated Continue Zosyn for now for a few more days, likely change to oral antibiotics at hospital discharge. 2-3 weeks additional oral antibiotics. Will follow up with Dr. Griffin in his office in 1 week post-hospital discharge Tylenol [place] Morphine Get serum Thallium, lead, and Mercury as per family request, results pending 2. Urethral stricture with resultant acute kidney injury: Treat the underlying process, see above Avoid nephrotoxic agents Saline lock CMP in the morning to trend kidney functions 3. Essential hypertension: Amlodipine 4. Anemia, normocytic normochromic: cbc w/ auto diff in the morning to trend H/H GI ppx: not currently indicated DVT ppx: Heparin Code status: Full Prognosis: guarded Disposition: inpatient med surg Time Spent With Patient Time: Total time spent is greater than 50% in coordination of care (as documented) at patient's floor/unit and/or counseling patient: Subsequent: Total time with patient: 35 - 49 minutes QUALITY VTE Deep Vein Thrombosis/Pulmonary Embolism Present on Admission: No
[2023-02-11] MEDS: PIPERACILLIN SODIUM/TAZOBACTAM 3.375 GM in DEXTROSE 5% IN WATER 50 ML IV SCH ×4 (03:11→21:37)
[2023-02-11] MEDS: HYDROcodone/APAP 5/325MG TABLET PO PRN ×4 (03:14→21:45)
[2023-02-11] MEDS: 0.9 % SODIUM CHLORIDE 10 ML SYRINGE IV SCH ×3 (05:38→21:37)
[2023-02-11 06:45] LABS: Basophils # (Auto) 0.08 K/mcL (0.00-0.30); Basophils % (Auto) 0.6 % (0.0-2.0); Eosinophils # (Auto) 0.32 K/mcL (0.00-0.70); Eosinophils % (Auto) 2.6 % (0.0-7.0); Hematocrit 40.2 % (40.1-51.0); Lymphocytes # (Auto) 2.58 K/mcL (1.50-4.80); Lymphocytes % (Auto) 20.8 % (15.5-49.0); Mean Cell Volume 86.1 fL (80.0-100.0); Mean Corpuscular HGB Conc 32.3 g/dL (31.0-36.0); Mean Platelet Volume 9.3 fL (8.8-12.5); Monocytes # (Auto) 0.91 K/mcL (0.10-0.90); Monocytes % (Auto) 7.3 % (1.0-12.0); Platelet Count 647 K/mcL (140-440); RBC 4.67 M/mcL (4.63-6.08); Red Cell Distribution Width 13.6 % (11.5-14.5); WBC 12.4 K/mcL (4.5-11.0)
[2023-02-11 07:26] LABS: ALT/SGPT 47 U/L (<40); AST/SGOT 19 U/L (<40); Albumin/Globulin Ratio 0.8 (1.0-2.3); Alkaline Phosphatase 104 U/L (39-117); Bilirubin,Total 0.3 mg/dL (0.1-1.0); Blood Urea Nitrogen 21 mg/dL (6-20); Calcium 8.9 mg/dL (8.6-10.4); Carbon Dioxide 23 mmol/L (22-30); Chloride 104 mmol/L (96-108); Globulin 3.7 gm/dL (2.2-3.7); Glomerular Filtration Rate 100; Glucose 108 mg/dL (70-105)
[2023-02-11] MEDS: amLODIPine 10 MG TABLET PO SCH (09:00)
[2023-02-11] MEDS: DOCUSATE SODIUM 100 MG CAPSULE PO SCH ×2 (09:00→21:36)
[2023-02-11] MEDS: LACTOBACILLUS 1 CAPSULE PO SCH (09:00)
[2023-02-11] MEDS: HEPARIN 5,000 UNIT/ML VIAL SQ SCH ×2 (09:02→21:36)
--- NOTE | 2023-02-11 09:53 | Urology Progress Note ---
SUBJECTIVE Subjective Patient information: Note initiated : 02/11/23 at 9:48 am Service Date, if different from initiated Date: [] Patient: Ventura Corral 57 y/o M admitted on 02/06/23 for groin problem- UTI,Sepsis,Penile Abscess. Chief Complaint: [Penile abscess and urethral disruption] Principal diagnosis: Penile abscess Interval history: Ventura is postoperative day #5 status post cystoscopy, placement of suprapubic catheter, and drainage of penile abscess. He he continues to improve. He is ambulating and tolerating a diet. He feels well remains afebrile his white blood cell count increased slightly from 9.6 to 12.4. Constitutional Vitals: Vital Signs Temp Pulse Resp BP Pulse Ox O2 Del Method O2 Flow Rate 98.6 F 88 19 143/101 94 Room Air 2 02/11/23 07:45 02/11/23 07:45 02/11/23 07:45 02/11/23 07:45 02/11/23 07:45 02/11/23 07:45 02/07/23 02:45 Period Temp Pulse Resp BP Sys/Garcia Pulse Ox O2 Del Method O2 Flow Rate Last 24 Hr 97.9 F-98.9 F 85-92 16-24 127-147/86-101 94-96 Room Air-Room Air Intake and Output 02/10/23 02/11/23 02/11/23 19:59 03:59 11:59 Intake Total 710 100 Output Total 850 650 Balance -140 -550 Weight 84.686 kg Intake & Output: Intake & Output 02/10/23 02/11/23 02/11/23 19:59 03:59 11:59 Intake Total 710 100 Output Total 850 650 Balance -140 -550 Weight 84.686 kg Intake: IV 50 100 Zosyn 3.375 gm In Dextrose 5% 50 100 in Water 50 ml @ 100 mls/hr IV Q6H [facility] Rx#:[id number] Oral 660 0 Output: Urine Catheter Amount 850 650 Other: Meal Lunch Percent of Meal Consumed 75% Urine Appearance Clear Clear Suprapubic Clear Clear Urine Color Yellow Yellow Suprapubic Yellow Yellow Stool Size Large Stool Color Brown Stool Consistency Formed # Bowel Movements 1 General appearance: average body habitus, cooperative and no acute distress exam: Present circumcision External exam: Present swelling (Very mild significantly improved.); Absent ecchymosis or erythema Expanded Exam Male exam: Present induration (Some induration in the perineum that is not fluctuant and is nontender. Improved.) and perineal induration (Some induration in the perineum that is not fluctuant and is nontender. Improved.); Absent erythema Urine Appearance: Clear (Via SPT) Urine Color: Yellow A/P Assessment and plan (1) Abscess of penis: Status: Acute (2) Urethral trauma: Status: Acute (3) Urethral stricture: Status: Acute Narrative A/P Narrative: Ventura continues to do well. He remains on a broad-spectrum antibiotic. His WBC lisa from yesterday to today is now mildly elevated. His scrotal erythema has resolved and edema is almost gone. There is some perennial induration which appears improved and is nontender and not fluctuant. The [place] drain remains in place. I would like to leave the [place] drain in place until follow-up. With the rise in his WBC I do not think he should go home today. I think this needs to be followed. He needs to remain on Zosyn. If his white blood cell count comes down tomorrow I feel he could go home tomorrow with oral antibiotics, but not amoxicillin. I do not want to obtain repeat imaging at this time as clinically the patient is significantly improved. Time Spent With Patient Time: Total time spent is greater than 50% in coordination of care (as documented) at patient's floor/unit and/or counseling patient:
--- NOTE | 2023-02-11 12:26 | Internal Med Progress Note ---
SUBJECTIVE Subjective Patient information: Note initiated : 02/11/23 at 12:24 pm Service Date, if different from initiated Date: [] Patient: Ventura Corral a 57 y/o M admitted on 02/06/23 for groin problem- UTI,Sepsis,Penile Abscess. Chief Complaint: [] Principal diagnosis: Penile abscess Interval history: Mr. Corral is a 57 year old M Presents today for increasingly swollen and painful penis. Patient was recently admitted for sepsis due to pyelonephritis. Patient was also found have a urethral stricture and urinary retention. Urine cultures grew Aerococcus. Patient was discharged on Augmentin. Patient was doing better on discharge although he still had intermittent temperatures of around 100 per spouse. This morning he suddenly became worse stating his penis and scrotum dramatically increased in size and redness. He also Developed penile discharge today. Patient complained of sweats and chills. He was tachycardic and mildly febrile 100.7 in the ED. Urinalysis was consistent with infection. Ultrasound revealed a 4 x 8 cm abscess versus hematoma in the corpus spongiosum. Leukocytosis of 15,000 and elevated CRP at 18. Urologist was consulted who will take the patient for exploration. Broad-spectrum antibiotics started in the ED 02/07 Feeling better today. He relates he was quite foggy the other day but mentation much more clear. Persistent leukocytosis today. Afebrile. Pending wound cul tures. ID consult. 02/08 Patient feeling better. Like leukocytosis finally resolved. Continue IV antibiotics. Pending surgical cultures. ID following. 02/09: Afebrile overnight. WBC 7.6. Plt 710. Blood culture no growth to date. Urine culture Aerococcus urinae. Patient is complaining of mild scrotal/penile pain. He denies any subjective fever, chills, or diaphoresis. Patient's had co ncerned about potential heavy metal poisoning. We will check for serum lead, mercury, and thallium levels. We will continue Zosyn for now expecting a few more days. We will work with urologist and infectious disease specialist. Overall condition guarded. Stay in [facility]. 02/10: Afebrile overnight. WBC 9.6. Plt 742. Blood culture no growth to date. Urine culture Aerococcus urinae. He denies any scrotal/penile pain. He denies any subjective fever, chills, or diaphoresis. We will continue Zosyn for now expecting a few more days, will switch to oral antibiotics for 2-3 weeks. We will work with urologist and infectious disease specialist. Overall condition guarded. Stay in [facility]. Will make sure he follow up with Dr. Griffin in 1 week upon hospital discharge. 02/11: Afebrile overnight. WBC 12.4. Plt 647. Blood and wound cultures no growth to date. Urine culture Aerococcus urinae. He denies any scrotal/penile pain. He denies any subjective fever, chills, or diaphoresis. We will continue Zosyn for now while inpatient, will switch to oral antibiotics (something other than Augmentin since he failed that outpatient) for 2-3 additional weeks. We will work with urologist and infectious disease specialist. Overall condition guarded. Stay in [facility]. Will make sure he follow up with Dr. Griffin in 1 week upon hospital discharge. Constitutional Vitals: Vital Signs Temp Pulse Resp BP Pulse Ox O2 Del Method O2 Flow Rate 37.0 C 100 H 19 143/101 94 Room Air 2 02/11/23 07:45 02/11/23 08:57 02/11/23 07:45 02/11/23 07:45 02/11/23 07:45 02/11/23 07:45 02/07/23 02:45 Period Temp Pulse Resp BP Sys/Garcia Pulse Ox O2 Del Method O2 Flow Rate Last 24 Hr 36.6 C-37.2 C 85-100 16-24 127-147/86-101 94-96 Room Air-Room Air Intake and Output 02/11/23 02/11/23 02/11/23 03:59 11:59 19:59 Intake Total 100 420 50 Output Total 650 750 Balance -550 -330 50 Intake & Output: Intake & Output 02/11/23 02/11/23 02/11/23 03:59 11:59 19:59 Intake Total 100 420 50 Output Total 650 750 Balance -550 -330 50 Intake: IV 100 50 Zosyn 3.375 gm In Dextrose 5% 100 50 in Water 50 ml @ 100 mls/hr IV Q6H [facility] Rx#:[id number] Oral 0 420 Output: Urine Catheter Amount 650 750 Other: Urine Appearance Clear Clear Suprapubic Clear Urine Color Yellow Yellow Suprapubic Yellow Stool Size Large Stool Color Brown Stool Consistency Formed # Bowel Movements 1 Head Head exam: Present atraumatic and normal inspection Eye Eye exam: Present normal appearance ENT ENT exam: Present mucous membranes moist, normal exam and normal external ear exam Neck Neck exam: Present normal inspection Respiratory Respiratory exam: Present normal respiratory exam Cardiovascular Cardiovascular exam: Present normal rate and rhythm GI/Abdominal GI/Abdominal exam: Present normal bowel sounds Additional comments: Suprapubic catheter in place Penile drain in place Scrotal drain in place No tenderness to palpation Back Exam Back exam: Present normal inspection Neurological Exam Neurological exam: Present alert and oriented X3 Skin Skin exam: Present intact and warm OBJ DATA Labs 02/11/23 05:03 02/11/23 05:03 Labs: Abnormal Lab Results 02/11/23 02/11/23 02/10/23 05:03 05:03 05:04 WBC 12.4 H RBC Hgb 13.0 L Hct Plt Count 647 H Immature Gran % (Auto) 1.7 H [place] # (Auto) 0.91 H Immature Gran # 0.21 H Absolute Neutrophils 8.29 H BUN 21 H 21 H Glucose 108 H 107 H ALT 47 H 59 H Albumin 3.0 L 2.9 L Globulin 3.8 H Albumin/Globulin Ratio 0.8 L 0.8 L 02/10/23 02/09/23 02/09/23 05:04 05:15 05:15 WBC RBC 4.55 L Hgb 13.2 L 12.7 L Hct 39.6 L 37.8 L Plt Count 742 H 710 H Immature Gran % (Auto) 1.4 H 0.9 H [place] # (Auto) Immature Gran # 0.13 H 0.07 H Absolute Neutrophils BUN 22 H Glucose ALT 75 H Albumin 2.7 L Globulin Albumin/Globulin Ratio 0.7 L Meds: Medications Acetaminophen (Acetaminophen 325 Mg Tablet) 650 mg PO Q6HP PRN; Protocol PRN Reason: Per Pain Protocol/Fever > 101 Hydrocodone Bitart/Acetaminophen (Hydrocodone/Apap 5/325mg Tablet) 1 tab PO Q4HP PRN PRN Reason: PAIN LEVEL 3-6 Last Admin: 02/11/23 09:03 Dose: 1 tab Albuterol/Ipratropium (Ipratropium/Albuterol 3 Ml Ampul.Neb) 3 ml NEB Q4HP PRN PRN Reason: Shortness Of Breath Amlodipine Besylate (Amlodipine 10 Mg Tablet) 5 mg PO QDAY [facility] Last Admin: 02/11/23 09:00 Dose: 5 mg Docusate Sodium (Docusate Sodium 100 Mg Capsule) 100 mg PO BID [facility] Last Admin: 02/11/23 09:00 Dose: 100 mg Heparin Sodium (Porcine) (Heparin 5,000 Unit/Ml Vial) 5,000 unit SQ Q12 [facility] Last Admin: 02/11/23 09:02 Dose: 5,000 unit Potassium Chloride 40 meq/ (Dextrose) 520 mls @ 130 mls/hr IV UD PRN PRN Reason: Potassium < 3 Magnesium Sulfate (Magnesium Sulfate) 2 gm in 50 mls @ 50 mls/hr IV UD PRN PRN Reason: Magnesium </= 1.6 Piperacillin Sod/Tazobactam (Sod 3.375 gm/ Dextrose) 50 mls @ 100 mls/hr IV Q6H [facility]; Protocol Last Infusion: 02/11/23 12:04 Dose: Infused Labetalol HCl (Labetalol 5 Mg/Ml Ml) 0 mg IV Q2HP PRN PRN Reason: Hypertension Lactobacillus Rhamnosus (Lactobacillus 1 Capsule) 1 cap PO QDAY [facility] Last Admin: 02/11/23 09:00 Dose: 1 cap Magnesium Hydroxide (Magnesium Hydroxide 30 Ml Oral.Susp) 30 ml PO BIDP PRN PRN Reason: Constipation Morphine Sulfate (Morphine 4 Mg/Ml Vial) 0 mg IV Q3HP PRN PRN Reason: Pain Ondansetron HCl (Ondansetron 4 Mg/2 Ml Vial) 4 mg IV Q4HP PRN PRN Reason: Nausea And Vomiting Polyethylene Glycol (Polyethylene Glycol 3350 17 Gm Packet) 17 gm PO DAILYP PRN PRN Reason: Constipation Potassium Chloride (Potassium Chloride 20 Meq Tablet) 40 meq PO UD PRN PRN Reason: Potssium is 3-3.5 Potassium Chloride (Potassium Chloride 20 Meq Tablet) 40 meq PO UD PRN PRN Reason: Potassium < 3 Senna (Sennosides 1 Tablet) 2 tab PO DAILYP PRN PRN Reason: Constipation Sodium Chloride (0.9 % Sodium Chloride 10 Ml Syringe) 10 ml IV Q8 [facility] Last Admin: 02/11/23 05:38 Dose: 10 ml A/P Assessment and plan (1) BRADEN (acute kidney injury): Status: Acute (2) Acute retention of urine: Status: Acute (3) Acute pyelonephritis: Status: Acute (4) Urethral stricture: Status: Acute (5) Abscess of penis: Status: Acute (6) Essential hypertension: Status: Acute (7) Anemia, normocytic normochromic: Status: Acute Narrative A/P Narrative: Assessment and Plans: 1. Penile abscess: Stays in inpatient med surg Comanagement with Dr. Griffin, recs. appreciated Comanagement with infectious disease specialist, recs. appreciated Continue Zosyn for now while inpatient, likely change to oral antibiotics (something other than Augmentin since he failed that outpatient) at hospital discharge. 2-3 weeks additional oral antibiotics. Will follow up with Dr. Griffin in his office in 1 week post-hospital discharge Tylenol [place] Morphine Get serum Thallium, lead, and Mercury as per family request, results pending 2. Urethral stricture with resultant acute kidney injury: Treat the underlying process, see above Avoid nephrotoxic agents Saline lock CMP in the morning to trend kidney functions 3. Essential hypertension: Amlodipine 4. Anemia, normocytic normochromic: cbc w/ auto diff in the morning to trend H/H GI ppx: not currently indicated DVT ppx: Heparin Code status: Full Prognosis: guarded Disposition: inpatient med surg Time Spent With Patient Time: Total time spent is greater than 50% in coordination of care (as documented) at patient's floor/unit and/or counseling patient: Subsequent: Total time with patient: 35 - 49 minutes QUALITY VTE Deep Vein Thrombosis/Pulmonary Embolism Present on Admission: No
--- NOTE | 2023-02-11 12:35 | Infectious Disease Prog Note ---
Telemedicine Intake Start Time: 12:15 End Time: 12:30 Consent for assessment and treatment to occur via virtual technology obtained from: Patient Location of Provider: Home Any recent travel (within the last 21 days)?: No SUBJECTIVE Subjective Patient information: Note initiated : 02/11/23 at 12:33 pm Service Date, if different from initiated Date: [] Patient: Ventura Corral 57 y/o M admitted on 02/06/23 for groin problem- UTI,Sepsis,Penile Abscess. Chief Complaint: [] Principal diagnosis: Penile abscess Interval history: Feels better today, no fevers or chills. No nausea, vomiting. Taking a stool softener so stools are soft at this time, no diarrhea. No abdominal pain. No cough or shortness of breath. No leg pain. IV site intact, no issues. No leg swelling. Pertinent ROS: as above Constitutional Vitals: Vital Signs Temp Pulse Resp BP Pulse Ox O2 Del Method O2 Flow Rate 98.6 F 100 H 19 143/101 94 Room Air 2 02/11/23 07:45 02/11/23 08:57 02/11/23 07:45 02/11/23 07:45 02/11/23 07:45 02/11/23 07:45 02/07/23 02:45 Period Temp Pulse Resp BP Sys/Garcia Pulse Ox O2 Del Method O2 Flow Rate Last 24 Hr 97.9 F-98.9 F 85-100 16-24 127-147/86-101 94-96 Room Air-Room Air Intake and Output 02/11/23 02/11/23 02/11/23 03:59 11:59 19:59 Intake Total 100 420 50 Output Total 650 750 Balance -550 -330 50 Intake & Output: Intake & Output 02/11/23 02/11/23 02/11/23 03:59 11:59 19:59 Intake Total 100 420 50 Output Total 650 750 Balance -550 -330 50 Intake: IV 100 50 Zosyn 3.375 gm In Dextrose 5% 100 50 in Water 50 ml @ 100 mls/hr IV Q6H [facility] Rx#:[id number] Oral 0 420 Output: Urine Catheter Amount 650 750 Other: Urine Appearance Clear Clear Suprapubic Clear Urine Color Yellow Yellow Suprapubic Yellow Stool Size Large Stool Color Brown Stool Consistency Formed # Bowel Movements 1 Head Head exam: Present atraumatic Respiratory Respiratory exam: Present normal respiratory exam (per RN) GI/Abdominal GI/Abdominal exam: Present soft; Absent distended or tenderness exam: Present scrotal swelling (minimal) External exam: Absent erythema Additional comments: Drains in place. Dressing just changed, clean dry and intact. Previously dressing had some drainage strikethrough on it. Neurological Exam Neurological exam: Present alert and oriented X3 A/P Assessment and plan (1) Abscess of penis: Assessment and plan: Overall clinically improving. WBC slight increase today to 12.4 but on thorough ROS, no new symptoms. Tolerating Zosyn well Plan: - continue Zosyn - continue to monitor WBCs - can consider Cefpodoxime instead of Augmentin for PO option for additional gram neg coverage although cultures predominantly appear to be gram positives - appreciate urology recommendations Status: Acute Time Spent With Patient Time: Total time spent is greater than 50% in coordination of care (as documented) at patient's floor/unit and/or counseling patient: Subsequent: Total time with patient: Less than 25 minutes MEDS/ALLERGIES Home Medications and Allergies Home Medications Medication Instructions Recorded Confirmed Type Lactobacillus rhamnosus GG 10 1 cap PO QDAY #30 caps 02/02/23 02/07/23 Rx billion cell capsule (Culturelle) amlodipine 10 mg tablet 10 mg PO QDAY #30 tabs 02/02/23 02/06/23 Rx amoxicillin 875 mg-potassium 1 tab PO BID #28 tabs 02/02/23 02/06/23 Rx clavulanate 125 mg tablet Allergies Allergy/AdvReac Type Severity Reaction Status Date / Time No Known Drug Allergies Allergy Unverified 01/25/23 01:43
[2023-02-12] MEDS: PIPERACILLIN SODIUM/TAZOBACTAM 3.375 GM in DEXTROSE 5% IN WATER 50 ML IV SCH ×2 (03:00→08:48)
[2023-02-12] MEDS: 0.9 % SODIUM CHLORIDE 10 ML SYRINGE IV SCH (05:00)
[2023-02-12 06:18] LABS: Basophils # (Auto) 0.07 K/mcL (0.00-0.30); Basophils % (Auto) 0.6 % (0.0-2.0); Eosinophils # (Auto) 0.26 K/mcL (0.00-0.70); Hematocrit 41.5 % (40.1-51.0); Hemoglobin 13.1 g/dL (13.7-17.5); Lymphocytes # (Auto) 2.36 K/mcL (1.50-4.80); Lymphocytes % (Auto) 18.6 % (15.5-49.0); Mean Corpuscular HGB Conc 31.6 g/dL (31.0-36.0); Mean Platelet Volume 9.3 fL (8.8-12.5); Monocytes # (Auto) 1.06 K/mcL (0.10-0.90); Monocytes % (Auto) 8.3 % (1.0-12.0); Neutrophils % (Auto) 68.6 % (38.0-78.0); Platelet Count 614 K/mcL (140-440); RBC 4.77 M/mcL (4.63-6.08); Red Cell Distribution Width 13.6 % (11.5-14.5); WBC 12.7 K/mcL (4.5-11.0)
[2023-02-12 06:48] LABS: ALT/SGPT 45 U/L (<40); AST/SGOT 24 U/L (<40); Albumin/Globulin Ratio 0.8 (1.0-2.3); Alkaline Phosphatase 103 U/L (39-117); Bilirubin,Total 0.3 mg/dL (0.1-1.0); Blood Urea Nitrogen 19 mg/dL (6-20); Calcium 9.1 mg/dL (8.6-10.4); Carbon Dioxide 23 mmol/L (22-30); Chloride 105 mmol/L (96-108); Globulin 3.8 gm/dL (2.2-3.7); Glomerular Filtration Rate 100; Glucose 102 mg/dL (70-105)
--- NOTE | 2023-02-12 07:47 | Urology Progress Note ---
SUBJECTIVE Subjective Patient information: Note initiated : 02/12/23 at 7:38 am Service Date, if different from initiated Date: [] Patient: Ventura Corral 57 y/o M admitted on 02/06/23 for groin problem- UTI,Sepsis,Penile Abscess. Chief Complaint: [] Principal diagnosis: Penile abscess Interval history: Patient is postop day 6 from cystoscopy, suprapubic tube placement and drainage of penile abscess. Patient had no acute episodes overnight. He states he continues to feel better with minimal pain. He has had no nausea or vomiting, fevers or chills. Patient is ambulating and tolerating regular diet. Patient has had normal bowel movements. Constitutional Vitals: Vital Signs Temp Pulse Resp BP Pulse Ox O2 Del Method O2 Flow Rate 98.2 F 91 H 16 137/102 96 Room Air 2 02/12/23 07:12 02/12/23 07:12 02/12/23 07:12 02/12/23 07:12 02/12/23 07:12 02/12/23 07:12 02/07/23 02:45 Period Temp Pulse Resp BP Sys/Garcia Pulse Ox O2 Del Method O2 Flow Rate Last 24 Hr 98.2 F-98.9 F 88-100 16-20 136-147/95-102 94-96 Room Air-Room Air Intake and Output 02/11/23 02/12/23 02/12/23 19:59 03:59 11:59 Intake Total 580 580 Output Total 801 600 Balance -221 -20 Weight 84.482 kg Intake & Output: Intake & Output 02/11/23 02/12/23 02/12/23 19:59 03:59 11:59 Intake Total 580 580 Output Total 801 600 Balance -221 -20 Weight 84.482 kg Intake: IV 100 100 Zosyn 3.375 gm In Dextrose 5% 100 100 in Water 50 ml @ 100 mls/hr IV Q6H [facility] Rx#:[id number] Oral 480 480 Output: Drainage 1 penis 1 Urine Catheter Amount 800 600 Other: Meal Lunch Percent of Meal Consumed 100% Feeding Ability Independent Urine Appearance Clear Clear Suprapubic Clear Clear Urine Color Yellow Yellow Suprapubic Yellow Yellow Urine Odor Normal General appearance: cooperative and no acute distress GI/Abdominal Additional comments: Soft, nondistended, nontender, suprapubic tube in place draining clear urine. Additional comments: [place] drain in place draining minimal fluid. There is no erythema. Minimal induration on the lower aspect of the penis. Extremities Exam Additional comments: Bilateral calf nontender Additional findings Additional findings: White blood cell count noted (12.7), essentially no change. A/P Assessment and plan (1) Urethral trauma: Status: Acute (2) Abscess of penis: Status: Acute (3) Urethral stricture: Status: Acute Plan 57-year-old gentleman postop day 6 from cystoscopy, suprapubic tube placement, and drainage of penile abscess. Clinically patient continues to make an excellent recovery (afebrile, subjectively feeling better, genital exam markedly improved). I am not sure how to account for the patient's white count. I believe the patient is stable from a urologic standpoint for discharge home. Patient should go home with oral antibiotics (her ID recommendations). Continue suprapubic tube, he may go home with a leg bag and night bag. Continue Yeimy and dressing changes. He should follow-up with Dr. Griffin next week. Time Spent With Patient Time: Total time spent is greater than 50% in coordination of care (as documented) at patient's floor/unit and/or counseling patient:
[2023-02-12] MEDS: HYDROcodone/APAP 5/325MG TABLET PO PRN ×2 (07:50→12:27)
[2023-02-12] MEDS: amLODIPine 10 MG TABLET PO SCH (08:47)
[2023-02-12] MEDS: HEPARIN 5,000 UNIT/ML VIAL SQ SCH (08:48)
[2023-02-12] MEDS: LACTOBACILLUS 1 CAPSULE PO SCH (08:48)
[2023-02-12] MEDS: DOCUSATE SODIUM 100 MG CAPSULE PO SCH (08:48)
--- NOTE | 2023-02-12 10:40 | Discharge Summary ---
Discharge Provider Provider IMPORTANT FOLLOW-UP INFORMATION FOR PCP: Patient information: Note initiated : 02/12/23 at 10:35 am Service Date, if different from initiated Date: [] Patient: Ventura Corral 57 y/o M admitted on 02/06/23 for groin problem-UTI,Sepsis,Penile Abscess. Chief Complaint: [] Date of admission: 02/06/23 19:38 Discharge date: 02/12/23 Primary care physician: JOHN Wilkins Attending physician on admission: Ritesh Henriquez Consults: 02/06/23 Consult to Physician [CONS] Stat Comment: Consulting Provider: Juarez Griffin Reason For Exam: Physician to Consult Consult to Physician [CONS] Stat Comment: Consulting Provider: Ritesh Henriquez Reason For Exam: Physician to Consult 02/06/23 19:56 Consult to Physician [CONS] Routine Comment: penile abscess s/p I&D, now with Suprapubic cath Consulting Provider: Drerick Marie - ID Reason For Exam: Physician to Consult Attending physician on discharge: [facility] COURSE Hospital Course Hospital course: Mr. Corral is a 57 year old M Presents today for increasingly swollen and painful penis. Patient was recently admitted for sepsis due to pyelonephritis. Patient was also found have a urethral stricture and urinary retention. Urine cultures grew Aerococcus. Patient was discharged on Augmentin. Patient was doing better on discharge although he still had intermittent temperatures of around 100 per spouse. This morning he suddenly became worse stating his penis and scrotum dramatically increased in size and redness. He also Developed penile discharge today. Patient complained of sweats and chills. He was tachycardic and mildly febrile 100.7 in the ED. Urinalysis was consistent with infection. Ultrasound revealed a 4 x 8 cm abscess versus hematoma in the corpus spongiosum. Leukocytosis of 15,000 and elevated CRP at 18. Urologist was consulted who will take the patient for exploration. Broad-spectrum antibiotics started in the ED 02/07 Feeling better today. He relates he was quite foggy the other day but mentation much more clear. Persistent leukocytosis today. Afebrile. Pending wound cultures. ID consult. 02/08 Patient feeling better. Like leukocytosis finally resolved. Continue IV antibiotics. Pending surgical cultures. ID following. 02/09: Afebrile overnight. WBC 7.6. Plt 710. Blood culture no growth to date. Urine culture Aerococcus urinae. Patient is complaining of mild scrotal/penile pain. He denies any subjective fever, chills, or diaphoresis. Patient's had concerned about potential heavy metal poisoning. We will check for serum lead, mercury, and thallium levels. We will continue Zosyn for now expecting a few more days. We will work with urologist and infectious disease specialist. Overall condition guarded. Stay in [facility]. 02/10: Afebrile overnight. WBC 9.6. Plt 742. Blood culture no growth to date. Urine culture Aerococcus urinae. He denies any scrotal/penile pain. He denies any subjective fever, chills, or diaphoresis. We will continue Zosyn for now expecting a few more days, will switch to oral antibiotics for 2-3 weeks. We will work with urologist and infectious disease specialist. Overall condition guarded. Stay in [facility]. Will make sure he follow up with Dr. Griffin in 1 week upon hospital discharge. 02/11: Afebrile overnight. WBC 12.4. Plt 647. Blood and wound cultures no growth to date. Urine culture Aerococcus urinae. He denies any scrotal/penile pain. He denies any subjective fever, chills, or diaphoresis. We will continue Zosyn for now while inpatient, will switch to oral antibiotics (something other than Augmentin since he failed that outpatient) for 2-3 additional weeks. We will work with urologist and infectious disease specialist. Overall condition guarded. Stay in [facility]. Will make sure he follow up with Dr. Griffin in 1 week upon hospital discharge. 02/12: Discharged home with Rx sent to pharmacy and given to him. 1 week follow up with Dr. Griffin and 2 week with PCP arranged for him. All questions were answered prior to patient being physically discharged. Discharge diagnosis: Penile abscess Time Spent with Patient Time attestation: Total time spent providing and/or coordinating discharge services: Time spent: Less than 30 minutes EXAM Constitutional Vitals: Temp Pulse Resp BP Pulse Ox O2 Del Method O2 Flow Rate 36.8 C 91 H 16 137/102 96 Room Air 2 02/12/23 07:12 02/12/23 07:12 02/12/23 07:12 02/12/23 07:12 02/12/23 07:12 02/12/23 07:12 02/07/23 02:45 General appearance: cooperative and no acute distress Head Head exam: Present atraumatic and normocephalic Eye Eye exam: Present EOMI and PERRL ENT ENT exam: Present mucous membranes moist, normal exam and normal external ear exam Neck Neck exam: Present normal inspection; Absent lymphadenopathy, tenderness or thyromegaly Respiratory Respiratory exam: Absent accessory muscle use, respiratory distress or wheezes Cardiovascular Cardiovascular exam: Present normal rate and rhythm; Absent JVD GI/Abdominal GI/Abdominal exam: Present normal bowel sounds and soft; Absent organomegaly or tenderness Rectal Rectal exam: Present deferred Additional comments: Suprapubic catheter in place Penile drain in place Scrotal drain in place Extremities Exam Extremities exam: Present full ROM, normal capillary refill and normal insp ection; Absent tenderness Neurological Exam Neurological exam: Present alert, CN II-XII intact and oriented X3; Absent motor sensory deficit Psychiatric Psychiatric exam: Present normal affect and normal mood; Absent anxious or depressed Skin Skin exam: Present dry and intact Discharge Data Data Completed and Pending Labs on day of discharge: Labs from last 24 hours 02/12/23 02/12/23 05:03 05:03 WBC 12.7 H RBC 4.77 Hgb 13.1 L Hct 41.5 MCV 87.0 MCH 27.5 MCHC 31.6 RDW 13.6 Plt Count 614 H MPV 9.3 Immature Gran % (Auto) 1.9 H Neut % (Auto) 68.6 Lymph % (Auto) 18.6 [place] % (Auto) 8.3 Eos % (Auto) 2.0 Baso % (Auto) 0.6 Lymph # (Auto) 2.36 [place] # (Auto) 1.06 H Eos # (Auto) 0.26 Baso # (Auto) 0.07 Immature Gran # 0.24 H Absolute Neutrophils 8.71 H Sodium 139 Potassium 4.4 Chloride 105 Carbon Dioxide 23 Anion Gap 11.0 BUN 19 Creatinine 0.8 GFR Calculation 100 Glucose 102 Calcium 9.1 Total Bilirubin 0.3 AST 24 ALT 45 H Alkaline Phosphatase 103 Total Protein 6.8 Albumin 3.0 L Globulin 3.8 H Albumin/Globulin Ratio 0.8 L Preliminary micro results at discharge 02/06/23 18:44 Gram Stain - Preliminary Penis Anaerobic Culture - Preliminary 02/06/23 18:44 Gram Stain - Preliminary Penis Anaerobic Culture - Preliminary 02/06/23 12:04 Gram Stain - Preliminary Skin - Other Wound Culture - Preliminary Discharge Plan Patient/Caregiver Discharge Instructions Activity: increase activity as tolerated Diet: Regular Diet Prescriptions: New hydrocodone-acetaminophen 5-325 mg Tablet 1 tab PO Q6H PRN (Reason: Pain Level 3-6) Qty: 20 0RF cefpodoxime 200 mg tablet 200 mg PO BID Qty: 28 0RF Rx Instructions: must administer with a meal/food Continued amlodipine 10 mg tablet 10 mg PO QDAY Qty: 30 0RF Culturelle 10 billion cell capsule 1 cap PO QDAY Qty: 30 0RF Discontinued amoxicillin-pot clavulanate 875-125 mg tablet 1 tab PO BID Qty: 28 0RF Follow Up Plan Follow up with: Juarez Griffin MD [Physician] - (You will be contacted by Dr. Griffin's office to schedule a follow up visit. If you have not heard from them by Wednesday, please call them at [phone] to schedule to be seen within 7 days. ) Chace Gonzalez ARNP [Primary Care Provider] - 02/22/23 9:00 am Patient Disposition: Home, Self-Care Rehab Potential: Good I certify that the patient requires SNF services: No Overall status at discharge: patient is progressing back to baseline Discharge Orders: Discharge Order (Routine); Ordered 02/12/23 Ordered By: Ronald NAVARRO VTE Deep Vein Thrombosis/Pulmonary Embolism Present on Admission: No
--- NOTE | 2023-02-12 11:58 | Infectious Disease Prog Note ---
Telemedicine Intake Start Time: 11:40 End Time: 11:55 Consent for assessment and treatment to occur via virtual technology obtained from: Patient Location of Provider: Home SUBJECTIVE Subjective Patient information: Note initiated : 02/12/23 at 11:56 am Service Date, if different from initiated Date: [] Patient: Ventura Corral 57 y/o M admitted on 02/06/23 for groin problem- UTI,Sepsis,Penile Abscess. Chief Complaint: [] Principal diagnosis: Penile abscess Interval history: Continues to feel better. Pain if it starts is in the lower abdomen but currently none. Catheter is functioning well. No new symptoms today. Wants to go home. Constitutional Vitals: Vital Signs Temp Pulse Resp BP Pulse Ox O2 Del Method O2 Flow Rate 98.2 F 91 H 16 137/102 96 Room Air 2 02/12/23 07:12 02/12/23 07:12 02/12/23 07:12 02/12/23 07:12 02/12/23 07:12 02/12/23 07:12 02/07/23 02:45 Period Temp Pulse Resp BP Sys/Garcia Pulse Ox O2 Del Method O2 Flow Rate Last 24 Hr 98.2 F-98.9 F 91-100 16-20 137-147/95-102 94-96 Room Air-Room Air Intake and Output 02/11/23 02/12/23 02/12/23 19:59 03:59 11:59 Intake Total 580 580 530 Output Total 801 600 Balance -221 -20 530 Weight 84.482 kg Intake & Output: Intake & Output 02/11/23 02/12/23 02/12/23 19:59 03:59 11:59 Intake Total 580 580 530 Output Total 801 600 Balance -221 -20 530 Weight 84.482 kg Intake: IV 100 100 50 Zosyn 3.375 gm In Dextrose 5% 100 100 50 in Water 50 ml @ 100 mls/hr IV Q6H [facility], [facility]–1983 Rx#:[id number] Oral 480 480 480 Output: Drainage 1 penis 1 Urine Catheter Amount 800 600 Other: Meal Lunch Breakfast Percent of Meal Consumed 100% 100% Feeding Ability Independent Independent Urine Appearance Clear Clear Suprapubic Clear Clear Clear Urine Color Yellow Yellow Suprapubic Yellow Yellow Yellow Urine Odor Normal Stool Size Moderate Stool Color Brown Stool Consistency Normal for Patient # Bowel Movements 1 Head Head exam: Present atraumatic exam: Absent scrotal swelling External exam: Absent erythema Additional comments: Two drains still in place. Dressing with serosanguineous strikethrough A/P Assessment and plan (1) Abscess of penis: Assessment and plan: 57 yo M with no significant PMH. He was recently discahrged 02/02 for difficulty urinating, found to have sepsis 2/2 pyelonephritis Treated with Ceftriaxone. Urine cx at the time showed aerococcus urinae. Pt developed a fever and leukocytosis a few days during the hospitalization, had scrotal edema and treated with Lasix. CT abdomen and pelvis was obtained which showed some fluid collection in the penis surrounding the Duff catheter in the corpus spongiosum 2.7 x 2.8 cm which could be severely dilated urethra or could be an infection. Seen by urology at the time, edema improved on discharge and patient was discharged on Augmentin for 2 weeks. Found to also have a urethral stricture. [facility] sudden penile and scrotal worsening in size and redness. Found to have leukocytosis and fever on admission as well. US showed 4x8cm abscess. Started on antibiotics. Now s/p cystoscopy, placement of suprapubic catheter and drainage of penile abscess. Overall clinically improved on Zosyn in hospital. WBC up to 12 yesterday, now stable today and no new symptoms Plan: - switch to Cefpodoxime for another week on discharge - following up with Urology next week and PMD - recommend re-checking WBC count next week to ensure it's normalized - counseled on proper catheter care to prevent infections Status: Acute Time Spent With Patient Time: Total time spent is greater than 50% in coordination of care (as documented) at patient's floor/unit and/or counseling patient: Subsequent: Total time with patient: Less than 25 minutes MEDS/ALLERGIES Home Medications and Allergies Home Medications Medication Instructions Recorded Confirmed Type Lactobacillus rhamnosus GG 10 1 cap PO QDAY #30 caps 02/02/23 02/07/23 Rx billion cell capsule (Culturelle) amlodipine 10 mg tablet 10 mg PO QDAY #30 tabs 02/02/23 02/06/23 Rx cefpodoxime 200 mg tablet 200 mg PO BID #28 tabs 02/12/23 Rx hydrocodone 5 mg-acetaminophen 325 1 tab PO Q6H PRN Pain Level 3-6 02/12/23 Rx mg tablet #20 tabs Allergies Allergy/AdvReac Type Severity Reaction Status Date / Time No Known Drug Allergies Allergy Unverified 01/25/23 01:43
== END 2023-02-12 15:26 | disposition home or self-care (01) | DRG 853 ==
LOC: ED 11:08 → SUR 17:00 → MEDSUR 19:38
PROVIDERS: ADMIT Internal Medicine; ATTEND Internal Medicine